=== PATIENT | male | born 1940 | race Hispanic/Latino ===

== ENCOUNTER 2017-02-19 02:04 | Emergency (ER) | payer MEDICARE ==
--- NOTE | 2017-02-19 02:45 | ED PDOC ---
Arrival/HPI - General Chief Complaint: Upper Extremity Problem/Injury Time Seen by Provider: 02/19/17 02:22 Historian: Patient - History of Present Illness Narrative History of Present Illness (Text): you were treated in the ED today for left hand pain related to stacking papers on a skid but no trauma/direct injury to the left hand. now with redness/mild swelling to the back of left-mid hand. otherwise without any nausea/vomiting/ headache/dizziness/difficulty breathing/chest pain/abdomen pain/numbness/ tingling/loss of limb function/pain with urination. 02/19/17 02:42 Time/Duration: 24 hours Symptom Onset: Sudden Symptom Course: Unchanged Activities at Onset: Light Past Medical History - Provider Review Nursing Documentation Reviewed: Yes - Travel History Have you recently traveled outside [place] w/in the past 3 mons?: No - Psychiatric Hx Substance Use: No - Surgical History Other/Comment: throat cancer 2000 Family/Social History - Physician Review Nursing Documentation Reviewed: Yes Family/Social History: No Known Family HX Smoking Status: Light Smoker < 10 Cigarettes Daily Hx Alcohol Use: No Hx Substance Use: No Allergies/Home Meds Allergies/Adverse Reactions: Allergies No Known Allergies Allergy (Verified 02/19/17 02:13) Review of Systems - Physician Review All systems were reviewed & negative as marked: Yes - Review of Systems Constitutional: Normal Eyes: Normal ENT: Normal Respiratory: Normal Cardiovascular: Normal Gastrointestinal: Normal Genitourinary Male: Normal Musculoskeletal: Joint Swelling Skin: Other (left hand redness/swelling) Neurological: Normal Endocrine: Normal Hemo/Lymphatic: Normal Psychiatric: Normal Physical Exam Vital Signs Reviewed: Yes Vital Signs Temp Pulse Resp BP Pulse Ox 02/19/17 02:05 98.0 F 77 19 121/79 100 Temperature: Afebrile Blood Pressure: Normal Pulse: Regular Respiratory Rate: Normal Appearance: Positive for: Well-Appearing, Non-Toxic, Comfortable Pain Distress: None Mental Status: Positive for: Alert and Oriented X 3 - Systems Exam Head: Present: Atraumatic, Normocephalic Pupils: Present: PERRL Extroacular Muscles: Present: EOMI Conjunctiva: Present: Normal Ears: Present: Normal Mouth: Present: Moist Mucous Membranes Pharnyx: Present: Normal Nose (External): Present: Atraumatic Nose (Internal): Present: Normal Inspection Neck: Present: Normal Range of Motion Respiratory/Chest: Present: Clear to Auscultation, Good Air Exchange Cardiovascular: Present: Regular Rate and Rhythm Abdomen: No: Tenderness, Distention, Normal Bowel Sounds, Peritoneal Signs, Rebound, Guarding, McBurney's Point Tender, Rovsing's Sign Present, Hernias, Feeding Tubes, Ostomy Tubes, Mass/Organomegaly, Scars, Other Back: Present: Normal Inspection Upper Extremity: Present: Other (left extensor mid-left hand with area of mild erythema swelling wo fluctuance/crepitus. otherwise mild discomfort over redness area wo any other bony tenderness or snuffbox tenderness. +warm/ sensation/cap refill/pink/radial pulse+.) Lower Extremity: Present: Normal Inspection Neurological: Present: GCS=15, CN II-XII Intact, Speech Normal Skin: Present: Warm, Other (see ue) Psychiatric: Present: Alert, Oriented x 3, Normal Insight, Normal Concentration Medical Decision Making ED Course and Treatment: you have a history of throat cancer and are speaking in your normal voice and were treated in the ED today for left hand pain related to stacking papers on a skid but no trauma/direct injury to the left hand. now with redness/mild swelling to the back of left-mid hand. otherwise without any nausea/vomiting/ headache/dizziness/difficulty breathing/chest pain/abdomen pain/numbness/ tingling/loss of limb function/pain with urination. You were otherwise breathing easily, smiling, good strength/sensation, walking easily, clear lungs , no abdomen tenderness, left back of hand mild-mid redness/swelling with mild discomfort over the redness area without any other bony tenderness and with positive good pulse/sensation/pink, no fever temp 98, stable heart rate 77, stable breathing rate 19, excellent oxygen level 100% room air, stable blood pressure 121/79, radiology left hand xray area of 3rd finger bony disruption thus splint placed for comfort, tylenol and keflex done in the ED with improvement, counselled to rest left upper extremity and thus discharged home left hand skin infection. 1. Recommend tylenol as directed for pain. 2. Recommend keflex as directed for infection control. 3. Recommend follow-up primary care 1-2 days to review symptoms, referral to orthopedics/hand surgery clinic. 4. If any worsening pain, fever, chills, nausea, vomiting, difficulty breathing, numbness, loss of limb function, pain with urination or any medical condition then return to the ED. 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 - Medication Orders Current Medication Orders: Acetaminophen (Tylenol 160mg/5ml Oral Soln) 650 mg PO ONCE ONE Stop: 02/19/17 03:03 Cephalexin Monohydrate (Keflex) 500 mg PO ONCE ONE PRN Reason: Protocol Stop: 02/19/17 03:05 Discontinued Medications Acetaminophen (Tylenol 325mg Tab) 975 mg PO STAT STA Stop: 02/19/17 02:42 Last Admin: 02/19/17 02:51 Dose: Cephalexin Monohydrate (Keflex) 500 mg PO STAT STA PRN Reason: Protocol Stop: 02/19/17 02:42 Last Admin: 02/19/17 02:52 Dose: Disposition/Present on Arrival - Present on Arrival Any Indicators Present on Arrival: No History of DVT/PE: No History of Uncontrolled Diabetes: No Urinary Catheter: No History of Decub. Ulcer: No History Surgical Site Infection Following: None - Disposition Have Diagnosis and Disposition been Completed?: Yes Diagnosis: Hand injury, Cellulitis of hand, left Disposition: HOME/ ROUTINE Disposition Time: 03:10 Patient Plan: Discharge Condition: IMPROVED Discharge Instructions (ExitCare): Cellulitis (ED) Additional Instructions: you have a history of throat cancer and are speaking in your normal voice and were treated in the ED today for left hand pain related to stacking papers on a skid but no trauma/direct injury to the left hand. now with redness/mild swelling to the back of left-mid hand. otherwise without any nausea/vomiting/ headache/dizziness/difficulty breathing/chest pain/abdomen pain/numbness/ tingling/loss of limb function/pain with urination. You were otherwise breathing easily, smiling, good strength/sensation, walking easily, clear lungs , no abdomen tenderness, left back of hand mild-mid redness/swelling with mild discomfort over the redness area without any other bony tenderness and with positive good pulse/sensation/pink, no fever temp 98, stable heart rate 77, stable breathing rate 19, excellent oxygen level 100% room air, stable blood pressure 121/79, radiology left hand xray area of 3rd finger bony disruption thus splint placed for comfort and be non-weight bearing till first clinic visit , tylenol and keflex done in the ED with improvement, counselled to rest left upper extremity and thus discharged home left hand skin infection. 1. Recommend tylenol as directed for pain. 2. Recommend keflex as directed for infection control. 3. Recommend follow-up primary care 1-2 days to review symptoms, get final xray report, referral to orthopedics/hand surgery clinic. 4. If any worsening pain, fever, chills, nausea, vomiting, difficulty breathing, numbness , loss of limb function, pain with urination or any medical condition then return to the ED. Prescriptions: Acetaminophen [Acetaminophen Oral Soln] 320 mg PO Q6 PRN #1 bottle PRN Reason: Pain, Mild (1-3) Cephalexin Susp [Keflex] 500 mg PO Q6 10 Days #1 bottle Forms: [employer] (Arabic), WORK NOTE
[2017-02-19] MEDS ORDERED: Acetaminophen 650mg/20.3ml solution UD PO ONE (03:02)
[2017-02-19] MEDS ORDERED: Cephalexin Susp 250 MG/5 ML PO ONE (03:04)
[2017-02-19 03:29] VITALS: BP 125/82; PULSE 82; RESP 17; TEMP 98.2; O2SAT 98
--- NOTE | 2017-02-19 09:31 | RAD ---
PROCEDURE: Left Hand Radiographs. HISTORY: 76 M with left hand pain COMPARISON: None. FINDINGS: BONES: Normal. No fracture. JOINTS: Normal. No osteoarthritic changes. SOFT TISSUES: There is a small amount of a amorphous soft tissue calcifications seen along the palmar aspect of the 3rd metacarpal head. Nonspecific. OTHER FINDINGS: None. IMPRESSION: No evidence fracture or arthritis.
== END 2017-02-19 03:29 | disposition home or self-care (01) ==
LOC: ED 02:04
DX: L03.114 Cellulitis of left upper limb (principal); S69.92XA Unspecified injury of left wrist, hand and finger(s), initial encounter; X58.XXXA Exposure to other specified factors, initial encounter; F17.210 Nicotine dependence, cigarettes, uncomplicated

== ENCOUNTER 2017-08-01 19:02 | Inpatient (IN) | payer MEDICARE, OTHER ==
[2017-08-01] MEDS ORDERED: Sodium Chloride 0.9% 1,000 ML IV SCH (19:45)
--- NOTE | 2017-08-01 19:46 | ED PDOC ---
Arrival/HPI - General Chief Complaint: ENT Problem Time Seen by Provider: 08/01/17 19:23 Historian: Patient - History of Present Illness Narrative History of Present Illness (Text): 08/01/17 19:40 77 year old male, whose PMH includes throat cancer treated in 1999, who presents to the emergency department complaining of difficulty swallowing for the past 3-4 weeks. Patient has been unable to keep anything down and has experienced weight loss, according to family. Patient notes he has not had any follow up care for a while. Patient denies fever, chills, shortness of breath, chest pain, nausea, vomiting, diarrhea. Additionally, patient complains of having intermittent abdominal discomfort. Time/Duration: < month Symptom Onset: Sudden Symptom Course: Unchanged Past Medical History - Provider Review Nursing Documentation Reviewed: Yes - Infectious Disease Hx of Infectious Diseases: None - Psychiatric Hx Substance Use: No - Surgical History Other/Comment: throat cancer 1999 - Anesthesia Hx Anesthesia: Yes Family/Social History - Physician Review Nursing Documentation Reviewed: Yes Family/Social History: Unknown Family HX Smoking Status: Light Smoker < 10 Cigarettes Daily Hx Alcohol Use: No Hx Substance Use: No Allergies/Home Meds Allergies/Adverse Reactions: Allergies No Known Allergies Allergy (Verified 02/19/17 02:13) Review of Systems - Physician Review All systems were reviewed & negative as marked: Yes - Review of Systems Constitutional: Weight Change. absent: Fevers Respiratory: absent: SOB Cardiovascular: absent: Chest Pain Gastrointestinal: Abdominal Pain, Food Intolerance. absent: Diarrhea, Nausea, Vomiting Genitourinary Male: absent: Dysuria Musculoskeletal: absent: Back Pain Physical Exam Vital Signs Reviewed: Yes Vital Signs Temp Pulse Resp BP Pulse Ox 08/02/17 00:18 63 14 111/68 100 08/01/17 19:41 97.4 F L 93 H 17 137/84 100 Temperature: Hypothermic Blood Pressure: Normal Pulse: Tachycardic Respiratory Rate: Normal Appearance: Positive for: Non-Toxic, Comfortable, Cachectic Pain Distress: None Mental Status: Positive for: Alert and Oriented X 3 - Systems Exam Head: Present: Atraumatic, Normocephalic Pupils: Present: PERRL Extroacular Muscles: Present: EOMI Conjunctiva: Present: Normal Mouth: Present: Moist Mucous Membranes, Normal Tounge Pharnyx: Present: Normal. No: ERYTHEMA, EXUDATE, TONSILS ENLARGED Neck: Present: Normal Range of Motion Respiratory/Chest: Present: Clear to Auscultation, Good Air Exchange. No: Respiratory Distress, Accessory Muscle Use, Wheezes, Rales, Rhonchi Cardiovascular: Present: Regular Rate and Rhythm, Normal S1, S2. No: Murmurs Abdomen: Present: Normal Bowel Sounds. No: Tenderness, Distention, Peritoneal Signs, Rebound, Guarding Neurological: Present: GCS=15, CN II-XII Intact, Speech Normal Skin: Present: Warm, Dry, Normal Color. No: Rashes Psychiatric: Present: Alert, Oriented x 3, Normal Insight, Normal Concentration Medical Decision Making ED Course and Treatment: 08/01/17 Impression: 77 year old male with unremarkable physical exam complaining of difficulty swallowing and intermittent abdominal discomfort. Plan: -- CT Chest -- CT abdomen -- CT neck -- EKG -- Labs -- Chest X-ray -- Sodium Chloride -- Reassess and disposition Progress Notes: 08/01/17 20:53 EKG: Ordered, reviewed, and independently interpreted the EKG. Rate : 89 BPM Rhythm : NSR Interpretation : No ST-segment elevations or depressions, no T-wave inversions, normal intervals. 08/01/17 21:21 Chest X-ray reviewed, shows no acute processes. 08/02/17 00:29 CT Neck shows: No acute vascular occlusion or dissection. Hypotrophic P1 segment of the left posterior cerebral artery P2 being well supplied by the anterior circulation. Normal variant insertion of the left vertebral artery into the PICA. Asymmetric opacification of the left mastoid air cells. Recommend clinical correlation with regards to symptoms of mastoiditis. The airway is patent. There is no significant esophageal dilation. The esophagus is essentially decompressed which, in combination with lack of oral contrast, makes it difficult to completely exclude small mucosal lesion. Followup with direct visualization/ endoscopy could be performed if clinically indicated given a history of throat cancer/dysphagia. There appears to be soft tissue edema in the upper lateral neck along the sternocleidomastoid muscles greater on the right of uncertain clinical significance. Clinical correlation recommended. No well-defined mass is identified and no walled off fluid collection. Degenerative changes in the osseous structures. Linear calcification anterior to C2-3. IMPRESSION: Asymmetric opacification of the left mastoid air cells. Recommend clinical correlation with regards to symptoms of mastoiditis. CT Chest shows: No pulmonary embolism identified please note that bolus was optimized for aortic evaluation. No aortic dissection or aneurysm. No pleural or pericardial effusions. Small consolidation is present in the apices, probable atelectasis. Recommend correlation with priors. Punctate area of nodular pleural thickening right anterior lateral lung. Scattered blebs are present. IMPRESSION: No acute findings. CT Abdomen and Pelvis shows: There is inward deformity of the anterior abdominal wall. The liver is decreased in attenuation consistent with fatty infiltration. The gallbladder, spleen, pancreas are normal. Renal cysts. Atherosclerotic calcifications in the aorta with prominent thrombus at the bifurcation. The celiac, SMA, renal arteries, LEANDRA are patent. The visualized bowel is normal.Please note the inferior aspect of the pelvis is excluded from imaging A normal appendix is identified series9, im 332 [phone] 354. The osseous structures are normal. IMPRESSION: No acute findings. 08/02/17 00:36 Case discussed with biomedical engineer conche operator, who is aware and agrees with plan. 08/02/17 00:[address] Huang, who is aware and agrees with plan. Accepts pt in to hospitalist service. Pt will go to [facility] observation for dysphasia and failure to thrive. - Lab Interpretations Lab Results: 08/01/17 20:05 08/01/17 20:05 Lab Results 08/01/17 20:05: WBC 6.3 D, RBC 5.24, Hgb 17.0, Hct 49.6, MCV 94.7, MCH 32.4, MCHC 34.3, RDW 14.4, Plt Count 202, MPV 11.6 H 08/01/17 20:05: Sodium 147, Potassium 5.3 H, Chloride 100, Carbon Dioxide 29, Anion Gap 23 H, BUN 32 H, Creatinine 1.1, Est GFR ( Amer) > 60, Est GFR ( Non-Af Amer) > 60, Random Glucose 123 H, Calcium 10.8 H, Total Bilirubin 0.5, AST 35, ALT 34, Alkaline Phosphatase 75, Total Protein 7.8, Albumin 4.6, Globulin 3.2, Albumin/Globulin Ratio 1.4 08/01/17 20:05: PT 11.1, INR 0.97, APTT 27.2 I have reviewed the lab results: Yes - RAD Interpretation Radiology Orders: 08/01/17 19:40 CHEST PORTABLE [RAD] Stat 08/01/17 19:43 NECK,CHEST,ABD.PELV W/CONTRAST [CT] Stat Surgical Technologist: ED Physician, Radiologist - EKG Interpretation Interpreted by ED Physician: Yes Type: 12 lead EKG - Medication Orders Current Medication Orders: Sodium Chloride (Sodium Chloride 0.9%) 1,000 mls @ 100 mls/hr IV .Q10H LYLY Last Admin: 08/01/17 20:18 Dose: 100 mls/hr eMAR Start Stop Document 08/01/17 20:18 RG (Rec: 08/01/17 20:18 RG [id number]) Intravenous Solution Start Date 08/01/17 Start Time 20:18 - Scribe Statement The provider has reviewed the documentation as recorded by the Mike Funez Provider Scribe Attestation: All medical record entries made by the Scribe were at my direction and personally dictated by me. I have reviewed the chart and agree that the record accurately reflects my personal performance of the history, physical exam, medical decision making, and the department course for this patient. I have also personally directed, reviewed, and agree with the discharge instructions and disposition. Disposition/Present on Arrival - Present on Arrival Any Indicators Present on Arrival: No History of DVT/PE: No History of Uncontrolled Diabetes: No Urinary Catheter: No History of Decub. Ulcer: No History Surgical Site Infection Following: None - Disposition Have Diagnosis and Disposition been Completed?: Yes Diagnosis: Dysphagia, Failure to thrive Disposition: HOSPITALIZED Disposition Time: 00:48 Condition: STABLE Forms: [employer] (Greek)
[2017-08-01 20:26] LABS: MEAN CELL VOLUME 94.7 fl (80.0-105.0); MEAN CORPUSCULAR HEMOGLOBIN 32.4 pg (25.0-35.0); MEAN CORPUSCULAR HGB CONC 34.3 g/dl (31.0-37.0); MEAN PLATELET VOLUME 11.6 fl (7.0-11.0); RBC 5.24 10^6/uL (3.5-6.1); RED CELL DISTRIBUTION WIDTH 14.4 % (11.5-14.5); WHITE BLOOD COUNT 6.3 10^3/ul (4.5-11.0)
[2017-08-01 20:36] LABS: INR 0.97 (0.93-1.08); PARTIAL THROMBOPLASTIN TIME 27.2 Seconds (25.1-36.5); PROTHROMBIN TIME 11.1 SECONDS (9.4-12.5)
[2017-08-01 20:37] LABS: ALB/GLOB RATIO 1.4 (1.1-1.8); ALBUMIN 4.6 g/dL (3.0-4.8); ALT/SGPT 34 U/L (7-56); AST/SGOT 35 U/L (17-59); BLOOD UREA NITROGEN 32 mg/dL (7-21); CALCIUM 10.8 mg/dL (8.4-10.5); GFR AFRICAN-AMERICAN > 60; GFR NON-AFRICAN AMERICAN > 60
[2017-08-01] MEDS ORDERED: Iohexol 350 MG/100 ML VIAL ONE (21:14)
--- NOTE | 2017-08-02 00:26 | CT ---
EXAM: CT Neck With Intravenous Contrast CLINICAL HISTORY: 77 years old, male; Pain; Abdominal pain; Acute; Chest pain; Type not specified; Throat pain; Additional info: Difficulty swallowing/hx. Throat cancer TECHNIQUE: Axial computed tomography images of the neck with intravenous contrast. All CT scans at this facility use one or more dose reduction techniques, viz.: automated exposure control; ma/kV adjustment per patient size (including targeted exams where dose is matched to indication; i.e. head); or iterative reconstruction technique. Coronal and sagittal reformatted images were created and reviewed. CONTRAST: 100 mL of omni 350 administered intravenously. COMPARISON: No relevant prior studies available. FINDINGS: No acute vascular occlusion or dissection. Hypotrophic P1 segment of the left posterior cerebral artery P2 being well supplied by the anterior circulation. Normal variant insertion of the left vertebral artery into the PICA. Asymmetric opacification of the left mastoid air cells. Recommend clinical correlation with regards to symptoms of mastoiditis. The airway is patent. There is no significant esophageal dilation. The esophagus is essentially decompressed which, in combination with lack of oral contrast, makes it difficult to completely exclude small mucosal lesion. Followup with direct visualization/ endoscopy could be performed if clinically indicated given a history of throat cancer/dysphagia. There appears to be soft tissue edema in the upper lateral neck along the sternocleidomastoid muscles greater on the right of uncertain clinical significance. Clinical correlation recommended. No well-defined mass is identified and no walled off fluid collection. Degenerative changes in the osseous structures. Linear calcification anterior to C2-3. IMPRESSION: Asymmetric opacification of the left mastoid air cells. Recommend clinical correlation with regards to symptoms of mastoiditis. EXAM: CT Chest With Intravenous Contrast CLINICAL HISTORY: 77 years old, male; Pain; Abdominal pain; Acute; Chest pain; Type not specified; Throat pain; Additional info: Difficulty swallowing/hx. Throat cancer TECHNIQUE: Axial computed tomography images of the chest with intravenous contrast. All CT scans at this facility use one or more dose reduction techniques, viz.: automated exposure control; ma/kV adjustment per patient size (including targeted exams where dose is matched to indication; i.e. head); or iterative reconstruction technique. Coronal and sagittal reformatted images were created and reviewed. CONTRAST: 100 mL of omni 350 administered intravenously. COMPARISON: No relevant prior studies available. FINDINGS: No pulmonary embolism identified please note that bolus was optimized for aortic evaluation. No aortic dissection or aneurysm. No pleural or pericardial effusions. Small consolidation is present in the apices, probable atelectasis. Recommend correlation with priors. Punctate area of nodular pleural thickening right anterior lateral lung. Scattered blebs are present. IMPRESSION: No acute findings. EXAM: CT Abdomen and Pelvis With Intravenous Contrast EXAM DATE/TIME: 08/01/2017 7:43 PM CLINICAL HISTORY: 77 years old, male; Pain; Abdominal pain; Acute; Chest pain; Type not specified; Throat pain; Additional info: Difficulty swallowing/hx. Throat cancer TECHNIQUE: Axial computed tomography images of the abdomen and pelvis with intravenous contrast. All CT scans at this facility use one or more dose reduction techniques, viz.: automated exposure control; ma/kV adjustment per patient size (including targeted exams where dose is matched to indication; i.e. head); or iterative reconstruction technique. Coronal and sagittal reformatted images were created and reviewed. CONTRAST: 100 mL of omni 350 administered intravenously. COMPARISON: DX - CHEST PORTABLE 2017-08-01 19:52 FINDINGS: There is inward deformity of the anterior abdominal wall. The liver is decreased in attenuation consistent with fatty infiltration. The gallbladder, spleen, pancreas are normal. Renal cysts. Atherosclerotic calcifications in the aorta with prominent thrombus at the bifurcation. The celiac, SMA, renal arteries, LEANDRA are patent. The visualized bowel is normal.Please note the inferior aspect of the pelvis is excluded from imaging. A normal appendix is identified series9, im 332 - [id number]. The osseous structures are normal. IMPRESSION: No acute findings.
--- NOTE | 2017-08-02 01:27 | CP.PCM.HP ---
<Virgilio Youngblood - Last Filed: 08/02/17 04:45> History of Present Illness - History of Present Illness History of Present Illness: PGY-1 H&P for Dr[address] Huang CC: "I can't swallow anything" This is a 77 year old male with PMHx throat cancer s/p radiation treatment in 1999 who presented to the hospital with 3 weeks of new onset dysphagia to liquids. He has baseline dysphagia to solid food. Patient states that it began 3 weeks ago when he noticed that after swallowing liquids, he would spit it back up. Per at bedside, she states that she also sees it coming out of his nose as well. Patient does not notice any exacerbating or remitting factors. Patient states that he has lost about 20 pounds within these past 3 weeks. Patient states that he was diagnosed in 1999 with an unspecified type of throat cancer. He received 5 sessions of radiation for his cancer before being sent to [facility]. While he was in [place], he had a biopsy and was later sent to [facility] where he completed his treatments. He was only able to tolerate a liquid diet after his treatments and was drinking protein supplements before this dysphagia to liquids began. Patient was offered treatment in the past for his dysphagia to solids but has refused. He is complaining of abdominal pain from hunger and nausea due to dry mouth. He denies any throat pain, chest pain, dyspnea. PMHx: throat cancer s/p radiation treatment in 1999 PSHx: throat biopsy, right eye cataract surgery Allergies: peanuts Social: Current smoker since age 11. Smokes a pack every 3 days. Denies alcohol. Former marijuana user. Lives with and son. Ambulates at baseline. Family Hx: Father with pancreatic cancer PMD: Dr. Domingo Home meds: Unspecified eye drops Present on Admission - Present on Admission Any Indicators Present on Admission: No Review of Systems - Constitutional Constitutional: absent: Chills, Fever - EENT Eyes: absent: Change in Vision Ears: Decreased Hearing Nose/Mouth/Throat: Dry Mouth. absent: Nasal Congestion - Cardiovascular Cardiovascular: absent: Chest Pain - Respiratory Respiratory: absent: Dyspnea - Gastrointestinal Gastrointestinal: Nausea (per patient, this is due to dry mouth), Other (hunger) . absent: Abdominal Pain, Constipation, Diarrhea - Genitourinary Genitourinary: absent: Dysuria - Musculoskeletal Musculoskeletal: Other (anterior thigh pain) - Integumentary Integumentary: absent: Rash - Neurological Neurological: Weakness. absent: Dizziness - Psychiatric Psychiatric: Change in Appetite (decreased) - Endocrine Endocrine: absent: Palpitations Past Patient History - Infectious Disease Hx of Infectious Diseases: None - Past Social History Smoking Status: Light Smoker < 10 Cigarettes Daily - PSYCHIATRIC Hx Substance Use: No - SURGICAL HISTORY Other/Comment: throat cancer 1999 - ANESTHESIA Hx Anesthesia: Yes Meds Allergies/Adverse Reactions: Allergies Allergy/AdvReac Type Severity Reaction Status Date / Time No Known Allergies Allergy Verified 02/19/17 02:13 Physical Exam - Constitutional Appears: No Acute Distress, Cachectic - Head Exam Head Exam: ATRAUMATIC, NORMOCEPHALIC - Eye Exam Eye Exam: EOMI Pupil Exam: Unequal (right pupil irregularly shaped) - ENT Exam ENT Exam: Mucous Membranes Moist - Neck Exam Additional comments: horizontal scar on right side of neck - Respiratory Exam Respiratory Exam: Clear to Auscultation Bilateral, NORMAL BREATHING PATTERN. absent: Rales, Rhonchi, Wheezes - Cardiovascular Exam Cardiovascular Exam: REGULAR RHYTHM, +S1, +S2 - GI/Abdominal Exam GI & Abdominal Exam: Normal Bowel Sounds, Soft. absent: Distended, Guarding, Hernia, Tenderness - Extremities Exam Extremities exam: Negative for: calf tenderness, pedal edema - Neurological Exam Neurological exam: Alert, Oriented x3 - Psychiatric Exam Psychiatric exam: Anxious - Skin Skin Exam: Dry, Warm Additional comments: Diminished skin turgor Results - Vital Signs Recent Vital Signs: Last Vital Signs Temp 97.4 F L 08/01/17 19:41 Pulse 66 08/02/17 00:57 Resp 18 08/02/17 00:57 BP 122/69 08/02/17 00:57 Pulse Ox 100 08/02/17 00:57 - Labs Result Diagrams: 08/01/17 20:05 08/01/17 20:05 Assessment & Plan - Assessment and Plan (Free Text) Assessment: This is a 77 year old male with PMHx esophageal cancer s/p radiation therapy in 1999 and baseline dysphagia to solids who presented with new onset dysphagia to liquids. Plan: 1. Dysphagia -CT scan reviewed, no obvious etiology -Swallow evaluation -GI consult -Oncology consult -ENT consult -D5 NS @100cc/hr -NPO 2. Weight loss -possibly due to underlying condition Discussed with Dr. Reina Youngblood PGY-1 <Annamaria Huang - Last Filed: 08/02/17 05:06> Results - Vital Signs Recent Vital Signs: Last Vital Signs Temp 98.0 F 08/02/17 02:41 Pulse 62 08/02/17 02:41 Resp 18 08/02/17 02:41 BP 111/68 08/02/17 02:41 Pulse Ox 98 08/02/17 01:48 - Labs Result Diagrams: 08/01/17 20:05 08/01/17 20:05 Attending/Attestation - Attestation I have personally seen and examined this patient.: Yes I have fully participated in the care of the patient.: Yes I have reviewed all pertinent clinical information: Yes Notes (Text): 08/02/17 05:05 Agree with documentation and plan
[2017-08-02] MEDS ORDERED: Dextrose 5%/0.9% NS 1,000 ML IV SCH (01:45)
[2017-08-02] MEDS: Dextrose 5%/0.45% NS 1,000 ML IV SCH ×2 (03:50→15:07)
[2017-08-02 06:33] LABS: BASO # 0.01 K/mm3 (0.0-2.0); BASO % 0.2 % (0.0-3.0); EOS # 0.1 (0.0-0.7); GRAN # 4.24 (1.4-6.5); GRAN % 69.1 % (50.0-68.0); LYMPH # 1.3 (1.2-3.4); LYMPH % 21.2 % (22.0-35.0); MEAN CELL VOLUME 93.8 fl (80.0-105.0); MEAN CORPUSCULAR HEMOGLOBIN 31.4 pg (25.0-35.0); MEAN CORPUSCULAR HGB CONC 33.4 g/dl (31.0-37.0); MEAN PLATELET VOLUME 11.2 fl (7.0-11.0); MONO # 0.5 (0.1-0.6); MONO % 8.5 % (1.0-6.0); RBC 4.37 10^6/uL (3.5-6.1); RED CELL DISTRIBUTION WIDTH 14.6 % (11.5-14.5); WHITE BLOOD COUNT 6.1 10^3/ul (4.5-11.0)
[2017-08-02 06:52] LABS: HEMOGLOBIN 13.7 g/dL (14.0-18.0)
[2017-08-02 07:37] LABS: ALB/GLOB RATIO 1.3 (1.1-1.8); ALBUMIN 3.5 g/dL (3.0-4.8); ALT/SGPT 29 U/L (7-56); AST/SGOT 33 U/L (17-59); BLOOD UREA NITROGEN 25 mg/dL (7-21); CALCIUM 9.2 mg/dL (8.4-10.5); GFR AFRICAN-AMERICAN > 60; GFR NON-AFRICAN AMERICAN > 60
[2017-08-02 07:46] LABS: FREE T4 0.89 ng/dL (0.78-2.19)
--- NOTE | 2017-08-02 09:26 | RAD ---
HISTORY: medical clearance COMPARISON: 05/19/2016 FINDINGS: LUNGS: No active pulmonary disease. PLEURA: Small left effusion CARDIOVASCULAR: Normal. OSSEOUS STRUCTURES: No significant abnormalities. VISUALIZED UPPER ABDOMEN: Normal. OTHER FINDINGS: None. IMPRESSION: No active disease.
--- NOTE | 2017-08-02 18:05 | US ---
HISTORY: Leg pain and swelling. Evaluate for DVT PHYSICIAN(S): Austyn Sage MD. TECHNIQUE: Duplex sonography and color-flow Doppler with graded compression were used to evaluate the deep venous systems of both lower extremities. FINDINGS: The visualized deep venous systems of both lower extremities are sonographically normal and compressible. Normal wave forms and augmentation are seen. There is no sonographic evidence for deep venous thrombosis in the visualized segments of both lower extremities. IMPRESSION: No sonographic evidence for deep venous thrombosis in the visualized segments of both lower extremities.
--- NOTE | 2017-08-02 20:35 | CON ---
DATE: 08/02/2017 REQUESTING PHYSICIAN: Waldemar Harley MD REASON FOR CONSULTATION: I have been asked to see this 77-year-old male diagnosed with throat cancer in 1999 who underwent radiation therapy to his throat cancer at that time and subsequently has not been able to swallow food. The patient has been taking liquids including nutritional liquid supplements for over 15 years. The patient states that over the last 3 weeks he has had difficulty swallowing liquids. The patient states that initially he is able to swallow a small amount and then regurgitates liquids thereafter. He has lost about 20 pounds in the last [address] scan of the chest, abdomen, pelvis and neck just reveal some nonspecific soft tissue swelling in the lateral neck, right greater than left along the sternocleidomastoid. He denies any rectal bleeding or melena. He denies abdominal pain. PAST MEDICAL HISTORY: As above. Again, he has a history of throat cancer, treated with radiation in 1999. PAST SURGICAL HISTORY: Notable for right cataract surgery and throat biopsy. SOCIAL HISTORY: Patient has smoked for over 60 years. He currently smokes approximately half pack a day. FAMILY HISTORY: Notable for father with pancreatic cancer. REVIEW OF SYSTEM: A 14-point review of systems is notable for dysphagia to liquids and weight loss. MEDICATIONS: At home are not known. PHYSICAL EXAMINATION: GENERAL: Thin male lying in bed, in no acute distress. VITAL SIGNS: Reveal temperature of 97.7, blood pressure 103/63, heart rate of 58. HEENT: Reveals sclerae to be white. Conjunctivae pink. NECK: Has a leathery texture to it. There is no obvious mass. The neck appears firm and rigid. CHEST: Reveal lungs to be clear. HEART: Exam reveals regular rate and rhythm. ABDOMEN: Soft, nontender. EXTREMITIES: Show no edema. LABORATORY DATA: Reveal white blood cell count of 6.1, hemoglobin 13.7, platelet count 174,000. Coags are negative. Chemistries reveal sodium 146, BUN 25, creatinine 0.8, magnesium 2.4. TSH is elevated at 6.41. IMPRESSION: This is a 77-year-old male with probable oropharyngeal dysphagia with a history of throat cancer treated with radiation therapy, one must also rule out a radiation induced esophageal stricture versus a second primary malignancy in either the throat or esophagus. RECOMMENDATIONS: 1. Agree with ENT evaluation. 2. Swallowing evaluation. 3. We will perform an upper endoscopy in the morning. Shane Escobar MD
--- NOTE | 2017-08-02 22:42 | CARD ---
APPROVED REPORT EKG Measurement Heart [id number] <Conclusion> Normal sinus rhythm Normal ECG
[2017-08-03] MEDS: Dextrose 5%/0.45% NS 1,000 ML IV SCH ×3 (00:22→20:00)
--- NOTE | 2017-08-03 05:55 | CON ---
DATE: HISTORY OF PRESENT ILLNESS: This is a 77-year-old male, Amharic-speaking, seen with family member, with a past medical history of throat cancer, treated in 1999, presents to the emergency room complaining of difficulty swallowing for the past 3 to 4 weeks with noted greater than 20-pound weight loss, unable to keep anything down, experienced weight loss according to the family. Notes he has not had any followup care. Denies any fever, chills, shortness of breath or recent infection. PAST MEDICAL HISTORY: As stated, of laryngeal cancer, details not discussed. ALLERGIES: NO KNOWN ADVERSE REACTIONS. NO KNOWN DRUG ALLERGIES. REVIEW OF SYSTEMS: All system reviewed and negative . CONSTITUTIONAL: Weight change. RESPIRATORY: No shortness of breath. CARDIOVASCULAR: No chest pain. GASTROINTESTINAL: No abdominal pain or discomfort, was nondistended. GENITOURINARY: No difficulty with urinating. PHYSICAL EXAMINATION: GENERAL: Patient was seen at this time lying in bed with family member, asleep. Patient did not want laryngoscopy at this time. VITAL SIGNS: At the time of exam noted to be 97.4, pulse of 63, respiratory rate 14, blood pressure 111/68, and pulse ox of 100%. Patient has normal blood pressure, slightly tachycardiac at times, respiratory rate was noted to be normal. NECK: Noted to be soft and nontender. IMPRESSION AND PLAN: A 77-year-old male on physical exam complaining of difficulty swallowing and intermittent abdominal discomfort with a history of feeding tube, which was removed and has had a limited diet, mostly of thickened liquids, over the last decade. CT of chest, abdomen and neck were done. Impression was questionable mastoid issues. Patient has had a significant history of hearing loss and chronic ear infections with no acute exacerbation. The abdomen was noted to be fine and no acute findings noted. There appears to be a soft tissue edema in the upper lateral neck along the sternocleidomastoid muscle, greater on the right, uncertain clinical significance; most likely secondary to previous surgical procedure. Clinical correlation recommended. No well-defined mass identified. No walled-off fluid collections. White count was 6.3 at time of exam, H and H 17 and 49. Recommendation for this individual for dysphagia. Denying any type of discomfort or odynophagia. Recommendation is a barium swallow to see if there is patency of the esophagus, and to assess the limitation of his swallowing. Also recommended that a feeding tube be placed to improve oral intake and dietary for calorie count, as this patient continues to lose weight. Discussed with family and the family agrees on possible reintroduction of the feeding tube. Milton Calix DO MYRNA
[2017-08-03 08:20] LABS: BASO # 0.01 K/mm3 (0.0-2.0); BASO % 0.2 % (0.0-3.0); EOS # 0.1 (0.0-0.7); GRAN # 4.46 (1.4-6.5); GRAN % 70.1 % (50.0-68.0); HEMOGLOBIN 12.5 g/dL (14.0-18.0); LYMPH # 1.2 (1.2-3.4); LYMPH % 18.4 % (22.0-35.0); MEAN CELL VOLUME 94.3 fl (80.0-105.0); MEAN CORPUSCULAR HEMOGLOBIN 31.3 pg (25.0-35.0); MEAN CORPUSCULAR HGB CONC 33.2 g/dl (31.0-37.0); MEAN PLATELET VOLUME 11.1 fl (7.0-11.0); MONO # 0.6 (0.1-0.6); MONO % 9.3 % (1.0-6.0); RED CELL DISTRIBUTION WIDTH 14.5 % (11.5-14.5); WHITE BLOOD COUNT 6.4 10^3/ul (4.5-11.0)
[2017-08-03 08:30] LABS: ALB/GLOB RATIO 1.2 (1.1-1.8); ALT/SGPT 28 U/L (7-56); AST/SGOT 26 U/L (17-59); BLOOD UREA NITROGEN 12 mg/dL (7-21); CALCIUM 8.9 mg/dL (8.4-10.5); GFR AFRICAN-AMERICAN > 60; GFR NON-AFRICAN AMERICAN > 60
[2017-08-03] MEDS ORDERED: Propofol 10 mg/ml Inj (20 ML) ONE (12:16)
[2017-08-03] MEDS ORDERED: Sodium Chloride 0.9% 1,000 ML IV SCH (12:45)
[2017-08-03] MEDS ORDERED: Potassium Chloride 20 mEq ER Tab PO STA (15:21)
--- NOTE | 2017-08-03 16:09 | CP.PCM.PN ---
Subjective - Date & Time of Evaluation Date of Evaluation: 08/03/17 Time of Evaluation: 16:05 - Subjective Subjective: Patient seen and examined at bedside. Per nursing no acute events occurred overnight. The patient reports difficulty swallowing and spitting up his saliva. He also reports bilateral thigh pain. He denies any chest pain, shortness of breath, fevers, chills, nausea, vomiting, abdominal pain, dizziness , or any other complaints. Objective - Vital Signs/Intake and Output Vital Signs (last 24 hours): Temp Pulse Resp BP Pulse Ox 98 F 58 L 16 124/57 L 98 08/03/17 13:17 08/03/17 13:17 08/03/17 13:17 08/03/17 13:17 08/03/17 13:17 Intake and Output: 08/03/17 08/03/17 06:59 18:59 Intake Total 0 150 Balance 0 150 - Medications Medications: Current Medications Dextrose/Sodium Chloride (Dextrose 5%/0.45% Ns 1000 Ml) 1,000 mls @ 100 mls/hr IV .Q10H [facility] Last Admin: 08/03/17 10:28 Dose: 100 mls/hr Sodium Chloride (Sodium Chloride 0.9%) 1,000 mls @ 100 mls/hr IV .Q10H [facility] Pantoprazole Sodium (Protonix Inj) 40 mg IVP DAILY LYLY Last Admin: 08/03/17 10:30 Dose: 40 mg - Labs Labs: 08/03/17 08:00 08/03/17 08:00 PT 11.1 SECONDS (9.4-12.5) 08/01/17 20:05 INR 0.97 (0.93-1.08) 08/01/17 20:05 APTT 27.2 Seconds (25.1-36.5) 08/01/17 20:05 - Head Exam Head Exam: ATRAUMATIC, NORMAL INSPECTION, NORMOCEPHALIC - Eye Exam Eye Exam: EOMI, Normal appearance, PERRL Pupil Exam: NORMAL ACCOMODATION - ENT Exam ENT Exam: Mucous Membranes Moist, Normal Oropharynx - Respiratory Exam Respiratory Exam: Clear to Ausculation Bilateral - Cardiovascular Exam Cardiovascular Exam: REGULAR RHYTHM, +S1, +S2 - GI/Abdominal Exam GI & Abdominal Exam: Soft, Normal Bowel Sounds - Extremities Exam Extremities Exam: Full ROM. absent: Joint Swelling, Pedal Edema, Tenderness - Back Exam Back Exam: NORMAL INSPECTION. absent: paraspinal tenderness - Neurological Exam Neurological Exam: Alert, Awake, CN II-XII Intact, Oriented x3 - Psychiatric Exam Psychiatric exam: Normal Affect, Normal Mood - Skin Skin Exam: Dry, Intact, Normal Color Assessment and Plan - Assessment and Plan (Free Text) Assessment: This is a 77 year old male with PMHx esophageal cancer s/p radiation therapy in 1999 and baseline dysphagia to solids who presented with new onset dysphagia to liquids. Plan: 1. Dysphagia -CT scan reviewed, no obvious etiology -Swallow evaluation failed. -GI consult. Rec's appreciated -Endoscopy showed esophageal stricture. -Oncology consult.Will f/u with rec's. -ENT consulted. Rec's appreciated. -D5 NS @100cc/hr -NPO 2. Weight loss -possibly due to underlying condition -Patient expected to have Peg tube placed tomorrow. Patient family agreeable. Will f/u results. Discussed with Dr. Zuleika Beard PGY-1
[2017-08-04 07:59] LABS: BASO # 0.01 K/mm3 (0.0-2.0); BASO % 0.2 % (0.0-3.0); EOS # 0.1 (0.0-0.7); EOS % 2.7 % (1.5-5.0); GRAN # 3.17 (1.4-6.5); GRAN % 62.2 % (50.0-68.0); HEMOGLOBIN 13.3 g/dL (14.0-18.0); LYMPH # 1.2 (1.2-3.4); LYMPH % 22.5 % (22.0-35.0); MEAN CELL VOLUME 92.6 fl (80.0-105.0); MEAN CORPUSCULAR HEMOGLOBIN 31.6 pg (25.0-35.0); MEAN CORPUSCULAR HGB CONC 34.1 g/dl (31.0-37.0); MEAN PLATELET VOLUME 11.2 fl (7.0-11.0); MONO # 0.6 (0.1-0.6); MONO % 12.4 % (1.0-6.0); RBC 4.21 10^6/uL (3.5-6.1); RED CELL DISTRIBUTION WIDTH 14.1 % (11.5-14.5); WHITE BLOOD COUNT 5.1 10^3/ul (4.5-11.0)
[2017-08-04 08:11] LABS: ALB/GLOB RATIO 1.1 (1.1-1.8); ALBUMIN 2.9 g/dL (3.0-4.8); ALT/SGPT 29 U/L (7-56); AST/SGOT 27 U/L (17-59); BLOOD UREA NITROGEN 6 mg/dL (7-21); CALCIUM 8.8 mg/dL (8.4-10.5); GFR AFRICAN-AMERICAN > 60; GFR NON-AFRICAN AMERICAN > 60
[2017-08-04 08:25] LABS: INR 1.03 (0.93-1.08); PARTIAL THROMBOPLASTIN TIME 27.4 Seconds (25.1-36.5); PROTHROMBIN TIME 11.9 SECONDS (9.4-12.5)
[2017-08-04] MEDS: Dextrose 5%/0.45% NS 1,000 ML IV SCH ×2 (10:07→19:08)
--- NOTE | 2017-08-04 15:53 | CP.PCM.PN ---
Subjective - Date & Time of Evaluation Date of Evaluation: 08/04/17 Time of Evaluation: 15:50 - Subjective Subjective: Patient seen and examined at bedside. Per nursing no acute events occurred overnight. The patient still reports spitting up his saliva due to his inability to swallow. The patient reports feeling fine. The patient denies any chest pain, shortness of breath, fevers, chills, changes in vision, dizziness, syncopal episodes, or any other complaints. Objective - Vital Signs/Intake and Output Vital Signs (last 24 hours): Temp Pulse Resp BP Pulse Ox 97.6 F 58 L 20 104/63 98 08/04/17 06:00 08/04/17 06:00 08/04/17 06:00 08/04/17 06:00 08/04/17 06:00 Intake and Output: 08/04/17 08/04/17 06:59 18:59 Intake Total 0 0 Output Total 600 Balance -600 0 - Medications Medications: Current Medications Dextrose/Sodium Chloride (Dextrose 5%/0.45% Ns 1000 Ml) 1,000 mls @ 100 mls/hr IV .Q10H [facility] Last Admin: 08/04/17 10:07 Dose: 100 mls/hr Pantoprazole Sodium (Protonix Inj) 40 mg IVP DAILY LYLY Last Admin: 08/04/17 10:07 Dose: 40 mg - Labs Labs: 08/04/17 07:50 08/04/17 07:50 PT 11.9 SECONDS (9.4-12.5) 08/04/17 08:00 INR 1.03 (0.93-1.08) 08/04/17 08:00 APTT 27.4 Seconds (25.1-36.5) 08/04/17 08:00 - Constitutional Appears: Cachectic - Head Exam Head Exam: ATRAUMATIC, NORMAL INSPECTION, NORMOCEPHALIC - Eye Exam Eye Exam: EOMI, Normal appearance, PERRL Pupil Exam: NORMAL ACCOMODATION - ENT Exam ENT Exam: Mucous Membranes Moist, Normal Oropharynx - Neck Exam Neck Exam: Normal Inspection - Respiratory Exam Respiratory Exam: Clear to Ausculation Bilateral, NORMAL BREATHING PATTERN - Cardiovascular Exam Cardiovascular Exam: REGULAR RHYTHM, +S1, +S2 - GI/Abdominal Exam GI & Abdominal Exam: Soft, Normal Bowel Sounds - Neurological Exam Neurological Exam: Alert, Awake, CN II-XII Intact, Oriented x3 - Psychiatric Exam Psychiatric exam: Normal Affect, Normal Mood - Skin Skin Exam: Dry, Intact, Normal Color Assessment and Plan - Assessment and Plan (Free Text) Assessment: This is a 77 year old male with PMHx esophageal cancer s/p radiation therapy in 1999 and baseline dysphagia to solids who presented with new onset dysphagia to liquids. Plan: 1. Dysphagia -CT scan reviewed, no obvious etiology -Swallow evaluation failed. -GI consult. Rec's appreciated -Endoscopy showed esophageal stricture. Patient expected to have PEG tube placement tomorrow morning at 8 a.m. by Interventional radiology. -Oncology consult.Will f/u with rec's. -ENT consulted. Rec's appreciated. -D5 NS @100cc/hr -NPO 2. Weight loss -possibly due to underlying condition -Patient expected to have Peg tube placed tomorrow at 8a.m. Patient family agreeable. Will f/u results. -Supplements once peg tube placed. Discussed with Dr. Pham Beard PGY-1
[2017-08-04] MEDS ORDERED: Potassium Chloride 20 mEq ER Tab PO ONE (19:32)
[2017-08-05] MEDS: Dextrose 5%/0.45% NS 1,000 ML IV SCH ×2 (02:58→10:53)
[2017-08-05] MEDS ORDERED: Midazolam 2 MG/2 ML VIAL ONE ×2 (08:46→12:39)
[2017-08-05] MEDS ORDERED: Lidocaine 1% Inj (20ml) ONE (08:46)
[2017-08-05] MEDS ORDERED: Lidocaine 2% Inj (20ml) ONE (10:10)
[2017-08-05] MEDS ORDERED: Iodixanol 320 MG/ML 200 ML BOTTLE IV ONE (10:11)
--- NOTE | 2017-08-05 14:28 | CP.PCM.PN ---
<Christ Beard - Last Filed: 08/05/17 16:21> Subjective - Date & Time of Evaluation Date of Evaluation: 08/05/17 Time of Evaluation: 14:23 - Subjective Subjective: Patient seen and examined at bedside. Per nursing no acute events occurred overnight. Patient reports feeling fine. He currently denies any chest pain, shortness of breath, nausea, vomiting, dizziness, abdominal pain, or any other complaints. Objective - Vital Signs/Intake and Output Vital Signs (last 24 hours): Temp Pulse Resp BP Pulse Ox 97.6 F 53 L 24 90/60 L 97 08/05/17 13:46 08/05/17 13:46 08/05/17 13:46 08/05/17 13:46 08/05/17 13:46 Intake and Output: 08/05/17 08/05/17 06:59 18:59 Intake Total 120 150 Output Total 700 500 Balance -580 -350 - Medications Medications: Current Medications Dextrose/Sodium Chloride (Dextrose 5%/0.45% Ns 1000 Ml) 1,000 mls @ 100 mls/hr IV .Q10H [facility] Last Admin: 08/05/17 10:53 Dose: Not Given Pantoprazole Sodium (Protonix Inj) 40 mg IVP DAILY L[facility]LY Last Admin: 08/05/17 10:55 Dose: Not Given - Labs Labs: 08/04/17 07:50 08/04/17 07:50 PT 11.9 SECONDS (9.4-12.5) 08/04/17 08:00 INR 1.03 (0.93-1.08) 08/04/17 08:00 APTT 27.4 Seconds (25.1-36.5) 08/04/17 08:00 - Constitutional Appears: Cachectic - Head Exam Head Exam: ATRAUMATIC, NORMAL INSPECTION, NORMOCEPHALIC - Eye Exam Eye Exam: EOMI, Normal appearance, PERRL Pupil Exam: NORMAL ACCOMODATION - ENT Exam ENT Exam: Mucous Membranes Moist, Normal Exam - Respiratory Exam Respiratory Exam: Clear to Ausculation Bilateral, NORMAL BREATHING PATTERN. absent: Chest Wall Tenderness, Prolonged Expiratory Phase, Respiratory Distress - Cardiovascular Exam Cardiovascular Exam: REGULAR RHYTHM, +S1, +S2 - GI/Abdominal Exam GI & Abdominal Exam: Soft, Normal Bowel Sounds. absent: Rigid, Hyperactive Bowel Sounds - Neurological Exam Neurological Exam: Alert, Awake, CN II-XII Intact - Psychiatric Exam Psychiatric exam: Normal Affect, Normal Mood - Skin Skin Exam: Dry, Intact, Normal Color Assessment and Plan - Assessment and Plan (Free Text) Assessment: This is a 77 year old male with PMHx esophageal cancer s/p radiation therapy in 1999 and baseline dysphagia to solids who presented with new onset dysphagia to liquids. Plan: 1. Dysphagia -CT scan reviewed, no obvious etiology -Swallow evaluation failed. -GI consult. Rec's appreciated -Endoscopy showed esophageal stricture.-G tube placement scheduled for Wednesday per Surgery team. -Oncology consult.Will f/u with rec's. -ENT consulted. Rec's appreciated. -D5 NS @100cc/hr -NPO 2. Weight loss -possibly due to underlying condition -G tube placement scheduled for Wednesday per Surgery team. -Supplements once peg tube placed. Discussed with Dr. Pham Beard PGY-1 <Ghassan Nath - Last Filed: 08/05/17 17:34> Objective - Vital Signs/Intake and Output Vital Signs (last 24 hours): Temp Pulse Resp BP Pulse Ox 97.6 F 53 L 24 90/60 L 97 08/05/17 13:46 08/05/17 13:46 08/05/17 13:46 08/05/17 13:46 08/05/17 13:46 Intake and Output: 08/05/17 08/05/17 06:59 18:59 Intake Total 120 150 Output Total 700 800 Balance -580 -650 - Medications Medications: Current Medications Dextrose/Sodium Chloride (Dextrose 5%/0.45% Ns 1000 Ml) 1,000 mls @ 100 mls/hr IV .Q10H [facility] Last Admin: 08/05/17 10:53 Dose: Not Given Pantoprazole Sodium (Protonix Inj) 40 mg IVP DAILY L[facility] Last Admin: 08/05/17 10:55 Dose: Not Given - Labs Labs: 08/04/17 07:50 08/04/17 07:50 PT 11.9 SECONDS (9.4-12.5) 08/04/17 08:00 INR 1.03 (0.93-1.08) 08/04/17 08:00 APTT 27.4 Seconds (25.1-36.5) 08/04/17 08:00 Attending/Attestation - Attestation I have personally seen and examined this patient.: Yes I have fully participated in the care of the patient.: Yes I have reviewed all pertinent clinical information, including history, physical exam and plan: Yes Notes (Text): Agree with above. Surgery consultation for G tube placement. Continue with iv hydration until then with D5 fluids
--- NOTE | 2017-08-05 14:30 | CT ---
PROCEDURE: Attempted CT-guided gastrostomy tube placement HISTORY: Head and neck CA. Dysphasia. Unable to place endoscopic gastrostomy tube. He may sheet. Needs feeding to PHYSICIAN(S): Austyn Sage MD. TECHNIQUE: The patient was placed supine on the CT scanner preliminary images through upper abdomen performed. Unfortunately, and NG tube could not be advanced the stomach to insufflated with air. The stomach was completely collapsed without fluid or air. A subxiphoid approach was selected the area prepped and draped usual sterile fashion. Conscious sedation monitoring were provided throughout the procedure by a nurse. Two passes were performed through the stomach. 0.035 guidewire appear to coil within the fundus of the stomach. A 7 Qatari dilator was placed and the guidewire removed. The patient was transferred to vascular for guidewire are manipulation and subsequent G-tube placement. FINDINGS: . IMPRESSION: Attempted CT-guided gastrostomy tube placement as described above.
--- NOTE | 2017-08-05 14:31 | VASCULAR ---
PROCEDURE: Attempted fluoroscopic gastrostomy tube placement. HISTORY: Head neck carcinoma. Dysphagia. Unable place endoscopic gastrostomy tube. Attempt percutaneous gastrostomy tube placement. PHYSICIAN(S): Austyn Sage MD. TECHNIQUE: FINDINGS: The patient was placed supine on the arteriogram table and the sub xiphoid dilator prepped and draped usual sterile fashion. Conscious sedation monitoring were provided throughout the procedure by a nurse.0 Contrast was injected initially through the dilator and peritoneal opacification was noted. The dilator was slowly pulled back as contrast was injected in an attempt to opacified the body/ fundus of the stomach. This was unsuccessful. The gastrostomy tube placement was terminated at this point. IMPRESSION: Unsuccessful attempt at percutaneous gastrostomy tube placement as described above.
--- NOTE | 2017-08-05 15:08 | CP.PCM.CON ---
History of Present Illness - History of Present Illness History of Present Illness: General Surgery Consult for Dr. Martinez Reason for consult: esophageal stricture and dysphagia requiring G-tube placement 77M with PMH that includes throat cancer s/p radiation treatment in 1999 who presented to the hospital with 3 weeks of new onset dysphagia to liquids. He has baseline dysphagia to solid food. He reports that he has lost about 20 pounds in past 3 weeks. Patient states that he was diagnosed in 1999 with an unspecified type of throat cancer treated with radiation at [facility]. Patient was diagnosed with esophageal stricture on EGD this admission. GI unable to do PEG tube. IR was consulted to play G-tube but was unsuccessful. General surgery was consulted to do an open G-tube. Patient requires the G-tube due to malnutrition and inability to tolerate oral intake. Patient has no other complaints at this time besides dysphagia. PMD: Dr. Domingo PMH: throat cancer s/p radiation (1999) Meds: eye drops PSH: throat biopsy, right eye cataract surgery Allergy: peanuts FH: pancreatic CA Social: Current smoker since age 11 and smokes a pack every 3 days. Denies alcohol. Former marijuana user. Lives with and son. Ambulates at baseline. Past Patient History - Infectious Disease Hx of Infectious Diseases: None - Past Social History Smoking Status: Light Smoker < 10 Cigarettes Daily - CARDIAC Hx Cardiac Disorders: No - PULMONARY Hx Respiratory Disorders: No - NEUROLOGICAL Hx Neurological Disorder: No - HEENT Hx HEENT Problems: Yes Hx Deafness: Yes - RENAL Hx Chronic Kidney Disease: No - ENDOCRINE/METABOLIC Hx Endocrine Disorders: No - HEMATOLOGICAL/ONCOLOGICAL Hx Blood Transfusions: (UNKNOWN) Hx Blood Transfusion Reaction: (UNKNOWN) - INTEGUMENTARY Hx Dermatological Problems: No - MUSCULOSKELETAL/RHEUMATOLOGICAL Hx Musculoskeletal Disorders: No Hx Falls: No - GASTROINTESTINAL Hx Gastrointestinal Disorders: Yes HX Swallowing Problems: Yes - GENITOURINARY/GYNECOLOGICAL Hx Genitourinary Disorders: No - PSYCHIATRIC Hx Substance Use: No - SURGICAL HISTORY Hx Surgeries: Yes (Cataract Right eye) - ANESTHESIA Hx Anesthesia Reactions: (UNKNOWN) Hx Malignant Hyperthermia: (UNKNOWN) Meds Allergies/Adverse Reactions: Allergies Allergy/AdvReac Type Severity Reaction Status Date / Time No Known Allergies Allergy Verified 02/19/17 02:13 - Medications Medications: Current Medications Dextrose/Sodium Chloride (Dextrose 5%/0.45% Ns 1000 Ml) 1,000 mls @ 100 mls/hr IV .Q10H [facility] Last Admin: 08/05/17 10:53 Dose: Not Given Pantoprazole Sodium (Protonix Inj) 40 mg IVP DAILY [facility] Last Admin: 08/05/17 10:55 Dose: Not Given Physical Exam - Additional Findings Additional findings: Physical Exam - Constitutional Appears: No Acute Distress, Cachectic - Head Exam Head Exam: ATRAUMATIC, NORMOCEPHALIC - Eye Exam Eye Exam: EOMI Pupil Exam: Unequal (right pupil irregularly shaped) - ENT Exam ENT Exam: Mucous Membranes Moist - Neck Exam Additional comments: horizontal scar on right side of neck - Respiratory Exam Respiratory Exam: Clear to Auscultation Bilateral, NORMAL BREATHING PATTERN. absent: Rales, Rhonchi, Wheezes - Cardiovascular Exam Cardiovascular Exam: REGULAR RHYTHM, +S1, +S2 - GI/Abdominal Exam GI & Abdominal Exam: Normal Bowel Sounds, Soft. absent: Distended, Guarding, Hernia, Tenderness dressing from IR G-tube attempt - Extremities Exam Extremities exam: Negative for: calf tenderness, pedal edema - Neurological Exam Neurological exam: Alert, Oriented x3 - Psychiatric Exam Psychiatric exam: Normal Mood, Normal affect - Skin Skin Exam: Dry, Warm Additional comments: Results - Vital Signs Recent Vital Signs: Last Vital Signs Temp 97.6 F 08/05/17 13:46 Pulse 53 L 08/05/17 13:46 Resp 24 08/05/17 13:46 BP 90/60 L 08/05/17 13:46 Pulse Ox 97 08/05/17 13:46 - Labs Result Diagrams: 08/04/17 07:50 08/04/17 07:50 Assessment & Plan - Assessment and Plan (Free Text) Assessment: 77M with H esophageal cancer s/p radiation who presents with esophageal stricture and dysphagia requiring G-tube Plan: -Plan for Open G-tube in OR either Wednesday or Wednesday -Medical optimization -Pre-operative work-up -Discussed with Dr. Juan Loredo PGY1 - Date & Time Date: 08/05/17 Time: 15:00
[2017-08-06] MEDS: Dextrose 5%/0.45% NS 1,000 ML IV SCH ×3 (06:03→18:32)
--- NOTE | 2017-08-06 08:07 | CP.PCM.PN ---
Objective - Vital Signs/Intake and Output Vital Signs (last 24 hours): Temp Pulse Resp BP Pulse Ox 97.7 F 53 L 20 96/52 L 98 08/06/17 06:00 08/06/17 06:00 08/06/17 06:00 08/06/17 06:00 08/06/17 06:00 Intake and Output: 08/06/17 08/06/17 06:59 18:59 Intake Total 0 Output Total 700 Balance -700 - Medications Medications: Current Medications Dextrose/Sodium Chloride (Dextrose 5%/0.45% Ns 1000 Ml) 1,000 mls @ 100 mls/hr IV .Q10H [facility] Last Admin: 08/06/17 06:03 Dose: 100 mls/hr Pantoprazole Sodium (Protonix Inj) 40 mg IVP DAILY [facility] Last Admin: 08/05/17 10:55 Dose: Not Given - Labs Labs: 08/04/17 07:50 08/04/17 07:50 PT 11.9 SECONDS (9.4-12.5) 08/04/17 08:00 INR 1.03 (0.93-1.08) 08/04/17 08:00 APTT 27.4 Seconds (25.1-36.5) 08/04/17 08:00
[2017-08-06 09:31] LABS: BASO # 0.01 K/mm3 (0.0-2.0); BASO % 0.2 % (0.0-3.0); EOS # 0.2 (0.0-0.7); EOS % 3.6 % (1.5-5.0); GRAN # 3.14 (1.4-6.5); GRAN % 66.9 % (50.0-68.0); HEMOGLOBIN 12.6 g/dL (14.0-18.0); LYMPH # 0.9 (1.2-3.4); LYMPH % 19.1 % (22.0-35.0); MEAN CORPUSCULAR HEMOGLOBIN 31.3 pg (25.0-35.0); MEAN CORPUSCULAR HGB CONC 34.4 g/dl (31.0-37.0); MONO # 0.5 (0.1-0.6); MONO % 10.2 % (1.0-6.0); RBC 4.02 10^6/uL (3.5-6.1); RED CELL DISTRIBUTION WIDTH 13.9 % (11.5-14.5); WHITE BLOOD COUNT 4.7 10^3/ul (4.5-11.0)
[2017-08-06 09:40] LABS: INR 1.07 (0.93-1.08); PROTHROMBIN TIME 12.3 SECONDS (9.4-12.5)
[2017-08-06 09:41] LABS: PARTIAL THROMBOPLASTIN TIME 27.9 Seconds (25.1-36.5)
[2017-08-06 09:49] LABS: ALB/GLOB RATIO 1.2 (1.1-1.8); ALBUMIN 2.9 g/dL (3.0-4.8); ALT/SGPT 31 U/L (7-56); AST/SGOT 22 U/L (17-59); BLOOD UREA NITROGEN 3 mg/dL (7-21); CALCIUM 8.8 mg/dL (8.4-10.5); GFR AFRICAN-AMERICAN > 60; GFR NON-AFRICAN AMERICAN > 60
--- NOTE | 2017-08-06 11:45 | CP.PCM.PN ---
Subjective - Date & Time of Evaluation Date of Evaluation: 08/06/17 Time of Evaluation: 11:44 - Subjective Subjective: Patient seen and examined at bedside. Per nursing no acute events occurred overnight. Patient denies any chest pain, fevers, chills, nausea, vomiting, abdominal pain, dizziness, or any other complaints. Objective - Vital Signs/Intake and Output Vital Signs (last 24 hours): Temp Pulse Resp BP Pulse Ox 97.7 F 53 L 20 96/52 L 98 08/06/17 06:00 08/06/17 06:00 08/06/17 06:00 08/06/17 06:00 08/06/17 06:00 Intake and Output: 08/06/17 08/06/17 06:59 18:59 Intake Total 0 Output Total 700 Balance -700 - Medications Medications: Current Medications Dextrose/Sodium Chloride (Dextrose 5%/0.45% Ns 1000 Ml) 1,000 mls @ 100 mls/hr IV .Q10H [facility] Last Admin: 08/06/17 10:11 Dose: 100 mls/hr Potassium Chloride (Potassium Chloride 20 Meq/100 Ml) 20 meq in 100 mls @ 50 mls/hr IVPB ONCE ONE Stop: 08/06/17 11:50 Last Admin: 08/06/17 10:11 Dose: 50 mls/hr Pantoprazole Sodium (Protonix Inj) 40 mg IVP DAILY [facility] Last Admin: 08/06/17 09:26 Dose: 40 mg - Labs Labs: 08/06/17 09:15 08/06/17 09:15 PT 12.3 SECONDS (9.4-12.5) 08/06/17 09:15 INR 1.07 (0.93-1.08) 08/06/17 09:15 APTT 27.9 Seconds (25.1-36.5) 08/06/17 09:15 - Constitutional Appears: Cachectic - Head Exam Head Exam: ATRAUMATIC, NORMAL INSPECTION, NORMOCEPHALIC - Eye Exam Eye Exam: Normal appearance, PERRL Pupil Exam: NORMAL ACCOMODATION - ENT Exam ENT Exam: Mucous Membranes Moist, Normal Oropharynx - Neck Exam Neck Exam: absent: Lymphadenopathy - Respiratory Exam Respiratory Exam: Clear to Ausculation Bilateral, NORMAL BREATHING PATTERN. absent: Prolonged Expiratory Phase, Respiratory Distress - Cardiovascular Exam Cardiovascular Exam: REGULAR RHYTHM, +S1, +S2 - GI/Abdominal Exam GI & Abdominal Exam: Soft, Normal Bowel Sounds - Extremities Exam Extremities Exam: Full ROM. absent: Pedal Edema - Back Exam Back Exam: NORMAL INSPECTION. absent: CVA tenderness (R), paraspinal tenderness - Neurological Exam Neurological Exam: Alert, Awake, CN II-XII Intact, Oriented x3 - Psychiatric Exam Psychiatric exam: Normal Affect, Normal Mood - Skin Skin Exam: Dry, Intact Assessment and Plan - Assessment and Plan (Free Text) Assessment: This is a 77 year old male with PMHx esophageal cancer s/p radiation therapy in 1999 and baseline dysphagia to solids who presented with new onset dysphagia to liquids. Plan: 1. Dysphagia -CT scan reviewed, no obvious etiology -Swallow evaluation failed. -GI consult. Rec's appreciated -Endoscopy showed esophageal stricture.-G tube placement tentatively scheduled for today per Surgery team. -Oncology consult.Will f/u with rec's. -ENT consulted. Rec's appreciated. -D5 NS @100cc/hr -NPO 2. Weight loss -possibly due to underlying condition -G tube placement scheduled for today. per Surgery team. -Supplements once G tube placed. Discussed with Dr. Zuleika Beard PGY-1
[2017-08-06] MEDS ORDERED: Sevoflurane - Inhalation Anesthetic Liq (250 ml) ONE (14:42)
[2017-08-06] MEDS ORDERED: Propofol 10 mg/ml Inj (20 ML) ONE ×2 (14:42→15:26)
[2017-08-06] MEDS ORDERED: Desflurane Inhalation Anesthetic Liq (240 ml) ONE (14:42)
[2017-08-06] MEDS ORDERED: Phenylephrine 10 mg/ml Inj ONE (14:42)
[2017-08-06] MEDS ORDERED: Succinylcholine 200 mg/10 ml Inj IV ONE ×2 (14:42)
[2017-08-06] MEDS ORDERED: Etomidate 20 mg/10ml Inj IV ONE (14:46)
[2017-08-06] MEDS: Bupivacaine 0.5% Inj(30mL) ONE ×2 (15:14→15:18)
[2017-08-06] MEDS ORDERED: Rocuronium 10 mg/ml (5 ml) ONE (15:15)
[2017-08-06] MEDS ORDERED: Esmolol 100 mg/10ml Inj IV ONE (15:34)
[2017-08-06] MEDS ORDERED: Neostigmine Methylsulfate 3mg/3ml Syringe IV ONE (15:38)
[2017-08-06] MEDS ORDERED: HYDROmorphone 0.5 mg/0.5 ml ISec IVP PRN (16:31)
[2017-08-06] MEDS ORDERED: Morphine 4 mg/ml ISec IVP PRN (16:32)
--- NOTE | 2017-08-06 16:32 | PCM.SURG1 ---
Surgeon's Initial Post Op Note - Surgeon's Notes Surgeon: Dr. Martinez Dispatcher [employer]: Dr. Henderson PGY-3, Dr. Loredo PGY-2 Type of Anesthesia: General Endo Anesthesia Administered By: Dr. Amor Pre-Operative Diagnosis: Failure to Thrive, Esophageal Stricture 2/2 radiation for CA Operative Findings: See operative report Post-Operative Diagnosis: Same Operation Performed: Gastrostomy tube placement Specimen/Specimens Removed: none Estimated Blood Loss: EBL {In ML}: 10 Blood Products Given: N/A Drains Used: No Drains Post-Op Condition: Good Date of Surgery/Procedure: 08/06/17 Time of Surgery/Procedure: 16:32
[2017-08-06] MEDS ORDERED: Oxycodone/Acetaminophen 5/325 mg Tab PO PRN (16:33)
[2017-08-06] MEDS ORDERED: HYDROmorphone 0.5 mg/0.5 ml ISec ONE ×3 (16:40→17:11)
[2017-08-06] MEDS ORDERED: HYDROmorphone 0.5 mg/0.5 ml ISec IVP ONE ×3 (16:40→17:10)
[2017-08-06] MEDS ORDERED: Lactated Ringer's 1,000 ML IV SCH (16:45)
[2017-08-07] MEDS: Dextrose 5%/0.45% NS 1,000 ML IV SCH ×3 (00:44→17:27)
--- NOTE | 2017-08-07 08:29 | CP.PCM.PN ---
Subjective - Date & Time of Evaluation Date of Evaluation: 08/07/17 Time of Evaluation: 07:20 - Subjective Subjective: General Surgery Note for Dr. Martinez Patient seen and examined at bedside. No acute event overnight. Patient complaining of abd pain at surgical site. He is s/p Open g-tube placement POD# 1. Patient voided 600 cc of urine after procedure. Patient has no other complaints. Will start flushes in G-tube today. Objective - Vital Signs/Intake and Output Vital Signs (last 24 hours): Temp Pulse Resp BP Pulse Ox 97.3 F L 73 18 127/60 94 L 08/06/17 18:00 08/06/17 18:00 08/06/17 18:00 08/06/17 18:00 08/06/17 18:00 Intake and Output: 08/07/17 08/07/17 06:59 18:59 Intake Total 0 Output Total 600 Balance -600 - Medications Medications: Current Medications Dextrose/Sodium Chloride (Dextrose 5%/0.45% Ns 1000 Ml) 1,000 mls @ 100 mls/hr IV .Q10H [facility] Last Admin: 08/07/17 06:23 Dose: Not Given Morphine Sulfate (Morphine) 4 mg IVP Q4H PRN PRN Reason: Pain, moderate (4-7) Last Admin: 08/06/17 22:44 Dose: 4 mg Ondansetron HCl (Zofran Inj) 4 mg IVP ONCE PRN PRN Reason: Nausea/Vomiting Oxycodone/Acetaminophen (Percocet 5/325 Mg Tab) 1 tab PO Q4H PRN PRN Reason: Pain, Mild (1-3) Stop: 08/09/17 16:34 Pantoprazole Sodium (Protonix Inj) 40 mg IVP DAILY [facility] Last Admin: 08/06/17 09:26 Dose: 40 mg - Labs Labs: 08/06/17 09:15 08/06/17 09:15 PT 12.3 SECONDS (9.4-12.5) 08/06/17 09:15 INR 1.07 (0.93-1.08) 08/06/17 09:15 APTT 27.9 Seconds (25.1-36.5) 08/06/17 09:15 - Additional Findings Additional findings: - Constitutional Appears: No Acute Distress, Cachectic - Head Exam Head Exam: ATRAUMATIC, NORMOCEPHALIC - Eye Exam Eye Exam: EOMI Pupil Exam: Unequal (right pupil irregularly shaped) - ENT Exam ENT Exam: Mucous Membranes Moist - Neck Exam Additional comments: horizontal scar on right side of neck - Respiratory Exam Respiratory Exam: Clear to Auscultation Bilateral, NORMAL BREATHING PATTERN. absent: Rales, Rhonchi, Wheezes - Cardiovascular Exam Cardiovascular Exam: REGULAR RHYTHM, +S1, +S2 - GI/Abdominal Exam GI & Abdominal Exam: Normal Bowel Sounds, Soft. absent: Distended, Guarding, Hernia, Tenderness midline incision with dressing - clean dry and intact G-tube sutured in place with clean base - Extremities Exam Extremities exam: Negative for: calf tenderness, pedal edema - Neurological Exam Neurological exam: Alert, Oriented x3 - Psychiatric Exam Psychiatric exam: Normal Mood, Normal affect - Skin Skin Exam: Dry, Warm Assessment and Plan - Assessment and Plan (Free Text) Assessment: 77M who presents with esophageal stricture and dysphagia, s/p Uttu gastrotomy tube placement POD#1 -Saline flushes Q6H -follow up residuals -Will start feed if tolerating flushes -Discussed with Dr. Juan Loredo PGY1
[2017-08-07 09:03] LABS: BASO # 0.01 K/mm3 (0.0-2.0); BASO % 0.1 % (0.0-3.0); EOS % 0.3 % (1.5-5.0); GRAN # 6.85 (1.4-6.5); GRAN % 86.6 % (50.0-68.0); HEMOGLOBIN 13.5 g/dL (14.0-18.0); LYMPH # 0.7 (1.2-3.4); LYMPH % 8.3 % (22.0-35.0); MEAN CELL VOLUME 90.7 fl (80.0-105.0); MEAN CORPUSCULAR HEMOGLOBIN 31.3 pg (25.0-35.0); MEAN CORPUSCULAR HGB CONC 34.5 g/dl (31.0-37.0); MEAN PLATELET VOLUME 11.5 fl (7.0-11.0); MONO # 0.4 (0.1-0.6); MONO % 4.7 % (1.0-6.0); RBC 4.31 10^6/uL (3.5-6.1); RED CELL DISTRIBUTION WIDTH 13.9 % (11.5-14.5); WHITE BLOOD COUNT 7.9 10^3/ul (4.5-11.0)
[2017-08-07 09:34] LABS: ALB/GLOB RATIO 1.1 (1.1-1.8); ALT/SGPT 31 U/L (7-56); AST/SGOT 27 U/L (17-59); BLOOD UREA NITROGEN 3 mg/dL (7-21); GFR AFRICAN-AMERICAN > 60; GFR NON-AFRICAN AMERICAN > 60
--- NOTE | 2017-08-07 13:31 | CP.PCM.PN ---
<Christ Beard - Last Filed: 08/07/17 14:58> Subjective - Date & Time of Evaluation Date of Evaluation: 08/07/17 Time of Evaluation: 13:29 - Subjective Subjective: Patient seen and examined at bedside. Per nursing no acute events occurred overnight. Patient reports some abdominal pain after starting flushing for his G tube. He also reports some emesis. He denies any chest pain, shortness of breath, fevers, chills, headaches, dizziness, changes of vision, or any other complaints. Objective - Vital Signs/Intake and Output Vital Signs (last 24 hours): Temp Pulse Resp BP Pulse Ox 99.0 F 79 20 144/78 97 08/07/17 06:00 08/07/17 06:00 08/07/17 06:00 08/07/17 06:00 08/07/17 06:00 Intake and Output: 08/07/17 08/07/17 06:59 18:59 Intake Total 0 Output Total 600 Balance -600 - Medications Medications: Current Medications Dextrose/Sodium Chloride (Dextrose 5%/0.45% Ns 1000 Ml) 1,000 mls @ 100 mls/hr IV .Q10H [facility] Last Admin: 08/07/17 06:23 Dose: Not Given Potassium Chloride (Potassium Chloride 10 Meq/100 Ml) 10 meq in 100 mls @ 50 mls/hr IVPB Q2H [facility] Stop: 08/07/17 16:44 Last Admin: 08/07/17 11:28 Dose: 50 mls/hr Morphine Sulfate (Morphine) 4 mg IVP Q4H PRN PRN Reason: Pain, moderate (4-7) Last Admin: 08/06/17 22:44 Dose: 4 mg Ondansetron HCl (Zofran Inj) 4 mg IVP ONCE PRN PRN Reason: Nausea/Vomiting Oxycodone/Acetaminophen (Percocet 5/325 Mg Tab) 1 tab PO Q4H PRN PRN Reason: Pain, Mild (1-3) Stop: 08/09/17 16:34 Pantoprazole Sodium (Protonix Inj) 40 mg IVP DAILY [facility] Last Admin: 08/07/17 09:24 Dose: 40 mg - Labs Labs: 08/07/17 08:55 08/07/17 08:55 PT 12.3 SECONDS (9.4-12.5) 08/06/17 09:15 INR 1.07 (0.93-1.08) 08/06/17 09:15 APTT 27.9 Seconds (25.1-36.5) 08/06/17 09:15 - Head Exam Head Exam: ATRAUMATIC, NORMAL INSPECTION, NORMOCEPHALIC - Eye Exam Eye Exam: EOMI, Normal appearance, PERRL Pupil Exam: NORMAL ACCOMODATION, PERRL - ENT Exam ENT Exam: Mucous Membranes Moist, Normal Oropharynx - Neck Exam Neck Exam: Normal Inspection - Respiratory Exam Respiratory Exam: Clear to Ausculation Bilateral, NORMAL BREATHING PATTERN. absent: Respiratory Distress - Cardiovascular Exam Cardiovascular Exam: REGULAR RHYTHM, +S1, +S2 - GI/Abdominal Exam GI & Abdominal Exam: Soft, Normal Bowel Sounds Additional comments: G tube in place. No discharge or erythema Abdominal dressing in place. No signs of discharge or erythema. - Extremities Exam Extremities Exam: Full ROM, Normal Inspection. absent: Joint Swelling, Pedal Edema - Back Exam Back Exam: NORMAL INSPECTION. absent: CVA tenderness (R), paraspinal tenderness - Neurological Exam Neurological Exam: Alert, Awake, CN II-XII Intact - Psychiatric Exam Psychiatric exam: Normal Affect, Normal Mood - Skin Skin Exam: Abrasion, Dry, Intact Assessment and Plan - Assessment and Plan (Free Text) Assessment: This is a 77 year old male with PMHx esophageal cancer s/p radiation therapy in 1999 and baseline dysphagia to solids who presented with new onset dysphagia to liquids.Fibrotic stricture found on endoscopy. Patient is status post G tube placement POD #1. Plan: 1. Dysphagia -CT scan reviewed, no obvious etiology -Swallow evaluation failed. -GI consult. Rec's appreciated -G tube placement by surgery POD#1. Reports nausea after flushes. Zofran. Reassess in the afternoon. Expected to start feedings today. -Oncology consult.Will f/u with rec's. -ENT consulted. Rec's appreciated. -D5 1/2NS @100cc/hr -Morphin .5mg IVP Q6 PRN for pain management. -NPO 2. Weight loss -possibly due to underlying condition -Dietitian referral for recommendations regarding feeding goals. Flushes started. 3.Nausea -Zofran 4mg Q6 PRN. Dispo: Patient more agreeable for rehab in TCU. Once G tube in use will work on transfer to rehab. Discussed with Dr. Parvez Beard PGY-1 <Louise Hannon - Last Filed: 08/07/17 21:26> Objective - Vital Signs/Intake and Output Vital Signs (last 24 hours): Temp Pulse Resp BP Pulse Ox 99.6 F 72 20 146/75 95 08/07/17 16:54 08/07/17 16:54 08/07/17 16:54 08/07/17 16:54 08/07/17 16:54 - Medications Medications: Current Medications Dextrose/Sodium Chloride (Dextrose 5%/0.45% Ns 1000 Ml) 1,000 mls @ 75 mls/hr IV .[id number] [facility] Last Admin: 08/07/17 17:27 Dose: Not Given Morphine Sulfate (Morphine) 0.5 mg IVP Q4H PRN PRN Reason: Pain, moderate (4-7) Last Admin: 08/07/17 13:49 Dose: 0.5 mg Ondansetron HCl (Zofran Inj) 4 mg IVP ONCE PRN PRN Reason: Nausea/Vomiting Oxycodone/Acetaminophen (Percocet 5/325 Mg Tab) 1 tab PO Q4H PRN PRN Reason: Pain, Mild (1-3) Stop: 08/09/17 16:34 Pantoprazole Sodium (Protonix Inj) 40 mg IVP DAILY [facility] Last Admin: 08/07/17 09:24 Dose: 40 mg - Labs Labs: 08/07/17 08:55 08/07/17 08:55 PT 12.3 SECONDS (9.4-12.5) 08/06/17 09:15 INR 1.07 (0.93-1.08) 08/06/17 09:15 APTT 27.9 Seconds (25.1-36.5) 08/06/17 09:15 Attending/Attestation - Attestation I have personally seen and examined this patient.: Yes I have fully participated in the care of the patient.: Yes I have reviewed all pertinent clinical information, including history, physical exam and plan: Yes Notes (Text): 08/07/17 21:24 Patient seen and examined at bedside.POD#1 post surgical g-tube insertion. + nausea and started on regimen of zofran and low dose morphine for pain at the insertion site. Surgery/GI follow up ongoing. Monitor labs closely and replete K + prn. No new complaint provided. Agree with the plan of care as outlined by the resident.
[2017-08-07] MEDS ORDERED: Morphine 4 mg/ml ISec IVP PRN (13:35)
[2017-08-07] MEDS: Morphine 2 mg/2 mL syringe IVP PRN (13:49)
[2017-08-08] MEDS: Morphine 2 mg/2 mL syringe IVP PRN ×4 (05:41→22:37)
[2017-08-08] MEDS: Dextrose 5%/0.45% NS 1,000 ML IV SCH (05:42)
[2017-08-08 08:40] LABS: EOS % 0.4 % (1.5-5.0); GRAN # 5.99 (1.4-6.5); GRAN % 83.1 % (50.0-68.0); HEMOGLOBIN 13.3 g/dL (14.0-18.0); LYMPH # 0.6 (1.2-3.4); LYMPH % 8.5 % (22.0-35.0); MEAN CELL VOLUME 90.5 fl (80.0-105.0); MEAN CORPUSCULAR HEMOGLOBIN 31.4 pg (25.0-35.0); MEAN CORPUSCULAR HGB CONC 34.7 g/dl (31.0-37.0); MEAN PLATELET VOLUME 11.2 fl (7.0-11.0); MONO # 0.6 (0.1-0.6); RBC 4.23 10^6/uL (3.5-6.1); RED CELL DISTRIBUTION WIDTH 14.1 % (11.5-14.5); WHITE BLOOD COUNT 7.2 10^3/ul (4.5-11.0)
[2017-08-08 08:56] LABS: ALB/GLOB RATIO 1.1 (1.1-1.8); ALBUMIN 2.9 g/dL (3.0-4.8); ALT/SGPT 23 U/L (7-56); AST/SGOT 25 U/L (17-59); BLOOD UREA NITROGEN 5 mg/dL (7-21); CALCIUM 9.1 mg/dL (8.4-10.5); GFR AFRICAN-AMERICAN > 60; GFR NON-AFRICAN AMERICAN > 60
[2017-08-08] MEDS ORDERED: Potassium Chloride 20 mEq/15 ml LIQ UD PO STA (09:57)
--- NOTE | 2017-08-08 10:17 | CP.PCM.PN ---
Subjective - Date & Time of Evaluation Date of Evaluation: 08/08/17 Time of Evaluation: 10:15 - Subjective Subjective: General Surgery Note for Dr. Bartolome Baldwin, PGY-1 Pt S & E at bedside at 0900 Pt without complaints overnight. Tube feeds started overnight. No acute events as per nursing. Objective - Vital Signs/Intake and Output Vital Signs (last 24 hours): Temp Pulse Resp BP Pulse Ox 99.0 F 85 18 117/67 95 08/08/17 06:00 08/08/17 06:00 08/08/17 06:00 08/08/17 06:00 08/08/17 06:00 Intake and Output: 08/08/17 08/08/17 06:59 18:59 Intake Total 0 Output Total 900 Balance -900 - Medications Medications: Current Medications Heparin Sodium (Porcine) (Heparin) 5,000 units SC Q12 [facility] PRN Reason: Protocol Last Admin: 08/08/17 09:31 Dose: 5,000 units Dextrose/Sodium Chloride (Dextrose 5%/0.45% Ns 1000 Ml) 1,000 mls @ 75 mls/hr IV .[id number] [facility] Last Admin: 08/08/17 05:42 Dose: 75 mls/hr Morphine Sulfate (Morphine) 0.5 mg IVP Q4H PRN PRN Reason: Pain, moderate (4-7) Last Admin: 08/08/17 05:41 Dose: 0.5 mg Ondansetron HCl (Zofran Inj) 4 mg IVP ONCE PRN PRN Reason: Nausea/Vomiting Oxycodone/Acetaminophen (Percocet 5/325 Mg Tab) 1 tab PO Q4H PRN PRN Reason: Pain, Mild (1-3) Stop: 08/09/17 16:34 Pantoprazole Sodium (Protonix Inj) 40 mg IVP DAILY [facility] Last Admin: 08/08/17 09:29 Dose: 40 mg - Labs Labs: 08/08/17 08:00 08/08/17 08:00 PT 12.3 SECONDS (9.4-12.5) 08/06/17 09:15 INR 1.07 (0.93-1.08) 08/06/17 09:15 APTT 27.9 Seconds (25.1-36.5) 08/06/17 09:15 - Constitutional Appears: Non-toxic, No Acute Distress, Cachectic - Head Exam Head Exam: ATRAUMATIC, NORMAL INSPECTION, NORMOCEPHALIC - Eye Exam Eye Exam: EOMI, Normal appearance - ENT Exam ENT Exam: Mucous Membranes Moist, Normal Exam - Neck Exam Neck Exam: Full ROM, Normal Inspection - Respiratory Exam Respiratory Exam: NORMAL BREATHING PATTERN - Cardiovascular Exam Cardiovascular Exam: REGULAR RHYTHM, +S1, +S2 - GI/Abdominal Exam GI & Abdominal Exam: Soft. absent: Distended, Firm, Guarding, Rigid Additional comments: G tube in place with tube feeds running - Extremities Exam Extremities Exam: Normal Inspection (cachexic) - Neurological Exam Neurological Exam: Alert, Awake, CN II-XII Intact, Oriented x3 - Psychiatric Exam Psychiatric exam: Normal Affect, Normal Mood - Skin Skin Exam: Dry, Intact, Normal Color, Warm Assessment and Plan - Assessment and Plan (Free Text) Assessment: 77M who presents with esophageal stricture and dysphagia, s/p Tutu gastrotomy tube placement POD#2 Plan: Tube feeds Monitor for residuals increase to goal as per dietary dietary consulted replace lytes PRN EMMANUEL attending Nicolasa, PGY-1
--- NOTE | 2017-08-08 11:45 | CP.PCM.PN ---
<Christ Beard - Last Filed: 08/08/17 15:32> Subjective - Date & Time of Evaluation Date of Evaluation: 08/08/17 Time of Evaluation: 11:42 - Subjective Subjective: Patient seen and examined at bedside. Per nursing no acute events occurred overnight. Patient now tolerating feeding tube diet without nausea or vomiting. Patient denies any chest pain, fevers, chills, vomiting, headache, syncopal episodes, changes in vision, or any other complaints. Objective - Vital Signs/Intake and Output Vital Signs (last 24 hours): Temp Pulse Resp BP Pulse Ox 99.0 F 85 18 117/67 95 08/08/17 06:00 08/08/17 06:00 08/08/17 06:00 08/08/17 06:00 08/08/17 06:00 Intake and Output: 08/08/17 08/08/17 06:59 18:59 Intake Total 0 Output Total 900 Balance -900 - Medications Medications: Current Medications Heparin Sodium (Porcine) (Heparin) 5,000 units SC Q12 [facility] PRN Reason: Protocol Last Admin: 08/08/17 09:31 Dose: 5,000 units Dextrose/Sodium Chloride (Dextrose 5%/0.45% Ns 1000 Ml) 1,000 mls @ 75 mls/hr IV .[id number] [facility] Last Admin: 08/08/17 05:42 Dose: 75 mls/hr Morphine Sulfate (Morphine) 0.5 mg IVP Q4H PRN PRN Reason: Pain, moderate (4-7) Last Admin: 08/08/17 10:57 Dose: 0.5 mg Ondansetron HCl (Zofran Inj) 4 mg IVP ONCE PRN PRN Reason: Nausea/Vomiting Oxycodone/Acetaminophen (Percocet 5/325 Mg Tab) 1 tab PO Q4H PRN PRN Reason: Pain, Mild (1-3) Stop: 08/09/17 16:34 Pantoprazole Sodium (Protonix Inj) 40 mg IVP DAILY [facility] Last Admin: 08/08/17 09:29 Dose: 40 mg - Labs Labs: 08/08/17 08:00 08/08/17 08:00 PT 12.3 SECONDS (9.4-12.5) 08/06/17 09:15 INR 1.07 (0.93-1.08) 08/06/17 09:15 APTT 27.9 Seconds (25.1-36.5) 08/06/17 09:15 - Head Exam Head Exam: ATRAUMATIC, NORMAL INSPECTION, NORMOCEPHALIC - Eye Exam Eye Exam: EOMI, Normal appearance, PERRL Pupil Exam: NORMAL ACCOMODATION - ENT Exam ENT Exam: Mucous Membranes Moist, Normal Exam - Neck Exam Neck Exam: Normal Inspection. absent: Lymphadenopathy, Thyromegaly - Respiratory Exam Respiratory Exam: Clear to Ausculation Bilateral, NORMAL BREATHING PATTERN. absent: Prolonged Expiratory Phase, Respiratory Distress - Cardiovascular Exam Cardiovascular Exam: REGULAR RHYTHM, +S1, +S2 - GI/Abdominal Exam GI & Abdominal Exam: Soft, Normal Bowel Sounds. absent: Rigid, Hyperactive Bowel Sounds Additional comments: G tube in place. No signs of erythema or discharge. - Extremities Exam Extremities Exam: absent: Joint Swelling, Pedal Edema, Tenderness - Back Exam Back Exam: NORMAL INSPECTION. 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 Patient is status post G tube placement POD #2. Plan: 1. Dysphagia -CT scan reviewed, no obvious etiology -Swallow evaluation failed. -GI consult. Rec's appreciated -G tube placement by surgery POD#2. Jevity 1.2 @ 30cc/hr started. Tolerating diet. Will increase as tolerated. -Oncology consult.Will f/u with rec's. -ENT consulted. Rec's appreciated. -D5 1/2NS @75cc/hr -Continue Morphine .5mg IVP Q6 PRN for pain management. 2. Weight loss -possibly due to underlying condition -Dietitian referral for recommendations regarding feeding goals. 3.Nausea -Zofran 4mg Q6 PRN. Dispo: Patient more agreeable for rehab in TCU. Will confirm with family and plan for discharge. Discussed with Dr. Parvez Beard PGY-1 <Louise Hannon - Last Filed: 08/08/17 21:53> Objective - Vital Signs/Intake and Output Vital Signs (last 24 hours): Temp Pulse Resp BP Pulse Ox 99.5 F 80 19 124/73 95 08/08/17 17:28 08/08/17 17:28 08/08/17 17:28 08/08/17 17:28 08/08/17 17:28 Intake and Output: 08/08/17 08/09/17 18:59 06:59 Intake Total 0 Output Total 450 Balance -450 - Medications Medications: Current Medications Heparin Sodium (Porcine) (Heparin) 5,000 units SC Q12 [facility] PRN Reason: Protocol Last Admin: 08/08/17 09:31 Dose: 5,000 units Dextrose/Sodium Chloride (Dextrose 5%/0.45% Ns 1000 Ml) 1,000 mls @ 75 mls/hr IV .[id number] [facility] Last Admin: 08/08/17 05:42 Dose: 75 mls/hr Morphine Sulfate (Morphine) 0.5 mg IVP Q4H PRN PRN Reason: Pain, moderate (4-7) Last Admin: 08/08/17 18:30 Dose: 0.5 mg Ondansetron HCl (Zofran Inj) 4 mg IVP ONCE PRN PRN Reason: Nausea/Vomiting Oxycodone/Acetaminophen (Percocet 5/325 Mg Tab) 1 tab PO Q4H PRN PRN Reason: Pain, Mild (1-3) Stop: 08/09/17 16:34 Pantoprazole Sodium (Protonix Inj) 40 mg IVP DAILY [facility] Last Admin: 08/08/17 09:29 Dose: 40 mg - Labs Labs: 08/08/17 08:00 08/08/17 08:00 PT 12.3 SECONDS (9.4-12.5) 08/06/17 09:15 INR 1.07 (0.93-1.08) 08/06/17 09:15 APTT 27.9 Seconds (25.1-36.5) 08/06/17 09:15 Attending/Attestation - Attestation I have personally seen and examined this patient.: Yes I have fully participated in the care of the patient.: Yes I have reviewed all pertinent clinical information, including history, physical exam and plan: Yes Notes (Text): 08/08/17 21:52 Patient seen and examined independently at bedside. Overnight issues reviewed. Jevity started.Nausea improved. Surgery follow up ongoing. Agree with plan as outlined by the resident but family discussion regarding post acute care disposition needs to happen considering patient keeps changing his mind.
[2017-08-08 17:28] VITALS: RESP 19
--- NOTE | 2017-08-09 08:29 | OP ---
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 OPERATION PERFORMED: Feeding gastrostomy. DESCRIPTION OF PROCEDURE: In the operating room, patient was prepped with chlorhexidine, waiting 3 minutes and was draped. The timeout was then taken. Patient was identified by name of procedure, laterality of my bianka, and the consent. After the time-out was complete, an upper midline incision was made and entering the abdomen, the only adhesion was to the stomach, being carried to the abdominal wall. This was without issue and used as the entry port for the stomach. A point of election was picked on the abdominal wall. Three lateral stitches were placed between the abdominal wall and the stomach. A purse string was placed. #24 gastrostomy tube was placed through the gastrotomy, which was the site of the previous gastrostomy. These were tightened up. The tube was tested and inflated without issue. A fourth stitch was placed medially and the midline incision was closed with #1 PDS above and below, tied in the middle. Marcaine was injected. [place]. The catheter was secured and placed. Patient was taken to the recovery room in good condition after sponge and needle count was declared correct. Darion Martinez MD
[2017-08-09 08:35] VITALS: BP 129/72; PULSE 72; TEMP 100; O2SAT 98
[2017-08-09 09:20] LABS: BASO # 0.01 K/mm3 (0.0-2.0); BASO % 0.1 % (0.0-3.0); EOS # 0.2 (0.0-0.7); EOS % 2.5 % (1.5-5.0); GRAN # 5.11 (1.4-6.5); GRAN % 75.1 % (50.0-68.0); HEMOGLOBIN 12.3 g/dL (14.0-18.0); LYMPH # 0.3 (1.2-3.4); LYMPH % 4.7 % (22.0-35.0); MEAN CELL VOLUME 91.3 fl (80.0-105.0); MEAN CORPUSCULAR HEMOGLOBIN 31.3 pg (25.0-35.0); MEAN CORPUSCULAR HGB CONC 34.3 g/dl (31.0-37.0); MEAN PLATELET VOLUME 10.4 fl (7.0-11.0); MONO # 1.2 (0.1-0.6); MONO % 17.6 % (1.0-6.0); PLATELET COUNT 181 10^3/uL (120.0-450.0); RBC 3.93 10^6/uL (3.5-6.1); RED CELL DISTRIBUTION WIDTH 14.2 % (11.5-14.5); WHITE BLOOD COUNT 6.8 10^3/ul (4.5-11.0)
[2017-08-09] MEDS: Dextrose 5%/0.45% NS 1,000 ML IV SCH (09:41)
[2017-08-09 09:59] LABS: PH,URINE 6.5 (4.7-8.0); URINE BILIRUBIN NEGATIVE (NEGATIVE); URINE BLOOD NEGATIVE (NEGATIVE); URINE GLUCOSE (UA) NEGATIVE (NEGATIVE); URINE LEUKOCYTE ESTERASE NEGATIVE Leu/uL (NEGATIVE); URINE PROTEIN NEGATIVE mg/dL (<30 mg/dL); URINE UROBILINOGEN 0.2 E.U./dL (<1 E.U./dL)
[2017-08-09 10:01] LABS: URINE APPEARANCE CLEAR (CLEAR); URINE COLOR YELLOW (YELLOW)
[2017-08-09 10:06] LABS: ALB/GLOB RATIO 1.1 (1.1-1.8); ALBUMIN 2.9 g/dL (3.0-4.8); ALT/SGPT 23 U/L (7-56); AST/SGOT 20 U/L (17-59); BLOOD UREA NITROGEN 9 mg/dL (7-21); CALCIUM 9.1 mg/dL (8.4-10.5); GFR AFRICAN-AMERICAN > 60; GFR NON-AFRICAN AMERICAN > 60
[2017-08-09 10:09] LABS: BAND 2 % (0-2); EOSINOPHIL 1 % (0.0-3.0); LYMPHOCYTE 7 % (22.0-35.0); MONOCYTE 6 % (1.0-6.0); NEUTROPHIL 84 % (50.0-70.0); PLATELET ESTIMATE NORMAL (NORMAL)
[2017-08-09] MEDS ORDERED: Potassium Phosphate 3 mmol/ml Inj IV ONE (11:56)
[2017-08-09] MEDS ORDERED: Potassium Phosphate 15 MMOLE in Sodium Chloride 0.9% 250 ML IVPB ONE (12:00)
--- NOTE | 2017-08-09 12:00 | CP.PCM.PN ---
Subjective - Date & Time of Evaluation Date of Evaluation: 08/09/17 Time of Evaluation: 07:00 - Subjective Subjective: Surgery: Dr. Martinez Pt seen and examined. No acute overnight events. States he has pain around the incision site. Tolerating tube feeds w/o any N/V. Denies fevers/chills. Objective - Vital Signs/Intake and Output Vital Signs (last 24 hours): Temp Pulse Resp BP Pulse Ox 100 F H 72 19 129/72 98 08/09/17 08:34 08/09/17 08:34 08/09/17 08:34 08/09/17 08:34 08/09/17 08:34 Intake and Output: 08/09/17 08/09/17 06:59 18:59 Intake Total 450 Output Total 200 Balance 250 - Medications Medications: Current Medications Heparin Sodium (Porcine) (Heparin) 5,000 units SC Q12 [facility] PRN Reason: Protocol Last Admin: 08/09/17 09:40 Dose: 5,000 units Dextrose/Sodium Chloride (Dextrose 5%/0.45% Ns 1000 Ml) 1,000 mls @ 75 mls/hr IV .[id number] [facility] Last Admin: 08/09/17 09:41 Dose: 75 mls/hr Potassium Chloride (Potassium Chloride 10 Meq/100 Ml) 10 meq in 100 mls @ 50 mls/hr IVPB Q2H [facility] Stop: 08/09/17 14:44 Last Admin: 08/09/17 11:24 Dose: 50 mls/hr Potassium Chloride (Potassium Chloride 10 Meq/100 Ml) 10 meq in 100 mls @ 50 mls/hr IVPB Q2H [facility] Stop: 08/09/17 14:44 Morphine Sulfate (Morphine) 0.5 mg IVP Q4H PRN PRN Reason: Pain, moderate (4-7) Last Admin: 08/08/17 22:37 Dose: 0.5 mg Ondansetron HCl (Zofran Inj) 4 mg IVP ONCE PRN PRN Reason: Nausea/Vomiting Oxycodone/Acetaminophen (Percocet 5/325 Mg Tab) 1 tab PO Q4H PRN PRN Reason: Pain, Mild (1-3) Stop: 08/09/17 16:34 Pantoprazole Sodium (Protonix Inj) 40 mg IVP DAILY [facility] Last Admin: 08/09/17 09:40 Dose: 40 mg Potassium Phosphate (Potassium Phosphate) 15 mmole IV ONCE ONE Stop: 08/09/17 11:57 - Labs Labs: 08/09/17 09:15 08/09/17 09:15 PT 12.3 SECONDS (9.4-12.5) 08/06/17 09:15 INR 1.07 (0.93-1.08) 08/06/17 09:15 APTT 27.9 Seconds (25.1-36.5) 08/06/17 09:15 - Constitutional Appears: No Acute Distress, Cachectic, Chronically Ill - Head Exam Head Exam: ATRAUMATIC, NORMOCEPHALIC - Respiratory Exam Respiratory Exam: NORMAL BREATHING PATTERN - Cardiovascular Exam Cardiovascular Exam: RRR - GI/Abdominal Exam GI & Abdominal Exam: Soft, Tenderness (around midline incision with janee, C/D /I ). absent: Distended - Neurological Exam Neurological Exam: Alert, Awake, Oriented x3 - Skin Skin Exam: Dry, Warm Assessment and Plan - Assessment and Plan (Free Text) Assessment: 77M s/p gastrostomy tube placement; POD#3 Plan: - continue to advance tube feeds to reach goal - staple removal in 1 week - no further surgical intervention at this time - d/w Dr. Juan Henderson, PGY-3
[2017-08-09] MEDS ORDERED: cefTRIAXone 1 gm 1 GM/100 ML BAG IVPB SCH (13:30)
[2017-08-09] MEDS ORDERED: Potassium Chloride 20 MEQ in Dextrose 5%/0.45% NS 1,000 ML IV SCH (14:22)
--- NOTE | 2017-08-09 14:34 | CP.PCM.DIS ---
<KishaSnohomish - Last Filed: 08/09/17 19:08> Provider - Provider Date of Admission: 08/03/17 14:55 Attending physician: Marta Serna MD Primary care physician: Ryan Domingo MD Time Spent in preparation of Discharge (in minutes): 45 Hospital Course - Lab Results Lab Results: Most Recent Lab Values WBC 6.8 10^3/ul (4.5-11.0) 08/09/17 09:15 RBC 3.93 10^6/uL (3.5-6.1) 08/09/17 09:15 Hgb 12.3 g/dL (14.0-18.0) L 08/09/17 09:15 Hct 35.9 % (42.0-52.0) L 08/09/17 09:15 MCV 91.3 fl (80.0-105.0) 08/09/17 09:15 MCH 31.3 pg (25.0-35.0) 08/09/17 09:15 MCHC 34.3 g/dl (31.0-37.0) 08/09/17 09:15 RDW 14.2 % (11.5-14.5) 08/09/17 09:15 Plt Count 181 10^3/uL (120.0-450.0) 08/09/17 09:15 MPV 10.4 fl (7.0-11.0) 08/09/17 09:15 Gran % 75.1 % (50.0-68.0) H 08/09/17 09:15 Lymph % (Auto) 4.7 % (22.0-35.0) L 08/09/17 09:15 Nuckolls % (Auto) 17.6 % (1.0-6.0) H 08/09/17 09:15 Eos % (Auto) 2.5 % (1.5-5.0) 08/09/17 09:15 Baso % (Auto) 0.1 % (0.0-3.0) 08/09/17 09:15 Gran # 5.11 (1.4-6.5) 08/09/17 09:15 Lymph # (Auto) 0.3 (1.2-3.4) L 08/09/17 09:15 Nuckolls # (Auto) 1.2 (0.1-0.6) H 08/09/17 09:15 Eos # (Auto) 0.2 (0.0-0.7) 08/09/17 09:15 Baso # (Auto) 0.01 K/mm3 (0.0-2.0) 08/09/17 09:15 Neutrophils % (Manual) 84 % (50.0-70.0) H 08/09/17 09:15 Band Neutrophils % 2 % (0-2) 08/09/17 09:15 Lymphocytes % (Manual) 7 % (22.0-35.0) L 08/09/17 09:15 Monocytes % (Manual) 6 % (1.0-6.0) 08/09/17 09:15 Eosinophils % (Manual) 1 % (0.0-3.0) 08/09/17 09:15 Platelet Evaluation Normal (NORMAL) 08/09/17 09:15 PT 12.3 SECONDS (9.4-12.5) 08/06/17 09:15 INR 1.07 (0.93-1.08) 08/06/17 09:15 APTT 27.9 Seconds (25.1-36.5) 08/06/17 09:15 Sodium 137 mmol/L (132-148) 08/09/17 09:15 Potassium 3.2 mmol/L (3.6-5.0) L 08/09/17 09:15 Chloride 100 mmol/L (98-107) 08/09/17 09:15 Carbon Dioxide 32 mmol/L (21-33) 08/09/17 09:15 Anion Gap 9 (10-20) L 08/09/17 09:15 BUN 9 mg/dL (7-21) 08/09/17 09:15 Creatinine 0.7 mg/dl (0.8-1.5) L 08/09/17 09:15 Est GFR ( Amer) > 60 08/09/17 09:15 Est GFR (Non-Af Amer) > 60 08/09/17 09:15 Random Glucose 134 mg/dL (70-110) H 08/09/17 09:15 Calcium 9.1 mg/dL (8.4-10.5) 08/09/17 09:15 Phosphorus 2.2 mg/dL (2.5-4.5) L 08/09/17 09:15 Magnesium 1.8 mg/dL (1.7-2.2) 08/09/17 09:15 Total Bilirubin 0.5 mg/dL (0.2-1.3) 08/09/17 09:15 AST 20 U/L (17-59) 08/09/17 09:15 ALT 23 U/L (7-56) 08/09/17 09:15 Alkaline Phosphatase 58 U/L (38-126) 08/09/17 09:15 Total Protein 5.5 g/dL (5.8-8.3) L 08/09/17 09:15 Albumin 2.9 g/dL (3.0-4.8) L 08/09/17 09:15 Globulin 2.6 gm/dL 08/09/17 09:15 Albumin/Globulin Ratio 1.1 (1.1-1.8) 08/09/17 09:15 Free T4 0.89 ng/dL (0.78-2.19) 08/02/17 06:30 TSH 3rd Generation 6.41 mIU/mL (0.46-4.68) H 08/02/17 06:30 Urine Color Yellow (YELLOW) 08/09/17 09:46 Urine Appearance Clear (CLEAR) 08/09/17 09:46 Urine pH 6.5 (4.7-8.0) 08/09/17 09:46 Ur Specific [place] 1.010 (1.005-1.035) 08/09/17 09:46 Urine Protein Negative mg/dL (<30 mg/dL) 08/09/17 09:46 Urine Glucose (UA) Negative mg/dL (NEGATIVE) 08/09/17 09:46 Urine Ketones Negative mg/dL (NEGATIVE) 08/09/17 09:46 Urine Blood Negative (NEGATIVE) 08/09/17 09:46 Urine Nitrate Negative (NEGATIVE) 08/09/17 09:46 Urine Bilirubin Negative (NEGATIVE) 08/09/17 09:46 Urine Urobilinogen 0.2 E.U./dL (<1 E.U./dL) 08/09/17 09:46 Ur Leukocyte Esterase Negative Lizette/uL (NEGATIVE) 08/09/17 09:46 Blood Type AB POSITIVE 08/06/17 09:15 Blood Type Confirm AB POSITIVE 08/06/17 10:00 Antibody Screen Positive 08/06/17 09:15 Antibody Identification Non Specific Antibody 08/06/17 09:15 BBK History Checked No verified bt 08/06/17 09:15 - Hospital Course Hospital Course: CC: "I can't swallow anything" This is a 77 year old male with PMHx throat cancer s/p radiation treatment in 1999 who presented to the hospital with 3 weeks of new onset dysphagia to liquids. He has baseline dysphagia to solid food. Patient states that it began 3 weeks ago when he noticed that after swallowing liquids, he would spit it back up. Per at bedside, she states that she also sees it coming out of his nose as well. Patient does not notice any exacerbating or remitting factors. Patient states that he has lost about 20 pounds within these past 3 weeks. Patient states that he was diagnosed in 1999 with an unspecified type of throat cancer. He received 5 sessions of radiation for his cancer before being sent to [facility]. While he was in [place], he had a biopsy and was later sent to [facility] where he completed his treatments. He was only able to tolerate a liquid diet after his treatments and was drinking protein supplements before this dysphagia to liquids began. Patient was offered treatment in the past for his dysphagia to solids but has refused. He is complaining of abdominal pain from hunger and nausea due to dry mouth. He denies any throat pain, chest pain, dyspnea. PMHx: throat cancer s/p radiation treatment in 1999 PSHx: throat biopsy, right eye cataract surgery Allergies: peanuts Social: Current smoker since age 11. Smokes a pack every 3 days. Denies alcohol. Former marijuana user. Lives with and son. Ambulates at baseline. Family Hx: Father with pancreatic cancer PMD: Dr. Domingo Home meds: Unspecified eye drops Hospital Course: Patient was seen by ENT and Interventional Radiology while admitted. The patient had a swallow evaluation that was negative. 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 It was planned that the patient would have a Peg tube placed by Interventional Radiology. The patient underwent the procedure however couldn't be completed by IR due to the stricture preventing it advancing. At that point Surgery was consulted for a G tube placement. Patient was seen and examined and scheduled to have a G tube placed by surgery. Patient had G tube placed and water flushes were started. The patient became nauseous afterwards and Zofran was given. At the next flush time the patient tolerated it and Jevity 1.2 at 30 cc/ hr was started. Patient tolerated the feeds without any complaints. Patient seen by Physical therapy and receommended TCU. Patient was accepted and discharged to TCU. Imagin.EKG: nsr 3.Neck, chest abdomen, pelvis ct: no acute findings. 4. Duplex lower extremity: negative Disposition: Patient discharged to TCU. Discharge Exam - Head Exam Head Exam: ATRAUMATIC, NORMOCEPHALIC - Eye Exam Eye Exam: EOMI, Normal appearance, PERRL Pupil Exam: NORMAL ACCOMODATION - ENT Exam ENT Exam: absent: Mucous Membranes Moist, Normal Oropharynx - Respiratory Exam Respiratory Exam: Clear to PA & Lateral, NORMAL BREATHING PATTERN. absent: Decreased Breath Sounds, Rales, Rhonchi - Cardiovascular Exam Cardiovascular Exam: REGULAR RHYTHM, +S1, +S2 - GI/Abdominal Exam Additional comments: g TUBE in place . no erythema or discharge present. - Neurological Exam Neurological exam: Alert, CN II-XII Intact, Normal Gait, Oriented x3 - Psychiatric Exam Psychiatric exam: Normal Affect, Normal Mood - Skin Skin Exam: Dry, Intact Discharge Plan - Follow Up Plan Condition: STABLE Disposition: TRANSF TO SNF Instructions: Hypokalemia (DC), Urinary Tract Infection, Adult (DC), Dysphagia (DC) Additional Instructions: PATIENT IS DISCHARGED TO TCU. Referrals: Ryan Domingo MD [Primary Care Provider] - <Marta Serna - Last Filed: 08/10/17 14:20> Provider - Provider Date of Admission: 08/03/17 14:55 Attending physician: Marta Serna MD Primary care physician: Ryan Domingo MD Hospital Course - Lab Results Lab Results: Micro Results 08/09/17 09:46 Urine Urine Culture - Preliminary Gram Positive Cocci Most Recent Lab Values WBC 6.8 10^3/ul (4.5-11.0) 08/09/17 09:15 RBC 3.93 10^6/uL (3.5-6.1) 08/09/17 09:15 Hgb 12.3 g/dL (14.0-18.0) L 08/09/17 09:15 Hct 35.9 % (42.0-52.0) L 08/09/17 09:15 MCV 91.3 fl (80.0-105.0) 08/09/17 09:15 MCH 31.3 pg (25.0-35.0) 08/09/17 09:15 MCHC 34.3 g/dl (31.0-37.0) 08/09/17 09:15 RDW 14.2 % (11.5-14.5) 08/09/17 09:15 Plt Count 181 10^3/uL (120.0-450.0) 08/09/17 09:15 MPV 10.4 fl (7.0-11.0) 08/09/17 09:15 Gran % 75.1 % (50.0-68.0) H 08/09/17 09:15 Lymph % (Auto) 4.7 % (22.0-35.0) L 08/09/17 09:15 Nuckolls % (Auto) 17.6 % (1.0-6.0) H 08/09/17 09:15 Eos % (Auto) 2.5 % (1.5-5.0) 08/09/17 09:15 Baso % (Auto) 0.1 % (0.0-3.0) 08/09/17 09:15 Gran # 5.11 (1.4-6.5) 08/09/17 09:15 Lymph # (Auto) 0.3 (1.2-3.4) L 08/09/17 09:15 Nuckolls # (Auto) 1.2 (0.1-0.6) H 08/09/17 09:15 Eos # (Auto) 0.2 (0.0-0.7) 08/09/17 09:15 Baso # (Auto) 0.01 K/mm3 (0.0-2.0) 08/09/17 09:15 Neutrophils % (Manual) 84 % (50.0-70.0) H 08/09/17 09:15 Band Neutrophils % 2 % (0-2) 08/09/17 09:15 Lymphocytes % (Manual) 7 % (22.0-35.0) L 08/09/17 09:15 Monocytes % (Manual) 6 % (1.0-6.0) 08/09/17 09:15 Eosinophils % (Manual) 1 % (0.0-3.0) 08/09/17 09:15 Platelet Evaluation Normal (NORMAL) 08/09/17 09:15 PT 12.3 SECONDS (9.4-12.5) 08/06/17 09:15 INR 1.07 (0.93-1.08) 08/06/17 09:15 APTT 27.9 Seconds (25.1-36.5) 08/06/17 09:15 Sodium 137 mmol/L (132-148) 08/09/17 09:15 Potassium 3.2 mmol/L (3.6-5.0) L 08/09/17 09:15 Chloride 100 mmol/L (98-107) 08/09/17 09:15 Carbon Dioxide 32 mmol/L (21-33) 08/09/17 09:15 Anion Gap 9 (10-20) L 08/09/17 09:15 BUN 9 mg/dL (7-21) 08/09/17 09:15 Creatinine 0.7 mg/dl (0.8-1.5) L 08/09/17 09:15 Est GFR ( Amer) > 60 08/09/17 09:15 Est GFR (Non-Af Amer) > 60 08/09/17 09:15 Random Glucose 134 mg/dL (70-110) H 08/09/17 09:15 Calcium 9.1 mg/dL (8.4-10.5) 08/09/17 09:15 Phosphorus 2.2 mg/dL (2.5-4.5) L 08/09/17 09:15 Magnesium 1.8 mg/dL (1.7-2.2) 08/09/17 09:15 Total Bilirubin 0.5 mg/dL (0.2-1.3) 08/09/17 09:15 AST 20 U/L (17-59) 08/09/17 09:15 ALT 23 U/L (7-56) 08/09/17 09:15 Alkaline Phosphatase 58 U/L (38-126) 08/09/17 09:15 Total Protein 5.5 g/dL (5.8-8.3) L 06/11/18 09:15 Albumin 2.9 g/dL (3.0-4.8) L 08/09/17 09:15 Globulin 2.6 gm/dL 08/09/17 09:15 Albumin/Globulin Ratio 1.1 (1.1-1.8) 08/09/17 09:15 Free T4 0.89 ng/dL (0.78-2.19) 08/02/17 06:30 TSH 3rd Generation 6.41 mIU/mL (0.46-4.68) H 08/02/17 06:30 Urine Color Yellow (YELLOW) 08/09/17 09:46 Urine Appearance Clear (CLEAR) 08/09/17 09:46 Urine pH 6.5 (4.7-8.0) 08/09/17 09:46 Ur Specific [place] 1.010 (1.005-1.035) 08/09/17 09:46 Urine Protein Negative mg/dL (<30 mg/dL) 08/09/17 09:46 Urine Glucose (UA) Negative mg/dL (NEGATIVE) 08/09/17 09:46 Urine Ketones Negative mg/dL (NEGATIVE) 08/09/17 09:46 Urine Blood Negative (NEGATIVE) 08/09/17 09:46 Urine Nitrate Negative (NEGATIVE) 08/09/17 09:46 Urine Bilirubin Negative (NEGATIVE) 08/09/17 09:46 Urine Urobilinogen 0.2 E.U./dL (<1 E.U./dL) 08/09/17 09:46 Ur Leukocyte Esterase Negative Lizette/uL (NEGATIVE) 08/09/17 09:46 Blood Type AB POSITIVE 08/06/17 09:15 Blood Type Confirm AB POSITIVE 08/06/17 10:00 Antibody Screen Positive 08/06/17 09:15 Antibody Identification Non Specific Antibody 08/06/17 09:15 BBK History Checked No verified bt 08/06/17 09:15 Attending/Attestation - Attestation I have personally seen and examined this patient.: Yes I have fully participated in the care of the patient.: Yes I have reviewed all pertinent clinical information, including history, physical exam and plan: Yes Notes (Text): 08/10/17 14:18 attending note; Patient seen and examined with resident. 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 currently not able to swallow liquids. Status post EGD. Showed esophageal stricture. Failed PEG tube placement by IR. Status post surgical PEG tube placement. pain management with morphine. Started Jevity feeding. Zofran for nausea. Transfer the patient to TCU. Continue physical therapy. Diagnosis; Dysphagia Status post gastrostomy tube placement Esophageal stricture Failure to thrive Gait instability`
== END 2017-08-09 15:21 | DRG 327 ==
LOC: ED 19:02 → ERH 08-02 00:44 → 3RNO 08-02 02:24 → OBSVTOIN 08-03 14:55
PROVIDERS: ADMIT Internal Medicine; ATTEND Internal Medicine
PROC: 0DJ08ZZ Inspection of Upper Intestinal Tract, Via Natural or Artificial Opening Endoscopic (ICD-10-PCS; 2017-08-03)
PROC: 0DH Gastrointestinal System, Insertion (ICD-10-PCS; 2017-08-05)
PROC: 0DH60UZ Insertion of Feeding Device into Stomach, Open Approach (ICD-10-PCS; principal; 2017-08-06 17:00)
DX: K22.2 Esophageal obstruction (principal); E46 Unspecified protein-calorie malnutrition; J98.11 Atelectasis; R13.12 Dysphagia, oropharyngeal phase; Z85.819 Personal history of malignant neoplasm of unspecified site of lip, oral cavity, and pharynx; Z85.21 Personal history of malignant neoplasm of larynx; Z85.01 Personal history of malignant neoplasm of esophagus; Z92.3 Personal history of irradiation; R62.7 Adult failure to thrive; F17.210 Nicotine dependence, cigarettes, uncomplicated; H91.90 Unspecified hearing loss, unspecified ear; K76.0 Fatty (change of) liver, not elsewhere classified; N28.1 Cyst of kidney, acquired; Z98.41 Cataract extraction status, right eye; Z80.0 Family history of malignant neoplasm of digestive organs

== ENCOUNTER 2017-08-09 15:21 | Inpatient (IN) | payer OTHER ==
[2017-08-09 16:09] VITALS: BMI 14.8
[2017-08-09] MEDS ORDERED: cefTRIAXone 1 gm 1 GM/100 ML BAG IVPB SCH (16:45)
[2017-08-09] MEDS: Morphine 2 mg/ml ISec IVP PRN (17:39)
[2017-08-09] MEDS: Potassium Chloride 20 MEQ in Dextrose 5%/0.45% NS 1,000 ML IV SCH (17:39)
--- NOTE | 2017-08-09 19:19 | CP.PCM.HP ---
<KishaChrist - Last Filed: 08/09/17 19:23> History of Present Illness - History of Present Illness History of Present Illness: CC: "I can't swallow anything" This is a 77 year old male with PMHx throat cancer s/p radiation treatment in 1999 who presented to the hospital with 3 weeks of new onset dysphagia to liquids. He has baseline dysphagia to solid food. Patient states that it began 3 weeks ago when he noticed that after swallowing liquids, he would spit it back up. Per at bedside, she states that she also sees it coming out of his nose as well. Patient does not notice any exacerbating or remitting factors. Patient states that he has lost about 20 pounds within these past 3 weeks. Patient states that he was diagnosed in 1999 with an unspecified type of throat cancer. He received 5 sessions of radiation for his cancer before being sent to [facility]. While he was in [place], he had a biopsy and was later sent to [facility] where he completed his treatments. He was only able to tolerate a liquid diet after his treatments and was drinking protein supplements before this dysphagia to liquids began. Patient was offered treatment in the past for his dysphagia to solids but has refused. He is complaining of abdominal pain from hunger and nausea due to dry mouth. He denies any throat pain, chest pain, dyspnea. PMHx: throat cancer s/p radiation treatment in 1999 PSHx: throat biopsy, right eye cataract surgery Allergies: peanuts Social: Current smoker since age 11. Smokes a pack every 3 days. Denies alcohol. Former marijuana user. Lives with and son. Ambulates at baseline. Family Hx: Father with pancreatic cancer PMD: Dr. Domingo Home meds: Unspecified eye drops Patient was approved for TCU and discharged there today for rehabilitation. Present on Admission - Present on Admission Any Indicators Present on Admission: No Review of Systems - Constitutional Constitutional: absent: Chills, Daytime Sleepiness, Headache, Sleep Apnea - EENT Eyes: absent: Blurred Vision, Discharge, Loss of Peripheral Vision, Sees Flashes , Loss of Vision Ears: absent: Ear Discharge, Dizziness Nose/Mouth/Throat: Dysphagia. absent: Nasal Congestion, Post Nasal Drip, Dental Pain, Mouth Lesions - Cardiovascular Cardiovascular: absent: Chest Pain, Claudication, Leg Edema, Paroxysmal Nocturnal Dyspnea, Slow Heart Rate - Respiratory Respiratory: absent: Hemoptysis, Chest Congestion, Change in Mucous Color - Gastrointestinal Gastrointestinal: absent: Belching, Early Satiety, Hematemesis, Hematochezia, Temesmus - Genitourinary Genitourinary: absent: Change in Urinary Stream, Urinary Incontinence, Voiding Freq/Small Amts, Hx /Renal Surgery - Integumentary Integumentary: absent: Bleeding Lesions, Changing Lesions, Skin Pain - Psychiatric Psychiatric: absent: Behavioral Changes, Depression, Difficulty Concentrating, Suicidal Ideation - Endocrine Endocrine: absent: Change in Libido, Fatigue, Polydipsia, Polyphagia Past Patient History - Infectious Disease Hx of Infectious Diseases: None - Past Social History Smoking Status: Light Smoker < 10 Cigarettes Daily - CARDIAC Hx Cardiac Disorders: No - PULMONARY Hx Respiratory Disorders: No - NEUROLOGICAL Hx Neurological Disorder: No - HEENT Hx HEENT Problems: Yes Hx Deafness: Yes - RENAL Hx Chronic Kidney Disease: No - ENDOCRINE/METABOLIC Hx Endocrine Disorders: No - HEMATOLOGICAL/ONCOLOGICAL Hx Blood Transfusions: (UNKNOWN) Hx Blood Transfusion Reaction: (UNKNOWN) - INTEGUMENTARY Hx Dermatological Problems: No - MUSCULOSKELETAL/RHEUMATOLOGICAL Hx Musculoskeletal Disorders: No - GASTROINTESTINAL Hx Gastrointestinal Disorders: Yes HX Swallowing Problems: Yes - GENITOURINARY/GYNECOLOGICAL Hx Genitourinary Disorders: No - PSYCHIATRIC Hx Substance Use: No - SURGICAL HISTORY Hx Surgeries: Yes (Cataract Right eye) - ANESTHESIA Hx Anesthesia Reactions: (UNKNOWN) Hx Malignant Hyperthermia: (UNKNOWN) Meds Allergies/Adverse Reactions: Allergies Allergy/AdvReac Type Severity Reaction Status Date / Time peanut AdvReac RASH Verified 08/09/17 20:23 Physical Exam - Head Exam Head Exam: ATRAUMATIC, NORMAL INSPECTION, NORMOCEPHALIC - Eye Exam Eye Exam: EOMI, Normal appearance, PERRL Pupil Exam: NORMAL ACCOMODATION, PERRL - ENT Exam ENT Exam: Mucous Membranes Moist, Normal Oropharynx - Neck Exam Neck exam: Positive for: Normal Inspection - Respiratory Exam Respiratory Exam: Clear to Auscultation Bilateral, NORMAL BREATHING PATTERN. absent: Decreased Breath Sounds, Prolonged Expiratory Phase, Rales - Cardiovascular Exam Cardiovascular Exam: REGULAR RHYTHM, RRR, +S1, +S2. absent: Rubs - GI/Abdominal Exam GI & Abdominal Exam: Normal Bowel Sounds, Soft Additional comments: G tube in place no signs of erythema or drainage. - Extremities Exam Extremities exam: Positive for: normal inspection. Negative for: full ROM, pedal edema - Neurological Exam Neurological exam: Alert, CN II-XII Intact, Oriented x3 - Psychiatric Exam Psychiatric exam: Normal Affect, Normal Mood - Skin Skin Exam: Dry, Intact Results - Vital Signs Recent Vital Signs: Last Vital Signs Temp 98.6 F 08/09/17 17:17 Pulse 72 08/09/17 17:17 Resp 18 08/09/17 17:17 BP 119/66 08/09/17 17:17 Pulse Ox 93 L 08/09/17 17:17 Assessment & Plan - Assessment and Plan (Free Text) Assessment: 1. Dysphagia -CT scan reviewed, no obvious etiology -Swallow evaluation failed. -GI consult. Rec's appreciated -G tube placement by surgery POD#3.Continue Jevity 1.2 @ 30cc/hr started. Tolerating diet. Will increase as tolerated. -Oncology consult.Will f/u with rec's. -ENT consulted. Rec's appreciated. -D5 1/2NS @75cc/hr -Continue Morphine 1mg IVP Q6 PRN for pain management. 2. Weight loss -possibly due to underlying condition -Dietitian referral for recommendations regarding feeding goals. 3. Hypokalemia -Repleted. Will repeat with serial CMP's. 4.Nausea -Zofran 4mg Q6 PRN. Dispo: Patient discharged to TCU. Will continue to follow. Discussed with Dr. Daphne Beard PGY-1 <Marta Serna - Last Filed: 08/10/17 15:22> Results - Vital Signs Recent Vital Signs: Last Vital Signs Temp 98.6 F 08/09/17 20:24 Pulse 72 08/09/17 20:24 Resp 18 08/09/17 20:24 BP 119/66 08/09/17 20:24 Pulse Ox 93 L 08/09/17 17:17 Attending/Attestation - Attestation I have personally seen and examined this patient.: Yes I have fully participated in the care of the patient.: Yes I have reviewed all pertinent clinical information: Yes Notes (Text): 08/10/17 15:20 attending note; Patient seen and examined with resident. 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 currently not able to swallow liquids. Status post EGD. Showed esophageal stricture. Status post surgical PEG tube placement. pain management with morphine. Started Jevity feeding. Zofran for nausea. nursing will educate the family about tube feeding. Continue physical therapy in TCU. upon discharge the patient will follow-up with PMD .
[2017-08-09] MEDS ORDERED: Pneumococcal 23-Valent Vaccine IM ONE (20:47)
[2017-08-10] MEDS: cefTRIAXone 1 gm 1 GM/100 ML BAG IVPB SCH (05:44)
[2017-08-10] MEDS: Potassium Chloride 20 MEQ in Dextrose 5%/0.45% NS 1,000 ML IV SCH ×3 (07:57→21:01)
[2017-08-10] MEDS: Morphine 2 mg/ml ISec IVP PRN ×2 (08:47→18:05)
--- NOTE | 2017-08-10 10:36 | CP.PCM.HP ---
<Christ Beard - Last Filed: 08/10/17 16:27> History of Present Illness - History of Present Illness History of Present Illness: CC: "I can't swallow anything" This is a 77 year old male with PMHx throat cancer s/p radiation treatment in 1999 who presented to the hospital with 3 weeks of new onset dysphagia to liquids. He has baseline dysphagia to solid food. Patient states that it began 3 weeks ago when he noticed that after swallowing liquids, he would spit it back up. Per at bedside, she states that she also sees it coming out of his nose as well. Patient does not notice any exacerbating or remitting factors. Patient states that he has lost about 20 pounds within these past 3 weeks. Patient states that he was diagnosed in 1999 with an unspecified type of throat cancer. He received 5 sessions of radiation for his cancer before being sent to [facility]. While he was in [place], he had a biopsy and was later sent to [facility] where he completed his treatments. He was only able to tolerate a liquid diet after his treatments and was drinking protein supplements before this dysphagia to liquids began. Patient was offered treatment in the past for his dysphagia to solids but has refused. He is complaining of abdominal pain from hunger and nausea due to dry mouth. He denies any throat pain, chest pain, dyspnea. PMHx: throat cancer s/p radiation treatment in 1999 PSHx: throat biopsy, right eye cataract surgery Allergies: peanuts Social: Current smoker since age 11. Smokes a pack every 3 days. Denies alcohol. Former marijuana user. Lives with and son. Ambulates at baseline. Family Hx: Father with pancreatic cancer PMD: Dr. Domingo Home meds: Unspecified eye drops Patient was approved for TCU and discharged there yesterday for rehabilitation. Present on Admission - Present on Admission Any Indicators Present on Admission: No Review of Systems - Constitutional Constitutional: absent: Chills, Daytime Sleepiness, Headache, Snoring - EENT Eyes: absent: Blurred Vision, Sees Flashes Ears: absent: Ear Discharge Nose/Mouth/Throat: absent: Nose Pain, Bleeding Gums, Dysphagia, Mouth Pain, Facial Pain - Cardiovascular Cardiovascular: absent: Chest Pain, Diaphoresis, Irregular Heart Rhythm, Leg Edema, Pedal Edema, Slow Heart Rate, Syncope - Respiratory Respiratory: absent: Cough, Dyspnea, Hemoptysis, Snoring, Change in Mucous Color - Gastrointestinal Gastrointestinal: absent: Belching, Change in Stool Character, Diarrhea, Dyspepsia, Fecal Incontinence, Melena, Nausea, Vomiting - Genitourinary Genitourinary: absent: Change in Urinary Stream, Hematuria, Nocturia - Musculoskeletal Musculoskeletal: absent: Arthralgias, Muscle Weakness, Myalgias, Stiffness, Tingling - Integumentary Integumentary: absent: Change in Pigmentation, Furuncle, Lesions, Sores, Striae , Swelling - Neurological Neurological: absent: Abnormal Hearing, Burning Sensations, Dizziness, Numbness , Restless Legs, Tremor, Vertigo - Endocrine Endocrine: absent: Polydipsia, Polyphagia, Polyuria - Hematologic/Lymphatic Hematologic: absent: Easy Bleeding, Easy Bruising Past Patient History - Infectious Disease Hx of Infectious Diseases: None - Past Social History Smoking Status: Light Smoker < 10 Cigarettes Daily - CARDIAC Hx Cardiac Disorders: No - PULMONARY Hx Respiratory Disorders: No - NEUROLOGICAL Hx Neurological Disorder: No - HEENT Hx HEENT Problems: Yes Hx Deafness: Yes - RENAL Hx Chronic Kidney Disease: No - ENDOCRINE/METABOLIC Hx Endocrine Disorders: No - HEMATOLOGICAL/ONCOLOGICAL Hx Blood Transfusions: (UNKNOWN) Hx Blood Transfusion Reaction: (UNKNOWN) - INTEGUMENTARY Hx Dermatological Problems: No - MUSCULOSKELETAL/RHEUMATOLOGICAL Hx Falls: No - GASTROINTESTINAL Hx Gastrointestinal Disorders: Yes (THROAT /NECK CA PEG ,DYSPHAGIA,ESOPHAGEAL STRICTURE) - GENITOURINARY/GYNECOLOGICAL Hx Genitourinary Disorders: No Hx Reproductive Disorders: No - PSYCHIATRIC Hx Substance Use: No - SURGICAL HISTORY Hx Surgeries: Yes (Cataract Right eye) - ANESTHESIA Hx Anesthesia Reactions: (UNKNOWN) Hx Malignant Hyperthermia: (UNKNOWN) Meds Allergies/Adverse Reactions: Allergies Allergy/AdvReac Type Severity Reaction Status Date / Time peanut AdvReac RASH Verified 08/09/17 20:23 Physical Exam - Head Exam Head Exam: ATRAUMATIC, NORMAL INSPECTION, NORMOCEPHALIC - Eye Exam Eye Exam: EOMI, Normal appearance, PERRL Pupil Exam: NORMAL ACCOMODATION - ENT Exam ENT Exam: Mucous Membranes Moist, Normal Exam, Normal Oropharynx - Neck Exam Neck exam: Positive for: Normal Inspection - Respiratory Exam Respiratory Exam: Clear to Auscultation Bilateral, NORMAL BREATHING PATTERN. absent: Wheezes, Respiratory Distress - Cardiovascular Exam Cardiovascular Exam: REGULAR RHYTHM, +S1, +S2 - GI/Abdominal Exam GI & Abdominal Exam: Normal Bowel Sounds, Soft. absent: Hypoactive Bowel Sounds , Organomegaly, Tenderness Additional comments: G tube placement. - Extremities Exam Extremities exam: Positive for: normal inspection. Negative for: full ROM, pedal edema - Back Exam Back exam: NORMAL INSPECTION. absent: CVA tenderness (R), paraspinal tenderness - Neurological Exam Neurological exam: Alert, CN II-XII Intact, Oriented x3 - Psychiatric Exam Psychiatric exam: Normal Affect, Normal Mood - Skin Skin Exam: Dry, Intact Results - Vital Signs Recent Vital Signs: Last Vital Signs Temp 98.6 F 08/09/17 20:24 Pulse 72 08/09/17 20:24 Resp 18 08/09/17 20:24 BP 119/66 08/09/17 20:24 Pulse Ox 93 L 08/09/17 17:17 Assessment & Plan - Assessment and Plan (Free Text) Assessment: This is a 77 year old male with PMHx esophageal cancer s/p radiation therapy in 1999 and baseline dysphagia to solids who presented with new onset dysphagia to liquids. 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 Patient is status post G tube placement. Plan: 1. Dysphagia -CT scan reviewed, no obvious etiology -Swallow evaluation failed. -GI consult. Rec's appreciated -G tube placement by surgery POD#3.Continue Jevity 1.2 @ 30cc/hr started. Tolerating diet. Will increase as tolerated. -Oncology consult.Will f/u with rec's. -ENT consulted. Rec's appreciated. -D5 1/2NS @75cc/hr -Continue Morphine 1mg IVP Q6 PRN for pain management. 2. Weight loss -possibly due to underlying condition -Dietitian referral for recommendations regarding feeding goals. 3. Hypokalemia -Repleted. Will repeat with serial CMP's. 4.Nausea -Zofran 4mg Q6 PRN. Dispo: Will continue to follow in TCU. Discussed with Dr. Daphne Beard PGY-1 <Marta Serna - Last Filed: 08/11/17 18:56> Results - Vital Signs Recent Vital Signs: Last Vital Signs Temp 97.7 F 08/11/17 16:00 Pulse 65 08/11/17 16:00 Resp 20 08/11/17 16:00 BP 101/59 L 08/11/17 16:00 Pulse Ox 93 L 08/11/17 16:00 Attending/Attestation - Attestation I have personally seen and examined this patient.: Yes I have fully participated in the care of the patient.: Yes I have reviewed all pertinent clinical information: Yes Notes (Text): 08/11/17 18:56 attending note; Patient seen and examined with resident in TCU. 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 Status post surgical PEG tube placement. Continue Jevity feeding. Increase dose as tolerated. pain management with morphine. nursing will educate the family about tube feeding. Continue physical therapy in TCU. upon discharge the patient will follow-up with PMD .
--- NOTE | 2017-08-10 12:02 | PN ---
DATE: 08/10/2017 SUBJECTIVE: Jonny Lopez is seen on the TCU, tolerating tube feedings at 30 an hour. The wound is fine. I am happy to increase his tube feeding. Darion Martinez MD
[2017-08-11] MEDS: Morphine 2 mg/ml ISec IVP PRN ×4 (01:48→21:23)
[2017-08-11] MEDS: cefTRIAXone 1 gm 1 GM/100 ML BAG IVPB SCH (05:18)
[2017-08-11] MEDS: Potassium Chloride 20 MEQ in Dextrose 5%/0.45% NS 1,000 ML IV SCH ×2 (10:27→23:28)
[2017-08-11] MEDS: Oxycodone/Acetaminophen 5/325 mg Tab PO PRN (10:43)
[2017-08-12] MEDS: Morphine 2 mg/ml ISec IVP PRN ×4 (01:48→21:29)
[2017-08-12] MEDS: cefTRIAXone 1 gm 1 GM/100 ML BAG IVPB SCH (05:11)
[2017-08-12 08:38] LABS: BASO # 0.01 K/mm3 (0.0-2.0); BASO % 0.2 % (0.0-3.0); EOS # 0.3 (0.0-0.7); EOS % 4.2 % (1.5-5.0); GRAN # 4.76 (1.4-6.5); HEMOGLOBIN 11.4 g/dL (14.0-18.0); LYMPH # 0.6 (1.2-3.4); LYMPH % 9.9 % (22.0-35.0); MEAN CORPUSCULAR HEMOGLOBIN 31.2 pg (25.0-35.0); MEAN CORPUSCULAR HGB CONC 34.3 g/dl (31.0-37.0); MONO # 0.5 (0.1-0.6); MONO % 8.7 % (1.0-6.0); RBC 3.65 10^6/uL (3.5-6.1); RED CELL DISTRIBUTION WIDTH 14.1 % (11.5-14.5); WHITE BLOOD COUNT 6.2 10^3/ul (4.5-11.0)
[2017-08-12 08:45] LABS: ALBUMIN 2.8 g/dL (3.0-4.8); ALT/SGPT 29 U/L (7-56); AST/SGOT 21 U/L (17-59); BLOOD UREA NITROGEN 10 mg/dL (7-21); CALCIUM 8.5 mg/dL (8.4-10.5); GFR AFRICAN-AMERICAN > 60; GFR NON-AFRICAN AMERICAN > 60
[2017-08-12] MEDS: Oxycodone/Acetaminophen 5/325 mg Tab PO PRN (11:10)
--- NOTE | 2017-08-12 12:19 | CP.PCM.PN ---
<KishaAstridn - Last Filed: 08/12/17 15:34> Subjective - Date & Time of Evaluation Date of Evaluation: 08/12/17 Time of Evaluation: 12:16 - Subjective Subjective: Patient seen and examined at bedside. Patient reports feeling constipated and the urge to urinate. He denies any chest pain, shortness of breath, dizziness, diarrhea, nausea, vomiting, lower leg swelling, or any other complaints. Objective - Vital Signs/Intake and Output Vital Signs (last 24 hours): Temp Pulse Resp BP Pulse Ox 97.6 F 72 20 121/66 96 08/12/17 10:00 08/12/17 10:00 08/12/17 10:00 08/12/17 10:00 08/12/17 10:00 Intake and Output: 08/12/17 08/12/17 06:59 18:59 Intake Total 0 Balance 0 - Medications Medications: Current Medications Docusate Sodium (Colace Liquid) 100 mg PO TID [facility] Heparin Sodium (Porcine) (Heparin) 5,000 units SC Q12 [facility] PRN Reason: Protocol Last Admin: 08/12/17 10:50 Dose: 5,000 units Ceftriaxone Sodium (Rocephin 1 Gram Ivpb) 1 gm in 100 mls @ 100 mls/hr IVPB 0600 [facility] PRN Reason: Protocol Last Admin: 08/12/17 05:11 Dose: 100 mls/hr Morphine Sulfate (Morphine) 1 mg IVP Q4H PRN PRN Reason: Pain, moderate (4-7) Last Admin: 08/12/17 05:18 Dose: 1 mg Ondansetron HCl (Zofran Inj) 4 mg IVP Q6H PRN PRN Reason: Nausea/Vomiting Pantoprazole Sodium (Protonix Inj) 40 mg IVP DAILY [facility] Last Admin: 08/12/17 10:52 Dose: 40 mg - Labs Labs: 08/12/17 08:20 08/12/17 08:20 - Head Exam Head Exam: ATRAUMATIC, NORMAL INSPECTION, NORMOCEPHALIC - Eye Exam Eye Exam: EOMI, Normal appearance, PERRL Pupil Exam: NORMAL ACCOMODATION - ENT Exam ENT Exam: Mucous Membranes Moist, Normal Oropharynx - Respiratory Exam Respiratory Exam: Clear to Ausculation Bilateral, NORMAL BREATHING PATTERN - Cardiovascular Exam Cardiovascular Exam: REGULAR RHYTHM, +S1, +S2 - GI/Abdominal Exam GI & Abdominal Exam: Soft, Normal Bowel Sounds Additional comments: Abodominal incision with stapels in place. No erythema, discharge. G tube in place no discharge or erythema. - Extremities Exam Extremities Exam: Full ROM, Normal Inspection. absent: Pedal Edema - Neurological Exam Neurological Exam: Alert, Awake, CN II-XII Intact, Oriented x3 - Psychiatric Exam Psychiatric exam: Normal Affect, Normal Mood - Skin Skin Exam: Dry, Intact Assessment and Plan - Assessment and Plan (Free Text) Assessment: This is a 77 year old male with PMHx esophageal cancer s/p radiation therapy in 1999 and baseline dysphagia to solids who presented with new onset dysphagia to liquids. 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 Patient is status post G tube placement. Plan: 1. Dysphagia -CT scan reviewed, no obvious etiology -Swallow evaluation failed. -GI consult. Rec's appreciated -G tube placement by surgery POD#3.Continue Jevity 1.2 @ 30cc/hr started. Tolerating diet. Will increase as tolerated. -Will reconsult [employer] for bolus feedings rec's. -Oncology consult.Will f/u with rec's. -ENT consulted. Rec's appreciated. -IV fluids discontinued. -Continue Morphine 1mg IVP Q6 PRN for pain management. -Patient doesn't want Percocet and pain medicine will be discontinued. 2. Weight loss -possibly due to underlying condition -Dietitian referral for recommendations regarding bolus feeding goals. 3.Nausea -Zofran 4mg Q6 PRN. 4. Constipation -Patient reports having one small bowel movement. -Colace started and Ducolax laxative given. Will monitor. 5. Urinary retention -Bladder scan showed 900 cc's of urine. -Straight cath ordered .Patient refuses treatment and will continue to try to urinate. Will monitor. Dispo: Will continue to follow in TCU. Discussed with Dr. Daphne Beard PGY-1 <Marta Serna - Last Filed: 08/12/17 16:45> Objective - Vital Signs/Intake and Output Vital Signs (last 24 hours): Temp Pulse Resp BP Pulse Ox 98.2 F 66 18 91/60 L 95 08/12/17 16:00 08/12/17 16:00 08/12/17 16:00 08/12/17 16:00 08/12/17 16:00 Intake and Output: 08/12/17 08/12/17 06:59 18:59 Intake Total 0 Balance 0 - Medications Medications: Current Medications Bisacodyl (Dulcolax) 10 mg RC ONCE ONE Stop: 08/12/17 16:44 Docusate Sodium (Colace Liquid) 100 mg PO TID [facility] Last Admin: 08/12/17 14:34 Dose: 100 mg Heparin Sodium (Porcine) (Heparin) 5,000 units SC Q12 [facility] PRN Reason: Protocol Last Admin: 08/12/17 10:50 Dose: 5,000 units Levofloxacin/Dextrose (Levaquin 750mg) 750 mg in 150 mls @ 100 mls/hr IVPB 2200 [facility] PRN Reason: Protocol Stop: 08/15/17 23:29 Morphine Sulfate (Morphine) 1 mg IVP Q4H PRN PRN Reason: Pain, moderate (4-7) Last Admin: 08/12/17 05:18 Dose: 1 mg Nicotine (Nicoderm Cq) 1 patch TD DAILY [facility] Ondansetron HCl (Zofran Inj) 4 mg IVP Q6H PRN PRN Reason: Nausea/Vomiting Pantoprazole Sodium (Protonix Inj) 40 mg IVP DAILY [facility] Last Admin: 08/12/17 10:52 Dose: 40 mg Tamsulosin HCl (Flomax) 0.4 mg PO 1830 [facility] - Labs Labs: 08/12/17 08:20 08/12/17 08:20 Attending/Attestation - Attestation I have personally seen and examined this patient.: Yes I have fully participated in the care of the patient.: Yes I have reviewed all pertinent clinical information, including history, physical exam and plan: Yes Notes (Text): 08/12/17 16:44 attending note; Patient seen and examined with resident in TCU. 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 Status post surgical PEG tube placement. Continue Jevity feeding. Increase dose as tolerated. pain management with morphine. nursing will educate the family about tube feeding. Urinary retention; straight cath as needed. Patient is able to void a little. Mostly secondary to opiate effect. Constipation; started on Colace. Suppository as needed. Active smoking; smoking cessation is strongly advised. Started on NicoDerm patch. Continue physical therapy in TCU. upon discharge the patient will follow-up with PMD .
[2017-08-12] MEDS ORDERED: levoFLOXacin 750 mg in D5W 750 MG/150 ML BAG IVPB SCH (13:00)
[2017-08-12] MEDS ORDERED: levoFLOXacin 750 mg in D5W 150 ML BAG IVPB SCH (13:00)
[2017-08-12] MEDS ORDERED: Potassium Chloride 40 mEq/30 ml LIQ UD PO ONE (13:33)
--- NOTE | 2017-08-12 17:22 | CP.PCM.PCO ---
Addendum Addendum: I reviewed assessment and met with patient and his at bedside. Patient is a 77 year old male with esophageal cancer s/p radiation therapy who was transferred to TCU after presenting with new onset dysphagia to liquids as well as recent 20 pound weight loss. Psychiatry was consulted for depression. Patient declines a psychiatric consultation. Patient indicates that his " medical team are the ones who need a psychiatric evaluation". Patient is willing to answer a few basic questions about his orientation and functioning. He is oriented to month, year, location and circumstances. He denies SI or HI. He is not hallucinating. As noted above, patient defers on any psychiatric management at this time, indicating preference to focus on his medical issues He does not present as an acute danger to herself or others. At this time psychiatry will respect patient's wishes and sign off. Patient aware that he may request our f/u at any time if he should change his mind.
[2017-08-12] MEDS: levoFLOXacin 750 mg in D5W 750 MG/150 ML BAG IVPB SCH (21:30)
[2017-08-13] MEDS: Morphine 2 mg/ml ISec IVP PRN (01:58)
--- NOTE | 2017-08-13 03:01 | CP.PCM.PN ---
Subjective - Date & Time of Evaluation Date of Evaluation: 08/13/17 Time of Evaluation: 02:56 - Subjective Subjective: Patient was seen and examined at bedside at the request of the RN for hypotension with SBP in the 60s. I received calls earlier in the night for this patient concerning urinary retention. Patient was retaining 1000 ccs of urine and straight cath and coude catheter were attempted without success. Only approximately 150 ccs of urine drained before it stopped flowing. Dr. Veronica Rincon was contacted and he asked us to have the cart ready at bedside. We then received the call that the patient was hypotensive. Upon arrival to the patient's room he had a BP of 72/44 and O2 sat was 97% on 2L nasal cannula. Patient was also complaining of some numbness in his hands. Neurological exam was done and no deficits were noted. Patient was transferred to the ED for further evaluation. Objective - Vital Signs/Intake and Output Vital Signs (last 24 hours): Temp Pulse Resp BP Pulse Ox 98.1 F 98 H 20 90/52 L 94 L 08/13/17 01:52 08/13/17 01:52 08/13/17 01:52 08/13/17 01:52 08/13/17 01:52 Intake and Output: 08/12/17 08/13/17 18:59 06:59 Output Total 300 Balance -300 - Medications Medications: Current Medications Docusate Sodium (Colace Liquid) 100 mg PO TID [facility] Last Admin: 08/12/17 17:01 Dose: 100 mg Heparin Sodium (Porcine) (Heparin) 5,000 units SC Q12 LYLY PRN Reason: Protocol Last Admin: 08/12/17 21:28 Dose: 5,000 units Levofloxacin/Dextrose (Levaquin 750mg) 750 mg in 150 mls @ 100 mls/hr IVPB 2200 LYLY PRN Reason: Protocol Stop: 08/15/17 23:29 Last Admin: 08/12/17 21:30 Dose: 100 mls/hr Morphine Sulfate (Morphine) 1 mg IVP Q4H PRN PRN Reason: Pain, moderate (4-7) Last Admin: 08/13/17 01:58 Dose: 1 mg Nicotine (Nicoderm Cq) 1 patch TD DAILY [facility] Last Admin: 08/12/17 17:01 Dose: 1 patch Ondansetron HCl (Zofran Inj) 4 mg IVP Q6H PRN PRN Reason: Nausea/Vomiting Pantoprazole Sodium (Protonix Inj) 40 mg IVP DAILY [facility] Last Admin: 08/12/17 10:52 Dose: 40 mg Tamsulosin HCl (Flomax) 0.4 mg PO 1830 [facility] Last Admin: 08/12/17 17:41 Dose: 0.4 mg - Labs Labs: 08/12/17 08:20 08/12/17 08:20 - Constitutional Appears: Non-toxic, No Acute Distress, Cachectic, Chronically Ill - Head Exam Head Exam: ATRAUMATIC, NORMAL INSPECTION, NORMOCEPHALIC - Eye Exam Eye Exam: EOMI, Normal appearance, PERRL - ENT Exam ENT Exam: Mucous Membranes Moist - Respiratory Exam Respiratory Exam: Clear to Ausculation Bilateral, NORMAL BREATHING PATTERN - Cardiovascular Exam Cardiovascular Exam: REGULAR RHYTHM, +S1, +S2 - GI/Abdominal Exam GI & Abdominal Exam: Soft. absent: Tenderness Additional comments: G tube in place - Exam Exam: Bladder Distension - Extremities Exam Extremities Exam: Normal Capillary Refill, Normal Inspection. absent: Calf Tenderness, Pedal Edema - Neurological Exam Neurological Exam: Alert, Awake, CN II-XII Intact, Oriented x3. absent: Altered Neuro motor strength exam: Left Upper Extremity: 4, Right Upper Extremity: 4, Left Lower Extremity: 4, Right Lower Extremity: 4 - Psychiatric Exam Psychiatric exam: Normal Affect, Normal Mood - Skin Skin Exam: Dry, Intact, Normal Color, Warm Assessment and Plan - Assessment and Plan (Free Text) Plan: Please see subjective
--- NOTE | 2017-08-13 13:39 | CP.PCM.PN ---
<Christ Beard - Last Filed: 08/13/17 13:47> Subjective - Date & Time of Evaluation Date of Evaluation: 08/13/17 Time of Evaluation: 13:37 - Subjective Subjective: Patient seen and examined at bedside. Per nursing, overnight the patient continued retain urine per bladder scan and was straight cath. Patient lost 200 cc and was still retaining. Patient blood pressure then dropped into 60's systolic. Patient was transferred to Emergency Department for further management. Objective - Vital Signs/Intake and Output Vital Signs (last 24 hours): Temp Pulse Resp BP Pulse Ox 98.1 F 98 H 22 70/44 L 94 L 08/13/17 02:40 08/13/17 02:40 08/13/17 02:40 08/13/17 02:45 08/13/17 02:40 Intake and Output: 08/13/17 08/13/17 06:59 18:59 Intake Total 237 Output Total 300 300 Balance -300 -63 - Medications Medications: Current Medications Docusate Sodium (Colace Liquid) 100 mg PO TID [facility] Last Admin: 08/13/17 10:25 Dose: 100 mg Heparin Sodium (Porcine) (Heparin) 5,000 units SC Q12 [facility] PRN Reason: Protocol Last Admin: 08/13/17 10:34 Dose: 5,000 units Levofloxacin/Dextrose (Levaquin 750mg) 750 mg in 150 mls @ 100 mls/hr IVPB 2200 [facility] PRN Reason: Protocol Stop: 08/15/17 23:29 Last Admin: 08/12/17 21:30 Dose: 100 mls/hr Morphine Sulfate (Morphine) 1 mg IVP Q4H PRN PRN Reason: Pain, moderate (4-7) Last Admin: 08/13/17 01:58 Dose: 1 mg Nicotine (Nicoderm Cq) 1 patch TD DAILY [facility] Last Admin: 08/13/17 10:26 Dose: Not Given Ondansetron HCl (Zofran Inj) 4 mg IVP Q6H PRN PRN Reason: Nausea/Vomiting Pantoprazole Sodium (Protonix Inj) 40 mg IVP DAILY [facility] Last Admin: 08/13/17 10:31 Dose: 40 mg Tamsulosin HCl (Flomax) 0.4 mg PO 1830 [facility] Last Admin: 08/12/17 17:41 Dose: 0.4 mg - Labs Labs: 08/12/17 08:20 08/12/17 08:20 - Head Exam Head Exam: ATRAUMATIC, NORMAL INSPECTION, NORMOCEPHALIC - Eye Exam Eye Exam: Normal appearance, PERRL Pupil Exam: NORMAL ACCOMODATION, PERRL. absent: Irregular, Unequal - ENT Exam ENT Exam: Mucous Membranes Moist, Normal Oropharynx - Respiratory Exam Respiratory Exam: Clear to Ausculation Bilateral, NORMAL BREATHING PATTERN. absent: Prolonged Expiratory Phase, Respiratory Distress - Cardiovascular Exam Cardiovascular Exam: REGULAR RHYTHM, +S1, +S2 - GI/Abdominal Exam GI & Abdominal Exam: Soft, Normal Bowel Sounds. absent: Rigid, Hyperactive Bowel Sounds - Extremities Exam Extremities Exam: Full ROM, Normal Inspection. absent: Joint Swelling, Pedal Edema - Back Exam Back Exam: NORMAL INSPECTION. absent: CVA tenderness (L), CVA tenderness (R), paraspinal tenderness - Neurological Exam Neurological Exam: Alert, Awake, CN II-XII Intact, Oriented x3 - Psychiatric Exam Psychiatric exam: Normal Affect, Normal Mood - Skin Skin Exam: Dry, Intact, Normal Color Assessment and Plan - Assessment and Plan (Free Text) Assessment: This is a 77 year old male with PMHx esophageal cancer s/p radiation therapy in 1999 and baseline dysphagia to solids who presented with new onset dysphagia to liquids. 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 Patient is status post G tube placement. Patient transferred to Emergency department for urinary retention and decrease in blood pressure. Plan: 1. Dysphagia -CT scan reviewed, no obvious etiology -Swallow evaluation failed. -GI consult. Rec's appreciated -G tube placement by surgery POD#3.Continue Jevity 1.2 @ 30cc/hr started. Tolerating diet. Will increase as tolerated. -F/u with [employer] for bolus feedings rec's. -Patient and son taught the proper treatment for G tube feedings. -Oncology consult.Will f/u with rec's. -ENT consulted. Rec's appreciated. -Continue Morphine 1mg IVP Q6 PRN for pain management. -Patient doesn't want Percocet and pain medicine will be discontinued. 2. Weight loss -possibly due to underlying condition -F/u for Dietitian referral for recommendations regarding bolus feeding goals. 3.Nausea -Zofran 4mg Q6 PRN. 4. Hypotensive episodes -Patient transferred to Emergency department for management. 5. Urinary retention -Bladder scan showed 900 cc's of urine. -Straight cath ordered .Patient refuses treatment and will continue to try to urinate. Straight cath removed 200 cc. Gonzalez placed and retention improved. -Patient denied taking Flomax at home or any other medications. 6.UTI -Urine culture showed Coagulase negative staphylococcus. -Continue Levofloxacin Dispo: Patient transferred back from E.D. to TCU for observation. Discussed with Dr. Daphne Beard PGY-1 <Marta Serna - Last Filed: 08/14/17 15:09> Objective - Vital Signs/Intake and Output Vital Signs (last 24 hours): Temp Pulse Resp BP Pulse Ox 98.2 F 91 H 20 109/62 96 08/13/17 16:00 08/13/17 16:00 08/13/17 16:00 08/13/17 16:00 08/13/17 16:00 Intake and Output: 08/14/17 08/14/17 06:59 18:59 Intake Total 0 0 Output Total 1650 900 Balance -1650 -900 - Medications Medications: Current Medications Docusate Sodium (Colace Liquid) 100 mg PO TID [facility] Last Admin: 08/14/17 13:34 Dose: 100 mg Heparin Sodium (Porcine) (Heparin) 5,000 units SC Q12 [facility] PRN Reason: Protocol Last Admin: 08/14/17 09:26 Dose: 5,000 units Levofloxacin/Dextrose (Levaquin 750mg) 750 mg in 150 mls @ 100 mls/hr IVPB 2200 [facility] PRN Reason: Protocol Stop: 08/15/17 23:29 Last Admin: 08/13/17 22:03 Dose: 100 mls/hr Morphine Sulfate (Morphine) 1 mg IVP Q4H PRN PRN Reason: Pain, moderate (4-7) Last Admin: 08/13/17 01:58 Dose: 1 mg Nicotine (Nicoderm Cq) 1 patch TD DAILY [facility] Last Admin: 08/14/17 09:27 Dose: Not Given Ondansetron HCl (Zofran Inj) 4 mg IVP Q6H PRN PRN Reason: Nausea/Vomiting Pantoprazole Sodium (Protonix Inj) 40 mg IVP DAILY [facility] Last Admin: 08/14/17 09:27 Dose: 40 mg Polyethylene Glycol (Miralax) 17 gm PO BID [facility] Last Admin: 08/14/17 09:21 Dose: Not Given Tamsulosin HCl (Flomax) 0.4 mg PO 1830 [facility] Last Admin: 08/13/17 17:34 Dose: 0.4 mg - Labs Labs: 08/12/17 08:20 08/12/17 08:20 Attending/Attestation - Attestation I have personally seen and examined this patient.: Yes I have fully participated in the care of the patient.: Yes I have reviewed all pertinent clinical information, including history, physical exam and plan: Yes Notes (Text): 08/14/17 15:04 attending note; Patient seen and examined with resident in TCU. 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 Status post surgical PEG tube placement. Continue Jevity feeding. Increase dose as tolerated. pain management with morphine. family is educated about feeding. Urinary retention; s/p gonzalez placement in ER by Dr. Rincon. Constipation; started on Colace. Active smoking; smoking cessation is strongly advised. Started on NicoDerm patch. Continue physical therapy in TCU. upon discharge the patient will follow-up with PMD . 08/14/17 15:08
--- NOTE | 2017-08-13 18:15 | PCM.URO ---
Urology Progress Note - Objective Lab Studies: Reviewed (gonzalez inserted) Lab Results Last 24 Hours: Laboratory Results - last 24 hr 08/13/17 02:43 POC Glucose (mg/dL) 102 Intake & Output: Intake & Output 08/12/17 08/13/17 08/13/17 18:59 06:59 18:59 Intake Total 237 Output Total 300 1800 Balance -300 -1563 Intake: Oral 237 Output: Urine 300 1800 Straight 200 200 Urethral (Gonzalez) 1500 Urine, Voided 100 100 Other: # Bowel Movements 1 Vital Signs: Vital Signs - 24 hr 08/13/17 08/13/17 08/13/17 00:59 01:52 02:40 Temperature 97.9 F 98.1 F 98.1 F Pulse Rate 92 H 98 H 98 H Respiratory 18 20 22 Rate Blood Pressure 99/60 L 90/52 L 61/41 L O2 Sat by Pulse 95 94 L 94 L Oximetry 08/13/17 08/13/17 02:45 16:00 Temperature 98.2 F Pulse Rate 91 H Respiratory 20 Rate Blood Pressure 70/44 L 109/62 O2 Sat by Pulse 96 Oximetry
[2017-08-13] MEDS: levoFLOXacin 750 mg in D5W 750 MG/150 ML BAG IVPB SCH (22:03)
[2017-08-14] MEDS: POLYETHYLENE GLYCOL 3350 17 GM/Dose PACKET PO SCH ×2 (09:21→17:14)
[2017-08-14] MEDS ORDERED: POLYETHYLENE GLYCOL 3350 17 GM/Dose PACKET PEG ONE (10:00)
[2017-08-14] MEDS: levoFLOXacin 750 mg in D5W 750 MG/150 ML BAG IVPB SCH (22:00)
[2017-08-15] MEDS: POLYETHYLENE GLYCOL 3350 17 GM/Dose PACKET PO SCH ×2 (10:05→17:46)
--- NOTE | 2017-08-15 13:09 | CP.PCM.PN ---
<Jayda Coffey - Last Filed: 08/15/17 13:00> Subjective - Date & Time of Evaluation Date of Evaluation: 08/15/17 Time of Evaluation: 13:00 - Subjective Subjective: Jayda Coffey, PGY1, Progress Note for Dr Serna: Patient seen and examined at bedside. No acute events overnight. States that he is feeling well. Denies fever, chills, cp, sob, abdominal pain, urinary symptoms , leg swelling. Objective - Vital Signs/Intake and Output Vital Signs (last 24 hours): Temp Pulse Resp BP Pulse Ox 98.2 F 71 18 95/58 L 95 08/14/17 16:00 08/14/17 16:00 08/14/17 16:00 08/14/17 16:00 08/14/17 16:00 Intake and Output: 08/15/17 08/15/17 06:59 18:59 Intake Total 0 Output Total 1325 Balance -1325 - Medications Medications: Current Medications Docusate Sodium (Colace Liquid) 100 mg PO TID [facility] Last Admin: 08/15/17 10:14 Dose: Not Given Heparin Sodium (Porcine) (Heparin) 5,000 units SC Q12 [facility] PRN Reason: Protocol Last Admin: 08/15/17 10:13 Dose: 5,000 units Levofloxacin/Dextrose (Levaquin 750mg) 750 mg in 150 mls @ 100 mls/hr IVPB 2200 [facility] PRN Reason: Protocol Stop: 08/15/17 23:29 Last Admin: 08/14/17 22:00 Dose: Not Given Morphine Sulfate (Morphine) 1 mg IVP Q4H PRN PRN Reason: Pain, moderate (4-7) Last Admin: 08/13/17 01:58 Dose: 1 mg Nicotine (Nicoderm Cq) 1 patch TD DAILY [facility] Last Admin: 08/15/17 10:06 Dose: Not Given Ondansetron HCl (Zofran Inj) 4 mg IVP Q6H PRN PRN Reason: Nausea/Vomiting Pantoprazole Sodium (Protonix Inj) 40 mg IVP DAILY [facility] Last Admin: 08/15/17 10:18 Dose: 40 mg Polyethylene Glycol (Miralax) 17 gm PO BID [facility] Last Admin: 08/15/17 10:05 Dose: Not Given Tamsulosin HCl (Flomax) 0.4 mg PO 1830 [facility] Last Admin: 08/14/17 17:31 Dose: 0.4 mg - Labs Labs: 08/12/17 08:20 08/12/17 08:20 - Constitutional Appears: Non-toxic, No Acute Distress, Older Than Stated Age, Cachectic, Chronically Ill - Head Exam Head Exam: ATRAUMATIC, NORMOCEPHALIC - Eye Exam Eye Exam: EOMI, PERRL. absent: Conjunctival injection, Nystagmus, Scleral icterus Pupil Exam: NORMAL ACCOMODATION, PERRL. absent: Fixed, Irregular, Miosis, Unequal - ENT Exam ENT Exam: Mucous Membranes Moist - Neck Exam Neck Exam: Full ROM - Respiratory Exam Respiratory Exam: Clear to Ausculation Bilateral, NORMAL BREATHING PATTERN. absent: Accessory Muscle Use, Chest Wall Tenderness, Decreased Breath Sounds, Rales, Wheezes, Respiratory Distress, Stridor - Cardiovascular Exam Cardiovascular Exam: RRR, +S1, +S2. absent: Murmur - GI/Abdominal Exam GI & Abdominal Exam: Soft, Normal Bowel Sounds. absent: Distended, Firm, Guarding, Rigid, Tenderness, Mass, Organomegaly, Rebound Additional comments: + cachectic - Exam Additional comments: + gonzalez in place - Extremities Exam Extremities Exam: Normal Inspection. absent: Calf Tenderness, Pedal Edema - Back Exam Back Exam: NORMAL INSPECTION - Neurological Exam Neurological Exam: Alert, Awake, Oriented x3 - Psychiatric Exam Psychiatric exam: Normal Affect, Normal Mood - Skin Skin Exam: Dry, Normal Color, Warm Assessment and Plan - Assessment and Plan (Free Text) Assessment: 77 year old male with PMH esophageal cancer s/p radiation therapy in 1999 and baseline dysphagia to solids, presents for new onset dysphagia to liquids. 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 -G tube placement by surgery. Continue Jevity 1.2 @ 30cc/hr started. Tolerating diet. Will increase as tolerated. -F/u with [employer] for bolus feedings rec's. -Patient's and son taught the proper treatment for G tube feedings. -Continue Morphine 1mg IVP Q4 PRN for pain management. -Patient doesn't want Percocet Weight loss: -possibly due to underlying condition -F/u for Dietitian referral for recommendations regarding bolus feeding goals. Nausea: -Zofran 4mg Q6 PRN. Urinary retention: -Bladder scan showed 900 cc's of urine. -Straight cath ordered .Patient refuses treatment and will continue to try to urinate. Straight cath removed 200 cc. Gonzalez placed and retention improved. -Patient denied taking Flomax at home or any other medications. -Flomax UTI: -Urine culture showed Coagulase negative staphylococcus. -Continue Levofloxacin Case seen and discussed with Dr. Serna. Jayda Coffey, PGY1 <Marta Serna - Last Filed: 08/15/17 13:14> Objective - Vital Signs/Intake and Output Vital Signs (last 24 hours): Temp Pulse Resp BP Pulse Ox 98.2 F 71 18 95/58 L 95 08/14/17 16:00 08/14/17 16:00 08/14/17 16:00 08/14/17 16:00 08/14/17 16:00 Intake and Output: 08/15/17 08/15/17 06:59 18:59 Intake Total 0 Output Total 1325 Balance -1325 - Medications Medications: Current Medications Docusate Sodium (Colace Liquid) 100 mg PO TID [facility] Last Admin: 08/15/17 10:14 Dose: Not Given Heparin Sodium (Porcine) (Heparin) 5,000 units SC Q12 [facility] PRN Reason: Protocol Last Admin: 08/15/17 10:13 Dose: 5,000 units Levofloxacin/Dextrose (Levaquin 750mg) 750 mg in 150 mls @ 100 mls/hr IVPB 2200 [facility] PRN Reason: Protocol Stop: 08/15/17 23:29 Last Admin: 08/14/17 22:00 Dose: Not Given Morphine Sulfate (Morphine) 1 mg IVP Q4H PRN PRN Reason: Pain, moderate (4-7) Last Admin: 08/13/17 01:58 Dose: 1 mg Nicotine (Nicoderm Cq) 1 patch TD DAILY [facility] Last Admin: 08/15/17 10:06 Dose: Not Given Ondansetron HCl (Zofran Inj) 4 mg IVP Q6H PRN PRN Reason: Nausea/Vomiting Pantoprazole Sodium (Protonix Inj) 40 mg IVP DAILY [facility] Last Admin: 08/15/17 10:18 Dose: 40 mg Polyethylene Glycol (Miralax) 17 gm PO BID [facility] Last Admin: 08/15/17 10:05 Dose: Not Given Tamsulosin HCl (Flomax) 0.4 mg PO 1830 [facility] Last Admin: 08/14/17 17:31 Dose: 0.4 mg - Labs Labs: 08/12/17 08:20 08/12/17 08:20 Attending/Attestation - Attestation I have personally seen and examined this patient.: Yes I have fully participated in the care of the patient.: Yes I have reviewed all pertinent clinical information, including history, physical exam and plan: Yes Notes (Text): 08/15/17 13:13 Patient seen and examined with resident in TCU. 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 Status post surgical PEG tube placement. Continue Jevity feeding. Increase dose as tolerated. pain management with morphine. family is educated about feeding. Speech and swallow evaluation appreciated. Continue nothing by mouth. Needs reevaluation after a few weeks. Urinary retention; s/p gonzalez placement in ER by Dr. Rincon.. Active smoking; smoking cessation is strongly advised. Started on NicoDerm patch. Continue physical therapy in TCU. upon discharge the patient will follow-up with PMD .
[2017-08-15] MEDS: levoFLOXacin 750 mg in D5W 750 MG/150 ML BAG IVPB SCH (21:11)
[2017-08-16] MEDS: POLYETHYLENE GLYCOL 3350 17 GM/Dose PACKET PO SCH ×2 (10:25→17:46)
--- NOTE | 2017-08-16 16:21 | PCM.URO ---
Urology Progress Note - Objective Lab Studies: Reviewed (dx; retention no changes for now) Intake & Output: Intake & Output 08/15/17 08/16/17 08/16/17 18:59 06:59 18:59 Intake Total 0 Output Total 1050 Balance -1050 Intake: Oral 0 Output: Urine 1050 Urethral (Armstrong) 1050 Other: # Bowel Movements 0
[2017-08-16 16:57] VITALS: RESP 18
[2017-08-17] MEDS: POLYETHYLENE GLYCOL 3350 17 GM/Dose PACKET PO SCH (10:13)
[2017-08-17 10:30] VITALS: BP 88/54; PULSE 75; TEMP 97.3; O2SAT 97
--- NOTE | 2017-08-17 11:20 | CP.PCM.DIS ---
<Hadley Pereyra - Last Filed: 08/17/17 12:35> Provider - Provider Date of Admission: 08/09/17 15:21 Attending physician: Chao Mayo MD Primary care physician: Ryan Domingo MD Consults: Dr. Juan Rincon Time Spent in preparation of Discharge (in minutes): 45 Hospital Course - Lab Results Lab Results: Most Recent Lab Values WBC 6.2 10^3/ul (4.5-11.0) 08/12/17 08:20 RBC 3.65 10^6/uL (3.5-6.1) 08/12/17 08:20 Hgb 11.4 g/dL (14.0-18.0) L 08/12/17 08:20 Hct 33.2 % (42.0-52.0) L 08/12/17 08:20 MCV 91.0 fl (80.0-105.0) 08/12/17 08:20 MCH 31.2 pg (25.0-35.0) 08/12/17 08:20 MCHC 34.3 g/dl (31.0-37.0) 08/12/17 08:20 RDW 14.1 % (11.5-14.5) 08/12/17 08:20 Plt Count 244 10^3/uL (120.0-450.0) 08/12/17 08:20 MPV 10.0 fl (7.0-11.0) 08/12/17 08:20 Gran % 77.0 % (50.0-68.0) H 08/12/17 08:20 Lymph % (Auto) 9.9 % (22.0-35.0) L 08/12/17 08:20 [place] % (Auto) 8.7 % (1.0-6.0) H 08/12/17 08:20 Eos % (Auto) 4.2 % (1.5-5.0) 08/12/17 08:20 Baso % (Auto) 0.2 % (0.0-3.0) 08/12/17 08:20 Gran # 4.76 (1.4-6.5) 08/12/17 08:20 Lymph # (Auto) 0.6 (1.2-3.4) L 08/12/17 08:20 [place] # (Auto) 0.5 (0.1-0.6) 08/12/17 08:20 Eos # (Auto) 0.3 (0.0-0.7) 08/12/17 08:20 Baso # (Auto) 0.01 K/mm3 (0.0-2.0) 08/12/17 08:20 Sodium 136 mmol/L (132-148) 08/12/17 08:20 Potassium 3.1 mmol/L (3.6-5.0) L 08/12/17 08:20 Chloride 95 mmol/L (98-107) L 08/12/17 08:20 Carbon Dioxide 34 mmol/L (21-33) H 08/12/17 08:20 Anion Gap 10 (10-20) 08/12/17 08:20 BUN 10 mg/dL (7-21) 08/12/17 08:20 Creatinine 0.6 mg/dl (0.8-1.5) L 08/12/17 08:20 Est GFR ( Amer) > 60 08/12/17 08:20 Est GFR (Non-Af Amer) > 60 08/12/17 08:20 POC Glucose (mg/dL) 130 mg/dL (65-110) H 08/15/17 11:44 Random Glucose 143 mg/dL (70-110) H 08/12/17 08:20 Calcium 8.5 mg/dL (8.4-10.5) 08/12/17 08:20 Total Bilirubin < 0.1 mg/dL (0.2-1.3) L 08/12/17 08:20 AST 21 U/L (17-59) 08/12/17 08:20 ALT 29 U/L (7-56) 08/12/17 08:20 Alkaline Phosphatase 59 U/L (38-126) 08/12/17 08:20 Total Protein 5.5 g/dL (5.8-8.3) L 08/12/17 08:20 Albumin 2.8 g/dL (3.0-4.8) L 08/12/17 08:20 Globulin 2.7 gm/dL 08/12/17 08:20 Albumin/Globulin Ratio 1.0 (1.1-1.8) L 08/12/17 08:20 - Hospital Course Hospital Course: 77 year old male with a past medical history of throat cancer s/p radiation treatment in 1999 who presented to the hospital with 3 weeks of new onset dysphagia to liquids. He has baseline dysphagia to solid food. Patient states that it began 3 weeks ago when he noticed that after swallowing liquids, he would spit it back up. Per at bedside, she states that she also sees it coming out of his nose as well. Patient does not notice any exacerbating or remitting factors. Patient states that he has lost about 20 pounds within these past 3 weeks. Patient states that he was diagnosed in 1999 with an unspecified type of throat cancer. He received 5 sessions of radiation for his cancer before being sent to [facility]. While he was in [place], he had a biopsy and was later sent to [facility] where he completed his treatments. He was only able to tolerate a liquid diet after his treatments and was drinking protein supplements before this dysphagia to liquids began. Patient was offered treatment in the past for his dysphagia to solids but has refused. He is complaining of abdominal pain from hunger and nausea due to dry mouth. He denies any throat pain, chest pain, dyspnea. GI was consulted, Dr. Escobar, who tried to perform an upper endoscopy but noted that the hypopharynx was fibrotic precluding advancement of both a 27 mm gastroscope and 16 mm endoscope. IR was consulted to place a G-tube, but was unsuccessful. General surgery was consulted to do an open G-tube that was successful and without any complications. The patient was monitored in the TCU with rehabilitive services. The patient's hospital course was complicated by constipation and urinary incontinence. A bladder scan showed 900 cc of urinary retention. A straight urinary catheterization was performed by urologist, Dr. John Rincon. The patient had the Gonzalez kept in place throughout his hospital stay. Also, it was noted that the patient appeared somewhat depressed and psychiatry was consulted , but the patient's refused this service. The patient was discharged with a follow up appointment with Dr. Rincon tomorrow at 10:30 and informed to schedule an appointment with Dr. Martinez's office to remove the janee for the G-tube sometime after the 08/20/17. - Date & Time of H&P Date of H&P: 08/17/17 Time of H&P: 11:26 Discharge Exam - Head Exam Head Exam: ATRAUMATIC, NORMOCEPHALIC - Eye Exam Eye Exam: EOMI, Normal appearance - ENT Exam ENT Exam: Mucous Membranes Moist - Neck Exam Neck exam: Normal Inspection - Respiratory Exam Respiratory Exam: Clear to PA & Lateral, NORMAL BREATHING PATTERN. absent: Accessory Muscle Use - Cardiovascular Exam Cardiovascular Exam: RRR, +S1, +S2 - GI/Abdominal Exam GI & Abdominal Exam: Normal Bowel Sounds Additional comments: g- tube intact and staple line clean - Exam Exam: NORMAL INSPECTION. absent: Scrotal Swelling, Bladder Distension - Neurological Exam Neurological exam: Alert, CN II-XII Intact, Oriented x3 - Psychiatric Exam Psychiatric exam: Normal Affect, Normal Mood - Skin Skin Exam: Dry, Intact, Normal Color, Warm Discharge Plan - Discharge Medications Prescriptions: Tamsulosin [Flomax] 0.4 mg PO DAILY #30 cap - Follow Up Plan Condition: GOOD Disposition: HOME/ ROUTINE Instructions: Enteral Feeding, How to Care for Your Gonzalez Catheter, Male, How to Care for Your PEG Tube , Dysphagia (DC), How to Give a Tube Feeding Additional Instructions: 1) Patient to follow up with Dr. John Raines tomorrow at 10:30 AM. 2) Patient to take any medication as directed. 3) Patient to schedule an appointment with Dr. Martinez's office sometime after for removal of janee from G-tube. 4) Patient is to abstain from smoking. 5) Patient to follow up with PMD within one week of discharge. Referrals: Ryan Domingo MD [Primary Care Provider] - <Chao Mayo - Last Filed: 08/17/17 14:36> Provider - Provider Date of Admission: 08/09/17 15:21 Attending physician: Chao Mayo MD Primary care physician: Ryan Domingo MD Hospital Course - Lab Results Lab Results: Most Recent Lab Values WBC 6.2 10^3/ul (4.5-11.0) 08/12/17 08:20 RBC 3.65 10^6/uL (3.5-6.1) 08/12/17 08:20 Hgb 11.4 g/dL (14.0-18.0) L 08/12/17 08:20 Hct 33.2 % (42.0-52.0) L 08/12/17 08:20 MCV 91.0 fl (80.0-105.0) 08/12/17 08:20 MCH 31.2 pg (25.0-35.0) 08/12/17 08:20 MCHC 34.3 g/dl (31.0-37.0) 08/12/17 08:20 RDW 14.1 % (11.5-14.5) 08/12/17 08:20 Plt Count 244 10^3/uL (120.0-450.0) 08/12/17 08:20 MPV 10.0 fl (7.0-11.0) 08/12/17 08:20 Gran % 77.0 % (50.0-68.0) H 08/12/17 08:20 Lymph % (Auto) 9.9 % (22.0-35.0) L 08/12/17 08:20 [place] % (Auto) 8.7 % (1.0-6.0) H 08/12/17 08:20 Eos % (Auto) 4.2 % (1.5-5.0) 08/12/17 08:20 Baso % (Auto) 0.2 % (0.0-3.0) 08/12/17 08:20 Gran # 4.76 (1.4-6.5) 08/12/17 08:20 Lymph # (Auto) 0.6 (1.2-3.4) L 08/12/17 08:20 [place] # (Auto) 0.5 (0.1-0.6) 08/12/17 08:20 Eos # (Auto) 0.3 (0.0-0.7) 08/12/17 08:20 Baso # (Auto) 0.01 K/mm3 (0.0-2.0) 08/12/17 08:20 Sodium 136 mmol/L (132-148) 08/12/17 08:20 Potassium 3.1 mmol/L (3.6-5.0) L 08/12/17 08:20 Chloride 95 mmol/L (98-107) L 08/12/17 08:20 Carbon Dioxide 34 mmol/L (21-33) H 08/12/17 08:20 Anion Gap 10 (10-20) 08/12/17 08:20 BUN 10 mg/dL (7-21) 08/12/17 08:20 Creatinine 0.6 mg/dl (0.8-1.5) L 08/12/17 08:20 Est GFR ( Amer) > 60 08/12/17 08:20 Est GFR (Non-Af Amer) > 60 08/12/17 08:20 POC Glucose (mg/dL) 130 mg/dL (65-110) H 08/15/17 11:44 Random Glucose 143 mg/dL (70-110) H 08/12/17 08:20 Calcium 8.5 mg/dL (8.4-10.5) 08/12/17 08:20 Total Bilirubin < 0.1 mg/dL (0.2-1.3) L 08/12/17 08:20 AST 21 U/L (17-59) 08/12/17 08:20 ALT 29 U/L (7-56) 08/12/17 08:20 Alkaline Phosphatase 59 U/L (38-126) 08/12/17 08:20 Total Protein 5.5 g/dL (5.8-8.3) L 08/12/17 08:20 Albumin 2.8 g/dL (3.0-4.8) L 08/12/17 08:20 Globulin 2.7 gm/dL 08/12/17 08:20 Albumin/Globulin Ratio 1.0 (1.1-1.8) L 08/12/17 08:20 Attending/Attestation - Attestation I have personally seen and examined this patient.: Yes I have fully participated in the care of the patient.: Yes I have reviewed all pertinent clinical information, including history, physical exam and plan: Yes Notes (Text): 08/17/17 14:34 77 year old male with past medical history of esophageal vs laryngeal cancer with history of radiation therapy who presented with dysphagia. He was seen by surgery and is s/p surgical PEG tube placement and started on Jevity feeding. He was transferred to TCU for physical therapy. He is s/p gonzalez placement for urinary retention. Patient is discharged home to follow up with his pmd. Follow up with surgery and urology. Counselled on smoking abstinence. Chao Mayo MD Hospitalist.
== END 2017-08-17 14:47 | disposition home health service (06) | DRG 392 ==
LOC: TRCU 15:21 → UNDODISIN 08-13 04:31
PROVIDERS: ADMIT Internal Medicine; ATTEND Internal Medicine
PROC: F07Z9FZ Gait Training/Functional Ambulation Treatment using Assistive, Adaptive, Supportive or Protective Equipment (ICD-10-PCS; principal; 2017-08-10)
PROC: F07M6ZZ Therapeutic Exercise Treatment of Musculoskeletal System - Whole Body (ICD-10-PCS; 2017-08-10)
PROC: F08Z0ZZ Bathing/Showering Techniques Treatment (ICD-10-PCS; 2017-08-10)
PROC: F08Z1ZZ Dressing Techniques Treatment (ICD-10-PCS; 2017-08-10)
PROC: F08Z2ZZ Grooming/Personal Hygiene Treatment (ICD-10-PCS; 2017-08-10)
DX: R13.10 Dysphagia, unspecified (principal); N39.0 Urinary tract infection, site not specified; E87.6 Hypokalemia; K59.00 Constipation, unspecified; R32 Unspecified urinary incontinence; Z85.01 Personal history of malignant neoplasm of esophagus; Z85.819 Personal history of malignant neoplasm of unspecified site of lip, oral cavity, and pharynx; Z92.3 Personal history of irradiation; Z80.0 Family history of malignant neoplasm of digestive organs; H91.90 Unspecified hearing loss, unspecified ear; F17.200 Nicotine dependence, unspecified, uncomplicated

== ENCOUNTER 2017-08-13 04:27 | Emergency (ER) | payer MEDICARE, OTHER ==
--- NOTE | 2017-08-13 04:47 | ED PDOC ---
Arrival/HPI - General Time Seen by Provider: 08/13/17 04:43 Historian: Patient - History of Present Illness Narrative History of Present Illness (Text): 08/13/17 04:47 Jonny Lopez is a 77 year old male, whose past medical history includes throat cancer s/p radiation, who presents to the Emergency department transferred from TCU for evaluation of a transient hypotension following urinary retention tonight. 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 As per the resident , case had been discussed with Dr. Rincon, urologist, who is to come to see the patient and place a suprapubic catheter as passage of urinary gonzalez catheter was unsuccessful. Patient had 1000cc or urine in the bladder initially found on US, according to clinical medical assistant. Patient denies any chest pain, abdominal pain, or any other complaints. States he feels fine . Time/Duration: Other (tonight) Symptom Onset: Gradual Symptom Course: Unchanged Activities at Onset: Light Past Medical History - Provider Review Nursing Documentation Reviewed: Yes - Infectious Disease Hx of Infectious Diseases: None - Cardiac Hx Cardiac Disorders: No - Pulmonary Hx Respiratory Disorders: No - Neurological Hx Neurological Disorder: No - HEENT Hx HEENT Disorder: Yes Hx Deafness: Yes - Renal Hx Renal Disorder: No - Endocrine/Metabolic Hx Endocrine Disorders: No - Hematological/Oncological Hx Blood Transfusions: (UNKNOWN) Hx Blood Transfusion Reaction: (UNKNOWN) - Integumentary Hx Dermatological Disorder: No - Musculoskeletal/Rheumatological Hx Falls: No - Gastrointestinal Hx Gastrointestinal Disorders: Yes - Genitourinary/Gynecological Hx Genitourinary Disorders: No - Psychiatric Hx Substance Use: No - Surgical History Other/Comment: throat cancer 2000 - Anesthesia Hx Anesthesia Reactions: (UNKNOWN) Hx Malignant Hyperthermia: (UNKNOWN) Family/Social History - Physician Review Nursing Documentation Reviewed: Yes Family/Social History: Unknown Family HX Smoking Status: Light Smoker < 10 Cigarettes Daily Hx Alcohol Use: No Hx Substance Use: No Allergies/Home Meds Allergies/Adverse Reactions: Allergies peanut Adverse Reaction (Verified 08/09/17 20:23) RASH Home Medications: Home Meds Medication Instructions Recorded Confirmed No Known Home Med 08/02/17 08/13/17 Review of Systems - Physician Review All systems were reviewed & negative as marked: Yes - Review of Systems Constitutional: Normal. absent: Fevers Eyes: Normal ENT: Normal Respiratory: Normal. absent: SOB, Cough Cardiovascular: Normal. absent: Chest Pain Gastrointestinal: Normal. absent: Abdominal Pain, Diarrhea, Nausea, Vomiting Genitourinary Male: Urinary Output Changes (+urinary retention). absent: Dysuria, Frequency, Hematuria Musculoskeletal: Normal. absent: Back Pain, Neck Pain Skin: Normal. absent: Rash Neurological: Normal. absent: Headache, Dizziness Endocrine: Normal Hemo/Lymphatic: Normal Psychiatric: Normal Physical Exam Vital Signs Reviewed: Yes Vital Signs Temp Pulse Resp BP Pulse Ox 08/13/17 08:32 99.3 F 94 H 18 121/66 100 08/13/17 08:26 99.3 F 94 H 18 121/66 100 08/13/17 07:29 99 F 84 16 105/64 96 08/13/17 04:30 98.1 F 81 18 99/57 L 100 Temperature: Afebrile Blood Pressure: Normal Pulse: Regular Respiratory Rate: Normal Appearance: Positive for: Well-Appearing, Non-Toxic, Comfortable Pain Distress: None Mental Status: Positive for: Alert and Oriented X 3 - Systems Exam Head: Present: Atraumatic, Normocephalic Pupils: Present: PERRL Extroacular Muscles: Present: EOMI Conjunctiva: Present: Normal Mouth: Present: Moist Mucous Membranes Neck: Present: Normal Range of Motion Respiratory/Chest: Present: Clear to Auscultation, Good Air Exchange. No: Respiratory Distress, Accessory Muscle Use Cardiovascular: Present: Regular Rate and Rhythm, Normal S1, S2. No: Murmurs Abdomen: No: Tenderness, Distention, Peritoneal Signs Back: Present: Normal Inspection Upper Extremity: Present: Normal Inspection. No: Cyanosis, Edema Lower Extremity: Present: Normal Inspection. No: Edema Neurological: Present: GCS=15, CN II-XII Intact, Speech Normal Skin: Present: Warm, Dry, Normal Color. No: Rashes Psychiatric: Present: Alert, Oriented x 3, Normal Insight, Normal Concentration Medical Decision Making ED Course and Treatment: 08/13/17 04:47 Impression: 77 year old male brought in for urinary retention and blisters to the inner thigh. \ Plan: -- EKG -- Chest X-ray -- Labs, cardiac enzymes -- Reassess and disposition Progress Notes: 08/13/17 05:[address] Mckenzie, urologist, who will come to evaluate pt. for suprapubic placement. 08/13/17 07:04 Case d/w hospitalist who is aware of the patient.Awaiting arrival and treatment prior to final disposition.Case endorsed to ER attending .Pt. is resting comfortably with no complaints - Lab Interpretations Lab Results: 08/13/17 05:46 08/13/17 05:46 Lab Results 08/13/17 05:46: WBC 5.4, RBC 3.29 L, Hgb 10.4 L, Hct 29.6 L, MCV 90.0, MCH 31.6 , MCHC 35.1, RDW 14.2, Plt Count 251, MPV 9.6 08/13/17 05:46: Sodium 137, Potassium 3.6, Chloride 99, Carbon Dioxide 32, Anion Gap 9 L, BUN 10, Creatinine 0.6 L, Est GFR ( Amer) > 60, Est GFR ( Non-Af Amer) > 60, Random Glucose 110, Calcium 8.8, Total Bilirubin 0.4, AST 27 , ALT 34, Alkaline Phosphatase 56, Lactate Dehydrogenase 335, Total Creatine Kinase 40, Troponin I < 0.01, Total Protein 5.4 L, Albumin 2.6 L, Globulin 2.8, Albumin/Globulin Ratio 0.9 L - Medication Orders Current Medication Orders: Discontinued Medications Ceftriaxone Sodium (Rocephin 1 Gram Ivpb) 1 gm in 100 mls @ 200 mls/hr IVPB STAT STA PRN Reason: Protocol Stop: 08/13/17 08:09 Last Admin: 08/13/17 08:10 Dose: 200 mls/hr eMAR Start Stop Document 08/13/17 08:10 SRE (Rec: 08/13/17 08:11 SRE [id number]) Intravenous Solution Start Date 08/13/17 Start Time 08:05 End Date 08/13/17 End time 09:00 Total Infusion Time 55 Morphine Sulfate (Morphine) 2 mg IVP STAT STA Stop: 08/13/17 08:11 Last Admin: 08/13/17 08:17 Dose: - Scribe Statement The provider has reviewed the documentation as recorded by the Mike Dorado Provider Scribe Attestation: All medical record entries made by the Scribe were at my direction and personally dictated by me. I have reviewed the chart and agree that the record accurately reflects my personal performance of the history, physical exam, medical decision making, and the department course for this patient. I have also personally directed, reviewed, and agree with the discharge instructions and disposition. Disposition/Present on Arrival - Present on Arrival Any Indicators Present on Arrival: No History of DVT/PE: No History of Uncontrolled Diabetes: No Urinary Catheter: No History Surgical Site Infection Following: None - Disposition Have Diagnosis and Disposition been Completed?: No Diagnosis: Urinary retention, General medical exam Disposition Time: 07:00 Condition: STABLE Discharge Instructions (ExitCare): Gonzalez Catheter, Male, Urinary Retention Print Language: IRISH Additional Instructions: Make sure to see your doctor in 1-2 days DRINK PLENTY OF FLUIDS take your medications as prescribed RETURN TO ED IF worse pain, cant breath, persistent vomiting, high fever >101- 102 for hours, altered behavior, slurr speech, facial changes, focal weakness ( arm/leg or both), unable to urinate, heavy/persistent bleeding, passing out, chest pain, or other medical emergencies Referrals: [facility] [employer] [Outside] - Follow up with primary [employer] [facility] [Outside] - Follow up with primary [facility] [Outside] - Follow up with primary PCP,NO [Non-Staff] - Follow up with primary John Rincon MD [Staff Provider] - Follow up with primary Forms: [employer] (Telugu)
[2017-08-13 04:54] VITALS: BMI 16.9
[2017-08-13 06:07] LABS: HEMOGLOBIN 10.4 g/dL (14.0-18.0); MEAN CORPUSCULAR HEMOGLOBIN 31.6 pg (25.0-35.0); MEAN CORPUSCULAR HGB CONC 35.1 g/dl (31.0-37.0); MEAN PLATELET VOLUME 9.6 fl (7.0-11.0); RBC 3.29 10^6/uL (3.5-6.1); RED CELL DISTRIBUTION WIDTH 14.2 % (11.5-14.5); WHITE BLOOD COUNT 5.4 10^3/ul (4.5-11.0)
[2017-08-13 06:28] LABS: TROPONIN I < 0.01 ng/mL
[2017-08-13 07:11] LABS: ALB/GLOB RATIO 0.9 (1.1-1.8); ALBUMIN 2.6 g/dL (3.0-4.8); ALT/SGPT 34 U/L (7-56); AST/SGOT 27 U/L (17-59); BLOOD UREA NITROGEN 10 mg/dL (7-21); CALCIUM 8.8 mg/dL (8.4-10.5); GFR AFRICAN-AMERICAN > 60; GFR NON-AFRICAN AMERICAN > 60
--- NOTE | 2017-08-13 07:28 | ED PDOC ---
Physical Exam - Physical Exam Narrative Physical Exam (Text): 08/13/17 08:08 General: alert/awake, GCS = 15, oriented x 3, resting in bed, mildly uncomfortable, cooperative, interactive; NAD Head: NC/AT; bi-temporal wasting noted EYE: PERRLA, EOMI, sclera anicteric, no nystagmus, no photophobia; visual field intact b/l Facial: WNL Oral: uvula/tongue are midline, no exudate/lesions, no drooling/stridor, no dysphonia; poor dentitions; mild dry oral mucosa NECK: intact ROM, no midline tenderness, no nuchal rigidity, no meningeal signs ; no step off Chest: CTA b/l, no w/r/r; no tachypenia, no accessory muscle use noted Cardiac: +S1, +S2, no m/r/r, no tachycardia Abdominal: +BS, soft, + suprapubic/lower abd mild distention is noted with mild tenderness noted on exam, thin patient; no masses/rebound/guarding/rigidity; no fox's sign, no mcburney's point tenderness Extremities: intact ROM, strength 5/5 grossly intact in all limbs, neurovasc intact b/l; + ambulatory; reflex +2/2; no pitting edema/swelling b/l; no Cecily' s sign b/l BACK: no step off, no midline tenderness, NO crepitus, no gross deformities noted; Intact ROM SKIN: cap refill ~ 1 sec, no ulcerations, no petechiae, no rashes; + dry NEURO: CNII-XII WNL, no facial asymmetries, no slurr speech, oriented x 3 NIH stroke scale ~ 0 Psych: normal insight, normal affect; follows command with ease Vital Signs Reviewed: Yes Vital Signs Temp Pulse Resp BP Pulse Ox 08/13/17 07:29 99 F 84 16 105/64 96 08/13/17 04:30 98.1 F 81 18 99/57 L 100 Temperature: Afebrile Blood Pressure: Hypotensive (but unchanged compare with prior) Pulse: Regular Respiratory Rate: Normal Appearance: Positive for: Well-Appearing, Non-Toxic, Uncomfortable. No: Ill- Appearing, Unkept Pain Distress: None Mental Status: Positive for: Alert and Oriented X 3 - Systems Exam Head: Present: Atraumatic, Normocephalic Medical Decision Making ED Course and Treatment: 08/13/17 07:25 Patient endorsed to me by Dr. Pierre, awaiting bedside evaluation and treatment by urologist Dr. Rincon prior to final disposition. Dr. Pierre discussed case with hospitalist Dr. Serna, who is aware of patient. 08/13/17 07:35 Hospital team at bedside. Currently awaiting Dr. John Rincon's arrival to the emergency room for likely gonzalez/suprapubic catheter placement. discussed with the patient for emergency department staff placement of smaller gonzalez catheter placement, pt REFUSED, pt states the staff up at TCU attempted on numerous occasions and failed and he would rather wait for Dr Rincon PT REFUSED emergency department placement of gonzalez catheter 08/13/17 08:10 Dr Kimberlyn Rincon is at bedside, will attempt catheter placement 08/13/17 08:25 Dr Rincon successfully placed a catheter for the patient, 14fr caude, will monitor patient as discussed, pt can be released back to TCU for further eval/ observation I spoke to hospitalists, Dr Serna, made aware, agrees with emergency department mgt/txt, will continue to monitor/observe patient, and will readmit pt back to TCU for further evaluation pt is made aware of his medical results pt is encouraged continued fluid hydration pt will follow up as directed pt will be discharged home Re-evaluation Time: 08:12 Reassessment Condition: Unchanged - Lab Interpretations Lab Results: 08/13/17 05:46 08/13/17 05:46 Lab Results 08/13/17 05:46: WBC 5.4, RBC 3.29 L, Hgb 10.4 L, Hct 29.6 L, MCV 90.0, MCH 31.6 , MCHC 35.1, RDW 14.2, Plt Count 251, MPV 9.6 08/13/17 05:46: Sodium 137, Potassium 3.6, Chloride 99, Carbon Dioxide 32, Anion Gap 9 L, BUN 10, Creatinine 0.6 L, Est GFR ( Amer) > 60, Est GFR ( Non-Af Amer) > 60, Random Glucose 110, Calcium 8.8, Total Bilirubin 0.4, AST 27 , ALT 34, Alkaline Phosphatase 56, Lactate Dehydrogenase 335, Total Creatine Kinase 40, Troponin I < 0.01, Total Protein 5.4 L, Albumin 2.6 L, Globulin 2.8, Albumin/Globulin Ratio 0.9 L I have reviewed the lab results: Yes Interpretation: All labs normal - EKG Interpretation EKG Interpretation (Text): 08/13/17 08:17 NSR at 85 bpm, normal axis, no ectopy, diffuse low voltage inf leads, no st changes, Borderline EKG; unchanged compare with old ekg 07/2017 Interpreted by ED Physician: Yes Type: 12 lead EKG Comparison: Similar to previous EKG - Medication Orders Current Medication Orders: Discontinued Medications Ceftriaxone Sodium (Rocephin 1 Gram Ivpb) 1 gm in 100 mls @ 200 mls/hr IVPB STAT STA PRN Reason: Protocol Stop: 08/13/17 08:09 Last Admin: 08/13/17 08:10 Dose: 200 mls/hr eMAR Start Stop Document 08/13/17 08:10 SRE (Rec: 08/13/17 08:11 SRE [id number]) Intravenous Solution Start Date 08/13/17 Start Time 08:05 End Date 08/13/17 End time 09:00 Total Infusion Time 55 Morphine Sulfate (Morphine) 2 mg IVP STAT STA Stop: 08/13/17 08:11 Last Admin: 08/13/17 08:17 Dose: - Scribe Statement The provider has reviewed the documentation as recorded by the Sergeiibkimberlyn Canela Provider Scribe Attestation: All medical record entries made by the Scribe were at my direction and personally dictated by me. I have reviewed the chart and agree that the record accurately reflects my personal performance of the history, physical exam, medical decision making, and the department course for this patient. I have also personally directed, reviewed, and agree with the discharge instructions and disposition. Disposition/Present on Arrival - Present on Arrival Any Indicators Present on Arrival: No History of DVT/PE: No History of Uncontrolled Diabetes: No Urinary Catheter: No History of Decub. Ulcer: No History Surgical Site Infection Following: None - Disposition Have Diagnosis and Disposition been Completed?: Yes Diagnosis: Urinary retention, General medical exam Disposition: HOME/ ROUTINE Disposition Time: 08:24 Patient Plan: Discharge (TO TCU) Patient Problems: Current Active Problems Problem Status Onset General medical exam Acute Urinary retention Acute Condition: STABLE Discharge Instructions (ExitCare): Gonzalez Catheter, Male, Urinary Retention Print Language: ARABIC Additional Instructions: Make sure to see your doctor in 1-2 days DRINK PLENTY OF FLUIDS take your medications as prescribed RETURN TO ED IF worse pain, cant breath, persistent vomiting, high fever >101- 102 for hours, altered behavior, slurr speech, facial changes, focal weakness ( arm/leg or both), unable to urinate, heavy/persistent bleeding, passing out, chest pain, or other medical emergencies Referrals: PCP,NO [Non-Staff] - Follow up with primary John Rincon MD [Staff Provider] - Follow up with primary [employer] [facility] [Outside] - Follow up with primary [facility] [Outside] - Follow up with primary [facility] [Outside] - Follow up with primary Forms: [employer] (Belgian)
[2017-08-13] MEDS ORDERED: cefTRIAXone 1 gm 1 GM/100 ML BAG IVPB STA (07:40)
[2017-08-13] MEDS ORDERED: Morphine 2 mg/ml ISec IVP STA (08:10)
[2017-08-13] MEDS ORDERED: Morphine 4 mg/ml ISec ONE (08:16)
[2017-08-13 08:30] VITALS: BP 121/66; PULSE 94; RESP 18; TEMP 99.3; O2SAT 100
--- NOTE | 2017-08-13 21:27 | CARD ---
APPROVED REPORT EKG Measurement Heart [id number] MI [id number] <Conclusion> Normal sinus rhythm Normal ECG
== END 2017-08-13 08:32 | disposition home or self-care (01) ==
LOC: ED 04:27
DX: Z04.8 Encounter for examination and observation for other specified reasons (principal); R33.9 Retention of urine, unspecified; Z85.89 Personal history of malignant neoplasm of other organs and systems
CPT/HCPCS: 80053; 82550; 83615; 84484; 85027; 93005; 96365; 99284; J0696; J2270

== ENCOUNTER 2018-06-07 13:48 | Inpatient (IN) | payer MEDICARE ==
[2018-06-07 13:53] VITALS: BMI 15.0
[2018-06-07] MEDS ORDERED: Etomidate 20 mg/10ml Inj IV ONE ×2 (14:01→16:14)
[2018-06-07] MEDS ORDERED: Succinylcholine 200 mg/10 ml Inj IV ONE ×2 (14:02→16:14)
[2018-06-07] MEDS ORDERED: Iohexol 350 MG/100 ML VIAL ONE (14:17)
[2018-06-07 14:21] LABS: BASO # 0.02 K/mm3 (0.0-2.0); BASO % 0.2 % (0.0-3.0); EOS % 0.4 % (1.5-5.0); HEMOGLOBIN 11.7 g/dL (14.0-18.0); LYMPH # 1.3 (1.2-3.4); LYMPH % 13.3 % (22.0-35.0); MEAN CELL VOLUME 96.4 fl (80.0-105.0); MEAN CORPUSCULAR HGB CONC 33.1 g/dl (31.0-37.0); MONO # 0.6 (0.1-0.6); MONO % 5.9 % (1.0-6.0); RBC 3.66 10^6/uL (3.5-6.1); RED CELL DISTRIBUTION WIDTH 14.8 % (11.5-14.5); WHITE BLOOD COUNT 9.6 10^3/uL (4.5-11.0)
--- NOTE | 2018-06-07 14:25 | ED PDOC ---
Arrival/HPI - General Time Seen by Provider: 06/07/18 13:51 Historian: Family, EMS EM Caveat: Altered Mental Status - Critical Care Critical Care Minutes: 60 minutes - History of Present Illness Narrative History of Present Illness (Text): 06/07/18 13:51 Jonny Lopez is a 78 year old male, with a past medical history of esophageal cancer, brought in by EMS for unresponsiveness. as per ems, pt was at baseline earlier today, and found by family unresponsive at 1300. EMS states pt is baseline awake alert ambulatory. EMS did not attempt intubation in field given hx of esophageal ca. upon discussion with family shortly after patient arrival, state that pt was had remote hx of esophageal ca, but in recent weeks "was having difficulty swallowing". family states they were planning trip to [facility] today, pt went to sleep at 0900, last seen normal at this time, and was found in current state at 1300 by family, at which point EMS was called. pt feeds with PEG at baseline. info obtained from family via cleaning specialist RN. family poor historians. Family requests full code. Further HPI and ROS limited by clinical condition. no fever, cough, or other complaints as per family bedside Time/Duration: Prior to Arrival Symptom Onset: Sudden Symptom Course: Unchanged Context: Home Past Medical History - Provider Review Nursing Documentation Reviewed: Yes - Infectious Disease Hx of Infectious Diseases: None - Cardiac Hx Cardiac Disorders: No - Pulmonary Hx Respiratory Disorders: No - Neurological Hx Neurological Disorder: No - HEENT Hx HEENT Disorder: Yes Hx Deafness: Yes - Renal Hx Renal Disorder: No - Endocrine/Metabolic Hx Endocrine Disorders: No - Hematological/Oncological Hx Blood Transfusions: (UNKNOWN) Hx Blood Transfusion Reaction: (UNKNOWN) - Integumentary Hx Dermatological Disorder: No - Musculoskeletal/Rheumatological Hx Falls: No - Gastrointestinal HX Swallowing Problems: Yes - Genitourinary/Gynecological Hx Genitourinary Disorders: No - Psychiatric Hx Substance Use: No - Surgical History Other/Comment: throat cancer 2000 - Anesthesia Hx Anesthesia Reactions: (UNKNOWN) Hx Malignant Hyperthermia: (UNKNOWN) Family/Social History - Physician Review Nursing Documentation Reviewed: Yes Family/Social History: Unknown Family HX Smoking Status: Light Smoker < 10 Cigarettes Daily Hx Alcohol Use: No Hx Substance Use: No Allergies/Home Meds Allergies/Adverse Reactions: Allergies aspirin Allergy (Verified 06/08/18 01:17) RASH citric acid [From [place]] Allergy (Verified 06/08/18 01:18) RASH sodium bicarbonate [From [place]] Allergy (Verified 06/08/18 01:18) RASH peanut Adverse Reaction (Verified 08/09/17 20:23) RASH Review of Systems - Review of Systems Systems not reviewed;Unavailable: Other (unresponsive) Physical Exam - Physical Exam Physical Exam Limitations: Altered Mental Status, Clinical Condition Vital Signs Reviewed: Yes Temperature: Hypothermic Blood Pressure: Hypertensive Pulse: Regular Respiratory Rate: Tachypneic Appearance: Positive for: Ill-Appearing, Other (ill appering elderly male on EMS stretcher, on NRB, unresponsive) Mental Status: Positive for: Lethargic, Comatose - Systems Exam Head: Present: Atraumatic, Normocephalic Pupils: Present: Other (right irregular pupil ) Conjunctiva: Present: Normal Respiratory/Chest: Present: Clear to Auscultation Cardiovascular: Present: Regular Rate and Rhythm Abdomen: Present: Other (peg). No: Tenderness, Distention Upper Extremity: Present: Normal Inspection Lower Extremity: Present: Normal Inspection Neurological: Present: Other (gcs 3,). No: Speech Normal, Motor Func Grossly Intact, Normal Sensory Function, Normal Cerebellar Funct Medical Decision Making ED Course and Treatment: 06/07/18 13:51 Impression: Patient is a 78 year old male brought in by EMS for unresponsiveness. upon ed arrival, pt noted to be unresponsive, GCS 3. upon ED arrival, pt oxygen saturation 99% on NRB mask. Given hx of esophageal ca and family reported hx of recent dysphagia, anticipating possible difficult airway, pt intubated only with etomidate, no paralysis. intubated with size 7.0 tube, 25cm lip line. will consider cva, seizure, metabolic, electrolyte abnormality, infectious etiology. code stroke activated. Plan: -- CTA Head / Neck Code Stroke -- CT Head W/O Contrast -- EKG -- Labs -- Chest X-Ray -- IV Fluids -- Urinalysis -- Reassess and disposition Prior Visits: Notes and results from previous visits were reviewed. During ED course, code stroke activated. pt intubated upon ED arrival. CT/CTA neg. case discussed with dr rust, at this time, not tpa candidate given last seen normal 9am, outside window. asa given. keppra given. ICU consulted and accepted to ICU by attending dr Arriaga. Accepted by hospitalist, covering PMD Dr Domingo. Shortly after ED disposition to ICU, decision made to extubate in ER by ICU attending. After patient with failed extubation attempt by ICU, decision was made to reintubate. attempt made by ICU/anesthesia to intubate unsuccessfully. as pt continued to deteriorate, became bradycardic and hypoxic. pt had brief period of PEA arrest, with ROSC s/p epi x 1 and cpr. given difficult airway, and need for emergent airway, emergent cricothryotomy performed Progress Notes: 06/07/18 14:05 Performed by the emergency provider Time: 14:00 Consent: Discussion of the risks, benefits, and alternatives to the procedure, along with informed consent was precluded by the urgency of the procedure and the patient condition. Timeout: A timeout to verify the correct patient, procedure, and site was performed. Indication: unresponsive, low gcs Pre-oxygenation: [id number] Medications: See MAR for details. ETT Size: 7 cm Confirmation: good bilateral breath sounds, positive CO2 detector color change, tube fogging, adequate chest rise, improving pulse oximetry reading, improved skin color, and absence of gastric sounds,. ETT Secured: The cuff was inflated and the tube was secured appropriately at a distance of 25cm at the lip. Post-Procedure: There were no immediate complications. CXR Confirmation: Yes 06/07/18 14:09 Code stroke called. PROCEDURE: CTA HEAD AND NECK WITH CONTRAST Dictator : Bessy Solorzano MD [employer] [place] : Report Date : 06/07/2018 15:15:37 IMPRESSION: 1. No evidence of endoluminal thrombus or occlusion. Asymmetric narrowing of the right M1 segment with attenuation of the superior division perisylvian branches which is likely chronic and related to intracranial atherosclerosis. 2. No evidence of hemodynamically significant stenosis in the internal carotid arteries. 3. Patent bilateral vertebral arteries. PROCEDURE: CT HEAD WITHOUT CONTRAST Dictator : Hernandez Ji MD Report Date : 06/07/2018 14:42:07 IMPRESSION: No acute intracranial findings. Chest X-ray Dictator : Hernandez Ji MD Report Date : 06/07/2018 15:48:32 IMPRESSION: Endotracheal tube in satisfactory position 06/07/18 16:20 Pulseless. Chest compressions started. epi administered 06/07/18 16:25 Return of spontaneous circulation achieved. Anesthesiologist attempted intubation. Inbutation was unable to be done. 06/07/18 16:29 Incision was made for Cricothyrotomy. 06/07/18 16:30 Cricothyrotomy successful. Pulse Ox 72% and rapidly travon to 96% - Critical Care Critical Care Minutes: 30 minutes - RAD Interpretation Narrative RAD Interpretations (Text): 06/07/18 14:42 CT Head w/o Contrast shows: IMPRESSION: No acute intracranial findings. Radiology Orders: 06/07/18 14:10 CTA HEAD/NECK CODE STROKE [CT] Stat HEAD W/O (CODE STROKE) [CT] Stat CHEST PORTABLE [RAD] Stat Innovation Analyst: Radiologist - EKG Interpretation EKG Interpretation (Text): 06/07/18 14:27 Reviewed EKG, shows: NSR at 76 BPM. LVH. Poor tracing secondary to artifacts. Interpreted by ED Physician: Yes Type: 12 lead EKG - Medication Orders Current Medication Orders: Sodium Chloride (Sodium Chloride 0.9%) 1,000 mls @ 100 mls/hr IV .Q10H [facility] NIHSS Scale ([place]) Time Performed: 13:50 - How Severe is the Stoke Baseline Level of Consciousness: 3=Unresponsive LOC to Questions: 2=Neither correct LOC to commands: 2=Neither correct Best Gaze: 0=Normal Visual: 0=No visual loss Facial: 0=Normal Motor Arm - Left: 4=No movement Motor Arm - Right: 4=No movement Motor Leg - Left: 4=No movement Motor Leg - Right: 4=No movement Limb Ataxia: 0=Absent Sensory: 0=Normal Best Language: 3=Mute Dysarthia: 2=Severe, near unintelligible or worse Extinction & Inattention (Neglect): 0=Normal, no object Score: 28 Risk Level: Severe Stroke Risk rTPA Inclusion/Exclusion - Refusal of Treatment Patient Refused Treatment: No - Inclusion Criteria for Altepase All of the below criteria for inclusion were reviewed: Yes Patient is 18 years or Older: Yes The Clinical Diagnosis of Ischemic Stroke That is Causing a Potentially Disabling Neurological Deficit: Yes Time of Onset is Well Established to be Less Than 270 Minute Before Treatment Would Begin: Yes Risk/Benefit Discussed With Patient/Family Member Present: Yes Procedures - Additional Procedures Additional Procedures: tracheostomy Progress: 2cm incisionmade over cricothyroid membrane. tracheostomy tube advanced into trachea. - Scribe Statement The provider has reviewed the documentation as recorded by the Scribe Mohit Latham All medical record entries made by the Scribe were at my direction and personally dictated by me. I have reviewed the chart and agree that the record accurately reflects my personal performance of the history, physical exam, medical decision making, and the department course for this patient. I have also personally directed, reviewed, and agree with the discharge instructions and disposition. Disposition/Present on Arrival - Present on Arrival Any Indicators Present on Arrival: No History of DVT/PE: No History of Uncontrolled Diabetes: No Urinary Catheter: No History Surgical Site Infection Following: None - Disposition Have Diagnosis and Disposition been Completed?: Yes Diagnosis: Unresponsive, Altered mental status Disposition: HOSPITALIZED Disposition Time: 15:30 Patient Problems: Current Active Problems Problem Status Onset Altered mental status Acute Unresponsive Acute Condition: CRITICAL Endotracheal Intubation - Endotracheal Intubation Intubated With ETT Size: 7 Blade Type Used: Curved Indication: Airway Protection Intubated: Orally Pre-Intubation Airway Assessment: Ventilated And Oxygenated, Appears To Have A difficult Airway Medications Used During Pre-Intubation: Etomidate Post-Intubation Assessment: ETT Secured AT (cm): (25), Placement Confirmed Via CXR, Color Change W/End Tidal CO2 Detector, Oxygen Saturation: (99)
--- NOTE | 2018-06-07 14:46 | CT ---
Date of service: 06/07/2018 PROCEDURE: CT HEAD WITHOUT CONTRAST. HISTORY: Code Stroke COMPARISON: None available. TECHNIQUE: Axial computed tomography images were obtained through the head/brain without intravenous contrast. Radiation dose: Total exam DLP = 851.26 mGy-cm. This CT exam was performed using one or more of the following dose reduction techniques: Automated exposure control, adjustment of the mA and/or kV according to patient size, and/or use of iterative reconstruction technique. FINDINGS: HEMORRHAGE: No intracranial hemorrhage. BRAIN: No mass effect or edema. No atrophy or chronic microvascular ischemic changes. VENTRICLES: Unremarkable. No hydrocephalus. CALVARIUM: Unremarkable. PARANASAL SINUSES: Unremarkable as visualized. No significant inflammatory changes. MASTOID AIR CELLS: Unremarkable as visualized. No inflammatory changes. OTHER FINDINGS: None. IMPRESSION: No acute intracranial findings.
[2018-06-07] MEDS ORDERED: levETIRAcetam 1,000 MG in Sodium Chloride 0.9% 100 ML IVPB ONE (14:47)
[2018-06-07] MEDS ORDERED: Propofol 10 mg/ml 1,000 MG/100 ML VIAL IV PRN (14:50)
[2018-06-07] MEDS ORDERED: levETIRAcetam 1000mg/100ml NS 100 ML IVPB ONE (15:00)
--- NOTE | 2018-06-07 15:19 | CT ---
Date of service: 06/07/2018 PROCEDURE: CTA HEAD AND NECK WITH CONTRAST HISTORY: code stroke COMPARISON: None available. TECHNIQUE: Initial noncontrast head CT was performed. Subsequently, CT angiogram of the head and neck were performed after the intravenous administration of 80 mL of Omnipaque 350. Contiguous 1.5mm thick images were obtained in the axial plane of the neck. 2-D coronal and sagittal MPR images were obtained. Imaging postprocessing was performed with 3-D images also obtained. A delayed contrast head CT was also obtained. This CT exam was performed using one or more of the following dose reduction techniques: Automated exposure control, adjustment of the mA and/or kV according to patient size, and/or use of iterative reconstruction technique. Contrast dose: 100 mL Omnipaque 350 Radiation dose: Total exam DLP = 288.43 mGy-cm. FINDINGS: HEAD: There are atherosclerotic calcifications in the cavernous carotid segments. Right: The intracranial internal carotid artery and anterior arteries are widely patent. There is asymmetric narrowing of the right M1 segment with attenuation the superior perisylvian branches. Left: The intracranial internal carotid artery, and anterior and middle cerebral arteries are widely patent. Posterior circulation: The visualized intracranial vertebral arteries, basilar artery and posterior cerebral arteries are widely patent. There is no endoluminal filling defect to suggest thrombus. There is no intracranial saccular aneurysm. NECK: There is a 3 vessel aortic arch with common origin of the innominate and left common carotid arteries, and aortic origin of the left vertebral artery between left common carotid and subclavian arteries. There is no stenosis at the origins of the great vessels at the level of the aortic arch. There are atherosclerotic calcifications present. Right Carotid: On the right, the common carotid, internal carotid and external carotid arteries are widely patent. There is no hemodynamically significant stenosis in the internal carotid artery by NASCET criteria. Left Carotid: On the left, the common carotid, internal carotid and external carotid arteries are widely patent. There is no hemodynamically significant stenosis in the internal carotid artery by NASCET criteria. The vertebral arteries are widely patent. The left vertebral artery is hypoplastic, an anatomic variant. There is extensive biapical pleuroparenchymal scarring centrilobular emphysema in the visualized lungs and bullous changes. An endotracheal tube remains in place. IMPRESSION: 1. No evidence of endoluminal thrombus or occlusion. Asymmetric narrowing of the right M1 segment with attenuation of the superior division perisylvian branches which is likely chronic and related to intracranial atherosclerosis. 2. No evidence of hemodynamically significant stenosis in the internal carotid arteries. 3. Patent bilateral vertebral arteries.
[2018-06-07 15:37] LABS: ALBUMIN 3.4 g/dL (3.0-4.8); ALT/SGPT 51 U/L (7-56); AST/SGOT 124 U/L (17-59); BLOOD UREA NITROGEN 21 mg/dL (7-21); GFR NON-AFRICAN AMERICAN > 60; HDL CHOLESTEROL 45 mg/dL (29-60)
[2018-06-07 15:48] LABS: LDL CHOLESTEROL 52 mg/dL (0-129)
[2018-06-07] MEDS ORDERED: Albuterol-Ipratrop 3 mg / 0.5 (3 ml) UD IH STA (15:49)
[2018-06-07 15:51] LABS: B-TYPE NATRIURETIC PEPTIDE 271 pg/mL (0-450); TROPONIN I 0.06 ng/mL
--- NOTE | 2018-06-07 15:52 | RAD ---
Date of service: 06/07/2018 HISTORY: Code Stroke COMPARISON: 08/01/2017 TECHNIQUE: 1 view obtained. FINDINGS: LUNGS: No active pulmonary disease. The endotracheal tube is in satisfactory position. PLEURA: No significant pleural effusion identified, no pneumothorax apparent. CARDIOVASCULAR: No aortic atherosclerotic calcification present. Normal cardiac size. No pulmonary vascular congestion. OSSEOUS STRUCTURES: No significant abnormalities. VISUALIZED UPPER ABDOMEN: Normal. OTHER FINDINGS: None. IMPRESSION: Endotracheal tube in satisfactory position
[2018-06-07] MEDS ORDERED: Albuterol-Ipratrop 3 mg / 0.5 (3 ml) UD ONE (15:56)
[2018-06-07 16:35] LABS: INR 1.14; PARTIAL THROMBOPLASTIN TIME 30.2 Seconds (26.9-38.3); PROTHROMBIN TIME 12.7 SECONDS (9.4-12.5)
[2018-06-07] MEDS ORDERED: levETIRAcetam 1000mg/100ml NS 100 ML IV ONE (16:41)
[2018-06-07] MEDS: Albuterol-Ipratrop 3 mg / 0.5 (3 ml) UD IH SCH ×2 (16:44→20:24)
[2018-06-07] MEDS: Sodium Chloride 0.9% 1,000 ML IV SCH ×2 (16:44→19:09)
[2018-06-07] MEDS ORDERED: Sodium Chloride 0.9% 1,000 ML IV STA (16:50)
[2018-06-07 16:53] LABS: ARTERIAL BLOOD GAS HCO3 26.9 mmol/L (21-28); ARTERIAL BLOOD GAS O2 SAT 89.4 % (95-98); ARTERIAL BLOOD GAS PCO2 72 mm/Hg (35-45); ARTERIAL BLOOD GAS PH 7.18 (7.35-7.45); ARTERIAL BLOOD GAS TCO2 29.1 mmol.L (22-28)
--- NOTE | 2018-06-07 17:27 | RAD ---
HISTORY: trach placement COMPARISON: Chest x-ray performed 06/07/18 at 1454 hrs. TECHNIQUE: Chest, one view. FINDINGS: Tracheostomy tube. LUNGS: Mild right middle/lower lobe hazy infiltrates. PLEURA: No significant pleural effusion identified. No definite pneumothorax . CARDIOVASCULAR: Cardiomegaly. Faint atherosclerotic calcifications present. OSSEOUS STRUCTURES: Osseous demineralization. Degenerative changes. VISUALIZED UPPER ABDOMEN: Elevation of the right hemidiaphragm. OTHER FINDINGS: None. IMPRESSION: Tracheostomy tube. Cardiomegaly. Faint atherosclerotic calcifications present. Mild right middle/lower lobe hazy infiltrates.
[2018-06-07] MEDS ORDERED: Midazolam 5 MG/ML IVP ONE (17:35)
[2018-06-07] MEDS ORDERED: NOREPINEPHRINE BIT/0.9 % NACL 4 MG/250 ML BAG IV ONE (17:39)
[2018-06-07] MEDS: NOREPINEPHRINE BIT/0.9 % NACL 4 MG/250 ML BAG IV PRN ×2 (17:40→23:15)
[2018-06-07] MEDS ORDERED: Midazolam 2 MG/2 ML VIAL IVP ONE (17:45)
--- NOTE | 2018-06-07 17:51 | CP.PCM.CON ---
History of Present Illness - History of Present Illness History of Present Illness: General surgery consult note for Dr. Lul Baldwin, PGY-2 Pt seen/examined in ED with senior resident. History as per ED, EMR and at bedside. 78M w/PMH sig for pharyngeal stricture s/p chemo-XRT and failure to thrive cons ulted for tracheostomy placement. Per at bedside, pt took a shower this afternoon prior to taking a nap and was found to be cold and unarousable during nap. Ambulance was called and pt was taken to ED. Pt was found with AMS and intubated. Pt was evaluated by ICU and at some point was extubated. Sometime after extubation pt was noted to be severely hoypoxic with AMS, ED attempted emergent re-intubation without success and a code was initiated. Anesthesia was consulted and also attempted intubation without success. Cricothyroidotomy was attempted by ED, after multiple attempts trachea was successfully intubated with tracheostomy cannula -6 Fr fenestrated. SaO2 markedly improved after cannulation of cricothyroid. Pt stabilized in ED (please see ED note for code information). Pt was placed on mechanical vent and accepted for ICU admission. 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), dysphagia, failure to thrive, PSH: Laparotomy and insertino of G tube (2017), esophageal neck mass excision (2000) All: NKDA SH: Current tobacco use - 1/3 ppd x 60 yrs, prior ETOH use (not current), denies illicit drug use FH: Non contributory PMD: Bharathi Domingo Outpatient oncology: Rayo Bland Review of Systems - Review of Systems Systems not reviewed;Unavailable: Intubated Past Patient History - Infectious Disease Hx of Infectious Diseases: None - Past Social History Smoking Status: Light Smoker < 10 Cigarettes Daily - CARDIAC Hx Cardiac Disorders: No - PULMONARY Hx Respiratory Disorders: No - NEUROLOGICAL Hx Neurological Disorder: No - HEENT Hx HEENT Problems: Yes Hx Deafness: Yes - RENAL Hx Chronic Kidney Disease: No - ENDOCRINE/METABOLIC Hx Endocrine Disorders: No - HEMATOLOGICAL/ONCOLOGICAL Hx Blood Transfusions: (UNKNOWN) Hx Blood Transfusion Reaction: (UNKNOWN) - INTEGUMENTARY Hx Dermatological Problems: No - MUSCULOSKELETAL/RHEUMATOLOGICAL Hx Falls: No - GASTROINTESTINAL Hx Gastrointestinal Disorders: Yes - GENITOURINARY/GYNECOLOGICAL Hx Genitourinary Disorders: No - PSYCHIATRIC Hx Substance Use: No - SURGICAL HISTORY Other/Comment: throat cancer 1999 - ANESTHESIA Hx Anesthesia Reactions: (UNKNOWN) Hx Malignant Hyperthermia: (UNKNOWN) Meds Allergies/Adverse Reactions: Allergies Allergy/AdvReac Type Severity Reaction Status Date / Time peanut AdvReac RASH Verified 08/09/17 20:23 - Medications Medications: Current Medications Albuterol/Ipratropium (Duoneb 3 Mg/0.5 Mg (3 Ml) Ud) 3 ml IH Q4H LYLY Stop: 06/08/18 00:01 Last Admin: 06/07/18 16:44 Dose: 3 ml Sodium Chloride (Sodium Chloride 0.9%) 1,000 mls @ 100 mls/hr IV .Q10H LYLY Last Admin: 06/07/18 16:44 Dose: 100 mls/hr Propofol (Diprivan) 1,000 mg in 100 mls @ 1.225 mls/hr IV .Q24H PRN; Protocol PRN Reason: TITRATE PER MD ORDER Sodium Chloride (Sodium Chloride 0.9%) 1,000 mls @ 999 mls/hr IV .Q1H1M STA Stop: 06/07/18 17:50 NOREPINEPHRINE BIT/0.9 % NACL (Levophed 4 Mg/ 250 Ml Ns Premixed) 4 mg in 250 mls @ 15 mls/hr IV .[id number] PRN; Protocol PRN Reason: TITRATE PER MD ORDER Physical Exam - Constitutional Appears: Cachectic (severely) - Head Exam Head Exam: ATRAUMATIC - ENT Exam ENT Exam: Mucous Membranes Moist, Normal Exam - Neck Exam Additional comments: cricothyroidectomy in place with 6-Fr fenestrated tracheostomy cannula - Respiratory Exam Respiratory Exam: NORMAL BREATHING PATTERN (on mechanical vent) - GI/Abdominal Exam GI & Abdominal Exam: Soft. absent: Distended, Firm, Guarding Additional comments: well healed midline scar G tube in place - Extremities Exam Additional comments: severely cachexic - Neurological Exam Additional comments: altered - Psychiatric Exam Additional comments: non verbal - Skin Skin Exam: Dry, Intact, Normal Color, Warm Results - Vital Signs Recent Vital Signs: Last Vital Signs Temp 98.3 F 06/07/18 17:00 Pulse 104 H 06/07/18 17:00 Resp 18 06/07/18 17:00 BP 94/63 L 06/07/18 17:00 Pulse Ox 95 06/07/18 17:00 - Labs Result Diagrams: 06/07/18 14:12 06/07/18 14:12 Labs: Laboratory Results - last 24 hr 06/07/18 06/07/18 06/07/18 14:12 14:12 14:12 WBC 9.6 RBC 3.66 Hgb 11.7 L Hct 35.3 L MCV 96.4 D MCH 32.0 MCHC 33.1 RDW 14.8 H Plt Count 518 H MPV 10.0 Neut % (Auto) 80.2 H Lymph % (Auto) 13.3 L [place] % (Auto) 5.9 Eos % (Auto) 0.4 L Baso % (Auto) 0.2 Lymph # (Auto) 1.3 [place] # (Auto) 0.6 Eos # (Auto) 0.0 Baso # (Auto) 0.02 Absolute Neuts (auto) 7.69 H PT INR APTT pCO2 pO2 HCO3 ABG pH ABG Total CO2 ABG O2 Saturation ABG Base Excess ABG Potassium Glucose Lactate Mechanical Rate FiO2 Tidal Volume PEEP Crit Value Called To Crit Value Called By Blood Gas Notified Time Sodium 133 Potassium 4.4 Chloride 92 L Carbon Dioxide 26 Anion Gap 18 BUN 21 Creatinine 0.7 L Est GFR ( Amer) > 60 Est GFR (Non-Af Amer) > 60 Random Glucose 299 H Calcium 9.0 Total Bilirubin 0.3 AST 124 H D ALT 51 Alkaline Phosphatase 111 Troponin I 0.06 D NT-Pro-B Natriuret Pep 271 Total Protein 6.9 Albumin 3.4 Globulin 3.5 Albumin/Globulin Ratio 1.0 L Triglycerides 51 Cholesterol 113 L LDL Cholesterol Direct 52 HDL Cholesterol 45 Arterial Blood Potassium Blood Type AB POSITIVE Antibody Screen Negative BBK History Checked Patient has bt 06/07/18 06/07/18 15:26 16:28 WBC RBC Hgb Hct MCV MCH MCHC RDW Plt Count MPV Neut % (Auto) Lymph % (Auto) [place] % (Auto) Eos % (Auto) Baso % (Auto) Lymph # (Auto) [place] # (Auto) Eos # (Auto) Baso # (Auto) Absolute Neuts (auto) PT 12.7 H INR 1.14 APTT 30.2 pCO2 72 H* pO2 58.0 L HCO3 26.9 ABG pH 7.18 L* ABG Total CO2 29.1 H ABG O2 Saturation 89.4 L ABG Base Excess -3.1 L ABG Potassium 3.7 Glucose 229 H Lactate 3.4 H Mechanical Rate 20 FiO2 100.0 Tidal Volume 300 PEEP 5 Crit Value Called To Dr torres Crit Value Called By Dmitry joe Blood Gas Notified Time 1652 Sodium 136.0 Potassium Chloride 102.0 Carbon Dioxide Anion Gap BUN Creatinine Est GFR ( Amer) Est GFR (Non-Af Amer) Random Glucose Calcium Total Bilirubin AST ALT Alkaline Phosphatase Troponin I NT-Pro-B Natriuret Pep Total Protein Albumin Globulin Albumin/Globulin Ratio Triglycerides Cholesterol LDL Cholesterol Direct HDL Cholesterol Arterial Blood Potassium 3.7 Blood Type Antibody Screen BBK History Checked Assessment & Plan - Assessment and Plan (Free Text) Assessment: 78M with respiratory failure requiring emergent airway s/p ED cricothyroidotomy on mechanical ventilation Plan: Admit to ICU Continue on mechanical ventilation Consent for tracheostomy in chart Further surgical planning pending attending evaluation DW Dr. Juan Baldwin, PGY-2 - Date & Time Date: 06/07/18 Time: 17:50
--- NOTE | 2018-06-07 18:05 | CP.PCM.HP ---
<BradenLibby - Last Filed: 06/08/18 20:43> History of Present Illness - History of Present Illness History of Present Illness: Libby Feliciano, PGY-1 Medicine H&P for Dr. Mayo: CC: AMS, unresponsive Pt is a 78 yo M with pmhx of BPH and esophageal cancer s/p chemo and radiation in 1999 and s/p neck mass resection in 2000 who presents to the [facility] ED via EMS for AMS and unresponsiveness. Pts family is bedside and is able to provide history as pt is currently intubated. Pts family state that they were at home and the pt came out of the shower and went to lay down. The family then noted th at shortly after this the pts breathing became labored and the pt became altered. The family also noted that the pt was cold when they touched him and decided to call EMS. In the ED pt was brought in and noted to be cyanotic and unresponsive. Pt was intubated and then had a code stroke called and went for head CT. Pt was then given a trial of pressor support which he tolerated well, was AOx3 at the time and the decision was made to extubate pt. Pt after some time became diaphoretic and the decision was made to reintubate pt. After reintubation, pt was taken to ICU. Pts history was taken from family and due to clinical status pt unable to particpate in obtaining ROS. Pmhx: Esophageal cancer s/p chemo and radiation in 1999 and s/p neck mass resection in 2000 Pshx: Resection of neck mass ', R eye cataract surgery Meds: Denies taking any All: Peanut - Rash Soc: 13ppd smoker x 60 yrs, denies recent etoh abuse or any illicit drug use Fam: Non-contributory PMD: Dr. Bharathi Domingo Oncologist: Dr. John Bland Present on Admission - Present on Admission Any Indicators Present on Admission: No Review of Systems - Review of Systems Systems not reviewed;Unavailable: Acuity of Condition, Intubated Past Patient History - Infectious Disease Hx of Infectious Diseases: None - Past Social History Smoking Status: Light Smoker < 10 Cigarettes Daily - CARDIAC Hx Cardiac Disorders: No - PULMONARY Hx Respiratory Disorders: No - NEUROLOGICAL Hx Neurological Disorder: No - HEENT Hx HEENT Problems: Yes Hx Deafness: Yes - RENAL Hx Chronic Kidney Disease: No - ENDOCRINE/METABOLIC Hx Endocrine Disorders: No - HEMATOLOGICAL/ONCOLOGICAL Hx Blood Transfusions: (UNKNOWN) Hx Blood Transfusion Reaction: (UNKNOWN) - INTEGUMENTARY Hx Dermatological Problems: No - MUSCULOSKELETAL/RHEUMATOLOGICAL Hx Falls: No - GASTROINTESTINAL Hx Gastrointestinal Disorders: Yes - GENITOURINARY/GYNECOLOGICAL Hx Genitourinary Disorders: No - PSYCHIATRIC Hx Substance Use: No - SURGICAL HISTORY Other/Comment: throat cancer 2000 - ANESTHESIA Hx Anesthesia Reactions: (UNKNOWN) Hx Malignant Hyperthermia: (UNKNOWN) Meds Allergies/Adverse Reactions: Allergies Allergy/AdvReac Type Severity Reaction Status Date / Time aspirin Allergy RASH Verified 06/08/18 01:17 citric acid Allergy RASH Verified 06/08/18 01:18 [From [facility]] sodium bicarbonate Allergy RASH Verified 06/08/18 01:18 [From [facility]] peanut AdvReac RASH Verified 08/09/17 20:23 Physical Exam - Constitutional Appears: Cachectic, Chronically Ill - Head Exam Head Exam: ATRAUMATIC, NORMAL INSPECTION, NORMOCEPHALIC - Eye Exam Eye Exam: EOMI, Normal appearance, PERRL - Respiratory Exam Respiratory Exam: Wheezes. absent: Accessory Muscle Use, Decreased Breath Sounds, Rales, Rhonchi, Respiratory Distress, Stridor - Cardiovascular Exam Cardiovascular Exam: +S1, +S2. absent: Gallop, Rubs - GI/Abdominal Exam GI & Abdominal Exam: Normal Bowel Sounds, Soft. absent: Distended, Firm - Extremities Exam Extremities exam: Negative for: pedal edema - Back Exam Back exam: NORMAL INSPECTION. absent: CVA tenderness (L), CVA tenderness (R) - Neurological Exam Neurological exam: Altered (intubated) - Psychiatric Exam Additional comments: Intubated - Skin Skin Exam: Dry, Normal Color Results - Vital Signs Recent Vital Signs: Last Vital Signs Temp 98.3 F 06/07/18 17:00 Pulse 104 H 06/07/18 17:00 Resp 18 06/07/18 17:00 BP 94/63 L 06/07/18 17:00 Pulse Ox 95 06/07/18 17:00 - Labs Result Diagrams: 06/08/18 00:38 06/07/18 18:32 Labs: Laboratory Results - last 24 hr 06/07/18 06/07/18 06/07/18 14:12 14:12 14:12 WBC 9.6 RBC 3.66 Hgb 11.7 L Hct 35.3 L MCV 96.4 D MCH 32.0 MCHC 33.1 RDW 14.8 H Plt Count 518 H MPV 10.0 Neut % (Auto) 80.2 H Lymph % (Auto) 13.3 L [place] % (Auto) 5.9 Eos % (Auto) 0.4 L Baso % (Auto) 0.2 Lymph # (Auto) 1.3 [place] # (Auto) 0.6 Eos # (Auto) 0.0 Baso # (Auto) 0.02 Absolute Neuts (auto) 7.69 H PT INR APTT pCO2 pO2 HCO3 ABG pH ABG Total CO2 ABG O2 Saturation ABG Base Excess ABG Potassium Glucose Lactate Mechanical Rate FiO2 Tidal Volume PEEP Crit Value Called To Crit Value Called By Blood Gas Notified Time Sodium 133 Potassium 4.4 Chloride 92 L Carbon Dioxide 26 Anion Gap 18 BUN 21 Creatinine 0.7 L Est GFR ( Amer) > 60 Est GFR (Non-Af Amer) > 60 Random Glucose 299 H Calcium 9.0 Total Bilirubin 0.3 AST 124 H D ALT 51 Alkaline Phosphatase 111 Troponin I 0.06 D NT-Pro-B Natriuret Pep 271 Total Protein 6.9 Albumin 3.4 Globulin 3.5 Albumin/Globulin Ratio 1.0 L Triglycerides 51 Cholesterol 113 L LDL Cholesterol Direct 52 HDL Cholesterol 45 Arterial Blood Potassium Blood Type AB POSITIVE Antibody Screen Negative BBK History Checked Patient has bt 06/07/18 06/07/18 15:26 16:28 WBC RBC Hgb Hct MCV MCH MCHC RDW Plt Count MPV Neut % (Auto) Lymph % (Auto) [place] % (Auto) Eos % (Auto) Baso % (Auto) Lymph # (Auto) [place] # (Auto) Eos # (Auto) Baso # (Auto) Absolute Neuts (auto) PT 12.7 H INR 1.14 APTT 30.2 pCO2 72 H* pO2 58.0 L HCO3 26.9 ABG pH 7.18 L* ABG Total CO2 29.1 H ABG O2 Saturation 89.4 L ABG Base Excess -3.1 L ABG Potassium 3.7 Glucose 229 H Lactate 3.4 H Mechanical Rate 20 FiO2 100.0 Tidal Volume 300 PEEP 5 Crit Value Called To Dr torres Crit Value Called By Dmitry joe Blood Gas Notified Time 1652 Sodium 136.0 Potassium Chloride 102.0 Carbon Dioxide Anion Gap BUN Creatinine Est GFR ( Amer) Est GFR (Non-Af Amer) Random Glucose Calcium Total Bilirubin AST ALT Alkaline Phosphatase Troponin I NT-Pro-B Natriuret Pep Total Protein Albumin Globulin Albumin/Globulin Ratio Triglycerides Cholesterol LDL Cholesterol Direct HDL Cholesterol Arterial Blood Potassium 3.7 Blood Type Antibody Screen BBK History Checked Assessment & Plan - Assessment and Plan (Free Text) Assessment: Pt is a 78 yo M with pmhx of BPH and esophageal cancer s/p chemo and radiation in 1999 and s/p neck mass resection in 2000 who presents to the [facility] ED via EMS for AMS and unresponsiveness. Plan: AMS 2/2 Seizure vs Stroke vs infectious etiology - CT head: No acute intracranial findings - Head/Neck CTA: No evidence of hemodynamically significant stenosis in the internal carotid arteries - CXR: New atelectasis/volume loss in RLL - Neurology consulted - Video EEG ordered - Keppra 1000mg given in ED - Solumedrol 60q6 - Vanc and cefepime given - Procal ordered Tracheostomy: - Surgical team consulted - Will follow up Hx of esophageal Ca: - Will continue to monitor at this time PPx: - Heparin sq - Protonix 40 IVP Case seen and discussed with Dr. Gael Feliciano, PGY-1 <Chao Mayo - Last Filed: 06/09/18 09:08> Results - Vital Signs Recent Vital Signs: Last Vital Signs Temp 98.8 F 06/09/18 07:00 Pulse 70 06/09/18 07:00 Resp 25 H 06/07/18 20:41 BP 132/59 L 06/09/18 07:00 Pulse Ox 100 06/09/18 07:00 - Labs Result Diagrams: 06/09/18 05:30 06/09/18 05:30 Labs: Laboratory Results - last 24 hr 06/07/18 06/08/18 06/08/18 18:32 11:09 16:09 WBC RBC Hgb Hct MCV MCH MCHC RDW Plt Count MPV Neut % (Auto) Lymph % (Auto) [place] % (Auto) Eos % (Auto) Baso % (Auto) Lymph # (Auto) [place] # (Auto) Eos # (Auto) Baso # (Auto) Absolute Neuts (auto) pCO2 pO2 HCO3 ABG pH ABG Total CO2 ABG O2 Saturation ABG O2 Content ABG Base Excess ABG Hemoglobin ABG Carboxyhemoglobin POC ABG HHb (Measured) ABG Methemoglobin ABG O2 Capacity Hgb O2 Saturation FiO2 Sodium Potassium Chloride Carbon Dioxide Anion Gap BUN Creatinine Est GFR ( Amer) Est GFR (Non-Af Amer) POC Glucose (mg/dL) 155 H 169 H Random Glucose Calcium Total Bilirubin AST ALT Alkaline Phosphatase Total Protein Albumin Globulin Albumin/Globulin Ratio Procalcitonin 1.52 H 06/08/18 06/09/18 06/09/18 22:04 00:09 05:30 WBC 14.8 H RBC 2.70 L Hgb 8.5 L Hct 26.2 L MCV 97.0 MCH 31.5 MCHC 32.4 RDW 15.0 H Plt Count 339 MPV 10.1 Neut % (Auto) 92.5 H Lymph % (Auto) 3.9 L [place] % (Auto) 3.6 Eos % (Auto) 0.0 L Baso % (Auto) 0.0 Lymph # (Auto) 0.6 L [place] # (Auto) 0.5 Eos # (Auto) 0.0 Baso # (Auto) 0.00 Absolute Neuts (auto) 13.64 H pCO2 pO2 HCO3 ABG pH ABG Total CO2 ABG O2 Saturation ABG O2 Content ABG Base Excess ABG Hemoglobin ABG Carboxyhemoglobin POC ABG HHb (Measured) ABG Methemoglobin ABG O2 Capacity Hgb O2 Saturation FiO2 Sodium Potassium Chloride Carbon Dioxide Anion Gap BUN Creatinine Est GFR ( Amer) Est GFR (Non-Af Amer) POC Glucose (mg/dL) 186 H 203 H Random Glucose Calcium Total Bilirubin AST ALT Alkaline Phosphatase Total Protein Albumin Globulin Albumin/Globulin Ratio Procalcitonin 06/09/18 06/09/18 06/09/18 05:30 06:13 07:16 WBC RBC Hgb Hct MCV MCH MCHC RDW Plt Count MPV Neut % (Auto) Lymph % (Auto) [place] % (Auto) Eos % (Auto) Baso % (Auto) Lymph # (Auto) [place] # (Auto) Eos # (Auto) Baso # (Auto) Absolute Neuts (auto) pCO2 pO2 HCO3 ABG pH ABG Total CO2 ABG O2 Saturation ABG O2 Content ABG Base Excess ABG Hemoglobin ABG Carboxyhemoglobin POC ABG HHb (Measured) ABG Methemoglobin ABG O2 Capacity Hgb O2 Saturation FiO2 Sodium 138 Potassium 4.1 Chloride 107 Carbon Dioxide 29 Anion Gap 6 L BUN 28 H Creatinine 0.5 L Est GFR ( Amer) > 60 Est GFR (Non-Af Amer) > 60 POC Glucose (mg/dL) 191 H 193 H Random Glucose 169 H Calcium 8.3 L Total Bilirubin < 0.1 L AST 46 ALT 41 Alkaline Phosphatase 78 Total Protein 5.6 L Albumin 2.6 L Globulin 3.0 Albumin/Globulin Ratio 0.9 L Procalcitonin 06/09/18 07:40 WBC RBC Hgb Hct MCV MCH MCHC RDW Plt Count MPV Neut % (Auto) Lymph % (Auto) [place] % (Auto) Eos % (Auto) Baso % (Auto) Lymph # (Auto) [place] # (Auto) Eos # (Auto) Baso # (Auto) Absolute Neuts (auto) pCO2 38 pO2 181.0 H HCO3 25.2 ABG pH 7.43 ABG Total CO2 26.4 ABG O2 Saturation 99.7 H ABG O2 Content 11.9 L ABG Base Excess 0.9 ABG Hemoglobin 8.4 L ABG Carboxyhemoglobin 1.4 POC ABG HHb (Measured) 0.3 ABG Methemoglobin 1.6 ABG O2 Capacity 11.9 L Hgb O2 Saturation 96.7 FiO2 50.0 Sodium Potassium Chloride Carbon Dioxide Anion Gap BUN Creatinine Est GFR ( Amer) Est GFR (Non-Af Amer) POC Glucose (mg/dL) Random Glucose Calcium Total Bilirubin AST ALT Alkaline Phosphatase Total Protein Albumin Globulin Albumin/Globulin Ratio Procalcitonin Attending/Attestation - Attestation I have personally seen and examined this patient.: Yes I have fully participated in the care of the patient.: Yes I have reviewed all pertinent clinical information: Yes Notes (Text): 78 year old male with past medical history of esophageal cancer s/p chemo, s/p radiation, s/p resection who presents after being found unresponsive at home by his family. He was intubated for acute respiratory distress. Initial ABG showed hypercapnic respiratory failure. He had emergent cricothyroidotomy done in ER. Surgery is consulted for possible tracheostomy placement. Will start iv steroids and antibiotics. CXR showed RLL atelectasis/infiltrate. Patient is also given keppra in ER. CT head was negative. Neurology evaluation is requested. Plan of care was discussed with at bedside. Chao Mayo MD Hospitalist.
--- NOTE | 2018-06-07 18:07 | PCM.PROC ---
<Otoniel Worthington - Last Filed: 06/07/18 18:07> Procedures Attestation:: I certify that I have explained the specified Operation(s) or Procedure(s), risks, benefits and reasonable alternatives to the Patient and/or other person responsible. The opportunity was given to ask questions and all questions answered - Central Line Placement Subclavian Aseptic technique was employed throughout the procedure: Hand Hygiene done prior to procedure, Full sterile barriers (mask, hair cover, sterile gown, sterile gloves), Full body sterile drape, Chloraprep Antiseptic: 30 second prep for IJ or SC sites CVP Time Out Performed: Yes Pt. Placed on Pulse Ox Monitor: Yes Central Line Prep: Chlorhexidine-Alcohol Combination Local Anesthesia Used: Lidocaine 1% Ultrasound Used for Placement: Yes Central Line Lumen Inserted: triple Central Line Length: 20 cm Post Procedure: Sutured in Place, Good Blood Return, All Ports Aspirated, Flushed, Capped, Sterile Dressing Applied Secured by: Securement device Post Procedure X-Ray: Yes Patient Tolerated Procedure: Well Immediate Complications: None <Julian Arriaga - Last Filed: 06/09/18 08:06> Attending/Attestation - Attestation I have personally seen and examined this patient.: Yes I have fully participated in the care of the patient.: Yes I have reviewed all pertinent clinical information, including history, physical exam and plan: Yes Notes (Text): 06/09/18 08:05 maximum barrier precautions used, TO performed, real time ultrasound guidance used, sterile seldinger technique, guidewire removed, hemostatis achieved, sterile dressings applied. cxr no ptx, good position
[2018-06-07] MEDS ORDERED: Dextrose 50% SYRINGE Inj (50 ml) IVP STA (18:10)
[2018-06-07] MEDS: Vancomycin 1gm in NS 250ml 1 GM/250 ML BAG IVPB SCH (18:15)
--- NOTE | 2018-06-07 18:31 | CARD ---
APPROVED REPORT Date of service: 06/07/2018 EKG Measurement Heart [id number] <Conclusion> Normal sinus rhythm Left ventricular hypertrophy with repolarization abnormality Abnormal ECG
[2018-06-07 18:37] LABS: VENOUS BLOOD GAS BASE EXCESS 4.9 mmol/L (0.0-2.0); VENOUS BLOOD GAS PO2 49 mm/Hg (30-55); VENOUS BLOOD PH 7.33 (7.32-7.43)
[2018-06-07 18:38] LABS: BASO # 0.01 K/mm3 (0.0-2.0); BASO % 0.1 % (0.0-3.0); HEMOGLOBIN 9.2 g/dL (14.0-18.0); LYMPH # 0.6 (1.2-3.4); LYMPH % 3.7 % (22.0-35.0); MEAN CELL VOLUME 97.3 fl (80.0-105.0); MEAN CORPUSCULAR HEMOGLOBIN 31.6 pg (25.0-35.0); MEAN CORPUSCULAR HGB CONC 32.5 g/dl (31.0-37.0); MEAN PLATELET VOLUME 9.5 fl (7.0-11.0); MONO # 0.7 (0.1-0.6); MONO % 4.6 % (1.0-6.0); PLATELET COUNT 380 10^3/uL (120.0-450.0); RBC 2.91 10^6/uL (3.5-6.1); RED CELL DISTRIBUTION WIDTH 13.8 % (11.5-14.5); WHITE BLOOD COUNT 15.6 10^3/uL (4.5-11.0)
--- NOTE | 2018-06-07 18:47 | RAD ---
Date of service: 06/07/2018 HISTORY: Follow-up. COMPARISON: Multiple serial examinations preceding the most recent study: June 07, 2018. Time of the most recent examination: 16:53. FINDINGS: LUNGS: New collapse of the right lower lobe. PLEURA: No significant pleural effusion identified, no pneumothorax apparent. CARDIOVASCULAR: No atherosclerotic calcification present Venous access catheter in satisfactory position. OSSEOUS STRUCTURES: No significant abnormalities. VISUALIZED UPPER ABDOMEN: Normal. OTHER FINDINGS: Stable, satisfactory position of tracheostomy device. IMPRESSION: New atelectasis/volume loss affecting right lower lobe. Satisfactory position of recently placed left subclavian venous access catheter.
[2018-06-07 18:48] LABS: ALB/GLOB RATIO 0.9 (1.1-1.8); ALBUMIN 2.8 g/dL (3.0-4.8); ALT/SGPT 49 U/L (7-56); AST/SGOT 102 U/L (17-59); BLOOD UREA NITROGEN 22 mg/dL (7-21); CALCIUM 8.3 mg/dL (8.4-10.5); GFR NON-AFRICAN AMERICAN > 60
[2018-06-07 18:57] LABS: ARTERIAL BLOOD GAS PCO2 45 mm/Hg (35-45); ARTERIAL BLOOD GAS PH 7.37 (7.35-7.45); ARTERIAL BLOOD GAS TCO2 27.4 mmol.L (22-28)
[2018-06-07 20:04] LABS: HYPOCHROMIA 2+; PLATELET ESTIMATE NORMAL (NORMAL)
[2018-06-07 20:05] LABS: ROULEAU 2+; TOXIC GRANULATION 2+
[2018-06-07 20:06] LABS: LYMPHOCYTE 5 % (22.0-35.0); MONOCYTE 4 % (1.0-6.0); NEUTROPHIL 91 % (50.0-70.0)
[2018-06-07 21:06] LABS: PH,URINE 5.5 (4.7-8.0); URINE BILIRUBIN NEGATIVE (NEGATIVE); URINE BLOOD SMALL (NEGATIVE); URINE GLUCOSE (UA) NEGATIVE (NEGATIVE); URINE LEUKOCYTE ESTERASE TRACE Leu/uL (NEGATIVE); URINE PROTEIN NEGATIVE mg/dL (<30 mg/dL); URINE UROBILINOGEN 0.2 E.U./dL (<1 E.U./dL)
[2018-06-07 21:08] LABS: URINE APPEARANCE CLEAR (CLEAR); URINE COLOR YELLOW (YELLOW); URINE RBC 15 - 20 /hpf (0-2)
[2018-06-07] MEDS: Cefepime 1gm in NS 100ml 1 GM/100 ML BAG IVPB SCH (22:05)
[2018-06-07 23:06] LABS: VENOUS BLOOD GAS BASE EXCESS 2.4 mmol/L (0.0-2.0); VENOUS BLOOD GAS PO2 44 mm/Hg (30-55); VENOUS BLOOD PH 7.32 (7.32-7.43)
[2018-06-08] MEDS: Albuterol-Ipratrop 3 mg / 0.5 (3 ml) UD IH SCH
[2018-06-08] MEDS ORDERED: Metoprolol 1 mg/ml Inj IVP ONE (00:34)
[2018-06-08] MEDS ORDERED: Metoprolol 1 mg/ml Inj IVP SCH ×2 (00:45→10:21)
[2018-06-08 00:56] LABS: HEMOGLOBIN 9.8 g/dL (14.0-18.0); LYMPH # 0.4 (1.2-3.4); LYMPH % 2.3 % (22.0-35.0); MEAN CELL VOLUME 96.2 fl (80.0-105.0); MEAN CORPUSCULAR HEMOGLOBIN 30.9 pg (25.0-35.0); MEAN CORPUSCULAR HGB CONC 32.1 g/dl (31.0-37.0); MEAN PLATELET VOLUME 9.4 fl (7.0-11.0); MONO # 0.3 (0.1-0.6); MONO % 2.2 % (1.0-6.0); RBC 3.17 10^6/uL (3.5-6.1); RED CELL DISTRIBUTION WIDTH 13.8 % (11.5-14.5); WHITE BLOOD COUNT 15.8 10^3/uL (4.5-11.0)
--- NOTE | 2018-06-08 03:38 | CON ---
DATE: 06/07/2018 HISTORY OF PRESENT ILLNESS: This is a 78-year-old gentleman with history of esophageal cancer, who was brought into [facility] ER by EMS for altered mental status prior to arrival. The patient was seen in his usual state of health around 9 a.m. and was found completely unresponsive around 1 p.m. by his family. Upon arrival, he was examined by ER physician who noticed that the patient was not responsive to sternal rub and painful stimuli. The patient was intubated for Penny Coma scale of 3. Consideration was given to the diagnosis of stroke; however, CAT scan of the head as well as CTA did not reveal any acute intracranial abnormalities as well as clotting in the major cerebral arteries. MRI of the brain was ordered. Neurology consult was requested. ICU consult was requested as well. Upon examination by ICU service, the patient was fully awake, alert, nonverbally communicating, following commands, has very good muscle strength in both arms, hands, and able to lift his head up for more than 10 cm off the pillow. The patient tolerated pressure support trial easily and very well with rapid shallow breathing index 30. He will be extubated and put on nasal cannula. No history of nausea, vomiting, diarrhea, constipation, fever, chills, sweats, chest pain, shortness of breath prior to episode of unresponsiveness noted. PAST MEDICAL HISTORY: As per family patient did have h/o esophageal cancer, but was cancer free for 18 years Details of the past medical history, HPI, review of systems, family history, medications, social history are not available as the patient was intubated prior to ICU admission and shortly after arrival to ER. It appears that the patient smokes less than 10 cigarettes a day, however, does not have alcohol or substance abuse. ALLERGIES: THE PATIENT HAS PEANUT ALLERGY WITH ALLERGIC REACTION RASH. HOME MEDICATIONS: Home medication list is not available. PHYSICAL EXAMINATION: VITAL SIGNS: Blood pressure 120/70, heart rate 71, respiratory rate 18, oxygen saturation 99% on 60% FiO2 while patient pressure support 5/5. HEENT AND NECK: Head and neck atraumatic. The patient is intubated, however, will be extubated shortly. LUNGS: Clear to auscultation bilaterally. HEART: Regular rate and rhythm. S1, S2 normal. ABDOMEN: Soft, nontender, nondistended. MUSCULOSKELETAL: No C/C/E. NEUROLOGIC: The patient moves all extremities spontaneously including upper and lower extremities. He is able to move his head. Examination of the cranial nerves limited due to the patient's endotracheal intubation. SKIN: Moist. PSYCHIATRIC: The patient is alert, awake, following commands. LABORATORY DATA: WBC 9.6, hemoglobin 11.7, platelet count 518, eosinophils 0.4. Head and neck CTA showed no evidence of endoluminal thrombus or occlusion, asymmetric narrowing of the right M1 segment with attenuation of superior division perisylvian branches which is likely chronic and related to intracranial atherosclerosis. No evidence of hemodynamically significant stenosis in the internal carotid arteries. Patent bilateral vertebral arteries. Chest x-ray, no active pulmonary disease (reportedly no chest x-ray available in the [facility]; however, chest x-ray was looked at by ER physician who reports no active pulmonary disease). CAT scan of the head revealed no acute intracranial findings. No specific ischemic changes, questionable LVH. ASSESSMENT AND PLAN: This is a 78-year-old gentleman who presented to [facility] with episode of unresponsiveness and was intubated for airway protection. He woke up, following commands, alert, awake, and oriented x3. Good muscle strength, +air leak. Extubated. At the present time, we will follow up the rest of his labs. At present, the patient is moving all extremities spontaneously and appears to have grossly unremarkable cranial nerve examination. I have low suspicion for stroke at the present time; however, MRI of the brain might be reasonable. The patient is hemodynamically and respiratory-venegas stable. We will monitor the patient in the ICU overnight. We will continue to target euvolemia, euglycemia, normothermia, and oxygen saturation more than 90%. We will avoid hypo or hyperglycemia. We will maintain euvolemia, euglycemia, normothermia, and oxygen saturation more than 90%. We will follow ABG with lactic acid. We will follow troponin. The patient is afebrile and does not have leukocytosis. I have low suspicion for sepsis at present time. Urinalysis, blood culture, and urine culture are pending. Chest x-ray did not show any acute pulmonary disease. Addendum: shortly after extubation, patient developed wheezing, ?stridor, heliox ordered, BiPAP applied, duoneb nebs and 60 mg of solumedrol IV given. Of note, no respiratory distress or stridor in ER prior to initial intubation reported by ER physician (was intubated for GCS 3 for airway protection) and pt had + air leak prior to extubation. Patient continue to deterioate, became diaphoretic. Touched base with anesthesiologist (Dr. Amor), he was in OR for I&D and not immediately available. As patient continue to deteriorate, decision was made to reintubate. Glidoscope was used, however unable to secure airways endotracheally, bagging continued. Dr. Amor arrived and tried to insert bougi and then intubate, however unsuccessfully. As patient became bradycardic and hypoxemic--emergent crycothyrotomy was performed by ER physician with jehovah's witness of normoxia and resolution of bradycardia. During reintubation, patient had short period of PEA/bradycardia, requiring CPR. Upon re-establishing airways and ROSC, patient was transferred to ICU. BP was stabilized with 2L NS bolus and levophed 15 mcg/hr. CVL and A-line were placed. Bedside POC echo-->no pericardial tamponade, no severe LV or RV systolic dysfunction, IVC >minimally collapsible and >2 cm. CXR--no PTX, will continue with steroids, bronchodilators, abx, low to intermediate Vt, avoid overventilation, I:E>1:2.5, ABG-resolution of hypercapnia. responding to commands. surgical eval for convertion to permanent trach is ongoing. dvt gi prophylaxis, HOB>35 and oral hygiene. started to follow commands ccm time 40 min Julian Arriaga MD MYRNA
[2018-06-08 06:29] LABS: ARTERIAL BLOOD GAS HCO3 24.3 mmol/L (21-28); ARTERIAL BLOOD GAS O2 CAPACITY 22.3 mL/dl (16-24); ARTERIAL BLOOD GAS O2 CONTENT 22.4 ML/dl (15-23); ARTERIAL BLOOD GAS O2 SAT 100.3 % (95-98); ARTERIAL BLOOD GAS PCO2 44 mm/Hg (35-45); ARTERIAL BLOOD GAS PH 7.35 (7.35-7.45); ARTERIAL BLOOD GAS TCO2 25.7 mmol.L (22-28)
[2018-06-08 06:32] LABS: HEMOGLOBIN 9.8 g/dL (14.0-18.0); LYMPH # 0.3 (1.2-3.4); LYMPH % 2.1 % (22.0-35.0); MEAN CELL VOLUME 96.4 fl (80.0-105.0); MEAN CORPUSCULAR HEMOGLOBIN 31.7 pg (25.0-35.0); MEAN CORPUSCULAR HGB CONC 32.9 g/dl (31.0-37.0); MEAN PLATELET VOLUME 9.9 fl (7.0-11.0); MONO # 0.2 (0.1-0.6); MONO % 1.2 % (1.0-6.0); RBC 3.09 10^6/uL (3.5-6.1); RED CELL DISTRIBUTION WIDTH 14.1 % (11.5-14.5); WHITE BLOOD COUNT 12.5 10^3/uL (4.5-11.0)
--- NOTE | 2018-06-08 07:07 | CP.PCM.CON ---
<RoddyHadley - Last Filed: 06/08/18 14:00> History of Present Illness - History of Present Illness History of Present Illness: Hadley Pereyra DO, PGY-2: Neurology Consult Note for Dr. Toth 78 year old male with a past medical history of esophageal cancer who was found unresponsive at home and brought into the ED. He had GCS of 3 upon arrival and was intubated for airway protection. A code stroke was called at this time and the patient underwent CT of the head and CTA of the head and neck which did not show any evidence of stroke. Furthermore, in the ED the patient was evaluated by the ICU team and became responsive and was extubated while in the ED. Sometime after being extubated the patient appeared to be altered again and was noted to be in hypoxemic respiratory failure. The patient was unable to be re-intubated via endotracheal method in the ED and an emergent airway was established via tracheostomy. Prior to the tracheostomy being placed the patient did become pulseless and one round of CPR and a dose of epinephrine was required with ROSC obtained. A central line was placed in the left subclavian and the patient was started on levophed for hypotension. Serial chest X-rays showed collapse of the right lower lobe.At the time of my examination this morning, the patient is not any sedation, follows commands, moves all extremities, and is alert. A full ROS is limited given the patient cannot verbalize secondary to his tracheostomy. Pmhx: Esophageal cancer s/p chemo and radiation in 1999 and s/p neck mass resection in 2000 Pshx: Resection of neck mass , R eye cataract surgery Meds: Denies taking any All: Peanut - Rash Soc: 13ppd smoker x 60 yrs, denies recent etoh abuse or any illicit drug use Fam: Non-contributory PMD: Dr. Bharathi Domingo Oncologist: Dr. John lBand Review of Systems - Review of Systems Systems not reviewed;Unavailable: Intubated All systems: reviewed and no additional remarkable complaints except (as per HPI) Past Patient History - Infectious Disease Hx of Infectious Diseases: None - Past Social History Smoking Status: Light Smoker < 10 Cigarettes Daily - CARDIAC Hx Cardiac Disorders: No - PULMONARY Hx Respiratory Disorders: No - NEUROLOGICAL Hx Neurological Disorder: No - HEENT Hx HEENT Problems: Yes Hx Deafness: Yes - RENAL Hx Chronic Kidney Disease: No - ENDOCRINE/METABOLIC Hx Endocrine Disorders: No - HEMATOLOGICAL/ONCOLOGICAL Hx Blood Transfusions: (UNKNOWN) Hx Blood Transfusion Reaction: (UNKNOWN) - INTEGUMENTARY Hx Dermatological Problems: No - MUSCULOSKELETAL/RHEUMATOLOGICAL Hx Falls: No - GASTROINTESTINAL Hx Gastrointestinal Disorders: Yes - GENITOURINARY/GYNECOLOGICAL Hx Genitourinary Disorders: No - PSYCHIATRIC Hx Substance Use: No - SURGICAL HISTORY Other/Comment: throat cancer 2000 - ANESTHESIA Hx Anesthesia Reactions: (UNKNOWN) Hx Malignant Hyperthermia: (UNKNOWN) Meds Allergies/Adverse Reactions: Allergies Allergy/AdvReac Type Severity Reaction Status Date / Time aspirin Allergy RASH Verified 06/08/18 01:17 citric acid Allergy RASH Verified 06/08/18 01:18 [From [facility]] sodium bicarbonate Allergy RASH Verified 06/08/18 01:18 [From [facility]] peanut AdvReac RASH Verified 08/09/17 20:23 - Medications Medications: Current Medications Heparin Sodium (Porcine) (Heparin) 5,000 units SC Q8 [facility]; Protocol Last Admin: 06/08/18 06:03 Dose: 5,000 units Sodium Chloride (Sodium Chloride 0.9%) 1,000 mls @ 100 mls/hr IV .Q10H LY[facility] Last Admin: 06/07/18 19:09 Dose: 100 mls/hr Propofol (Diprivan) 1,000 mg in 100 mls @ 1.225 mls/hr IV .Q24H PRN; Protocol PRN Reason: TITRATE PER MD ORDER NOREPINEPHRINE BIT/0.9 % NACL (Levophed 4 Mg/ 250 Ml Ns Premixed) 4 mg in 250 mls @ 15 mls/hr IV .[id number] PRN; Protocol PRN Reason: TITRATE PER MD ORDER Last Titration: 06/08/18 01:30 Dose: 2 mcg/min, 7.5 mls/hr Cefepime HCl (Maxipime 1gm) 1 gm in 100 mls @ 100 mls/hr IVPB Q12 [facility]; Protocol Last Admin: 06/07/18 22:05 Dose: 100 mls/hr Vancomycin HCl (Vancomycin 1gm) 1 gm in 250 mls @ 167 mls/hr IVPB DAILY [facility]; Protocol Last Admin: 06/07/18 18:15 Dose: 167 mls/hr Methylprednisolone (Solu-Medrol) 60 mg IVP Q6 [facility] Last Admin: 06/08/18 06:03 Dose: 60 mg Metoprolol Tartrate (Lopressor) 5 mg IVP Q12H [facility] Last Admin: 06/08/18 00:54 Dose: 5 mg Pantoprazole Sodium (Protonix Inj) 40 mg IVP DAILY [facility] Physical Exam - Constitutional Appears: Well, Non-toxic - Head Exam Head Exam: ATRAUMATIC, NORMOCEPHALIC - Eye Exam Eye Exam: EOMI - ENT Exam ENT Exam: Mucous Membranes Moist - Neck Exam Neck exam: Positive for: Normal Inspection - Respiratory Exam Respiratory Exam: NORMAL BREATHING PATTERN. absent: Accessory Muscle Use - Cardiovascular Exam Cardiovascular Exam: RRR, +S1, +S2 - GI/Abdominal Exam GI & Abdominal Exam: Normal Bowel Sounds, Soft - Extremities Exam Extremities exam: Positive for: normal inspection - Neurological Exam Neurological exam: Alert, Reflexes Normal Additional comments: MS 5/5 in upper and lower extremities, DTR 2/4 and symmetric in patellar and achilles - Psychiatric Exam Psychiatric exam: Normal Affect, Normal Mood - Skin Skin Exam: Dry, Intact, Normal Color, Warm Results - Vital Signs Recent Vital Signs: Last Vital Signs Temp 99.0 F 06/08/18 06:30 Pulse 87 06/08/18 06:30 Resp 25 H 06/07/18 20:41 BP 99/65 L 06/08/18 06:30 Pulse Ox 100 06/08/18 06:30 - Labs Result Diagrams: 06/08/18 05:30 06/08/18 05:30 Labs: Laboratory Results - last 24 hr 06/07/18 06/07/18 06/07/18 14:12 14:12 14:12 WBC 9.6 RBC 3.66 Hgb 11.7 L Hct 35.3 L MCV 96.4 D MCH 32.0 MCHC 33.1 RDW 14.8 H Plt Count 518 H MPV 10.0 Neut % (Auto) 80.2 H Lymph % (Auto) 13.3 L Grand % (Auto) 5.9 Eos % (Auto) 0.4 L Baso % (Auto) 0.2 Lymph # (Auto) 1.3 Grand # (Auto) 0.6 Eos # (Auto) 0.0 Baso # (Auto) 0.02 Absolute Neuts (auto) 7.69 H Neutrophils % (Manual) Lymphocytes % (Manual) Monocytes % (Manual) Toxic Granulation Platelet Evaluation Hypochromasia Rouleaux PT INR APTT pCO2 pO2 HCO3 ABG pH ABG Total CO2 ABG O2 Saturation ABG O2 Content ABG Base Excess ABG Hemoglobin ABG Carboxyhemoglobin POC ABG HHb (Measured) ABG Methemoglobin ABG O2 Capacity ABG Potassium VBG pH VBG pCO2 VBG HCO3 VBG Total CO2 VBG O2 Sat (Calc) VBG Base Excess VBG Potassium Hgb O2 Saturation Glucose Lactate Mechanical Rate FiO2 Tidal Volume PEEP Crit Value Called To Crit Value Called By Blood Gas Notified Time Sodium 133 Potassium 4.4 Chloride 92 L Carbon Dioxide 26 Anion Gap 18 BUN 21 Creatinine 0.7 L Est GFR ( Amer) > 60 Est GFR (Non-Af Amer) > 60 POC Glucose (mg/dL) Random Glucose 299 H Hemoglobin A1c 7.0 H Calcium 9.0 Total Bilirubin 0.3 AST 124 H D ALT 51 Alkaline Phosphatase 111 Troponin I 0.06 D NT-Pro-B Natriuret Pep 271 Total Protein 6.9 Albumin 3.4 Globulin 3.5 Albumin/Globulin Ratio 1.0 L Triglycerides 51 Cholesterol 113 L LDL Cholesterol Direct 52 HDL Cholesterol 45 Arterial Blood Potassium Venous Blood Potassium Urine Color Urine Appearance Urine pH Ur Specific [place] Urine Protein Urine Glucose (UA) Urine Ketones Urine Blood Urine Nitrate Urine Bilirubin Urine Urobilinogen Ur Leukocyte Esterase Urine RBC Urine WBC Ur Epithelial Cells Blood Type Antibody Screen BBK History Checked 06/07/18 06/07/18 06/07/18 14:12 14:19 15:26 WBC RBC Hgb Hct MCV MCH MCHC RDW Plt Count MPV Neut % (Auto) Lymph % (Auto) Grand % (Auto) Eos % (Auto) Baso % (Auto) Lymph # (Auto) Grand # (Auto) Eos # (Auto) Baso # (Auto) Absolute Neuts (auto) Neutrophils % (Manual) Lymphocytes % (Manual) Monocytes % (Manual) Toxic Granulation Platelet Evaluation Hypochromasia Rouleaux PT INR APTT pCO2 72 H* pO2 58.0 L HCO3 26.9 ABG pH 7.18 L* ABG Total CO2 29.1 H ABG O2 Saturation 89.4 L ABG O2 Content ABG Base Excess -3.1 L ABG Hemoglobin ABG Carboxyhemoglobin POC ABG HHb (Measured) ABG Methemoglobin ABG O2 Capacity ABG Potassium 3.7 VBG pH VBG pCO2 VBG HCO3 VBG Total CO2 VBG O2 Sat (Calc) VBG Base Excess VBG Potassium Hgb O2 Saturation Glucose 229 H Lactate 3.4 H Mechanical Rate 20 FiO2 100.0 Tidal Volume 300 PEEP 5 Crit Value Called To Dr torres Crit Value Called By Dmitry joe Blood Gas Notified Time 1652 Sodium 136.0 Potassium Chloride 102.0 Carbon Dioxide Anion Gap BUN Creatinine Est GFR ( Amer) Est GFR (Non-Af Amer) POC Glucose (mg/dL) 401 H* Random Glucose Hemoglobin A1c Calcium Total Bilirubin AST ALT Alkaline Phosphatase Troponin I NT-Pro-B Natriuret Pep Total Protein Albumin Globulin Albumin/Globulin Ratio Triglycerides Cholesterol LDL Cholesterol Direct HDL Cholesterol Arterial Blood Potassium 3.7 Venous Blood Potassium Urine Color Urine Appearance Urine pH Ur Specific [place] Urine Protein Urine Glucose (UA) Urine Ketones Urine Blood Urine Nitrate Urine Bilirubin Urine Urobilinogen Ur Leukocyte Esterase Urine RBC Urine WBC Ur Epithelial Cells Blood Type AB POSITIVE Antibody Screen Negative BBK History Checked Patient has bt 06/07/18 06/07/18 06/07/18 16:28 18:31 18:32 WBC 15.6 H D RBC 2.91 L Hgb 9.2 L D Hct 28.3 L MCV 97.3 MCH 31.6 MCHC 32.5 RDW 13.8 Plt Count 380 MPV 9.5 Neut % (Auto) 91.6 H Lymph % (Auto) 3.7 L Grand % (Auto) 4.6 Eos % (Auto) 0.0 L Baso % (Auto) 0.1 Lymph # (Auto) 0.6 L Grand # (Auto) 0.7 H Eos # (Auto) 0.0 Baso # (Auto) 0.01 Absolute Neuts (auto) 14.30 H Neutrophils % (Manual) 91 H Lymphocytes % (Manual) 5 L Monocytes % (Manual) 4 Toxic Granulation 2+ Platelet Evaluation Normal Hypochromasia 2+ Rouleaux 2+ PT 12.7 H INR 1.14 APTT 30.2 pCO2 pO2 49 HCO3 ABG pH ABG Total CO2 ABG O2 Saturation ABG O2 Content ABG Base Excess ABG Hemoglobin ABG Carboxyhemoglobin POC ABG HHb (Measured) ABG Methemoglobin ABG O2 Capacity ABG Potassium VBG pH 7.33 VBG pCO2 62.0 H VBG HCO3 32.7 H VBG Total CO2 34.6 H VBG O2 Sat (Calc) 86.3 H VBG Base Excess 4.9 H VBG Potassium 3.9 Hgb O2 Saturation Glucose 125 H Lactate 1.4 Mechanical Rate FiO2 21.0 Tidal Volume PEEP Crit Value Called To Crit Value Called By Blood Gas Notified Time Sodium 137.0 Potassium Chloride 103.0 Carbon Dioxide Anion Gap BUN Creatinine Est GFR ( Amer) Est GFR (Non-Af Amer) POC Glucose (mg/dL) Random Glucose Hemoglobin A1c Calcium Total Bilirubin AST ALT Alkaline Phosphatase Troponin I NT-Pro-B Natriuret Pep Total Protein Albumin Globulin Albumin/Globulin Ratio Triglycerides Cholesterol LDL Cholesterol Direct HDL Cholesterol Arterial Blood Potassium Venous Blood Potassium 3.9 Urine Color Urine Appearance Urine pH Ur Specific [place] Urine Protein Urine Glucose (UA) Urine Ketones Urine Blood Urine Nitrate Urine Bilirubin Urine Urobilinogen Ur Leukocyte Esterase Urine RBC Urine WBC Ur Epithelial Cells Blood Type Antibody Screen BBK History Checked 06/07/18 06/07/18 06/07/18 18:32 18:50 20:50 WBC RBC Hgb Hct MCV MCH MCHC RDW Plt Count MPV Neut % (Auto) Lymph % (Auto) Grand % (Auto) Eos % (Auto) Baso % (Auto) Lymph # (Auto) Grand # (Auto) Eos # (Auto) Baso # (Auto) Absolute Neuts (auto) Neutrophils % (Manual) Lymphocytes % (Manual) Monocytes % (Manual) Toxic Granulation Platelet Evaluation Hypochromasia Rouleaux PT INR APTT pCO2 45 pO2 170.0 H HCO3 26.0 ABG pH 7.37 ABG Total CO2 27.4 ABG O2 Saturation 100.0 H ABG O2 Content ABG Base Excess 0.3 ABG Hemoglobin ABG Carboxyhemoglobin POC ABG HHb (Measured) ABG Methemoglobin ABG O2 Capacity ABG Potassium 3.6 VBG pH VBG pCO2 VBG HCO3 VBG Total CO2 VBG O2 Sat (Calc) VBG Base Excess VBG Potassium Hgb O2 Saturation Glucose 112 H Lactate 1.2 Mechanical Rate 25 FiO2 100.0 Tidal Volume 300 PEEP 5 Crit Value Called To Crit Value Called By Blood Gas Notified Time Sodium 135 138.0 Potassium 3.9 Chloride 100 107.0 Carbon Dioxide 30 Anion Gap 9 L BUN 22 H Creatinine 0.6 L Est GFR ( Amer) > 60 Est GFR (Non-Af Amer) > 60 POC Glucose (mg/dL) Random Glucose 119 H Hemoglobin A1c Calcium 8.3 L Total Bilirubin 0.4 AST 102 H ALT 49 Alkaline Phosphatase 97 Troponin I NT-Pro-B Natriuret Pep Total Protein 6.0 Albumin 2.8 L Globulin 3.2 Albumin/Globulin Ratio 0.9 L Triglycerides Cholesterol LDL Cholesterol Direct HDL Cholesterol Arterial Blood Potassium 3.6 Venous Blood Potassium Urine Color Yellow Urine Appearance Clear Urine pH 5.5 Ur Specific [place] 1.010 Urine Protein Negative Urine Glucose (UA) Negative Urine Ketones Trace H Urine Blood Small H Urine Nitrate Negative Urine Bilirubin Negative Urine Urobilinogen 0.2 Ur Leukocyte Esterase Trace H Urine RBC 15 - 20 H Urine WBC 2 - 5 Ur Epithelial Cells 4 - 5 Blood Type Antibody Screen BBK History Checked 06/07/18 06/07/18 06/08/18 22:37 22:37 00:09 WBC RBC Hgb Hct MCV MCH MCHC RDW Plt Count MPV Neut % (Auto) Lymph % (Auto) Grand % (Auto) Eos % (Auto) Baso % (Auto) Lymph # (Auto) Grand # (Auto) Eos # (Auto) Baso # (Auto) Absolute Neuts (auto) Neutrophils % (Manual) Lymphocytes % (Manual) Monocytes % (Manual) Toxic Granulation Platelet Evaluation Hypochromasia Rouleaux PT INR APTT pCO2 pO2 44 HCO3 ABG pH ABG Total CO2 ABG O2 Saturation ABG O2 Content ABG Base Excess ABG Hemoglobin ABG Carboxyhemoglobin POC ABG HHb (Measured) ABG Methemoglobin ABG O2 Capacity ABG Potassium VBG pH 7.32 VBG pCO2 58.0 VBG HCO3 29.9 H VBG Total CO2 31.7 H VBG O2 Sat (Calc) 80.1 H VBG Base Excess 2.4 H VBG Potassium 4.3 Hgb O2 Saturation Glucose 154 H Lactate 1.1 Mechanical Rate FiO2 21.0 Tidal Volume PEEP Crit Value Called To Crit Value Called By Blood Gas Notified Time Sodium 136.0 Potassium Chloride 104.0 Carbon Dioxide Anion Gap BUN Creatinine Est GFR ( Amer) Est GFR (Non-Af Amer) POC Glucose (mg/dL) 182 H Random Glucose Hemoglobin A1c Calcium Total Bilirubin AST ALT Alkaline Phosphatase Troponin I 0.42 H* D NT-Pro-B Natriuret Pep Total Protein Albumin Globulin Albumin/Globulin Ratio Triglycerides Cholesterol LDL Cholesterol Direct HDL Cholesterol Arterial Blood Potassium Venous Blood Potassium 4.3 Urine Color Urine Appearance Urine pH Ur Specific [place] Urine Protein Urine Glucose (UA) Urine Ketones Urine Blood Urine Nitrate Urine Bilirubin Urine Urobilinogen Ur Leukocyte Esterase Urine RBC Urine WBC Ur Epithelial Cells Blood Type Antibody Screen BBK History Checked 06/08/18 06/08/18 06/08/18 00:38 05:30 06:00 WBC 15.8 H 12.5 H D RBC 3.17 L 3.09 L Hgb 9.8 L 9.8 L Hct 30.5 L 29.8 L MCV 96.2 96.4 MCH 30.9 31.7 MCHC 32.1 32.9 RDW 13.8 14.1 Plt Count 378 386 MPV 9.4 9.9 Neut % (Auto) 95.5 H 96.7 H Lymph % (Auto) 2.3 L 2.1 L Grand % (Auto) 2.2 1.2 Eos % (Auto) 0.0 L 0.0 L Baso % (Auto) 0.0 0.0 Lymph # (Auto) 0.4 L 0.3 L Grand # (Auto) 0.3 0.2 Eos # (Auto) 0.0 0.0 Baso # (Auto) 0.00 0.00 Absolute Neuts (auto) 15.05 H 12.12 H Neutrophils % (Manual) Lymphocytes % (Manual) Monocytes % (Manual) Toxic Granulation Platelet Evaluation Hypochromasia Rouleaux PT INR APTT pCO2 44 pO2 207.0 H HCO3 24.3 ABG pH 7.35 ABG Total CO2 25.7 ABG O2 Saturation 100.3 H ABG O2 Content 22.4 ABG Base Excess -1.6 ABG Hemoglobin 16.0 ABG Carboxyhemoglobin 1.6 H POC ABG HHb (Measured) -0.3 L ABG Methemoglobin 1.1 ABG O2 Capacity 22.3 ABG Potassium VBG pH VBG pCO2 VBG HCO3 VBG Total CO2 VBG O2 Sat (Calc) VBG Base Excess VBG Potassium Hgb O2 Saturation 97.6 Glucose Lactate Mechanical Rate FiO2 80.0 Tidal Volume PEEP Crit Value Called To Crit Value Called By Blood Gas Notified Time Sodium Potassium Chloride Carbon Dioxide Anion Gap BUN Creatinine Est GFR ( Amer) Est GFR (Non-Af Amer) POC Glucose (mg/dL) Random Glucose Hemoglobin A1c Calcium Total Bilirubin AST ALT Alkaline Phosphatase Troponin I NT-Pro-B Natriuret Pep Total Protein Albumin Globulin Albumin/Globulin Ratio Triglycerides Cholesterol LDL Cholesterol Direct HDL Cholesterol Arterial Blood Potassium Venous Blood Potassium Urine Color Urine Appearance Urine pH Ur Specific [place] Urine Protein Urine Glucose (UA) Urine Ketones Urine Blood Urine Nitrate Urine Bilirubin Urine Urobilinogen Ur Leukocyte Esterase Urine RBC Urine WBC Ur Epithelial Cells Blood Type Antibody Screen BBK History Checked Assessment & Plan - Assessment and Plan (Free Text) Assessment: 78 year old male with a past medical history of esophageal cancer who presented with altered mental status with hypercapnic/hypoxemic respiratory failure. A code stroke was called intially in the ED; however, the patient was not a candidate for tPA given the unknown onset of his symptoms. His CT of the head and CTA show no evidence of stroke. We will follow up his MRI. 1) Encephalopathy - CT head and CTA negative; video EEG negative for seizure - the patient altered mental status was likely secondary to his hypercapnic, hypoxemic respiratory failure, and not a stroke; we will follow up with his MRI Case was reviewed and discussed with attending physician, Dr. Toth <Meenu Toth - Last Filed: 06/11/18 18:49> Meds - Medications Medications: Current Medications Acetaminophen (Tylenol 325mg Tab) 650 mg PO Q6H PRN PRN Reason: Pain, moderate (4-7) Last Admin: 06/09/18 13:38 Dose: 650 mg Atorvastatin Calcium (Lipitor) 40 mg PO DIN LYLY Last Admin: 06/11/18 17:55 Dose: 40 mg Clopidogrel Bisulfate (Plavix) 75 mg PO DAILY [facility] Last Admin: 06/11/18 10:07 Dose: 75 mg Heparin Sodium (Porcine) (Heparin) 5,000 units SC Q8 [facility]; Protocol Last Admin: 06/11/18 13:03 Dose: 5,000 units Cefepime HCl (Maxipime 1gm) 1 gm in 100 mls @ 100 mls/hr IVPB Q12 [facility]; Protocol Last Admin: 06/11/18 10:02 Dose: 100 mls/hr Vancomycin HCl (Vancomycin 1gm) 1 gm in 250 mls @ 167 mls/hr IVPB DAILY [facility]; Protocol Last Admin: 06/11/18 12:21 Dose: 167 mls/hr Insulin Human Regular (Humulin R Low) 0 units SC Q6 [facility]; Protocol Last Admin: 06/11/18 17:55 Dose: 2 u Methylprednisolone (Solu-Medrol) 60 mg IVP DAILY [facility] Last Admin: 06/11/18 10:06 Dose: 60 mg Pantoprazole Sodium (Protonix Inj) 40 mg IVP DAILY [facility] Last Admin: 06/11/18 10:07 Dose: 40 mg Promethazine HCl/Codeine (Phenergan/Codeine Oral Syrup) 5 ml PEG Q4H PRN PRN Reason: Cough and congestion Last Admin: 06/09/18 21:57 Dose: 5 ml Results - Vital Signs Recent Vital Signs: Last Vital Signs Temp 98.4 F 06/11/18 17:58 Pulse 73 06/11/18 17:58 Resp 20 06/11/18 17:58 BP 139/76 06/11/18 17:58 Pulse Ox 95 06/11/18 06:00 - Labs Result Diagrams: 06/11/18 07:00 06/11/18 15:05 Labs: Laboratory Results - last 24 hr 06/10/18 06/10/18 06/11/18 18:05 21:31 05:30 WBC RBC Hgb Hct MCV MCH MCHC RDW Plt Count MPV Neut % (Auto) Lymph % (Auto) Grand % (Auto) Eos % (Auto) Baso % (Auto) Lymph # (Auto) Grand # (Auto) Eos # (Auto) Baso # (Auto) Absolute Neuts (auto) pCO2 42 pO2 74.0 L HCO3 32.0 H ABG pH 7.49 H ABG Total CO2 33.3 H ABG O2 Saturation 98.4 H ABG O2 Content 12.2 L ABG Base Excess 7.9 H ABG Hemoglobin 9.0 L ABG Carboxyhemoglobin 2.0 H POC ABG HHb (Measured) 1.6 ABG Methemoglobin 0.8 ABG O2 Capacity 12.4 L Hgb O2 Saturation 95.6 FiO2 35.0 Sodium Potassium Chloride Carbon Dioxide Anion Gap BUN Creatinine Est GFR ( Amer) Est GFR (Non-Af Amer) POC Glucose (mg/dL) 226 H 254 H Random Glucose Calcium Total Bilirubin AST ALT Alkaline Phosphatase Total Protein Albumin Globulin Albumin/Globulin Ratio 06/11/18 06/11/1819 07:00 07:00 07:29 WBC 13.7 H RBC 2.86 L Hgb 9.0 L Hct 27.5 L MCV 96.2 MCH 31.5 MCHC 32.7 RDW 14.9 H Plt Count 305 MPV 10.1 Neut % (Auto) 85.4 H Lymph % (Auto) 5.7 L Grand % (Auto) 8.8 H Eos % (Auto) 0.1 L Baso % (Auto) 0.0 Lymph # (Auto) 0.8 L Grand # (Auto) 1.2 H Eos # (Auto) 0.0 Baso # (Auto) 0.00 Absolute Neuts (auto) 11.72 H pCO2 pO2 HCO3 ABG pH ABG Total CO2 ABG O2 Saturation ABG O2 Content ABG Base Excess ABG Hemoglobin ABG Carboxyhemoglobin POC ABG HHb (Measured) ABG Methemoglobin ABG O2 Capacity Hgb O2 Saturation FiO2 Sodium 135 Potassium 3.2 L Chloride 102 Carbon Dioxide 31 Anion Gap 4 L BUN 25 H Creatinine 0.5 L Est GFR ( Amer) > 60 Est GFR (Non-Af Amer) > 60 POC Glucose (mg/dL) 204 H Random Glucose 194 H Calcium 7.9 L Total Bilirubin < 0.1 L AST 43 ALT 33 Alkaline Phosphatase 76 Total Protein 5.6 L Albumin 2.6 L Globulin 2.9 Albumin/Globulin Ratio 0.9 L 06/11/18 06/11/18 06/11/18 09:55 11:42 15:05 WBC RBC Hgb Hct MCV MCH MCHC RDW Plt Count MPV Neut % (Auto) Lymph % (Auto) Grand % (Auto) Eos % (Auto) Baso % (Auto) Lymph # (Auto) Grand # (Auto) Eos # (Auto) Baso # (Auto) Absolute Neuts (auto) pCO2 pO2 HCO3 ABG pH ABG Total CO2 ABG O2 Saturation ABG O2 Content ABG Base Excess ABG Hemoglobin ABG Carboxyhemoglobin POC ABG HHb (Measured) ABG Methemoglobin ABG O2 Capacity Hgb O2 Saturation FiO2 Sodium 135 Potassium 4.2 Chloride 102 Carbon Dioxide 30 Anion Gap 7 L BUN 28 H Creatinine 0.5 L Est GFR ( Amer) > 60 Est GFR (Non-Af Amer) > 60 POC Glucose (mg/dL) 116 H 162 H Random Glucose 258 H Calcium 7.8 L Total Bilirubin AST ALT Alkaline Phosphatase Total Protein Albumin Globulin Albumin/Globulin Ratio 06/11/18 16:59 WBC RBC Hgb Hct MCV MCH MCHC RDW Plt Count MPV Neut % (Auto) Lymph % (Auto) Grand % (Auto) Eos % (Auto) Baso % (Auto) Lymph # (Auto) Grand # (Auto) Eos # (Auto) Baso # (Auto) Absolute Neuts (auto) pCO2 pO2 HCO3 ABG pH ABG Total CO2 ABG O2 Saturation ABG O2 Content ABG Base Excess ABG Hemoglobin ABG Carboxyhemoglobin POC ABG HHb (Measured) ABG Methemoglobin ABG O2 Capacity Hgb O2 Saturation FiO2 Sodium Potassium Chloride Carbon Dioxide Anion Gap BUN Creatinine Est GFR ( Amer) Est GFR (Non-Af Amer) POC Glucose (mg/dL) 200 H Random Glucose Calcium Total Bilirubin AST ALT Alkaline Phosphatase Total Protein Albumin Globulin Albumin/Globulin Ratio Assessment & Plan - Assessment and Plan (Free Text) Assessment: All medical record entries made by the REsident were at my direction and personally dictated by me. I have reviewed the chart and agree that the record accurately reflects my personal performance of the history, physical exam, medical decision making, and the department course for this patient. I have also personally directed, reviewed, and agree with the discharge instructions and disposition. 78 yr old male who is here for evaluation of possible stroke, not TPA candidate due to unknown onset of symptoms. MRI pending. [facility]: 4 Dr. Toth
[2018-06-08 07:52] LABS: ALB/GLOB RATIO 0.9 (1.1-1.8); ALT/SGPT 49 U/L (7-56); AST/SGOT 65 U/L (17-59); BLOOD UREA NITROGEN 19 mg/dL (7-21); CALCIUM 8.5 mg/dL (8.4-10.5); GFR NON-AFRICAN AMERICAN > 60; TROPONIN I 0.31 ng/mL
--- NOTE | 2018-06-08 08:37 | CP.PCM.PN ---
<Frank Garcia - Last Filed: 06/08/18 13:01> Subjective - Date & Time of Evaluation Date of Evaluation: 06/08/18 Time of Evaluation: 08:35 - Subjective Subjective: PGY-1 Medicine progress note for Dr. Mayo Patient seen and examined at bedside. No acute events overnight as per nursing staff. Patient is responsive and in no acute distress. Patient is no longer on pressors or sedatives. ROS limited due to clinical condition. Objective - Vital Signs/Intake and Output Vital Signs (last 24 hours): Temp Pulse Resp BP Pulse Ox 99.0 F 87 25 H 104/55 L 100 06/08/18 06:30 06/08/18 06:30 06/07/18 20:41 06/08/18 07:00 06/08/18 06:30 Intake and Output: 06/08/18 06/08/18 06:59 18:59 Intake Total 315 Output Total 1000 Balance -685 - Medications Medications: Current Medications Heparin Sodium (Porcine) (Heparin) 5,000 units SC Q8 [facility]; Protocol Last Admin: 06/08/18 06:03 Dose: 5,000 units Sodium Chloride (Sodium Chloride 0.9%) 1,000 mls @ 100 mls/hr IV .Q10H [facility] Last Admin: 06/07/18 19:09 Dose: 100 mls/hr Propofol (Diprivan) 1,000 mg in 100 mls @ 1.225 mls/hr IV .Q24H PRN; Protocol PRN Reason: TITRATE PER MD ORDER NOREPINEPHRINE BIT/0.9 % NACL (Levophed 4 Mg/ 250 Ml Ns Premixed) 4 mg in 250 mls @ 15 mls/hr IV .[id number] PRN; Protocol PRN Reason: TITRATE PER MD ORDER Last Titration: 06/08/18 01:30 Dose: 2 mcg/min, 7.5 mls/hr Cefepime HCl (Maxipime 1gm) 1 gm in 100 mls @ 100 mls/hr IVPB Q12 [facility]; Protocol Last Admin: 06/07/18 22:05 Dose: 100 mls/hr Vancomycin HCl (Vancomycin 1gm) 1 gm in 250 mls @ 167 mls/hr IVPB DAILY [facility]; Pr otocol Last Admin: 06/07/18 18:15 Dose: 167 mls/hr Methylprednisolone (Solu-Medrol) 60 mg IVP Q6 [facility] Last Admin: 06/08/18 06:03 Dose: 60 mg Metoprolol Tartrate (Lopressor) 5 mg IVP Q12H [facility] Last Admin: 06/08/18 00:54 Dose: 5 mg Pantoprazole Sodium (Protonix Inj) 40 mg IVP DAILY [facility] - Labs Labs: 06/08/18 05:30 06/08/18 05:30 PT 12.7 SECONDS (9.4-12.5) H 06/07/18 16:28 INR 1.14 06/07/18 16:28 APTT 30.2 Seconds (26.9-38.3) 06/07/18 16:28 - Additional Findings Additional findings: - Constitutional Appears: Cachectic, Chronically Ill - Head Exam Head Exam: ATRAUMATIC, NORMAL INSPECTION, NORMOCEPHALIC - Eye Exam Eye Exam: Iregularly shaped pupil in right eye. EOMI, PERRL - Respiratory Exam Respiratory Exam: CTA b/l absent: Accessory Muscle Use, Decreased Breath Sounds, Rales, Rhonchi, Respiratory Distress, Stridor - Cardiovascular Exam Cardiovascular Exam: +S1, +S2. absent: Gallop, Rubs - GI/Abdominal Exam GI & Abdominal Exam: Normal Bowel Sounds, Soft. absent: Distended, Firm - Extremities Exam Extremities exam: Negative for: pedal edema - Back Exam Back exam: NORMAL INSPECTION. absent: CVA tenderness (L), CVA tenderness (R) - Neurological Exam Neurological exam: Responsive, patient on vent - Skin Skin Exam: Dry, Normal Color Assessment and Plan - Assessment and Plan (Free Text) Assessment: Patient is a 78 year old male with a past medical history of BPH and esophageal cancer s/p chemo/radiation/resection who presented to the ED for AMS, who was found unresponsive by his family. Patient is admitted to the ICU for respiratory failure and altered mental status. Plan: Altered mental status - Rule out seizure vs stroke vs infectious etiology - CT head (06/07): No acute intracranial findings - Head/Neck CTA (06/07): No evidence of hemodynamically significant stenosis in the internal carotid arteries - CXR (06/08): New atelectasis/volume loss in RLL - Neurology consulted, Dr. Toth - Normal Video EEG - Brain MRI: pending - Cefepime 1g IV Q12 (Started on 06/07) - Vancomycin 1g IV QD (Started on 06/07) - Continue NS @ 100 mls/hr - Keppra 1000mg given in ED - Solumedrol 60mg Q6 IV - Procalcitonin: pending Hypercapneic, hypoxic respiratory failure - Patient with temporary tracheostomy on vent - Currently on FiO2 0%, PEEP of 5, RR of 25, TV of 300 - Surgery consulted, Dr. Martinez - Possible permanent tracheostomy placement - Solumedrol 60mg Q6 IV Elevated troponins - Troponin: 0.06, 0.42, 0.31 - EKG: NSR @ 84 bpm, no ST changes - Echo: pending - Cardiology consulted, Dr. Velazco - Lopressor 5mg IV Q12 - Lipitor 80mg PO HS - Continue to monitor Leukocytosis - Likely 2/2 to steroids, r/o infectious eitology - Procalcitonin: pending - Cefepime 1g IV Q12 (Started on 06/07) - Vancomycin 1g IV QD (Started on 06/07) Failure to thrive - Patient has a Gastrostomy tube - Continue tube feedings, Pivot 1.5 Normocytic anemia - Likely 2/2 hemodilution - Continue to monitor Chronic dysphagia to solids and liquids - Patient has history of esophageal Cancer - Will continue to monitor at this time Prophylaxis - Heparin 5000u SC Q8 - Protonix 40mg IVP QD Patient seen and case discussed with attending, Dr. Mayo. Frank Garcia, PGY-1 <Chao Mayo - Last Filed: 06/08/18 13:38> Objective - Vital Signs/Intake and Output Vital Signs (last 24 hours): Temp Pulse Resp BP Pulse Ox 98.8 F 74 25 H 92/43 L 100 06/08/18 11:30 06/08/18 11:30 06/07/18 20:41 06/08/18 11:20 06/08/18 11:30 Intake and Output: 06/08/18 06/08/18 06:59 18:59 Intake Total 351 Output Total 1000 Balance -649 - Medications Medications: Current Medications Atorvastatin Calcium (Lipitor) 80 mg PO DIN [facility] Heparin Sodium (Porcine) (Heparin) 5,000 units SC Q8 [facility]; Protocol Last Admin: 06/08/18 13:28 Dose: 5,000 units Sodium Chloride (Sodium Chloride 0.9%) 1,000 mls @ 100 mls/hr IV .Q10H [facility] Last Admin: 06/07/18 19:09 Dose: 100 mls/hr Propofol (Diprivan) 1,000 mg in 100 mls @ 1.225 mls/hr IV .Q24H PRN; Protocol PRN Reason: TITRATE PER MD ORDER NOREPINEPHRINE BIT/0.9 % NACL (Levophed 4 Mg/ 250 Ml Ns Premixed) 4 mg in 250 mls @ 15 mls/hr IV .[id number] PRN; Protocol PRN Reason: TITRATE PER MD ORDER Last Titration: 06/08/18 06:00 Dose: 0 mcg/min, 0 mls/hr Cefepime HCl (Maxipime 1gm) 1 gm in 100 mls @ 100 mls/hr IVPB Q12 [facility]; Protocol Last Admin: 06/08/18 11:19 Dose: 100 mls/hr Vancomycin HCl (Vancomycin 1gm) 1 gm in 250 mls @ 167 mls/hr IVPB DAILY [facility]; Protocol Last Admin: 06/08/18 11:19 Dose: 167 mls/hr Methylprednisolone (Solu-Medrol) 60 mg IVP Q6 [facility] Last Admin: 06/08/18 13:28 Dose: 60 mg Metoprolol Tartrate (Lopressor) 5 mg IVP Q12H [facility] Last Admin: 06/08/18 11:20 Dose: Not Given Pantoprazole Sodium (Protonix Inj) 40 mg IVP DAILY [facility] Last Admin: 06/08/18 11:19 Dose: 40 mg - Labs Labs: 06/08/18 05:30 06/08/18 05:30 PT 12.7 SECONDS (9.4-12.5) H 06/07/18 16:28 INR 1.14 06/07/18 16:28 APTT 30.2 Seconds (26.9-38.3) 06/07/18 16:28 Attending/Attestation - Attestation I have personally seen and examined this patient.: Yes I have fully participated in the care of the patient.: Yes I have reviewed all pertinent clinical information, including history, physical exam and plan: Yes Notes (Text): 04/10/19 13:37 78 year old male with past medical history of esophageal cancer s/p chemo, s/p radiation, s/p resection who presented after being found unresponsive at home by his family. He was intubated for acute respiratory distress. Initial ABG showed hypercapnic respiratory failure. He had emergent cricothyroidotomy done in ER yesterday. Surgery is following for possible trachestomy placement. Continue with vent management as per asp net c developer. Continue with iv steroids and antibiotics. CXR showed RLL atelectasis/infiltrate. Overnight he had elevated troponin which is trending down. No ischemic changes on EKG. Cardiology evaluation was appreciated. Continue with conservative management. Echocardiogram is ordered. Neurology is following as well. EEG was done. CT head and CTA was reviewed as above. Pending MRI brain. Chao Mayo MD Hospitalist.
--- NOTE | 2018-06-08 09:10 | PCM.VEEG ---
Video EEG - Procedure Start Date: 06/07/18 Start Time: 18:58 - Interpretation Description of the study: EEG findings during wakefulness: (Figure #1) With the patient awake, alpha activity 7-8 cps predominated in the posterior regions. Alpha amplitude ranged between 30-70 mcv. Alpha was well modulated by eye opening and eye closing. A mild amount of beta activity ranging between 18-25 Hz was seen in the frontal central regions. Amplitude ranged between 10-30 mcv. There were no significant asymmetries noted during wakefulness. EEG findings during sleep: (Figure #2) With the patient asleep, Theta activity between 6-7 Hz and amplitude ranging between 30-100 mcv predominated in the background. ertex waves and sleep spindles were also noted. Slow wave sleep as well as REM sleep was also recorded. There were no significant asymmetries noted during sleep No clear cut epileptiform activity No seizures EEG Finding during wakefulness: With the patient awake, Alpha activity 7-8 cps predominated in the posterior regions. Alpha amplitude ranged between 30-70 mcv. Alpha was well modulated by eye opening and eye closing. A mild amount of beta activity ranging between 18-25 Hz was seen in the frontal central regions. Amplitude ranged between 10-30 mcv. There were no significant asymmetries noted during wakefulness. EEG Finding during sleep: With the patient asleep, Theta activity between 6-7 Hz and amplitude ranging between 30-100 mcv predominated in the background. ertex waves and sleep spindles were also noted. Slow wave sleep as well as REM sleep was also recorded. There were no significant asymmetries noted during sleep. Interictal non-epileptiform abnormalities: None Interictal epileptiform abnormalities: None Ictal epileptiform abnormalities: None Induction procedures: None - Impression Impression: Normal EEG so far
--- NOTE | 2018-06-08 09:48 | CARD ---
APPROVED REPORT Date of service: 06/08/2018 EKG Measurement Heart [id number] <Conclusion> Normal sinus rhythm with sinus arrhythmia Normal ECG
--- NOTE | 2018-06-08 09:49 | CARD ---
APPROVED REPORT Date of service: 06/08/2018 EKG Measurement Heart [id number] <Conclusion> Normal sinus rhythm Normal ECG
--- NOTE | 2018-06-08 09:57 | CP.CCUPN ---
<Otoniel Worthington - Last Filed: 06/08/18 13:03> CCU Subjective - Physician Review Events Since Last Encounter (Free Text): 06/08/18 09:54 pt is in the ICU, pt breathing via trach on vent, pt no longer on sedation or pressers Subjective (Free Text): 06/08/18 09:55 Pt seen and examined this morning in the ICU, Pt minimally responsive, NAD CCU Objective - Vital Signs / Intake & Output Vital Signs (Last 4 hours): Vital Signs Temp Pulse BP BP Pulse Ox 06/08/18 09:30 99.0 F 79 99 06/08/18 09:20 99.0 F 78 98 06/08/18 09:10 99.0 F 78 98 06/08/18 09:00 98.8 F 80 98 06/08/18 08:50 98.8 F 82 99 06/08/18 08:40 98.8 F 82 99 06/08/18 08:30 98.8 F 81 100 06/08/18 08:20 98.8 F 82 100 06/08/18 08:10 98.8 F 83 100 06/08/18 08:00 98.8 F 83 101/66 100 06/08/18 07:50 99.0 F 83 100 06/08/18 07:40 99.0 F 85 100 06/08/18 07:30 99.0 F 87 103/64 100 06/08/18 07:20 99.0 F 84 100 06/08/18 07:15 99.0 F 82 95/63 L 100 06/08/18 07:10 99.0 F 81 100 06/08/18 07:00 99.0 F 81 97/60 L 104/55 L 100 06/08/18 06:50 99.0 F 81 100 06/08/18 06:45 99.0 F 84 98/59 L 100 06/08/18 06:40 99.0 F 84 100 06/08/18 06:30 99.0 F 87 99/65 L 100 06/08/18 06:20 99.0 F 83 100 06/08/18 06:15 99.0 F 88 104/63 100 06/08/18 06:10 99.1 F 83 100 06/08/18 06:00 99.1 F 86 97/57 L 103/55 L 100 Intake and Output (Last 8hrs): Intake & Output 06/07/18 06/08/18 06/08/18 22:59 06:59 14:59 Intake Total 1348 351 Output Total 200 1000 Balance 1148 -649 Weight 90 lb 90 lb Intake: IV 1348 351 IVF 0.9 0 Left Internal Jugular 1000 antibiotics 250 levophed 63 Output: Urine 200 1000 Urethral (Armstrong) 200 1000 Other: # Bowel Movements 0 - Physical Exam Physical Exam Limitations: Positive for: Altered Mental Status Head: Positive for: Atraumatic, Normocephalic Pupils: Positive for: PERRL, Other (coloboma or right eye) Extroacular Muscles: Positive for: EOMI Mouth: Positive for: Moist Mucous Membranes Neck: Positive for: Normal Range of Motion Respiratory/Chest: Positive for: Clear to Auscultation, Good Air Exchange, Accessory Muscle Use. Negative for: Respiratory Distress Cardiovascular: Positive for: Regular Rate and Rhythm, Normal S1, S2. Negative for: Murmurs Abdomen: Positive for: Normal Bowel Sounds. Negative for: Tenderness, Distention Upper Extremity: Positive for: Normal Inspection. Negative for: Cyanosis, Edema Neurological: Positive for: CN II-XII Intact, Other (GCS 10 [id number]). Negative for: GCS=15 Skin: Positive for: Warm, Dry, Rashes Psychiatric: Negative for: Alert, Oriented x 3 - Medications Active Medications: Active Medications Generic Name Dose Route Start Last Admin Trade Name Freq PRN Reason Stop Dose Admin Heparin Sodium (Porcine) 5,000 units 06/07/18 22:00 06/08/18 06:03 Heparin SC 5,000 units Q8 LYLY Administration Protocol Sodium Chloride 1,000 mls @ 100 mls/hr 06/07/18 14:15 06/07/18 19:09 Sodium Chloride 0.9% IV 100 mls/hr .Q10H LYLY Administration Propofol 1,000 mg in 100 mls @ 1.225 mls/hr 06/07/18 14:50 Diprivan IV .Q24H PRN TITRATE PER MD ORDER Protocol 5 MCG/KG/MIN NOREPINEPHRINE BIT/0.9 % NACL 4 mg in 250 mls @ 15 mls/hr 06/07/18 17:36 06/08/18 06:00 Levophed 4 Mg/ 250 Ml Ns Premixed IV 0 mcg/min .[id number] PRN 0 mls/hr TITRATE PER MD ORDER Titration Protocol 4 MCG/MIN Cefepime HCl 1 gm in 100 mls @ 100 mls/hr 06/07/18 22:00 06/07/18 22:05 Maxipime 1gm IVPB 100 mls/hr Q12 LYLY Administration Protocol Vancomycin HCl 1 gm in 250 mls @ 167 mls/hr 06/07/18 18:00 06/07/18 18:15 Vancomycin 1gm IVPB 167 mls/hr DAILY LYLY Administration Protocol Methylprednisolone 60 mg 06/07/18 18:00 06/08/18 06:03 Solu-Medrol IVP 60 mg Q6 LYLY Administration Metoprolol Tartrate 5 mg 06/08/18 00:45 06/08/18 00:54 Lopressor IVP 5 mg Q12H LYLY Administration Pantoprazole Sodium 40 mg 06/08/18 10:00 Protonix Inj IVP DAILY LYLY - Patient Studies Lab Studies: Lab Studies 06/08/18 06/08/18 06/08/18 Range/Units 07:20 06:00 05:30 WBC 12.5 H D (4.5-11.0) 10^3/uL RBC 3.09 L (3.5-6.1) 10^6/uL Hgb 9.8 L (14.0-18.0) g/dL Hct 29.8 L (42.0-52.0) % MCV 96.4 (80.0-105.0) fl MCH 31.7 (25.0-35.0) pg MCHC 32.9 (31.0-37.0) g/dl RDW 14.1 (11.5-14.5) % Plt Count 386 (120.0-450.0) 10^3/uL MPV 9.9 (7.0-11.0) fl Neut % (Auto) 96.7 H (50.0-68.0) % Lymph % (Auto) 2.1 L (22.0-35.0) % Stanley % (Auto) 1.2 (1.0-6.0) % Eos % (Auto) 0.0 L (1.5-5.0) % Baso % (Auto) 0.0 (0.0-3.0) % Lymph # (Auto) 0.3 L (1.2-3.4) Stanley # (Auto) 0.2 (0.1-0.6) Eos # (Auto) 0.0 (0.0-0.7) Baso # (Auto) 0.00 (0.0-2.0) K/mm3 Absolute Neuts (auto) 12.12 H (1.4-6.5) Neutrophils % (Manual) (50.0-70.0) % Lymphocytes % (Manual) (22.0-35.0) % Monocytes % (Manual) (1.0-6.0) % Toxic Granulation Platelet Evaluation (NORMAL) Hypochromasia Rouleaux PT (9.4-12.5) SECONDS INR APTT (26.9-38.3) Seconds pCO2 44 (35-45) mm/Hg pO2 207.0 H (80-100) mm/Hg HCO3 24.3 (21-28) mmol/L ABG pH 7.35 (7.35-7.45) ABG Total CO2 25.7 (22-28) mmol.L ABG O2 Saturation 100.3 H (95-98) % ABG O2 Content 22.4 (15-23) ML/dl ABG Base Excess -1.6 (-2.0-3.0) mmol/L ABG Hemoglobin 16.0 (11.7-17.4) g/dL ABG Carboxyhemoglobin 1.6 H (0.5-1.5) % POC ABG HHb (Measured) -0.3 L (0-5) % ABG Methemoglobin 1.1 (0.0-3.0) % ABG O2 Capacity 22.3 (16-24) mL/dl ABG Potassium (3.6-5.2) mmol/L VBG pH (7.32-7.43) VBG pCO2 (40-60) VBG HCO3 (21-28) mmol/l VBG Total CO2 (22-28) mmol.L VBG O2 Sat (Calc) (40-65) % VBG Base Excess (0.0-2.0) mmol/L VBG Potassium (3.6-5.2) mmol/L Hgb O2 Saturation 97.6 (95.0-98.0) % Glucose (75-110) mg/dl Lactate (0.7-2.1) mmol/L Mechanical Rate FiO2 80.0 % Tidal Volume PEEP Crit Value Called To Crit Value Called By Blood Gas Notified Time Sodium (132-148) mmol/L Potassium (3.6-5.0) mmol/L Chloride (98-107) mmol/L Carbon Dioxide (21-33) mmol/L Anion Gap (10-20) BUN (7-21) mg/dL Creatinine (0.8-1.5) mg/dl Est GFR ( Amer) Est GFR (Non-Af Amer) POC Glucose (mg/dL) 155 H (65-110) mg/dL Random Glucose (70-110) mg/dL Hemoglobin A1c (4.2-6.5) % Calcium (8.4-10.5) mg/dL Phosphorus (2.5-4.5) mg/dL Magnesium (1.7-2.2) mg/dL Total Bilirubin (0.2-1.3) mg/dL AST (17-59) U/L ALT (7-56) U/L Alkaline Phosphatase (38-126) U/L Troponin I ng/mL NT-Pro-B Natriuret Pep (0-450) pg/mL Total Protein (5.8-8.3) g/dL Albumin (3.0-4.8) g/dL Globulin gm/dL Albumin/Globulin Ratio (1.1-1.8) Triglycerides (35-160) mg/dL Cholesterol (130-200) mg/dL LDL Cholesterol Direct (0-129) mg/dL HDL Cholesterol (29-60) mg/dL Arterial Blood Potassium (3.6-5.2) mmol/L Venous Blood Potassium (3.6-5.2) mmol/L Urine Color (YELLOW) Urine Appearance (CLEAR) Urine pH (4.7-8.0) Ur Specific [place] (1.005-1.035) Urine Protein (<30 mg/dL) mg/dL Urine Glucose (UA) (NEGATIVE) mg/dL Urine Ketones (NEGATIVE) mg/dL Urine Blood (NEGATIVE) Urine Nitrate (NEGATIVE) Urine Bilirubin (NEGATIVE) Urine Urobilinogen (<1 E.U./dL) E.U./dL Ur Leukocyte Esterase (NEGATIVE) Lizette/uL Urine RBC (0-2) /hpf Urine WBC (0-6) /hpf Ur Epithelial Cells (0-5) /hpf Blood Type Antibody Screen BBK History Checked 06/08/18 06/08/18 06/08/18 Range/Units 05:30 00:38 00:09 WBC 15.8 H (4.5-11.0) 10^3/uL RBC 3.17 L (3.5-6.1) 10^6/uL Hgb 9.8 L (14.0-18.0) g/dL Hct 30.5 L (42.0-52.0) % MCV 96.2 (80.0-105.0) fl MCH 30.9 (25.0-35.0) pg MCHC 32.1 (31.0-37.0) g/dl RDW 13.8 (11.5-14.5) % Plt Count 378 (120.0-450.0) 10^3/uL MPV 9.4 (7.0-11.0) fl Neut % (Auto) 95.5 H (50.0-68.0) % Lymph % (Auto) 2.3 L (22.0-35.0) % Stanley % (Auto) 2.2 (1.0-6.0) % Eos % (Auto) 0.0 L (1.5-5.0) % Baso % (Auto) 0.0 (0.0-3.0) % Lymph # (Auto) 0.4 L (1.2-3.4) Stanley # (Auto) 0.3 (0.1-0.6) Eos # (Auto) 0.0 (0.0-0.7) Baso # (Auto) 0.00 (0.0-2.0) K/mm3 Absolute Neuts (auto) 15.05 H (1.4-6.5) Neutrophils % (Manual) (50.0-70.0) % Lymphocytes % (Manual) (22.0-35.0) % Monocytes % (Manual) (1.0-6.0) % Toxic Granulation Platelet Evaluation (NORMAL) Hypochromasia Rouleaux PT (9.4-12.5) SECONDS INR APTT (26.9-38.3) Seconds pCO2 (35-45) mm/Hg pO2 (80-100) mm/Hg HCO3 (21-28) mmol/L ABG pH (7.35-7.45) ABG Total CO2 (22-28) mmol.L ABG O2 Saturation (95-98) % ABG O2 Content (15-23) ML/dl ABG Base Excess (-2.0-3.0) mmol/L ABG Hemoglobin (11.7-17.4) g/dL ABG Carboxyhemoglobin (0.5-1.5) % POC ABG HHb (Measured) (0-5) % ABG Methemoglobin (0.0-3.0) % ABG O2 Capacity (16-24) mL/dl ABG Potassium (3.6-5.2) mmol/L VBG pH (7.32-7.43) VBG pCO2 (40-60) VBG HCO3 (21-28) mmol/l VBG Total CO2 (22-28) mmol.L VBG O2 Sat (Calc) (40-65) % VBG Base Excess (0.0-2.0) mmol/L VBG Potassium (3.6-5.2) mmol/L Hgb O2 Saturation (95.0-98.0) % Glucose (75-110) mg/dl Lactate (0.7-2.1) mmol/L Mechanical Rate FiO2 % Tidal Volume PEEP Crit Value Called To Crit Value Called By Blood Gas Notified Time Sodium 137 (132-148) mmol/L Potassium 4.2 (3.6-5.0) mmol/L Chloride 106 (98-107) mmol/L Carbon Dioxide 26 (21-33) mmol/L Anion Gap 10 (10-20) BUN 19 (7-21) mg/dL Creatinine 0.6 L (0.8-1.5) mg/dl Est GFR ( Amer) > 60 Est GFR (Non-Af Amer) > 60 POC Glucose (mg/dL) 182 H (65-110) mg/dL Random Glucose 153 H (70-110) mg/dL Hemoglobin A1c (4.2-6.5) % Calcium 8.5 (8.4-10.5) mg/dL Phosphorus 3.7 (2.5-4.5) mg/dL Magnesium 2.0 (1.7-2.2) mg/dL Total Bilirubin 0.3 (0.2-1.3) mg/dL AST 65 H D (17-59) U/L ALT 49 (7-56) U/L Alkaline Phosphatase 95 (38-126) U/L Troponin I 0.31 H* D ng/mL NT-Pro-B Natriuret Pep (0-450) pg/mL Total Protein 6.3 (5.8-8.3) g/dL Albumin 3.0 (3.0-4.8) g/dL Globulin 3.3 gm/dL Albumin/Globulin Ratio 0.9 L (1.1-1.8) Triglycerides (35-160) mg/dL Cholesterol (130-200) mg/dL LDL Cholesterol Direct (0-129) mg/dL HDL Cholesterol (29-60) mg/dL Arterial Blood Potassium (3.6-5.2) mmol/L Venous Blood Potassium (3.6-5.2) mmol/L Urine Color (YELLOW) Urine Appearance (CLEAR) Urine pH (4.7-8.0) Ur Specific [place] (1.005-1.035) Urine Protein (<30 mg/dL) mg/dL Urine Glucose (UA) (NEGATIVE) mg/dL Urine Ketones (NEGATIVE) mg/dL Urine Blood (NEGATIVE) Urine Nitrate (NEGATIVE) Urine Bilirubin (NEGATIVE) Urine Urobilinogen (<1 E.U./dL) E.U./dL Ur Leukocyte Esterase (NEGATIVE) Lizette/uL Urine RBC (0-2) /hpf Urine WBC (0-6) /hpf Ur Epithelial Cells (0-5) /hpf Blood Type Antibody Screen BBK History Checked 06/07/18 06/07/18 06/07/18 Range/Units 22:37 22:37 20:50 WBC (4.5-11.0) 10^3/uL RBC (3.5-6.1) 10^6/uL Hgb (14.0-18.0) g/dL Hct (42.0-52.0) % MCV (80.0-105.0) fl MCH (25.0-35.0) pg MCHC (31.0-37.0) g/dl RDW (11.5-14.5) % Plt Count (120.0-450.0) 10^3/uL MPV (7.0-11.0) fl Neut % (Auto) (50.0-68.0) % Lymph % (Auto) (22.0-35.0) % Stanley % (Auto) (1.0-6.0) % Eos % (Auto) (1.5-5.0) % Baso % (Auto) (0.0-3.0) % Lymph # (Auto) (1.2-3.4) Stanley # (Auto) (0.1-0.6) Eos # (Auto) (0.0-0.7) Baso # (Auto) (0.0-2.0) K/mm3 Absolute Neuts (auto) (1.4-6.5) Neutrophils % (Manual) (50.0-70.0) % Lymphocytes % (Manual) (22.0-35.0) % Monocytes % (Manual) (1.0-6.0) % Toxic Granulation Platelet Evaluation (NORMAL) Hypochromasia Rouleaux PT (9.4-12.5) SECONDS INR APTT (26.9-38.3) Seconds pCO2 (35-45) mm/Hg pO2 44 (80-100) mm/Hg HCO3 (21-28) mmol/L ABG pH (7.35-7.45) ABG Total CO2 (22-28) mmol.L ABG O2 Saturation (95-98) % ABG O2 Content (15-23) ML/dl ABG Base Excess (-2.0-3.0) mmol/L ABG Hemoglobin (11.7-17.4) g/dL ABG Carboxyhemoglobin (0.5-1.5) % POC ABG HHb (Measured) (0-5) % ABG Methemoglobin (0.0-3.0) % ABG O2 Capacity (16-24) mL/dl ABG Potassium (3.6-5.2) mmol/L VBG pH 7.32 (7.32-7.43) VBG pCO2 58.0 (40-60) VBG HCO3 29.9 H (21-28) mmol/l VBG Total CO2 31.7 H (22-28) mmol.L VBG O2 Sat (Calc) 80.1 H (40-65) % VBG Base Excess 2.4 H (0.0-2.0) mmol/L VBG Potassium 4.3 (3.6-5.2) mmol/L Hgb O2 Saturation (95.0-98.0) % Glucose 154 H (75-110) mg/dl Lactate 1.1 (0.7-2.1) mmol/L Mechanical Rate FiO2 21.0 % Tidal Volume PEEP Crit Value Called To Crit Value Called By Blood Gas Notified Time Sodium 136.0 (132-148) mmol/L Potassium (3.6-5.0) mmol/L Chloride 104.0 (98-107) mmol/L Carbon Dioxide (21-33) mmol/L Anion Gap (10-20) BUN (7-21) mg/dL Creatinine (0.8-1.5) mg/dl Est GFR ( Amer) Est GFR (Non-Af Amer) POC Glucose (mg/dL) (65-110) mg/dL Random Glucose (70-110) mg/dL Hemoglobin A1c (4.2-6.5) % Calcium (8.4-10.5) mg/dL Phosphorus (2.5-4.5) mg/dL Magnesium (1.7-2.2) mg/dL Total Bilirubin (0.2-1.3) mg/dL AST (17-59) U/L ALT (7-56) U/L Alkaline Phosphatase (38-126) U/L Troponin I 0.42 H* D ng/mL NT-Pro-B Natriuret Pep (0-450) pg/mL Total Protein (5.8-8.3) g/dL Albumin (3.0-4.8) g/dL Globulin gm/dL Albumin/Globulin Ratio (1.1-1.8) Triglycerides (35-160) mg/dL Cholesterol (130-200) mg/dL LDL Cholesterol Direct (0-129) mg/dL HDL Cholesterol (29-60) mg/dL Arterial Blood Potassium (3.6-5.2) mmol/L Venous Blood Potassium 4.3 (3.6-5.2) mmol/L Urine Color Yellow (YELLOW) Urine Appearance Clear (CLEAR) Urine pH 5.5 (4.7-8.0) Ur Specific [place] 1.010 (1.005-1.035) Urine Protein Negative (<30 mg/dL) mg/dL Urine Glucose (UA) Negative (NEGATIVE) mg/dL Urine Ketones Trace H (NEGATIVE) mg/dL Urine Blood Small H (NEGATIVE) Urine Nitrate Negative (NEGATIVE) Urine Bilirubin Negative (NEGATIVE) Urine Urobilinogen 0.2 (<1 E.U./dL) E.U./dL Ur Leukocyte Esterase Trace H (NEGATIVE) Lizette/uL Urine RBC 15 - 20 H (0-2) /hpf Urine WBC 2 - 5 (0-6) /hpf Ur Epithelial Cells 4 - 5 (0-5) /hpf Blood Type Antibody Screen BBK History Checked 06/07/18 06/07/18 06/07/18 Range/Units 18:50 18:32 18:32 WBC 15.6 H D (4.5-11.0) 10^3/uL RBC 2.91 L (3.5-6.1) 10^6/uL Hgb 9.2 L D (14.0-18.0) g/dL Hct 28.3 L (42.0-52.0) % MCV 97.3 (80.0-105.0) fl MCH 31.6 (25.0-35.0) pg MCHC 32.5 (31.0-37.0) g/dl RDW 13.8 (11.5-14.5) % Plt Count 380 (120.0-450.0) 10^3/uL MPV 9.5 (7.0-11.0) fl Neut % (Auto) 91.6 H (50.0-68.0) % Lymph % (Auto) 3.7 L (22.0-35.0) % Stanley % (Auto) 4.6 (1.0-6.0) % Eos % (Auto) 0.0 L (1.5-5.0) % Baso % (Auto) 0.1 (0.0-3.0) % Lymph # (Auto) 0.6 L (1.2-3.4) Stanley # (Auto) 0.7 H (0.1-0.6) Eos # (Auto) 0.0 (0.0-0.7) Baso # (Auto) 0.01 (0.0-2.0) K/mm3 Absolute Neuts (auto) 14.30 H (1.4-6.5) Neutrophils % (Manual) 91 H (50.0-70.0) % Lymphocytes % (Manual) 5 L (22.0-35.0) % Monocytes % (Manual) 4 (1.0-6.0) % Toxic Granulation 2+ Platelet Evaluation Normal (NORMAL) Hypochromasia 2+ Rouleaux 2+ PT (9.4-12.5) SECONDS INR APTT (26.9-38.3) Seconds pCO2 45 (35-45) mm/Hg pO2 170.0 H (80-100) mm/Hg HCO3 26.0 (21-28) mmol/L ABG pH 7.37 (7.35-7.45) ABG Total CO2 27.4 (22-28) mmol.L ABG O2 Saturation 100.0 H (95-98) % ABG O2 Content (15-23) ML/dl ABG Base Excess 0.3 (-2.0-3.0) mmol/L ABG Hemoglobin (11.7-17.4) g/dL ABG Carboxyhemoglobin (0.5-1.5) % POC ABG HHb (Measured) (0-5) % ABG Methemoglobin (0.0-3.0) % ABG O2 Capacity (16-24) mL/dl ABG Potassium 3.6 (3.6-5.2) mmol/L VBG pH (7.32-7.43) VBG pCO2 (40-60) VBG HCO3 (21-28) mmol/l VBG Total CO2 (22-28) mmol.L VBG O2 Sat (Calc) (40-65) % VBG Base Excess (0.0-2.0) mmol/L VBG Potassium (3.6-5.2) mmol/L Hgb O2 Saturation (95.0-98.0) % Glucose 112 H (75-110) mg/dl Lactate 1.2 (0.7-2.1) mmol/L Mechanical Rate 25 FiO2 100.0 % Tidal Volume 300 PEEP 5 Crit Value Called To Crit Value Called By Blood Gas Notified Time Sodium 138.0 135 (132-148) mmol/L Potassium 3.9 (3.6-5.0) mmol/L Chloride 107.0 100 (98-107) mmol/L Carbon Dioxide 30 (21-33) mmol/L Anion Gap 9 L (10-20) BUN 22 H (7-21) mg/dL Creatinine 0.6 L (0.8-1.5) mg/dl Est GFR ( Amer) > 60 Est GFR (Non-Af Amer) > 60 POC Glucose (mg/dL) (65-110) mg/dL Random Glucose 119 H (70-110) mg/dL Hemoglobin A1c (4.2-6.5) % Calcium 8.3 L (8.4-10.5) mg/dL Phosphorus (2.5-4.5) mg/dL Magnesium (1.7-2.2) mg/dL Total Bilirubin 0.4 (0.2-1.3) mg/dL AST 102 H (17-59) U/L ALT 49 (7-56) U/L Alkaline Phosphatase 97 (38-126) U/L Troponin I ng/mL NT-Pro-B Natriuret Pep (0-450) pg/mL Total Protein 6.0 (5.8-8.3) g/dL Albumin 2.8 L (3.0-4.8) g/dL Globulin 3.2 gm/dL Albumin/Globulin Ratio 0.9 L (1.1-1.8) Triglycerides (35-160) mg/dL Cholesterol (130-200) mg/dL LDL Cholesterol Direct (0-129) mg/dL HDL Cholesterol (29-60) mg/dL Arterial Blood Potassium 3.6 (3.6-5.2) mmol/L Venous Blood Potassium (3.6-5.2) mmol/L Urine Color (YELLOW) Urine Appearance (CLEAR) Urine pH (4.7-8.0) Ur Specific [place] (1.005-1.035) Urine Protein (<30 mg/dL) mg/dL Urine Glucose (UA) (NEGATIVE) mg/dL Urine Ketones (NEGATIVE) mg/dL Urine Blood (NEGATIVE) Urine Nitrate (NEGATIVE) Urine Bilirubin (NEGATIVE) Urine Urobilinogen (<1 E.U./dL) E.U./dL Ur Leukocyte Esterase (NEGATIVE) Lizette/uL Urine RBC (0-2) /hpf Urine WBC (0-6) /hpf Ur Epithelial Cells (0-5) /hpf Blood Type Antibody Screen BBK History Checked 06/07/18 06/07/18 06/07/18 Range/Units 18:31 16:28 15:26 WBC (4.5-11.0) 10^3/uL RBC (3.5-6.1) 10^6/uL Hgb (14.0-18.0) g/dL Hct (42.0-52.0) % MCV (80.0-105.0) fl MCH (25.0-35.0) pg MCHC (31.0-37.0) g/dl RDW (11.5-14.5) % Plt Count (120.0-450.0) 10^3/uL MPV (7.0-11.0) fl Neut % (Auto) (50.0-68.0) % Lymph % (Auto) (22.0-35.0) % Stanley % (Auto) (1.0-6.0) % Eos % (Auto) (1.5-5.0) % Baso % (Auto) (0.0-3.0) % Lymph # (Auto) (1.2-3.4) Stanley # (Auto) (0.1-0.6) Eos # (Auto) (0.0-0.7) Baso # (Auto) (0.0-2.0) K/mm3 Absolute Neuts (auto) (1.4-6.5) Neutrophils % (Manual) (50.0-70.0) % Lymphocytes % (Manual) (22.0-35.0) % Monocytes % (Manual) (1.0-6.0) % Toxic Granulation Platelet Evaluation (NORMAL) Hypochromasia Rouleaux PT 12.7 H (9.4-12.5) SECONDS INR 1.14 APTT 30.2 (26.9-38.3) Seconds pCO2 72 H* (35-45) mm/Hg pO2 49 58.0 L (80-100) mm/Hg HCO3 26.9 (21-28) mmol/L ABG pH 7.18 L* (7.35-7.45) ABG Total CO2 29.1 H (22-28) mmol.L ABG O2 Saturation 89.4 L (95-98) % ABG O2 Content (15-23) ML/dl ABG Base Excess -3.1 L (-2.0-3.0) mmol/L ABG Hemoglobin (11.7-17.4) g/dL ABG Carboxyhemoglobin (0.5-1.5) % POC ABG HHb (Measured) (0-5) % ABG Methemoglobin (0.0-3.0) % ABG O2 Capacity (16-24) mL/dl ABG Potassium 3.7 (3.6-5.2) mmol/L VBG pH 7.33 (7.32-7.43) VBG pCO2 62.0 H (40-60) VBG HCO3 32.7 H (21-28) mmol/l VBG Total CO2 34.6 H (22-28) mmol.L VBG O2 Sat (Calc) 86.3 H (40-65) % VBG Base Excess 4.9 H (0.0-2.0) mmol/L VBG Potassium 3.9 (3.6-5.2) mmol/L Hgb O2 Saturation (95.0-98.0) % Glucose 125 H 229 H (75-110) mg/dl Lactate 1.4 3.4 H (0.7-2.1) mmol/L Mechanical Rate 20 FiO2 21.0 100.0 % Tidal Volume 300 PEEP 5 Crit Value Called To Dr torres Crit Value Called By Dmitry joe Blood Gas Notified Time 1652 Sodium 137.0 136.0 (132-148) mmol/L Potassium (3.6-5.0) mmol/L Chloride 103.0 102.0 (98-107) mmol/L Carbon Dioxide (21-33) mmol/L Anion Gap (10-20) BUN (7-21) mg/dL Creatinine (0.8-1.5) mg/dl Est GFR ( Amer) Est GFR (Non-Af Amer) POC Glucose (mg/dL) (65-110) mg/dL Random Glucose (70-110) mg/dL Hemoglobin A1c (4.2-6.5) % Calcium (8.4-10.5) mg/dL Phosphorus (2.5-4.5) mg/dL Magnesium (1.7-2.2) mg/dL Total Bilirubin (0.2-1.3) mg/dL AST (17-59) U/L ALT (7-56) U/L Alkaline Phosphatase (38-126) U/L Troponin I ng/mL NT-Pro-B Natriuret Pep (0-450) pg/mL Total Protein (5.8-8.3) g/dL Albumin (3.0-4.8) g/dL Globulin gm/dL Albumin/Globulin Ratio (1.1-1.8) Triglycerides (35-160) mg/dL Cholesterol (130-200) mg/dL LDL Cholesterol Direct (0-129) mg/dL HDL Cholesterol (29-60) mg/dL Arterial Blood Potassium 3.7 (3.6-5.2) mmol/L Venous Blood Potassium 3.9 (3.6-5.2) mmol/L Urine Color (YELLOW) Urine Appearance (CLEAR) Urine pH (4.7-8.0) Ur Specific [place] (1.005-1.035) Urine Protein (<30 mg/dL) mg/dL Urine Glucose (UA) (NEGATIVE) mg/dL Urine Ketones (NEGATIVE) mg/dL Urine Blood (NEGATIVE) Urine Nitrate (NEGATIVE) Urine Bilirubin (NEGATIVE) Urine Urobilinogen (<1 E.U./dL) E.U./dL Ur Leukocyte Esterase (NEGATIVE) Lizette/uL Urine RBC (0-2) /hpf Urine WBC (0-6) /hpf Ur Epithelial Cells (0-5) /hpf Blood Type Antibody Screen BBK History Checked 06/07/18 06/07/18 06/07/18 Range/Units 14:19 14:12 14:12 WBC (4.5-11.0) 10^3/uL RBC (3.5-6.1) 10^6/uL Hgb (14.0-18.0) g/dL Hct (42.0-52.0) % MCV (80.0-105.0) fl MCH (25.0-35.0) pg MCHC (31.0-37.0) g/dl RDW (11.5-14.5) % Plt Count (120.0-450.0) 10^3/uL MPV (7.0-11.0) fl Neut % (Auto) (50.0-68.0) % Lymph % (Auto) (22.0-35.0) % Stanley % (Auto) (1.0-6.0) % Eos % (Auto) (1.5-5.0) % Baso % (Auto) (0.0-3.0) % Lymph # (Auto) (1.2-3.4) Stanley # (Auto) (0.1-0.6) Eos # (Auto) (0.0-0.7) Baso # (Auto) (0.0-2.0) K/mm3 Absolute Neuts (auto) (1.4-6.5) Neutrophils % (Manual) (50.0-70.0) % Lymphocytes % (Manual) (22.0-35.0) % Monocytes % (Manual) (1.0-6.0) % Toxic Granulation Platelet Evaluation (NORMAL) Hypochromasia Rouleaux PT (9.4-12.5) SECONDS INR APTT (26.9-38.3) Seconds pCO2 (35-45) mm/Hg pO2 (80-100) mm/Hg HCO3 (21-28) mmol/L ABG pH (7.35-7.45) ABG Total CO2 (22-28) mmol.L ABG O2 Saturation (95-98) % ABG O2 Content (15-23) ML/dl ABG Base Excess (-2.0-3.0) mmol/L ABG Hemoglobin (11.7-17.4) g/dL ABG Carboxyhemoglobin (0.5-1.5) % POC ABG HHb (Measured) (0-5) % ABG Methemoglobin (0.0-3.0) % ABG O2 Capacity (16-24) mL/dl ABG Potassium (3.6-5.2) mmol/L VBG pH (7.32-7.43) VBG pCO2 (40-60) VBG HCO3 (21-28) mmol/l VBG Total CO2 (22-28) mmol.L VBG O2 Sat (Calc) (40-65) % VBG Base Excess (0.0-2.0) mmol/L VBG Potassium (3.6-5.2) mmol/L Hgb O2 Saturation (95.0-98.0) % Glucose (75-110) mg/dl Lactate (0.7-2.1) mmol/L Mechanical Rate FiO2 % Tidal Volume PEEP Crit Value Called To Crit Value Called By Blood Gas Notified Time Sodium (132-148) mmol/L Potassium (3.6-5.0) mmol/L Chloride (98-107) mmol/L Carbon Dioxide (21-33) mmol/L Anion Gap (10-20) BUN (7-21) mg/dL Creatinine (0.8-1.5) mg/dl Est GFR ( Amer) Est GFR (Non-Af Amer) POC Glucose (mg/dL) 401 H* (65-110) mg/dL Random Glucose (70-110) mg/dL Hemoglobin A1c 7.0 H (4.2-6.5) % Calcium (8.4-10.5) mg/dL Phosphorus (2.5-4.5) mg/dL Magnesium (1.7-2.2) mg/dL Total Bilirubin (0.2-1.3) mg/dL AST (17-59) U/L ALT (7-56) U/L Alkaline Phosphatase (38-126) U/L Troponin I ng/mL NT-Pro-B Natriuret Pep (0-450) pg/mL Total Protein (5.8-8.3) g/dL Albumin (3.0-4.8) g/dL Globulin gm/dL Albumin/Globulin Ratio (1.1-1.8) Triglycerides (35-160) mg/dL Cholesterol (130-200) mg/dL LDL Cholesterol Direct (0-129) mg/dL HDL Cholesterol (29-60) mg/dL Arterial Blood Potassium (3.6-5.2) mmol/L Venous Blood Potassium (3.6-5.2) mmol/L Urine Color (YELLOW) Urine Appearance (CLEAR) Urine pH (4.7-8.0) Ur Specific [place] (1.005-1.035) Urine Protein (<30 mg/dL) mg/dL Urine Glucose (UA) (NEGATIVE) mg/dL Urine Ketones (NEGATIVE) mg/dL Urine Blood (NEGATIVE) Urine Nitrate (NEGATIVE) Urine Bilirubin (NEGATIVE) Urine Urobilinogen (<1 E.U./dL) E.U./dL Ur Leukocyte Esterase (NEGATIVE) Lizette/uL Urine RBC (0-2) /hpf Urine WBC (0-6) /hpf Ur Epithelial Cells (0-5) /hpf Blood Type AB POSITIVE Antibody Screen Negative BBK History Checked Patient has bt 06/07/18 06/07/18 Range/Units 14:12 14:12 WBC 9.6 (4.5-11.0) 10^3/uL RBC 3.66 (3.5-6.1) 10^6/uL Hgb 11.7 L (14.0-18.0) g/dL Hct 35.3 L (42.0-52.0) % MCV 96.4 D (80.0-105.0) fl MCH 32.0 (25.0-35.0) pg MCHC 33.1 (31.0-37.0) g/dl RDW 14.8 H (11.5-14.5) % Plt Count 518 H (120.0-450.0) 10^3/uL MPV 10.0 (7.0-11.0) fl Neut % (Auto) 80.2 H (50.0-68.0) % Lymph % (Auto) 13.3 L (22.0-35.0) % Stanley % (Auto) 5.9 (1.0-6.0) % Eos % (Auto) 0.4 L (1.5-5.0) % Baso % (Auto) 0.2 (0.0-3.0) % Lymph # (Auto) 1.3 (1.2-3.4) Stanley # (Auto) 0.6 (0.1-0.6) Eos # (Auto) 0.0 (0.0-0.7) Baso # (Auto) 0.02 (0.0-2.0) K/mm3 Absolute Neuts (auto) 7.69 H (1.4-6.5) Neutrophils % (Manual) (50.0-70.0) % Lymphocytes % (Manual) (22.0-35.0) % Monocytes % (Manual) (1.0-6.0) % Toxic Granulation Platelet Evaluation (NORMAL) Hypochromasia Rouleaux PT (9.4-12.5) SECONDS INR APTT (26.9-38.3) Seconds pCO2 (35-45) mm/Hg pO2 (80-100) mm/Hg HCO3 (21-28) mmol/L ABG pH (7.35-7.45) ABG Total CO2 (22-28) mmol.L ABG O2 Saturation (95-98) % ABG O2 Content (15-23) ML/dl ABG Base Excess (-2.0-3.0) mmol/L ABG Hemoglobin (11.7-17.4) g/dL ABG Carboxyhemoglobin (0.5-1.5) % POC ABG HHb (Measured) (0-5) % ABG Methemoglobin (0.0-3.0) % ABG O2 Capacity (16-24) mL/dl ABG Potassium (3.6-5.2) mmol/L VBG pH (7.32-7.43) VBG pCO2 (40-60) VBG HCO3 (21-28) mmol/l VBG Total CO2 (22-28) mmol.L VBG O2 Sat (Calc) (40-65) % VBG Base Excess (0.0-2.0) mmol/L VBG Potassium (3.6-5.2) mmol/L Hgb O2 Saturation (95.0-98.0) % Glucose (75-110) mg/dl Lactate (0.7-2.1) mmol/L Mechanical Rate FiO2 % Tidal Volume PEEP Crit Value Called To Crit Value Called By Blood Gas Notified Time Sodium 133 (132-148) mmol/L Potassium 4.4 (3.6-5.0) mmol/L Chloride 92 L (98-107) mmol/L Carbon Dioxide 26 (21-33) mmol/L Anion Gap 18 (10-20) BUN 21 (7-21) mg/dL Creatinine 0.7 L (0.8-1.5) mg/dl Est GFR ( Amer) > 60 Est GFR (Non-Af Amer) > 60 POC Glucose (mg/dL) (65-110) mg/dL Random Glucose 299 H (70-110) mg/dL Hemoglobin A1c (4.2-6.5) % Calcium 9.0 (8.4-10.5) mg/dL Phosphorus (2.5-4.5) mg/dL Magnesium (1.7-2.2) mg/dL Total Bilirubin 0.3 (0.2-1.3) mg/dL AST 124 H D (17-59) U/L ALT 51 (7-56) U/L Alkaline Phosphatase 111 (38-126) U/L Troponin I 0.06 D ng/mL NT-Pro-B Natriuret Pep 271 (0-450) pg/mL Total Protein 6.9 (5.8-8.3) g/dL Albumin 3.4 (3.0-4.8) g/dL Globulin 3.5 gm/dL Albumin/Globulin Ratio 1.0 L (1.1-1.8) Triglycerides 51 (35-160) mg/dL Cholesterol 113 L (130-200) mg/dL LDL Cholesterol Direct 52 (0-129) mg/dL HDL Cholesterol 45 (29-60) mg/dL Arterial Blood Potassium (3.6-5.2) mmol/L Venous Blood Potassium (3.6-5.2) mmol/L Urine Color (YELLOW) Urine Appearance (CLEAR) Urine pH (4.7-8.0) Ur Specific [place] (1.005-1.035) Urine Protein (<30 mg/dL) mg/dL Urine Glucose (UA) (NEGATIVE) mg/dL Urine Ketones (NEGATIVE) mg/dL Urine Blood (NEGATIVE) Urine Nitrate (NEGATIVE) Urine Bilirubin (NEGATIVE) Urine Urobilinogen (<1 E.U./dL) E.U./dL Ur Leukocyte Esterase (NEGATIVE) Lizette/uL Urine RBC (0-2) /hpf Urine WBC (0-6) /hpf Ur Epithelial Cells (0-5) /hpf Blood Type Antibody Screen BBK History Checked Laboratory Results - last 24 hr 06/07/18 06/07/18 06/07/18 14:12 14:12 14:12 WBC 9.6 RBC 3.66 Hgb 11.7 L Hct 35.3 L MCV 96.4 D MCH 32.0 MCHC 33.1 RDW 14.8 H Plt Count 518 H MPV 10.0 Neut % (Auto) 80.2 H Lymph % (Auto) 13.3 L Stanley % (Auto) 5.9 Eos % (Auto) 0.4 L Baso % (Auto) 0.2 Lymph # (Auto) 1.3 Stanley # (Auto) 0.6 Eos # (Auto) 0.0 Baso # (Auto) 0.02 Absolute Neuts (auto) 7.69 H Neutrophils % (Manual) Lymphocytes % (Manual) Monocytes % (Manual) Toxic Granulation Platelet Evaluation Hypochromasia Rouleaux PT INR APTT pCO2 pO2 HCO3 ABG pH ABG Total CO2 ABG O2 Saturation ABG O2 Content ABG Base Excess ABG Hemoglobin ABG Carboxyhemoglobin POC ABG HHb (Measured) ABG Methemoglobin ABG O2 Capacity ABG Potassium VBG pH VBG pCO2 VBG HCO3 VBG Total CO2 VBG O2 Sat (Calc) VBG Base Excess VBG Potassium Hgb O2 Saturation Glucose Lactate Mechanical Rate FiO2 Tidal Volume PEEP Crit Value Called To Crit Value Called By Blood Gas Notified Time Sodium 133 Potassium 4.4 Chloride 92 L Carbon Dioxide 26 Anion Gap 18 BUN 21 Creatinine 0.7 L Est GFR ( Amer) > 60 Est GFR (Non-Af Amer) > 60 POC Glucose (mg/dL) Random Glucose 299 H Hemoglobin A1c 7.0 H Calcium 9.0 Phosphorus Magnesium Total Bilirubin 0.3 AST 124 H D ALT 51 Alkaline Phosphatase 111 Troponin I 0.06 D NT-Pro-B Natriuret Pep 271 Total Protein 6.9 Albumin 3.4 Globulin 3.5 Albumin/Globulin Ratio 1.0 L Triglycerides 51 Cholesterol 113 L LDL Cholesterol Direct 52 HDL Cholesterol 45 Arterial Blood Potassium Venous Blood Potassium Urine Color Urine Appearance Urine pH Ur Specific [place] Urine Protein Urine Glucose (UA) Urine Ketones Urine Blood Urine Nitrate Urine Bilirubin Urine Urobilinogen Ur Leukocyte Esterase Urine RBC Urine WBC Ur Epithelial Cells Blood Type Antibody Screen BBK History Checked 06/07/18 06/07/18 06/07/18 14:12 14:19 15:26 WBC RBC Hgb Hct MCV MCH MCHC RDW Plt Count MPV Neut % (Auto) Lymph % (Auto) Stanley % (Auto) Eos % (Auto) Baso % (Auto) Lymph # (Auto) Stanley # (Auto) Eos # (Auto) Baso # (Auto) Absolute Neuts (auto) Neutrophils % (Manual) Lymphocytes % (Manual) Monocytes % (Manual) Toxic Granulation Platelet Evaluation Hypochromasia Rouleaux PT INR APTT pCO2 72 H* pO2 58.0 L HCO3 26.9 ABG pH 7.18 L* ABG Total CO2 29.1 H ABG O2 Saturation 89.4 L ABG O2 Content ABG Base Excess -3.1 L ABG Hemoglobin ABG Carboxyhemoglobin POC ABG HHb (Measured) ABG Methemoglobin ABG O2 Capacity ABG Potassium 3.7 VBG pH VBG pCO2 VBG HCO3 VBG Total CO2 VBG O2 Sat (Calc) VBG Base Excess VBG Potassium Hgb O2 Saturation Glucose 229 H Lactate 3.4 H Mechanical Rate 20 FiO2 100.0 Tidal Volume 300 PEEP 5 Crit Value Called To Dr torres Crit Value Called By Dmitry joe Blood Gas Notified Time 1652 Sodium 136.0 Potassium Chloride 102.0 Carbon Dioxide Anion Gap BUN Creatinine Est GFR ( Amer) Est GFR (Non-Af Amer) POC Glucose (mg/dL) 401 H* Random Glucose Hemoglobin A1c Calcium Phosphorus Magnesium Total Bilirubin AST ALT Alkaline Phosphatase Troponin I NT-Pro-B Natriuret Pep Total Protein Albumin Globulin Albumin/Globulin Ratio Triglycerides Cholesterol LDL Cholesterol Direct HDL Cholesterol Arterial Blood Potassium 3.7 Venous Blood Potassium Urine Color Urine Appearance Urine pH Ur Specific [place] Urine Protein Urine Glucose (UA) Urine Ketones Urine Blood Urine Nitrate Urine Bilirubin Urine Urobilinogen Ur Leukocyte Esterase Urine RBC Urine WBC Ur Epithelial Cells Blood Type AB POSITIVE Antibody Screen Negative BBK History Checked Patient has bt 06/07/18 06/07/18 06/07/18 16:28 18:31 18:32 WBC 15.6 H D RBC 2.91 L Hgb 9.2 L D Hct 28.3 L MCV 97.3 MCH 31.6 MCHC 32.5 RDW 13.8 Plt Count 380 MPV 9.5 Neut % (Auto) 91.6 H Lymph % (Auto) 3.7 L Stanley % (Auto) 4.6 Eos % (Auto) 0.0 L Baso % (Auto) 0.1 Lymph # (Auto) 0.6 L Stanley # (Auto) 0.7 H Eos # (Auto) 0.0 Baso # (Auto) 0.01 Absolute Neuts (auto) 14.30 H Neutrophils % (Manual) 91 H Lymphocytes % (Manual) 5 L Monocytes % (Manual) 4 Toxic Granulation 2+ Platelet Evaluation Normal Hypochromasia 2+ Rouleaux 2+ PT 12.7 H INR 1.14 APTT 30.2 pCO2 pO2 49 HCO3 ABG pH ABG Total CO2 ABG O2 Saturation ABG O2 Content ABG Base Excess ABG Hemoglobin ABG Carboxyhemoglobin POC ABG HHb (Measured) ABG Methemoglobin ABG O2 Capacity ABG Potassium VBG pH 7.33 VBG pCO2 62.0 H VBG HCO3 32.7 H VBG Total CO2 34.6 H VBG O2 Sat (Calc) 86.3 H VBG Base Excess 4.9 H VBG Potassium 3.9 Hgb O2 Saturation Glucose 125 H Lactate 1.4 Mechanical Rate FiO2 21.0 Tidal Volume PEEP Crit Value Called To Crit Value Called By Blood Gas Notified Time Sodium 137.0 Potassium Chloride 103.0 Carbon Dioxide Anion Gap BUN Creatinine Est GFR ( Amer) Est GFR (Non-Af Amer) POC Glucose (mg/dL) Random Glucose Hemoglobin A1c Calcium Phosphorus Magnesium Total Bilirubin AST ALT Alkaline Phosphatase Troponin I NT-Pro-B Natriuret Pep Total Protein Albumin Globulin Albumin/Globulin Ratio Triglycerides Cholesterol LDL Cholesterol Direct HDL Cholesterol Arterial Blood Potassium Venous Blood Potassium 3.9 Urine Color Urine Appearance Urine pH Ur Specific [place] Urine Protein Urine Glucose (UA) Urine Ketones Urine Blood Urine Nitrate Urine Bilirubin Urine Urobilinogen Ur Leukocyte Esterase Urine RBC Urine WBC Ur Epithelial Cells Blood Type Antibody Screen BBK History Checked 06/07/18 06/07/18 06/07/18 18:32 18:50 20:50 WBC RBC Hgb Hct MCV MCH MCHC RDW Plt Count MPV Neut % (Auto) Lymph % (Auto) Stanley % (Auto) Eos % (Auto) Baso % (Auto) Lymph # (Auto) Stanley # (Auto) Eos # (Auto) Baso # (Auto) Absolute Neuts (auto) Neutrophils % (Manual) Lymphocytes % (Manual) Monocytes % (Manual) Toxic Granulation Platelet Evaluation Hypochromasia Rouleaux PT INR APTT pCO2 45 pO2 170.0 H HCO3 26.0 ABG pH 7.37 ABG Total CO2 27.4 ABG O2 Saturation 100.0 H ABG O2 Content ABG Base Excess 0.3 ABG Hemoglobin ABG Carboxyhemoglobin POC ABG HHb (Measured) ABG Methemoglobin ABG O2 Capacity ABG Potassium 3.6 VBG pH VBG pCO2 VBG HCO3 VBG Total CO2 VBG O2 Sat (Calc) VBG Base Excess VBG Potassium Hgb O2 Saturation Glucose 112 H Lactate 1.2 Mechanical Rate 25 FiO2 100.0 Tidal Volume 300 PEEP 5 Crit Value Called To Crit Value Called By Blood Gas Notified Time Sodium 135 138.0 Potassium 3.9 Chloride 100 107.0 Carbon Dioxide 30 Anion Gap 9 L BUN 22 H Creatinine 0.6 L Est GFR ( Amer) > 60 Est GFR (Non-Af Amer) > 60 POC Glucose (mg/dL) Random Glucose 119 H Hemoglobin A1c Calcium 8.3 L Phosphorus Magnesium Total Bilirubin 0.4 AST 102 H ALT 49 Alkaline Phosphatase 97 Troponin I NT-Pro-B Natriuret Pep Total Protein 6.0 Albumin 2.8 L Globulin 3.2 Albumin/Globulin Ratio 0.9 L Triglycerides Cholesterol LDL Cholesterol Direct HDL Cholesterol Arterial Blood Potassium 3.6 Venous Blood Potassium Urine Color Yellow Urine Appearance Clear Urine pH 5.5 Ur Specific [place] 1.010 Urine Protein Negative Urine Glucose (UA) Negative Urine Ketones Trace H Urine Blood Small H Urine Nitrate Negative Urine Bilirubin Negative Urine Urobilinogen 0.2 Ur Leukocyte Esterase Trace H Urine RBC 15 - 20 H Urine WBC 2 - 5 Ur Epithelial Cells 4 - 5 Blood Type Antibody Screen BBK History Checked 06/07/18 06/07/18 06/08/18 22:37 22:37 00:09 WBC RBC Hgb Hct MCV MCH MCHC RDW Plt Count MPV Neut % (Auto) Lymph % (Auto) Stanley % (Auto) Eos % (Auto) Baso % (Auto) Lymph # (Auto) Stanley # (Auto) Eos # (Auto) Baso # (Auto) Absolute Neuts (auto) Neutrophils % (Manual) Lymphocytes % (Manual) Monocytes % (Manual) Toxic Granulation Platelet Evaluation Hypochromasia Rouleaux PT INR APTT pCO2 pO2 44 HCO3 ABG pH ABG Total CO2 ABG O2 Saturation ABG O2 Content ABG Base Excess ABG Hemoglobin ABG Carboxyhemoglobin POC ABG HHb (Measured) ABG Methemoglobin ABG O2 Capacity ABG Potassium VBG pH 7.32 VBG pCO2 58.0 VBG HCO3 29.9 H VBG Total CO2 31.7 H VBG O2 Sat (Calc) 80.1 H VBG Base Excess 2.4 H VBG Potassium 4.3 Hgb O2 Saturation Glucose 154 H Lactate 1.1 Mechanical Rate FiO2 21.0 Tidal Volume PEEP Crit Value Called To Crit Value Called By Blood Gas Notified Time Sodium 136.0 Potassium Chloride 104.0 Carbon Dioxide Anion Gap BUN Creatinine Est GFR ( Amer) Est GFR (Non-Af Amer) POC Glucose (mg/dL) 182 H Random Glucose Hemoglobin A1c Calcium Phosphorus Magnesium Total Bilirubin AST ALT Alkaline Phosphatase Troponin I 0.42 H* D NT-Pro-B Natriuret Pep Total Protein Albumin Globulin Albumin/Globulin Ratio Triglycerides Cholesterol LDL Cholesterol Direct HDL Cholesterol Arterial Blood Potassium Venous Blood Potassium 4.3 Urine Color Urine Appearance Urine pH Ur Specific [place] Urine Protein Urine Glucose (UA) Urine Ketones Urine Blood Urine Nitrate Urine Bilirubin Urine Urobilinogen Ur Leukocyte Esterase Urine RBC Urine WBC Ur Epithelial Cells Blood Type Antibody Screen BBK History Checked 06/08/18 06/08/18 06/08/18 00:38 05:30 05:30 WBC 15.8 H 12.5 H D RBC 3.17 L 3.09 L Hgb 9.8 L 9.8 L Hct 30.5 L 29.8 L MCV 96.2 96.4 MCH 30.9 31.7 MCHC 32.1 32.9 RDW 13.8 14.1 Plt Count 378 386 MPV 9.4 9.9 Neut % (Auto) 95.5 H 96.7 H Lymph % (Auto) 2.3 L 2.1 L Stanley % (Auto) 2.2 1.2 Eos % (Auto) 0.0 L 0.0 L Baso % (Auto) 0.0 0.0 Lymph # (Auto) 0.4 L 0.3 L Stanley # (Auto) 0.3 0.2 Eos # (Auto) 0.0 0.0 Baso # (Auto) 0.00 0.00 Absolute Neuts (auto) 15.05 H 12.12 H Neutrophils % (Manual) Lymphocytes % (Manual) Monocytes % (Manual) Toxic Granulation Platelet Evaluation Hypochromasia Rouleaux PT INR APTT pCO2 pO2 HCO3 ABG pH ABG Total CO2 ABG O2 Saturation ABG O2 Content ABG Base Excess ABG Hemoglobin ABG Carboxyhemoglobin POC ABG HHb (Measured) ABG Methemoglobin ABG O2 Capacity ABG Potassium VBG pH VBG pCO2 VBG HCO3 VBG Total CO2 VBG O2 Sat (Calc) VBG Base Excess VBG Potassium Hgb O2 Saturation Glucose Lactate Mechanical Rate FiO2 Tidal Volume PEEP Crit Value Called To Crit Value Called By Blood Gas Notified Time Sodium 137 Potassium 4.2 Chloride 106 Carbon Dioxide 26 Anion Gap 10 BUN 19 Creatinine 0.6 L Est GFR ( Amer) > 60 Est GFR (Non-Af Amer) > 60 POC Glucose (mg/dL) Random Glucose 153 H Hemoglobin A1c Calcium 8.5 Phosphorus 3.7 Magnesium 2.0 Total Bilirubin 0.3 AST 65 H D ALT 49 Alkaline Phosphatase 95 Troponin I 0.31 H* D NT-Pro-B Natriuret Pep Total Protein 6.3 Albumin 3.0 Globulin 3.3 Albumin/Globulin Ratio 0.9 L Triglycerides Cholesterol LDL Cholesterol Direct HDL Cholesterol Arterial Blood Potassium Venous Blood Potassium Urine Color Urine Appearance Urine pH Ur Specific [place] Urine Protein Urine Glucose (UA) Urine Ketones Urine Blood Urine Nitrate Urine Bilirubin Urine Urobilinogen Ur Leukocyte Esterase Urine RBC Urine WBC Ur Epithelial Cells Blood Type Antibody Screen BBK History Checked 06/08/18 06/08/18 06:00 07:20 WBC RBC Hgb Hct MCV MCH MCHC RDW Plt Count MPV Neut % (Auto) Lymph % (Auto) Stanley % (Auto) Eos % (Auto) Baso % (Auto) Lymph # (Auto) Stanley # (Auto) Eos # (Auto) Baso # (Auto) Absolute Neuts (auto) Neutrophils % (Manual) Lymphocytes % (Manual) Monocytes % (Manual) Toxic Granulation Platelet Evaluation Hypochromasia Rouleaux PT INR APTT pCO2 44 pO2 207.0 H HCO3 24.3 ABG pH 7.35 ABG Total CO2 25.7 ABG O2 Saturation 100.3 H ABG O2 Content 22.4 ABG Base Excess -1.6 ABG Hemoglobin 16.0 ABG Carboxyhemoglobin 1.6 H POC ABG HHb (Measured) -0.3 L ABG Methemoglobin 1.1 ABG O2 Capacity 22.3 ABG Potassium VBG pH VBG pCO2 VBG HCO3 VBG Total CO2 VBG O2 Sat (Calc) VBG Base Excess VBG Potassium Hgb O2 Saturation 97.6 Glucose Lactate Mechanical Rate FiO2 80.0 Tidal Volume PEEP Crit Value Called To Crit Value Called By Blood Gas Notified Time Sodium Potassium Chloride Carbon Dioxide Anion Gap BUN Creatinine Est GFR ( Amer) Est GFR (Non-Af Amer) POC Glucose (mg/dL) 155 H Random Glucose Hemoglobin A1c Calcium Phosphorus Magnesium Total Bilirubin AST ALT Alkaline Phosphatase Troponin I NT-Pro-B Natriuret Pep Total Protein Albumin Globulin Albumin/Globulin Ratio Triglycerides Cholesterol LDL Cholesterol Direct HDL Cholesterol Arterial Blood Potassium Venous Blood Potassium Urine Color Urine Appearance Urine pH Ur Specific [place] Urine Protein Urine Glucose (UA) Urine Ketones Urine Blood Urine Nitrate Urine Bilirubin Urine Urobilinogen Ur Leukocyte Esterase Urine RBC Urine WBC Ur Epithelial Cells Blood Type Antibody Screen BBK History Checked Radiology Impressions: Radiology Impressions Chest X-Ray 06/07/18 14:10 IMPRESSION: Endotracheal tube in satisfactory position Head CT 06/07/18 14:10 IMPRESSION: No acute intracranial findings. Head/Neck CTA 06/07/18 14:10 IMPRESSION: 1. No evidence of endoluminal thrombus or occlusion. Asymmetric narrowing of the right M1 segment with attenuation of the superior division perisylvian branches which is likely chronic and related to intracranial atherosclerosis. 2. No evidence of hemodynamically significant stenosis in the internal carotid arteries. 3. Patent bilateral vertebral arteries. Chest X-Ray 06/07/18 16:47 IMPRESSION: Tracheostomy tube. Cardiomegaly. Faint atherosclerotic calcifications present. Mild right middle/lower lobe hazy infiltrates. Chest X-Ray 06/07/18 18:00 IMPRESSION: New atelectasis/volume loss affecting right lower lobe. Satisfactory position of recently placed left subclavian venous access catheter. EKG/Cardiology Studies: Cardiology / EKG Studies 06/07/18 14:10 ELECTROCARDIOGRAM Stat Comment: Reason For Exam: code stroke 06/08/18 00:29 ELECTROCARDIOGRAM Stat Comment: Reason For Exam: elevated troponin 06/08/18 08:00 ELECTROCARDIOGRAM Routine Comment: Reason For Exam: elevated troponin Fingerstick Blood Sugar Results: 407 Critical Care Progress Note - Nutrition Nutrition: Nutrition Category Date Time Status NPO Diet [DIET] Diets 06/08/18 Breakfast Ordered Assessment/Plan - Assessment and Plan (Free Text) Assessment: Pt is a 78yo male with a PMH of BPH and esophageal cancer s/p chemo/radiation/resection who presented to the ED for AMS, who was found unresponsive by his family. Pt was intubated and a code stroke was called, pt was later extubated. Pt could not be reintubated and had a trach placed. Pt in the ICU no longer on presser support or sedation. Plan: Neuro - AMS - GCS 10 [id number] - Keppra 1000mg given in ED - Solumedrol 60q6 - Video EEG, normal EGG so far - propofol discontinued - CT head: No acute intracranial findings - Head/Neck CTA: No evidence of hemodynamically significant stenosis in the internal carotid arteries - CXR: New atelectasis/volume loss in RLL - Follow up Brain MRI - Neurology consulted Cardio - metoprolol, ASA - no desmond given because of pt BP - discontinue levophed 4 - trop 0.06, 0.42, 0.31 cont to trend Pulm - temporary tracheostomy in place now, will try to upgrade to permanent trach - Vent settings: 50%, PEEP5, RR25, TV300 - Surgical team consulted GI - Hx of esophageal Ca - Will continue to monitor at this time Nephro/ - monitor electrolytes - monitor BUN/Cr Heme/Onc - Pt follows with Dr Bland Heme/Onc ID - cefepime - vanc Endo - maintain euglycemia Pt seen, examined, assessment and plan discussed with Dr Alex Worthington PGY1 - Date & Time Date: 06/08/18 Time: 07:00 <Alex Green - Last Filed: 06/08/18 18:04> CCU Objective - Vital Signs / Intake & Output Vital Signs (Last 4 hours): Vital Signs Temp Pulse BP Pulse Ox 06/08/18 16:40 99.1 F 83 97 06/08/18 16:30 99.1 F 82 97 06/08/18 16:20 99.0 F 83 95 06/08/18 16:10 99.1 F 82 95 06/08/18 16:00 99.0 F 85 89/53 L 95 06/08/18 15:50 99.0 F 86 94 L 06/08/18 15:40 99.0 F 87 94 L 06/08/18 15:30 99.0 F 83 94 L 06/08/18 15:20 99.0 F 83 92 L 06/08/18 15:10 99.0 F 88 93 L 06/08/18 15:00 99.0 F 85 92 L 06/08/18 14:50 99.0 F 86 92 L 06/08/18 14:40 99.0 F 92 H 92 L 06/08/18 14:30 99.0 F 90 94 L 06/08/18 14:20 99.0 F 89 95 06/08/18 14:10 98.8 F 86 98 Intake and Output (Last 8hrs): Intake & Output 06/08/18 06/08/18 06/08/18 06:59 14:59 22:59 Intake Total 351 Output Total 1000 Balance -649 Weight 40.823 kg Intake: IV 351 Output: Urine 1000 Urethral (Armstrong) 1000 - Medications Active Medications: Active Medications Generic Name Dose Route Start Last Admin Trade Name Casandra PRN Reason Stop Dose Admin Atorvastatin Calcium 80 mg 06/08/18 17:00 Lipitor PO DIN LYLY Heparin Sodium (Porcine) 5,000 units 06/07/18 22:00 06/08/18 13:28 Heparin SC 5,000 units Q8 LYLY Administration Protocol Sodium Chloride 1,000 mls @ 100 mls/hr 06/07/18 14:15 06/07/18 19:09 Sodium Chloride 0.9% IV 100 mls/hr .Q10H LYLY Administration Cefepime HCl 1 gm in 100 mls @ 100 mls/hr 06/07/18 22:00 06/08/18 11:19 Maxipime 1gm IVPB 100 mls/hr Q12 LYLY Administration Protocol Vancomycin HCl 1 gm in 250 mls @ 167 mls/hr 06/07/18 18:00 06/08/18 11:19 Vancomycin 1gm IVPB 167 mls/hr DAILY [facility] Administration Protocol Methylprednisolone 60 mg 06/07/18 18:00 06/08/18 13:28 Solu-Medrol IVP 60 mg Q6 [facility] Administration Metoprolol Tartrate 5 mg 06/08/18 10:21 06/08/18 11:20 Lopressor IVP Not Given Q12H [facility] Pantoprazole Sodium 40 mg 06/08/18 10:00 06/08/18 11:19 Protonix Inj IVP 40 mg DAILY LYLY Administration - Patient Studies Lab Studies: Microbiology Studies 06/07/18 18:24 MRSA Culture (Admit) - Final Naris MRSA NOT DETECTED Lab Studies 06/08/18 06/08/18 06/08/18 Range/Units 07:20 06:00 05:30 WBC 12.5 H D (4.5-11.0) 10^3/uL RBC 3.09 L (3.5-6.1) 10^6/uL Hgb 9.8 L (14.0-18.0) g/dL Hct 29.8 L (42.0-52.0) % MCV 96.4 (80.0-105.0) fl MCH 31.7 (25.0-35.0) pg MCHC 32.9 (31.0-37.0) g/dl RDW 14.1 (11.5-14.5) % Plt Count 386 (120.0-450.0) 10^3/uL MPV 9.9 (7.0-11.0) fl Neut % (Auto) 96.7 H (50.0-68.0) % Lymph % (Auto) 2.1 L (22.0-35.0) % Stanley % (Auto) 1.2 (1.0-6.0) % Eos % (Auto) 0.0 L (1.5-5.0) % Baso % (Auto) 0.0 (0.0-3.0) % Lymph # (Auto) 0.3 L (1.2-3.4) Stanley # (Auto) 0.2 (0.1-0.6) Eos # (Auto) 0.0 (0.0-0.7) Baso # (Auto) 0.00 (0.0-2.0) K/mm3 Absolute Neuts (auto) 12.12 H (1.4-6.5) Neutrophils % (Manual) (50.0-70.0) % Lymphocytes % (Manual) (22.0-35.0) % Monocytes % (Manual) (1.0-6.0) % Toxic Granulation Platelet Evaluation (NORMAL) Hypochromasia Rouleaux pCO2 44 (35-45) mm/Hg pO2 207.0 H (30-55) mm/Hg HCO3 24.3 (21-28) mmol/L ABG pH 7.35 (7.35-7.45) ABG Total CO2 25.7 (22-28) mmol.L ABG O2 Saturation 100.3 H (95-98) % ABG O2 Content 22.4 (15-23) ML/dl ABG Base Excess -1.6 (-2.0-3.0) mmol/L ABG Hemoglobin 16.0 (11.7-17.4) g/dL ABG Carboxyhemoglobin 1.6 H (0.5-1.5) % POC ABG HHb (Measured) -0.3 L (0-5) % ABG Methemoglobin 1.1 (0.0-3.0) % ABG O2 Capacity 22.3 (16-24) mL/dl ABG Potassium (3.6-5.2) mmol/L VBG pH (7.32-7.43) VBG pCO2 (40-60) VBG HCO3 (21-28) mmol/l VBG Total CO2 (22-28) mmol.L VBG O2 Sat (Calc) (40-65) % VBG Base Excess (0.0-2.0) mmol/L VBG Potassium (3.6-5.2) mmol/L Hgb O2 Saturation 97.6 (95.0-98.0) % Sodium (132-148) mmol/L Chloride (98-107) mmol/L Glucose (75-110) mg/dl Lactate (0.7-2.1) mmol/L Mechanical Rate FiO2 80.0 % Tidal Volume PEEP Potassium (3.6-5.0) mmol/L Carbon Dioxide (21-33) mmol/L Anion Gap (10-20) BUN (7-21) mg/dL Creatinine (0.8-1.5) mg/dl Est GFR ( Amer) Est GFR (Non-Af Amer) POC Glucose (mg/dL) 155 H (65-110) mg/dL Random Glucose (70-110) mg/dL Hemoglobin A1c (4.2-6.5) % Calcium (8.4-10.5) mg/dL Phosphorus (2.5-4.5) mg/dL Magnesium (1.7-2.2) mg/dL Total Bilirubin (0.2-1.3) mg/dL AST (17-59) U/L ALT (7-56) U/L Alkaline Phosphatase (38-126) U/L Troponin I ng/mL Total Protein (5.8-8.3) g/dL Albumin (3.0-4.8) g/dL Globulin gm/dL Albumin/Globulin Ratio (1.1-1.8) Procalcitonin (0.19-0.49) NG/ML Arterial Blood Potassium (3.6-5.2) mmol/L Venous Blood Potassium (3.6-5.2) mmol/L Urine Color (YELLOW) Urine Appearance (CLEAR) Urine pH (4.7-8.0) Ur Specific [place] (1.005-1.035) Urine Protein (<30 mg/dL) mg/dL Urine Glucose (UA) (NEGATIVE) mg/dL Urine Ketones (NEGATIVE) mg/dL Urine Blood (NEGATIVE) Urine Nitrate (NEGATIVE) Urine Bilirubin (NEGATIVE) Urine Urobilinogen (<1 E.U./dL) E.U./dL Ur Leukocyte Esterase (NEGATIVE) Lizette/uL Urine RBC (0-2) /hpf Urine WBC (0-6) /hpf Ur Epithelial Cells (0-5) /hpf 06/08/18 06/08/18 06/08/18 Range/Units 05:30 00:38 00:09 WBC 15.8 H (4.5-11.0) 10^3/uL RBC 3.17 L (3.5-6.1) 10^6/uL Hgb 9.8 L (14.0-18.0) g/dL Hct 30.5 L (42.0-52.0) % MCV 96.2 (80.0-105.0) fl MCH 30.9 (25.0-35.0) pg MCHC 32.1 (31.0-37.0) g/dl RDW 13.8 (11.5-14.5) % Plt Count 378 (120.0-450.0) 10^3/uL MPV 9.4 (7.0-11.0) fl Neut % (Auto) 95.5 H (50.0-68.0) % Lymph % (Auto) 2.3 L (22.0-35.0) % Stanley % (Auto) 2.2 (1.0-6.0) % Eos % (Auto) 0.0 L (1.5-5.0) % Baso % (Auto) 0.0 (0.0-3.0) % Lymph # (Auto) 0.4 L (1.2-3.4) Stanley # (Auto) 0.3 (0.1-0.6) Eos # (Auto) 0.0 (0.0-0.7) Baso # (Auto) 0.00 (0.0-2.0) K/mm3 Absolute Neuts (auto) 15.05 H (1.4-6.5) Neutrophils % (Manual) (50.0-70.0) % Lymphocytes % (Manual) (22.0-35.0) % Monocytes % (Manual) (1.0-6.0) % Toxic Granulation Platelet Evaluation (NORMAL) Hypochromasia Rouleaux pCO2 (35-45) mm/Hg pO2 (30-55) mm/Hg HCO3 (21-28) mmol/L ABG pH (7.35-7.45) ABG Total CO2 (22-28) mmol.L ABG O2 Saturation (95-98) % ABG O2 Content (15-23) ML/dl ABG Base Excess (-2.0-3.0) mmol/L ABG Hemoglobin (11.7-17.4) g/dL ABG Carboxyhemoglobin (0.5-1.5) % POC ABG HHb (Measured) (0-5) % ABG Methemoglobin (0.0-3.0) % ABG O2 Capacity (16-24) mL/dl ABG Potassium (3.6-5.2) mmol/L VBG pH (7.32-7.43) VBG pCO2 (40-60) VBG HCO3 (21-28) mmol/l VBG Total CO2 (22-28) mmol.L VBG O2 Sat (Calc) (40-65) % VBG Base Excess (0.0-2.0) mmol/L VBG Potassium (3.6-5.2) mmol/L Hgb O2 Saturation (95.0-98.0) % Sodium 137 (132-148) mmol/L Chloride 106 (98-107) mmol/L Glucose (75-110) mg/dl Lactate (0.7-2.1) mmol/L Mechanical Rate FiO2 % Tidal Volume PEEP Potassium 4.2 (3.6-5.0) mmol/L Carbon Dioxide 26 (21-33) mmol/L Anion Gap 10 (10-20) BUN 19 (7-21) mg/dL Creatinine 0.6 L (0.8-1.5) mg/dl Est GFR ( Amer) > 60 Est GFR (Non-Af Amer) > 60 POC Glucose (mg/dL) 182 H (65-110) mg/dL Random Glucose 153 H (70-110) mg/dL Hemoglobin A1c (4.2-6.5) % Calcium 8.5 (8.4-10.5) mg/dL Phosphorus 3.7 (2.5-4.5) mg/dL Magnesium 2.0 (1.7-2.2) mg/dL Total Bilirubin 0.3 (0.2-1.3) mg/dL AST 65 H D (17-59) U/L ALT 49 (7-56) U/L Alkaline Phosphatase 95 (38-126) U/L Troponin I 0.31 H* D ng/mL Total Protein 6.3 (5.8-8.3) g/dL Albumin 3.0 (3.0-4.8) g/dL Globulin 3.3 gm/dL Albumin/Globulin Ratio 0.9 L (1.1-1.8) Procalcitonin (0.19-0.49) NG/ML Arterial Blood Potassium (3.6-5.2) mmol/L Venous Blood Potassium (3.6-5.2) mmol/L Urine Color (YELLOW) Urine Appearance (CLEAR) Urine pH (4.7-8.0) Ur Specific [place] (1.005-1.035) Urine Protein (<30 mg/dL) mg/dL Urine Glucose (UA) (NEGATIVE) mg/dL Urine Ketones (NEGATIVE) mg/dL Urine Blood (NEGATIVE) Urine Nitrate (NEGATIVE) Urine Bilirubin (NEGATIVE) Urine Urobilinogen (<1 E.U./dL) E.U./dL Ur Leukocyte Esterase (NEGATIVE) Lizette/uL Urine RBC (0-2) /hpf Urine WBC (0-6) /hpf Ur Epithelial Cells (0-5) /hpf 06/07/18 06/07/18 06/07/18 Range/Units 22:37 22:37 20:50 WBC (4.5-11.0) 10^3/uL RBC (3.5-6.1) 10^6/uL Hgb (14.0-18.0) g/dL Hct (42.0-52.0) % MCV (80.0-105.0) fl MCH (25.0-35.0) pg MCHC (31.0-37.0) g/dl RDW (11.5-14.5) % Plt Count (120.0-450.0) 10^3/uL MPV (7.0-11.0) fl Neut % (Auto) (50.0-68.0) % Lymph % (Auto) (22.0-35.0) % Stanley % (Auto) (1.0-6.0) % Eos % (Auto) (1.5-5.0) % Baso % (Auto) (0.0-3.0) % Lymph # (Auto) (1.2-3.4) Stanley # (Auto) (0.1-0.6) Eos # (Auto) (0.0-0.7) Baso # (Auto) (0.0-2.0) K/mm3 Absolute Neuts (auto) (1.4-6.5) Neutrophils % (Manual) (50.0-70.0) % Lymphocytes % (Manual) (22.0-35.0) % Monocytes % (Manual) (1.0-6.0) % Toxic Granulation Platelet Evaluation (NORMAL) Hypochromasia Rouleaux pCO2 (35-45) mm/Hg pO2 44 (30-55) mm/Hg HCO3 (21-28) mmol/L ABG pH (7.35-7.45) ABG Total CO2 (22-28) mmol.L ABG O2 Saturation (95-98) % ABG O2 Content (15-23) ML/dl ABG Base Excess (-2.0-3.0) mmol/L ABG Hemoglobin (11.7-17.4) g/dL ABG Carboxyhemoglobin (0.5-1.5) % POC ABG HHb (Measured) (0-5) % ABG Methemoglobin (0.0-3.0) % ABG O2 Capacity (16-24) mL/dl ABG Potassium (3.6-5.2) mmol/L VBG pH 7.32 (7.32-7.43) VBG pCO2 58.0 (40-60) VBG HCO3 29.9 H (21-28) mmol/l VBG Total CO2 31.7 H (22-28) mmol.L VBG O2 Sat (Calc) 80.1 H (40-65) % VBG Base Excess 2.4 H (0.0-2.0) mmol/L VBG Potassium 4.3 (3.6-5.2) mmol/L Hgb O2 Saturation (95.0-98.0) % Sodium 136.0 (132-148) mmol/L Chloride 104.0 (98-107) mmol/L Glucose 154 H (75-110) mg/dl Lactate 1.1 (0.7-2.1) mmol/L Mechanical Rate FiO2 21.0 % Tidal Volume PEEP Potassium (3.6-5.0) mmol/L Carbon Dioxide (21-33) mmol/L Anion Gap (10-20) BUN (7-21) mg/dL Creatinine (0.8-1.5) mg/dl Est GFR ( Amer) Est GFR (Non-Af Amer) POC Glucose (mg/dL) (65-110) mg/dL Random Glucose (70-110) mg/dL Hemoglobin A1c (4.2-6.5) % Calcium (8.4-10.5) mg/dL Phosphorus (2.5-4.5) mg/dL Magnesium (1.7-2.2) mg/dL Total Bilirubin (0.2-1.3) mg/dL AST (17-59) U/L ALT (7-56) U/L Alkaline Phosphatase (38-126) U/L Troponin I 0.42 H* D ng/mL Total Protein (5.8-8.3) g/dL Albumin (3.0-4.8) g/dL Globulin gm/dL Albumin/Globulin Ratio (1.1-1.8) Procalcitonin (0.19-0.49) NG/ML Arterial Blood Potassium (3.6-5.2) mmol/L Venous Blood Potassium 4.3 (3.6-5.2) mmol/L Urine Color Yellow (YELLOW) Urine Appearance Clear (CLEAR) Urine pH 5.5 (4.7-8.0) Ur Specific [place] 1.010 (1.005-1.035) Urine Protein Negative (<30 mg/dL) mg/dL Urine Glucose (UA) Negative (NEGATIVE) mg/dL Urine Ketones Trace H (NEGATIVE) mg/dL Urine Blood Small H (NEGATIVE) Urine Nitrate Negative (NEGATIVE) Urine Bilirubin Negative (NEGATIVE) Urine Urobilinogen 0.2 (<1 E.U./dL) E.U./dL Ur Leukocyte Esterase Trace H (NEGATIVE) Lizette/uL Urine RBC 15 - 20 H (0-2) /hpf Urine WBC 2 - 5 (0-6) /hpf Ur Epithelial Cells 4 - 5 (0-5) /hpf 06/07/18 06/07/18 06/07/18 Range/Units 18:50 18:32 18:32 WBC 15.6 H D (4.5-11.0) 10^3/uL RBC 2.91 L (3.5-6.1) 10^6/uL Hgb 9.2 L D (14.0-18.0) g/dL Hct 28.3 L (42.0-52.0) % MCV 97.3 (80.0-105.0) fl MCH 31.6 (25.0-35.0) pg MCHC 32.5 (31.0-37.0) g/dl RDW 13.8 (11.5-14.5) % Plt Count 380 (120.0-450.0) 10^3/uL MPV 9.5 (7.0-11.0) fl Neut % (Auto) 91.6 H (50.0-68.0) % Lymph % (Auto) 3.7 L (22.0-35.0) % Stanley % (Auto) 4.6 (1.0-6.0) % Eos % (Auto) 0.0 L (1.5-5.0) % Baso % (Auto) 0.1 (0.0-3.0) % Lymph # (Auto) 0.6 L (1.2-3.4) Stanley # (Auto) 0.7 H (0.1-0.6) Eos # (Auto) 0.0 (0.0-0.7) Baso # (Auto) 0.01 (0.0-2.0) K/mm3 Absolute Neuts (auto) 14.30 H (1.4-6.5) Neutrophils % (Manual) 91 H (50.0-70.0) % Lymphocytes % (Manual) 5 L (22.0-35.0) % Monocytes % (Manual) 4 (1.0-6.0) % Toxic Granulation 2+ Platelet Evaluation Normal (NORMAL) Hypochromasia 2+ Rouleaux 2+ pCO2 45 (35-45) mm/Hg pO2 170.0 H (30-55) mm/Hg HCO3 26.0 (21-28) mmol/L ABG pH 7.37 (7.35-7.45) ABG Total CO2 27.4 (22-28) mmol.L ABG O2 Saturation 100.0 H (95-98) % ABG O2 Content (15-23) ML/dl ABG Base Excess 0.3 (-2.0-3.0) mmol/L ABG Hemoglobin (11.7-17.4) g/dL ABG Carboxyhemoglobin (0.5-1.5) % POC ABG HHb (Measured) (0-5) % ABG Methemoglobin (0.0-3.0) % ABG O2 Capacity (16-24) mL/dl ABG Potassium 3.6 (3.6-5.2) mmol/L VBG pH (7.32-7.43) VBG pCO2 (40-60) VBG HCO3 (21-28) mmol/l VBG Total CO2 (22-28) mmol.L VBG O2 Sat (Calc) (40-65) % VBG Base Excess (0.0-2.0) mmol/L VBG Potassium (3.6-5.2) mmol/L Hgb O2 Saturation (95.0-98.0) % Sodium 138.0 135 (132-148) mmol/L Chloride 107.0 100 (98-107) mmol/L Glucose 112 H (75-110) mg/dl Lactate 1.2 (0.7-2.1) mmol/L Mechanical Rate 25 FiO2 100.0 % Tidal Volume 300 PEEP 5 Potassium 3.9 (3.6-5.0) mmol/L Carbon Dioxide 30 (21-33) mmol/L Anion Gap 9 L (10-20) BUN 22 H (7-21) mg/dL Creatinine 0.6 L (0.8-1.5) mg/dl Est GFR ( Amer) > 60 Est GFR (Non-Af Amer) > 60 POC Glucose (mg/dL) (65-110) mg/dL Random Glucose 119 H (70-110) mg/dL Hemoglobin A1c (4.2-6.5) % Calcium 8.3 L (8.4-10.5) mg/dL Phosphorus (2.5-4.5) mg/dL Magnesium (1.7-2.2) mg/dL Total Bilirubin 0.4 (0.2-1.3) mg/dL AST 102 H (17-59) U/L ALT 49 (7-56) U/L Alkaline Phosphatase 97 (38-126) U/L Troponin I ng/mL Total Protein 6.0 (5.8-8.3) g/dL Albumin 2.8 L (3.0-4.8) g/dL Globulin 3.2 gm/dL Albumin/Globulin Ratio 0.9 L (1.1-1.8) Procalcitonin (0.19-0.49) NG/ML Arterial Blood Potassium 3.6 (3.6-5.2) mmol/L Venous Blood Potassium (3.6-5.2) mmol/L Urine Color (YELLOW) Urine Appearance (CLEAR) Urine pH (4.7-8.0) Ur Specific [place] (1.005-1.035) Urine Protein (<30 mg/dL) mg/dL Urine Glucose (UA) (NEGATIVE) mg/dL Urine Ketones (NEGATIVE) mg/dL Urine Blood (NEGATIVE) Urine Nitrate (NEGATIVE) Urine Bilirubin (NEGATIVE) Urine Urobilinogen (<1 E.U./dL) E.U./dL Ur Leukocyte Esterase (NEGATIVE) Lizette/uL Urine RBC (0-2) /hpf Urine WBC (0-6) /hpf Ur Epithelial Cells (0-5) /hpf 06/07/18 06/07/18 06/07/18 Range/Units 18:32 18:31 14:19 WBC (4.5-11.0) 10^3/uL RBC (3.5-6.1) 10^6/uL Hgb (14.0-18.0) g/dL Hct (42.0-52.0) % MCV (80.0-105.0) fl MCH (25.0-35.0) pg MCHC (31.0-37.0) g/dl RDW (11.5-14.5) % Plt Count (120.0-450.0) 10^3/uL MPV (7.0-11.0) fl Neut % (Auto) (50.0-68.0) % Lymph % (Auto) (22.0-35.0) % Stanley % (Auto) (1.0-6.0) % Eos % (Auto) (1.5-5.0) % Baso % (Auto) (0.0-3.0) % Lymph # (Auto) (1.2-3.4) [place] # (Auto) (0.1-0.6) Eos # (Auto) (0.0-0.7) Baso # (Auto) (0.0-2.0) K/mm3 Absolute Neuts (auto) (1.4-6.5) Neutrophils % (Manual) (50.0-70.0) % Lymphocytes % (Manual) (22.0-35.0) % Monocytes % (Manual) (1.0-6.0) % Toxic Granulation Platelet Evaluation (NORMAL) Hypochromasia Rouleaux pCO2 (35-45) mm/Hg pO2 49 (30-55) mm/Hg HCO3 (21-28) mmol/L ABG pH (7.35-7.45) ABG Total CO2 (22-28) mmol.L ABG O2 Saturation (95-98) % ABG O2 Content (15-23) ML/dl ABG Base Excess (-2.0-3.0) mmol/L ABG Hemoglobin (11.7-17.4) g/dL ABG Carboxyhemoglobin (0.5-1.5) % POC ABG HHb (Measured) (0-5) % ABG Methemoglobin (0.0-3.0) % ABG O2 Capacity (16-24) mL/dl ABG Potassium (3.6-5.2) mmol/L VBG pH 7.33 (7.32-7.43) VBG pCO2 62.0 H (40-60) VBG HCO3 32.7 H (21-28) mmol/l VBG Total CO2 34.6 H (22-28) mmol.L VBG O2 Sat (Calc) 86.3 H (40-65) % VBG Base Excess 4.9 H (0.0-2.0) mmol/L VBG Potassium 3.9 (3.6-5.2) mmol/L Hgb O2 Saturation (95.0-98.0) % Sodium 137.0 (132-148) mmol/L Chloride 103.0 (98-107) mmol/L Glucose 125 H (75-110) mg/dl Lactate 1.4 (0.7-2.1) mmol/L Mechanical Rate FiO2 21.0 % Tidal Volume PEEP Potassium (3.6-5.0) mmol/L Carbon Dioxide (21-33) mmol/L Anion Gap (10-20) BUN (7-21) mg/dL Creatinine (0.8-1.5) mg/dl Est GFR ( Amer) Est GFR (Non-Af Amer) POC Glucose (mg/dL) 401 H* (65-110) mg/dL Random Glucose (70-110) mg/dL Hemoglobin A1c (4.2-6.5) % Calcium (8.4-10.5) mg/dL Phosphorus (2.5-4.5) mg/dL Magnesium (1.7-2.2) mg/dL Total Bilirubin (0.2-1.3) mg/dL AST (17-59) U/L ALT (7-56) U/L Alkaline Phosphatase (38-126) U/L Troponin I ng/mL Total Protein (5.8-8.3) g/dL Albumin (3.0-4.8) g/dL Globulin gm/dL Albumin/Globulin Ratio (1.1-1.8) Procalcitonin 1.52 H (0.19-0.49) NG/ML Arterial Blood Potassium (3.6-5.2) mmol/L Venous Blood Potassium 3.9 (3.6-5.2) mmol/L Urine Color (YELLOW) Urine Appearance (CLEAR) Urine pH (4.7-8.0) Ur Specific [place] (1.005-1.035) Urine Protein (<30 mg/dL) mg/dL Urine Glucose (UA) (NEGATIVE) mg/dL Urine Ketones (NEGATIVE) mg/dL Urine Blood (NEGATIVE) Urine Nitrate (NEGATIVE) Urine Bilirubin (NEGATIVE) Urine Urobilinogen (<1 E.U./dL) E.U./dL Ur Leukocyte Esterase (NEGATIVE) Lizette/uL Urine RBC (0-2) /hpf Urine WBC (0-6) /hpf Ur Epithelial Cells (0-5) /hpf 06/07/18 Range/Units 14:12 WBC (4.5-11.0) 10^3/uL RBC (3.5-6.1) 10^6/uL Hgb (14.0-18.0) g/dL Hct (42.0-52.0) % MCV (80.0-105.0) fl MCH (25.0-35.0) pg MCHC (31.0-37.0) g/dl RDW (11.5-14.5) % Plt Count (120.0-450.0) 10^3/uL MPV (7.0-11.0) fl Neut % (Auto) (50.0-68.0) % Lymph % (Auto) (22.0-35.0) % [place] % (Auto) (1.0-6.0) % Eos % (Auto) (1.5-5.0) % Baso % (Auto) (0.0-3.0) % Lymph # (Auto) (1.2-3.4) [place] # (Auto) (0.1-0.6) Eos # (Auto) (0.0-0.7) Baso # (Auto) (0.0-2.0) K/mm3 Absolute Neuts (auto) (1.4-6.5) Neutrophils % (Manual) (50.0-70.0) % Lymphocytes % (Manual) (22.0-35.0) % Monocytes % (Manual) (1.0-6.0) % Toxic Granulation Platelet Evaluation (NORMAL) Hypochromasia Rouleaux pCO2 (35-45) mm/Hg pO2 (30-55) mm/Hg HCO3 (21-28) mmol/L ABG pH (7.35-7.45) ABG Total CO2 (22-28) mmol.L ABG O2 Saturation (95-98) % ABG O2 Content (15-23) ML/dl ABG Base Excess (-2.0-3.0) mmol/L ABG Hemoglobin (11.7-17.4) g/dL ABG Carboxyhemoglobin (0.5-1.5) % POC ABG HHb (Measured) (0-5) % ABG Methemoglobin (0.0-3.0) % ABG O2 Capacity (16-24) mL/dl ABG Potassium (3.6-5.2) mmol/L VBG pH (7.32-7.43) VBG pCO2 (40-60) VBG HCO3 (21-28) mmol/l VBG Total CO2 (22-28) mmol.L VBG O2 Sat (Calc) (40-65) % VBG Base Excess (0.0-2.0) mmol/L VBG Potassium (3.6-5.2) mmol/L Hgb O2 Saturation (95.0-98.0) % Sodium (132-148) mmol/L Chloride (98-107) mmol/L Glucose (75-110) mg/dl Lactate (0.7-2.1) mmol/L Mechanical Rate FiO2 % Tidal Volume PEEP Potassium (3.6-5.0) mmol/L Carbon Dioxide (21-33) mmol/L Anion Gap (10-20) BUN (7-21) mg/dL Creatinine (0.8-1.5) mg/dl Est GFR ( Amer) Est GFR (Non-Af Amer) POC Glucose (mg/dL) (65-110) mg/dL Random Glucose (70-110) mg/dL Hemoglobin A1c 7.0 H (4.2-6.5) % Calcium (8.4-10.5) mg/dL Phosphorus (2.5-4.5) mg/dL Magnesium (1.7-2.2) mg/dL Total Bilirubin (0.2-1.3) mg/dL AST (17-59) U/L ALT (7-56) U/L Alkaline Phosphatase (38-126) U/L Troponin I ng/mL Total Protein (5.8-8.3) g/dL Albumin (3.0-4.8) g/dL Globulin gm/dL Albumin/Globulin Ratio (1.1-1.8) Procalcitonin (0.19-0.49) NG/ML Arterial Blood Potassium (3.6-5.2) mmol/L Venous Blood Potassium (3.6-5.2) mmol/L Urine Color (YELLOW) Urine Appearance (CLEAR) Urine pH (4.7-8.0) Ur Specific [place] (1.005-1.035) Urine Protein (<30 mg/dL) mg/dL Urine Glucose (UA) (NEGATIVE) mg/dL Urine Ketones (NEGATIVE) mg/dL Urine Blood (NEGATIVE) Urine Nitrate (NEGATIVE) Urine Bilirubin (NEGATIVE) Urine Urobilinogen (<1 E.U./dL) E.U./dL Ur Leukocyte Esterase (NEGATIVE) Lizette/uL Urine RBC (0-2) /hpf Urine WBC (0-6) /hpf Ur Epithelial Cells (0-5) /hpf Laboratory Results - last 24 hr 06/07/18 06/07/18 06/07/18 14:12 14:19 18:31 WBC RBC Hgb Hct MCV MCH MCHC RDW Plt Count MPV Neut % (Auto) Lymph % (Auto) [place] % (Auto) Eos % (Auto) Baso % (Auto) Lymph # (Auto) [place] # (Auto) Eos # (Auto) Baso # (Auto) Absolute Neuts (auto) Neutrophils % (Manual) Lymphocytes % (Manual) Monocytes % (Manual) Toxic Granulation Platelet Evaluation Hypochromasia Rouleaux pCO2 pO2 49 HCO3 ABG pH ABG Total CO2 ABG O2 Saturation ABG O2 Content ABG Base Excess ABG Hemoglobin ABG Carboxyhemoglobin POC ABG HHb (Measured) ABG Methemoglobin ABG O2 Capacity ABG Potassium VBG pH 7.33 VBG pCO2 62.0 H VBG HCO3 32.7 H VBG Total CO2 34.6 H VBG O2 Sat (Calc) 86.3 H VBG Base Excess 4.9 H VBG Potassium 3.9 Hgb O2 Saturation Sodium 137.0 Chloride 103.0 Glucose 125 H Lactate 1.4 Mechanical Rate FiO2 21.0 Tidal Volume PEEP Potassium Carbon Dioxide Anion Gap BUN Creatinine Est GFR ( Amer) Est GFR (Non-Af Amer) POC Glucose (mg/dL) 401 H* Random Glucose Hemoglobin A1c 7.0 H Calcium Phosphorus Magnesium Total Bilirubin AST ALT Alkaline Phosphatase Troponin I Total Protein Albumin Globulin Albumin/Globulin Ratio Procalcitonin Arterial Blood Potassium Venous Blood Potassium 3.9 Urine Color Urine Appearance Urine pH Ur Specific [place] Urine Protein Urine Glucose (UA) Urine Ketones Urine Blood Urine Nitrate Urine Bilirubin Urine Urobilinogen Ur Leukocyte Esterase Urine RBC Urine WBC Ur Epithelial Cells 06/07/18 06/07/18 06/07/18 18:32 18:32 18:32 WBC 15.6 H D RBC 2.91 L Hgb 9.2 L D Hct 28.3 L MCV 97.3 MCH 31.6 MCHC 32.5 RDW 13.8 Plt Count 380 MPV 9.5 Neut % (Auto) 91.6 H Lymph % (Auto) 3.7 L Stanley % (Auto) 4.6 Eos % (Auto) 0.0 L Baso % (Auto) 0.1 Lymph # (Auto) 0.6 L [place] # (Auto) 0.7 H Eos # (Auto) 0.0 Baso # (Auto) 0.01 Absolute Neuts (auto) 14.30 H Neutrophils % (Manual) 91 H Lymphocytes % (Manual) 5 L Monocytes % (Manual) 4 Toxic Granulation 2+ Platelet Evaluation Normal Hypochromasia 2+ Rouleaux 2+ pCO2 pO2 HCO3 ABG pH ABG Total CO2 ABG O2 Saturation ABG O2 Content ABG Base Excess ABG Hemoglobin ABG Carboxyhemoglobin POC ABG HHb (Measured) ABG Methemoglobin ABG O2 Capacity ABG Potassium VBG pH VBG pCO2 VBG HCO3 VBG Total CO2 VBG O2 Sat (Calc) VBG Base Excess VBG Potassium Hgb O2 Saturation Sodium 135 Chloride 100 Glucose Lactate Mechanical Rate FiO2 Tidal Volume PEEP Potassium 3.9 Carbon Dioxide 30 Anion Gap 9 L BUN 22 H Creatinine 0.6 L Est GFR ( Amer) > 60 Est GFR (Non-Af Amer) > 60 POC Glucose (mg/dL) Random Glucose 119 H Hemoglobin A1c Calcium 8.3 L Phosphorus Magnesium Total Bilirubin 0.4 AST 102 H ALT 49 Alkaline Phosphatase 97 Troponin I Total Protein 6.0 Albumin 2.8 L Globulin 3.2 Albumin/Globulin Ratio 0.9 L Procalcitonin 1.52 H Arterial Blood Potassium Venous Blood Potassium Urine Color Urine Appearance Urine pH Ur Specific [place] Urine Protein Urine Glucose (UA) Urine Ketones Urine Blood Urine Nitrate Urine Bilirubin Urine Urobilinogen Ur Leukocyte Esterase Urine RBC Urine WBC Ur Epithelial Cells 06/07/18 06/07/18 06/07/18 18:50 20:50 22:37 WBC RBC Hgb Hct MCV MCH MCHC RDW Plt Count MPV Neut % (Auto) Lymph % (Auto) [place] % (Auto) Eos % (Auto) Baso % (Auto) Lymph # (Auto) [place] # (Auto) Eos # (Auto) Baso # (Auto) Absolute Neuts (auto) Neutrophils % (Manual) Lymphocytes % (Manual) Monocytes % (Manual) Toxic Granulation Platelet Evaluation Hypochromasia Rouleaux pCO2 45 pO2 170.0 H HCO3 26.0 ABG pH 7.37 ABG Total CO2 27.4 ABG O2 Saturation 100.0 H ABG O2 Content ABG Base Excess 0.3 ABG Hemoglobin ABG Carboxyhemoglobin POC ABG HHb (Measured) ABG Methemoglobin ABG O2 Capacity ABG Potassium 3.6 VBG pH VBG pCO2 VBG HCO3 VBG Total CO2 VBG O2 Sat (Calc) VBG Base Excess VBG Potassium Hgb O2 Saturation Sodium 138.0 Chloride 107.0 Glucose 112 H Lactate 1.2 Mechanical Rate 25 FiO2 100.0 Tidal Volume 300 PEEP 5 Potassium Carbon Dioxide Anion Gap BUN Creatinine Est GFR ( Amer) Est GFR (Non-Af Amer) POC Glucose (mg/dL) Random Glucose Hemoglobin A1c Calcium Phosphorus Magnesium Total Bilirubin AST ALT Alkaline Phosphatase Troponin I 0.42 H* D Total Protein Albumin Globulin Albumin/Globulin Ratio Procalcitonin Arterial Blood Potassium 3.6 Venous Blood Potassium Urine Color Yellow Urine Appearance Clear Urine pH 5.5 Ur Specific [place] 1.010 Urine Protein Negative Urine Glucose (UA) Negative Urine Ketones Trace H Urine Blood Small H Urine Nitrate Negative Urine Bilirubin Negative Urine Urobilinogen 0.2 Ur Leukocyte Esterase Trace H Urine RBC 15 - 20 H Urine WBC 2 - 5 Ur Epithelial Cells 4 - 5 06/07/18 06/08/18 06/08/18 22:37 00:09 00:38 WBC 15.8 H RBC 3.17 L Hgb 9.8 L Hct 30.5 L MCV 96.2 MCH 30.9 MCHC 32.1 RDW 13.8 Plt Count 378 MPV 9.4 Neut % (Auto) 95.5 H Lymph % (Auto) 2.3 L [place] % (Auto) 2.2 Eos % (Auto) 0.0 L Baso % (Auto) 0.0 Lymph # (Auto) 0.4 L [place] # (Auto) 0.3 Eos # (Auto) 0.0 Baso # (Auto) 0.00 Absolute Neuts (auto) 15.05 H Neutrophils % (Manual) Lymphocytes % (Manual) Monocytes % (Manual) Toxic Granulation Platelet Evaluation Hypochromasia Rouleaux pCO2 pO2 44 HCO3 ABG pH ABG Total CO2 ABG O2 Saturation ABG O2 Content ABG Base Excess ABG Hemoglobin ABG Carboxyhemoglobin POC ABG HHb (Measured) ABG Methemoglobin ABG O2 Capacity ABG Potassium VBG pH 7.32 VBG pCO2 58.0 VBG HCO3 29.9 H VBG Total CO2 31.7 H VBG O2 Sat (Calc) 80.1 H VBG Base Excess 2.4 H VBG Potassium 4.3 Hgb O2 Saturation Sodium 136.0 Chloride 104.0 Glucose 154 H Lactate 1.1 Mechanical Rate FiO2 21.0 Tidal Volume PEEP Potassium Carbon Dioxide Anion Gap BUN Creatinine Est GFR ( Amer) Est GFR (Non-Af Amer) POC Glucose (mg/dL) 182 H Random Glucose Hemoglobin A1c Calcium Phosphorus Magnesium Total Bilirubin AST ALT Alkaline Phosphatase Troponin I Total Protein Albumin Globulin Albumin/Globulin Ratio Procalcitonin Arterial Blood Potassium Venous Blood Potassium 4.3 Urine Color Urine Appearance Urine pH Ur Specific [place] Urine Protein Urine Glucose (UA) Urine Ketones Urine Blood Urine Nitrate Urine Bilirubin Urine Urobilinogen Ur Leukocyte Esterase Urine RBC Urine WBC Ur Epithelial Cells 06/08/18 06/08/18 06/08/18 05:30 05:30 06:00 WBC 12.5 H D RBC 3.09 L Hgb 9.8 L Hct 29.8 L MCV 96.4 MCH 31.7 MCHC 32.9 RDW 14.1 Plt Count 386 MPV 9.9 Neut % (Auto) 96.7 H Lymph % (Auto) 2.1 L [place] % (Auto) 1.2 Eos % (Auto) 0.0 L Baso % (Auto) 0.0 Lymph # (Auto) 0.3 L [place] # (Auto) 0.2 Eos # (Auto) 0.0 Baso # (Auto) 0.00 Absolute Neuts (auto) 12.12 H Neutrophils % (Manual) Lymphocytes % (Manual) Monocytes % (Manual) Toxic Granulation Platelet Evaluation Hypochromasia Rouleaux pCO2 44 pO2 207.0 H HCO3 24.3 ABG pH 7.35 ABG Total CO2 25.7 ABG O2 Saturation 100.3 H ABG O2 Content 22.4 ABG Base Excess -1.6 ABG Hemoglobin 16.0 ABG Carboxyhemoglobin 1.6 H POC ABG HHb (Measured) -0.3 L ABG Methemoglobin 1.1 ABG O2 Capacity 22.3 ABG Potassium VBG pH VBG pCO2 VBG HCO3 VBG Total CO2 VBG O2 Sat (Calc) VBG Base Excess VBG Potassium Hgb O2 Saturation 97.6 Sodium 137 Chloride 106 Glucose Lactate Mechanical Rate FiO2 80.0 Tidal Volume PEEP Potassium 4.2 Carbon Dioxide 26 Anion Gap 10 BUN 19 Creatinine 0.6 L Est GFR ( Amer) > 60 Est GFR (Non-Af Amer) > 60 POC Glucose (mg/dL) Random Glucose 153 H Hemoglobin A1c Calcium 8.5 Phosphorus 3.7 Magnesium 2.0 Total Bilirubin 0.3 AST 65 H D ALT 49 Alkaline Phosphatase 95 Troponin I 0.31 H* D Total Protein 6.3 Albumin 3.0 Globulin 3.3 Albumin/Globulin Ratio 0.9 L Procalcitonin Arterial Blood Potassium Venous Blood Potassium Urine Color Urine Appearance Urine pH Ur Specific [place] Urine Protein Urine Glucose (UA) Urine Ketones Urine Blood Urine Nitrate Urine Bilirubin Urine Urobilinogen Ur Leukocyte Esterase Urine RBC Urine WBC Ur Epithelial Cells 06/08/18 07:20 WBC RBC Hgb Hct MCV MCH MCHC RDW Plt Count MPV Neut % (Auto) Lymph % (Auto) [place] % (Auto) Eos % (Auto) Baso % (Auto) Lymph # (Auto) [place] # (Auto) Eos # (Auto) Baso # (Auto) Absolute Neuts (auto) Neutrophils % (Manual) Lymphocytes % (Manual) Monocytes % (Manual) Toxic Granulation Platelet Evaluation Hypochromasia Rouleaux pCO2 pO2 HCO3 ABG pH ABG Total CO2 ABG O2 Saturation ABG O2 Content ABG Base Excess ABG Hemoglobin ABG Carboxyhemoglobin POC ABG HHb (Measured) ABG Methemoglobin ABG O2 Capacity ABG Potassium VBG pH VBG pCO2 VBG HCO3 VBG Total CO2 VBG O2 Sat (Calc) VBG Base Excess VBG Potassium Hgb O2 Saturation Sodium Chloride Glucose Lactate Mechanical Rate FiO2 Tidal Volume PEEP Potassium Carbon Dioxide Anion Gap BUN Creatinine Est GFR ( Amer) Est GFR (Non-Af Amer) POC Glucose (mg/dL) 155 H Random Glucose Hemoglobin A1c Calcium Phosphorus Magnesium Total Bilirubin AST ALT Alkaline Phosphatase Troponin I Total Protein Albumin Globulin Albumin/Globulin Ratio Procalcitonin Arterial Blood Potassium Venous Blood Potassium Urine Color Urine Appearance Urine pH Ur Specific [place] Urine Protein Urine Glucose (UA) Urine Ketones Urine Blood Urine Nitrate Urine Bilirubin Urine Urobilinogen Ur Leukocyte Esterase Urine RBC Urine WBC Ur Epithelial Cells Radiology Impressions: Radiology Impressions Chest X-Ray 06/07/18 16:47 IMPRESSION: Tracheostomy tube. Cardiomegaly. Faint atherosclerotic calcifications present. Mild right middle/lower lobe hazy infiltrates. Chest X-Ray 06/07/18 18:00 IMPRESSION: New atelectasis/volume loss affecting right lower lobe. Satisfactory position of recently placed left subclavian venous access catheter. Chest X-Ray 06/08/18 06:00 IMPRESSION: There is persistent atelectasis in the right lower lobe unchanged EKG/Cardiology Studies: Cardiology / EKG Studies 06/08/18 00:29 ELECTROCARDIOGRAM Stat Comment: Reason For Exam: elevated troponin 06/08/18 08:00 ELECTROCARDIOGRAM Routine Comment: Reason For Exam: elevated troponin Critical Care Progress Note - Nutrition Nutrition: Nutrition Category Date Time Status NPO Diet [DIET] Diets 06/08/18 Breakfast Ordered Addendum Addendum: 06/08/18 18:03 ICU Attending Addendum Patient seen and examined. Case reviewed on round with housestaff. Agree with resident note above with the following additions/exceptions 78M PMH esophageal cancer s/p chemo/radiation/resection admitted after being found unresponsive, difficult intubation now s/p emergent trach Patient is awake and alert he is following commands EEG thus far normal CT head neg f/u brain as MRI as per [place] CXR and ABG WNL this unlikely has any pulm pathology however given tortous airway patient will need to be converted to surgical trach. Currently has fenestrated 6 [place] trach TNI elevated, likely type 2, antiplat. as per cardio who is consulted on bb as well abx as per ID Overall after trach, will have to address goals of care and possible LTACH Rest of care as above in housestaff note Alex Green MD Pulmonary Critical Care Attending
--- NOTE | 2018-06-08 10:46 | RAD ---
Date of service: 06/08/2018 HISTORY: S/P trach, on vent. COMPARISON: No prior. TECHNIQUE: 1 view obtained. FINDINGS: LUNGS: There is persistent atelectasis in the right lower lobe unchanged PLEURA: Small pleural effusions CARDIOVASCULAR: No aortic atherosclerotic calcification present. Normal cardiac size. No pulmonary vascular congestion. OSSEOUS STRUCTURES: No significant abnormalities. VISUALIZED UPPER ABDOMEN: Normal. OTHER FINDINGS: None. IMPRESSION: There is persistent atelectasis in the right lower lobe unchanged
--- NOTE | 2018-06-08 11:08 | CP.PCM.PN ---
<Ez Hyatt - Last Filed: 06/08/18 11:03> Subjective - Date & Time of Evaluation Date of Evaluation: 06/08/18 Time of Evaluation: 09:00 - Subjective Subjective: General Surgery Progress Note for Dr. Juan Hyatt, PGY1 Patient seen and examined at bedside this morning. No acute events reported overnight. Patient is alert and following commands. GCS score of 11. Currently off of pressors. PRVC with FiO2 of 50%, PEEP of 5, RR of 25 and TV of 300. 12 point ROS limited due to clinical status. Objective - Vital Signs/Intake and Output Vital Signs (last 24 hours): Temp Pulse Resp BP Pulse Ox 99.0 F 76 25 H 93/49 L 99 06/08/18 10:00 06/08/18 10:00 06/07/18 20:41 06/08/18 10:00 06/08/18 10:00 Intake and Output: 06/08/18 06/08/18 06:59 18:59 Intake Total 351 Output Total 1000 Balance -649 - Medications Medications: Current Medications Heparin Sodium (Porcine) (Heparin) 5,000 units SC Q8 [facility]; Protocol Last Admin: 06/08/18 06:03 Dose: 5,000 units Sodium Chloride (Sodium Chloride 0.9%) 1,000 mls @ 100 mls/hr IV .Q10H [facility] Last Admin: 06/07/18 19:09 Dose: 100 mls/hr Propofol (Diprivan) 1,000 mg in 100 mls @ 1.225 mls/hr IV .Q24H PRN; Protocol PRN Reason: TITRATE PER MD ORDER NOREPINEPHRINE BIT/0.9 % NACL (Levophed 4 Mg/ 250 Ml Ns Premixed) 4 mg in 250 mls @ 15 mls/hr IV .[id number] PRN; Protocol PRN Reason: TITRATE PER MD ORDER Last Titration: 06/08/18 06:00 Dose: 0 mcg/min, 0 mls/hr Cefepime HCl (Maxipime 1gm) 1 gm in 100 mls @ 100 mls/hr IVPB Q12 [facility]; Protocol Last Admin: 06/07/18 22:05 Dose: 100 mls/hr Vancomycin HCl (Vancomycin 1gm) 1 gm in 250 mls @ 167 mls/hr IVPB DAILY [facility]; Protocol Last Admin: 06/07/18 18:15 Dose: 167 mls/hr Methylprednisolone (Solu-Medrol) 60 mg IVP Q6 [facility] Last Admin: 06/08/18 06:03 Dose: 60 mg Metoprolol Tartrate (Lopressor) 5 mg IVP Q12H [facility] Pantoprazole Sodium (Protonix Inj) 40 mg IVP DAILY [facility] - Labs Labs: 06/08/18 05:30 06/08/18 05:30 PT 12.7 SECONDS (9.4-12.5) H 06/07/18 16:28 INR 1.14 06/07/18 16:28 APTT 30.2 Seconds (26.9-38.3) 06/07/18 16:28 Physical Exam - Constitutional Appears: Cachectic - Head Exam Head Exam: ATRAUMATIC - ENT Exam ENT Exam: Mucous Membranes Moist, Normal Exam - Neck Exam Additional comments: 6-Fr fenestrated tracheostomy cannula s/pcricothyroidectomy, site is clean and non bleeding/draining - Respiratory Exam Respiratory Exam: Currently on PRVC, no accessorily muscle use or respiratory distress noted - GI/Abdominal Exam GI & Abdominal Exam: Soft. Bowel sounds in all 4 quadrants appreciated. 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 Martinez <Chao Mayo - Last Filed: 06/09/18 09:09> Objective - Vital Signs/Intake and Output Vital Signs (last 24 hours): Temp Pulse Resp BP Pulse Ox 98.8 F 74 25 H 92/43 L 100 06/08/18 11:30 06/08/18 11:30 06/07/18 20:41 06/08/18 11:20 06/08/18 11:30 Intake and Output: 06/08/18 06/08/18 06:59 18:59 Intake Total 351 Output Total 1000 Balance -649 - Medications Medications: Current Medications Atorvastatin Calcium (Lipitor) 80 mg PO DIN [facility] Heparin Sodium (Porcine) (Heparin) 5,000 units SC Q8 [facility]; Protocol Last Admin: 06/08/18 06:03 Dose: 5,000 units Sodium Chloride (Sodium Chloride 0.9%) 1,000 mls @ 100 mls/hr IV .Q10H [facility] Last Admin: 06/07/18 19:09 Dose: 100 mls/hr Propofol (Diprivan) 1,000 mg in 100 mls @ 1.225 mls/hr IV .Q24H PRN; Protocol PRN Reason: TITRATE PER MD ORDER NOREPINEPHRINE BIT/0.9 % NACL (Levophed 4 Mg/ 250 Ml Ns Premixed) 4 mg in 250 mls @ 15 mls/hr IV .[id number] PRN; Protocol PRN Reason: TITRATE PER MD ORDER Last Titration: 06/08/18 06:00 Dose: 0 mcg/min, 0 mls/hr Cefepime HCl (Maxipime 1gm) 1 gm in 100 mls @ 100 mls/hr IVPB Q12 [facility]; Protocol Last Admin: 06/08/18 11:19 Dose: 100 mls/hr Vancomycin HCl (Vancomycin 1gm) 1 gm in 250 mls @ 167 mls/hr IVPB DAILY [facility]; Protocol Last Admin: 06/08/18 11:19 Dose: 167 mls/hr Methylprednisolone (Solu-Medrol) 60 mg IVP Q6 [facility] Last Admin: 06/08/18 06:03 Dose: 60 mg Metoprolol Tartrate (Lopressor) 5 mg IVP Q12H [facility] Last Admin: 06/08/18 11:20 Dose: Not Given Pantoprazole Sodium (Protonix Inj) 40 mg IVP DAILY [facility] Last Admin: 06/08/18 11:19 Dose: 40 mg - Labs Labs: 06/08/18 05:30 06/08/18 05:30 PT 12.7 SECONDS (9.4-12.5) H 06/07/18 16:28 INR 1.14 06/07/18 16:28 APTT 30.2 Seconds (26.9-38.3) 06/07/18 16:28 Assessment and Plan - Assessment and Plan (Free Text) Assessment: Above plan to be discussed with surgical attending Dr. Martinez. For medicine progress note please refer to medical note with Dr. Jose Rafael Mayo.
[2018-06-08] MEDS: Vancomycin 1gm in NS 250ml 1 GM/250 ML BAG IVPB SCH (11:19)
[2018-06-08] MEDS: Cefepime 1gm in NS 100ml 1 GM/100 ML BAG IVPB SCH ×2 (11:19→21:30)
--- NOTE | 2018-06-08 11:27 | CP.PCM.PCO ---
Physician Communication Note - Physician Communication Note Physician Communication Note: patient seen and examined and chart reviewed
--- NOTE | 2018-06-08 12:45 | CP.PCM.APN ---
Subjective - Date & Time of Evaluation Date of Evaluation: 06/08/18 Time of Evaluation: 11:55 - Subjective Subjective: pt seenand examined at bedsdie, pt trached but awake on vent Review of Systems - Review of Systems All systems: reviewed and no additional remarkable complaints except - Constitutional Constitutional: As Per HPI Objective - Vital Signs/Intake and Output Vital Signs (last 24 hours): Temp Pulse Resp BP Pulse Ox 98.8 F 74 25 H 92/43 L 100 06/08/18 11:30 06/08/18 11:30 06/07/18 20:41 06/08/18 11:20 06/08/18 11:30 Intake and Output: 06/08/18 06/08/18 06:59 18:59 Intake Total 351 Output Total 1000 Balance -649 - Medications Medications: Current Medications Atorvastatin Calcium (Lipitor) 80 mg PO DIN [facility] Heparin Sodium (Porcine) (Heparin) 5,000 units SC Q8 [facility]; Protocol Last Admin: 06/08/18 06:03 Dose: 5,000 units Sodium Chloride (Sodium Chloride 0.9%) 1,000 mls @ 100 mls/hr IV .Q10H [facility] Last Admin: 06/07/18 19:09 Dose: 100 mls/hr Propofol (Diprivan) 1,000 mg in 100 mls @ 1.225 mls/hr IV .Q24H PRN; Protocol PRN Reason: TITRATE PER MD ORDER NOREPINEPHRINE BIT/0.9 % NACL (Levophed 4 Mg/ 250 Ml Ns Premixed) 4 mg in 250 mls @ 15 mls/hr IV .[id number] PRN; Protocol PRN Reason: TITRATE PER MD ORDER Last Titration: 06/08/18 06:00 Dose: 0 mcg/min, 0 mls/hr Cefepime HCl (Maxipime 1gm) 1 gm in 100 mls @ 100 mls/hr IVPB Q12 [facility]; Protocol Last Admin: 06/08/18 11:19 Dose: 100 mls/hr Vancomycin HCl (Vancomycin 1gm) 1 gm in 250 mls @ 167 mls/hr IVPB DAILY [facility]; Protocol Last Admin: 06/08/18 11:19 Dose: 167 mls/hr Methylprednisolone (Solu-Medrol) 60 mg IVP Q6 [facility] Last Admin: 06/08/18 06:03 Dose: 60 mg Metoprolol Tartrate (Lopressor) 5 mg IVP Q12H [facility] Last Admin: 06/08/18 11:20 Dose: Not Given Pantoprazole Sodium (Protonix Inj) 40 mg IVP DAILY [facility] Last Admin: 06/08/18 11:19 Dose: 40 mg - Labs Labs: 06/08/18 05:30 06/08/18 05:30 PT 12.7 SECONDS (9.4-12.5) H 06/07/18 16:28 INR 1.14 06/07/18 16:28 APTT 30.2 Seconds (26.9-38.3) 06/07/18 16:28 - Constitutional Appears: Non-toxic, No Acute Distress - Head Exam Head Exam: NORMOCEPHALIC - Eye Exam Eye Exam: Normal appearance - ENT Exam Additional comments: 6F trach in place - intact - Cardiovascular Exam Cardiovascular Exam: +S1, +S2 - GI/Abdominal Exam GI & Abdominal Exam: Soft, Normal Bowel Sounds Assessment and Plan - Assessment and Plan (Free Text) Plan: ITS Impressions Chest X-Ray 06/07/18 14:10 IMPRESSION: Endotracheal tube in satisfactory position Head CT 06/07/18 14:10 IMPRESSION: No acute intracranial findings. Head/Neck CTA 06/07/18 14:10 IMPRESSION: 1. No evidence of endoluminal thrombus or occlusion. Asymmetric narrowing of the right M1 segment with attenuation of the superior division perisylvian branches which is likely chronic and related to intracranial atherosclerosis. 2. No evidence of hemodynamically significant stenosis in the internal carotid arteries. 3. Patent bilateral vertebral arteries. Chest X-Ray 06/07/18 16:47 IMPRESSION: Tracheostomy tube. Cardiomegaly. Faint atherosclerotic calcifications present. Mild right middle/lower lobe hazy infiltrates. Chest X-Ray 06/07/18 18:00 IMPRESSION: New atelectasis/volume loss affecting right lower lobe. Satisfactory position of recently placed left subclavian venous access catheter. Chest X-Ray 06/08/18 06:00 IMPRESSION: There is persistent atelectasis in the right lower lobe unchanged 78 yr old male with pmh sig for pharyngeal stricture secondary to throat ca s/p chemo and radiation, neck mass resection in 2000 who presented to Ed with AMS and unresponsiveness. pt was noted to be cyanotic, hypoxic and was intubated and code stroke was called in ED. pt was subsequently extubated but became diaphoretic and attempts were made to do emergent re-intubation. pt subsequently ended up with trach/ vented and is now being evaluated by cardiology and neurology as well as surgical team follow s/p cricroidectomy. cxr reveals Mild right middle/lower lobe hazy infiltrates. pt is on IV antibiotics. pt also with levophed/pressor support for hypotension. pt has video eeg ordered, brain MRI and ECHO. will continue to follow clinical course. BPCI/TIC - BPCIA/TIC Educated pt/family on BPCIA/CIR/Med to Bed Programs: N/A Flyers given, including [facility] Beneficiary letter: N/A Pt/family verbalized understanding & agreed to program: N/A
--- NOTE | 2018-06-08 13:20 | CON ---
DATE OF CONSULTATION: 06/08/2018 REQUESTING PHYSICIAN: Dr. Martinez. REASON FOR CONSULTATION: Altered mental status and elevated cardiac enzymes. HISTORY: This is a 78-year-old man with a history of laryngeal cancer, status post tracheostomy. He was brought to the emergency room after being found unresponsive at home. According to his , who was at the bedside, he was getting ready to travel to [place] for a doctor's appointment. He was found unresponsive. Clementineabdias casimiro was called. He was brought to the emergency room after brief episode of a CPR. He was placed on a ventilator and remains so. He was initially responsive, but is now arousable and follows commands. He was taken off ventilator yesterday. However, he had desaturations. He has been placed back on a ventilator. Cricothyrotomy had been performed in the emergency room. He is seen at resting in bed in the CCU. He remains sedated. According to the , he underwent surgery for laryngeal cancer in 1999. He continues to smoke. She states he has no prior cardiac history. Rest of the history is obtained from the chart. He has undergone prior chemotherapy and radiation therapy. He has also had cataract surgery. MEDICATIONS: His current medications include Diprivan, subcutaneous heparin, Maxipime, Protonix, Solu-Medrol, vancomycin. ALLERGIES: HE HAS REPORTEDLY HAD A REACTION TO ASPIRIN AND SODIUM BICARBONATE IN THE PAST. SOCIAL HISTORY: He is an active smoker. FAMILY HISTORY: His cannot recall the cause of his parents . REVIEW OF SYSTEMS: A 10-point review of systems was reportedly otherwise unremarkable. PHYSICAL EXAMINATION: GENERAL: He is a thin, chronically ill-appearing elderly man. VITAL SIGNS: His blood pressure is 104/56 with a pulse of 76 and sinus, respirations of 14. He is afebrile. HEENT: Temporal wasting is noted. NECK: He is intubated via his tracheotomy. CHEST: Few scattered rhonchi heard. HEART: PMI in normal position. Soft systolic murmur is noted in the left sternal border. ABDOMEN: Soft with a gastrostomy tube in place. EXTREMITIES: No edema. SKIN: Warm and dry. PSYCHIATRIC: Unable to assess. NEUROLOGIC: Moves all four extremities on command. DIAGNOSTIC DATA: White count 12.5, hemoglobin and hematocrit are 9.8 and 29.8 with a platelet count of 286,000. PT/PTT are 12.7 and 30.2. Arterial blood gas showed a pH of 7.35, pCO2 of 44, pO2 of 207. Potassium 4.2, BUN and creatinine are 19 and 0.6. Troponin 0.06, repeat 0.42, and followup is 0.31. Chest x-ray reveals normal cardiac silhouette with right lower lobe atelectasis. Electrocardiogram reveals sinus rhythm with LVH with repolarization abnormalities, anterolateral ischemia cannot be excluded. IMPRESSION: 1. Altered mental status, possible respiratory arrest. 2. Elevated troponins, likely secondary to cardiopulmonary resuscitation and events of yesterday, doubt acute cardiac injury. 3. History of laryngeal carcinoma. 4. Rest of problems as noted. RECOMMENDATIONS: Repeat electrocardiogram and troponin will be ordered for the morning. An echocardiogram will be obtained as well. Supportive care as advised. I will continue to follow along and make further recommendations as appropriate. Dieter eVlazco MD
[2018-06-08] MEDS: Sodium Chloride 0.9% 1,000 ML IV SCH (18:30)
--- NOTE | 2018-06-08 19:16 | CARD ---
APPROVED REPORT Date of service: 06/08/2018 EXAM: Two-dimensional and M-mode echocardiogram with Doppler and color Doppler. INDICATION Dyspnea ELEVATED TROPONIN 2D DIMENSIONS Left Atrium (2D)3.0 (1.6-4.0cm)IVSd1.0 (0.7-1.1cm) LVDd3.5 (3.9-5.9cm)PWd1.0 (0.7-1.1cm) LVDs2.5 (2.5-4.0cm)FS (%) 27.2 % LVEF (%)54.2 (>50%) M-Mode DIMENSIONS Aortic Root1.60 (2.2-3.7cm)Aortic Cusp Exc.0.60 (1.5-2.0cm) Aortic Valve AoV Peak Dldhthvx866.0cm/Za Peak GR.13mmHg Mitral Valve MV E Hniqkdka95.5cm/sMV A Jjbqgkiq54.3cm/sE/A ratio0.9 TDI E/Lateral E'0.0E/Medial E'0.0 Tricuspid Valve TR Peak [id number]/sRAP [id number] Peak Gr.26mmHg [id number] LEFT VENTRICLE The left ventricle is normal size. There is normal left ventricular wall thickness. The left ventricular function is normal. The left ventricular ejection fraction is within the normal range. There is normal LV segmental wall motion. RIGHT VENTRICLE The right ventricle is normal size. The right ventricular systolic function is normal. ATRIA The left atrium size is normal. The right atrium is mildly dilated. The interatrial septum is intact with no evidence for an atrial septal defect. AORTIC VALVE The aortic valve is normal in structure. No aortic regurgitation is present. There is no aortic valvular stenosis. MITRAL VALVE The mitral valve is normal in structure. There is no mitral valve regurgitation noted. TRICUSPID VALVE The tricuspid valve is normal in structure. There is mild tricuspid regurgitation. PULMONIC VALVE The pulmonary valve is normal in structure. GREAT VESSELS The aortic root is normal in size. The IVC is normal in size and collapses >50% with inspiration. PERICARDIAL EFFUSION There is no pleural effusion. There is no pericardial effusion. <Conclusion> Dilated RA. Normal LV size and systolic function. No wall motion abnormalities noted. Mild TR.
[2018-06-08] MEDS ORDERED: Morphine 2 mg/ml ISec IVP STA (22:21)
--- NOTE | 2018-06-09 04:38 | CP.PCM.PN ---
Subjective - Date & Time of Evaluation Date of Evaluation: 06/09/18 Time of Evaluation: 04:37 - Subjective Subjective: Co-signed Morphine 1 mg IV x 1. It was ordered for chest pain. Patient is asymptomatic now. Objective - Vital Signs/Intake and Output Vital Signs (last 24 hours): Temp Pulse Resp BP Pulse Ox 99.5 F 81 25 H 92/46 L 100 06/09/18 00:40 06/09/18 00:40 06/07/18 20:41 06/09/18 01:00 06/09/18 00:40 Intake and Output: 06/08/18 06/09/18 18:59 06:59 Intake Total 1630 Output Total 550 Balance 1080 - Medications Medications: Current Medications Atorvastatin Calcium (Lipitor) 80 mg PO DIN [facility] Last Admin: 06/08/18 18:29 Dose: 80 mg Heparin Sodium (Porcine) (Heparin) 5,000 units SC Q8 [facility]; Protocol Last Admin: 06/08/18 21:29 Dose: 5,000 units Sodium Chloride (Sodium Chloride 0.9%) 1,000 mls @ 100 mls/hr IV .Q10H [facility] Last Admin: 06/08/18 18:30 Dose: 100 mls/hr Cefepime HCl (Maxipime 1gm) 1 gm in 100 mls @ 100 mls/hr IVPB Q12 [facility]; Protocol Last Admin: 06/08/18 21:30 Dose: 100 mls/hr Vancomycin HCl (Vancomycin 1gm) 1 gm in 250 mls @ 167 mls/hr IVPB DAILY [facility]; Protocol Last Admin: 06/08/18 11:19 Dose: 167 mls/hr Methylprednisolone (Solu-Medrol) 60 mg IVP Q6 [facility] Last Admin: 06/09/18 01:00 Dose: 60 mg Metoprolol Tartrate (Lopressor) 5 mg IVP Q12H [facility] Last Admin: 06/08/18 11:20 Dose: Not Given Pantoprazole Sodium (Protonix Inj) 40 mg IVP DAILY [facility] Last Admin: 06/08/18 11:19 Dose: 40 mg - Labs Labs: 06/08/18 05:30 06/08/18 05:30 PT 12.7 SECONDS (9.4-12.5) H 06/07/18 16:28 INR 1.14 06/07/18 16:28 APTT 30.2 Seconds (26.9-38.3) 06/07/18 16:28
[2018-06-09 06:49] LABS: HEMOGLOBIN 8.5 g/dL (14.0-18.0); LYMPH # 0.6 (1.2-3.4); LYMPH % 3.9 % (22.0-35.0); MEAN CORPUSCULAR HEMOGLOBIN 31.5 pg (25.0-35.0); MEAN CORPUSCULAR HGB CONC 32.4 g/dl (31.0-37.0); MEAN PLATELET VOLUME 10.1 fl (7.0-11.0); MONO # 0.5 (0.1-0.6); MONO % 3.6 % (1.0-6.0); RBC 2.7 10^6/uL (3.5-6.1); WHITE BLOOD COUNT 14.8 10^3/uL (4.5-11.0)
--- NOTE | 2018-06-09 07:05 | CP.CCUPN ---
<Otoniel Worthington - Last Filed: 06/09/18 11:29> CCU Subjective - Physician Review Events Since Last Encounter (Free Text): 06/09/18 07:02 pt experienced chest pain and was given morphine last night, pt has been complaining to nursing about trouble hearing/ pain in the ear 06/09/18 07:08 Subjective (Free Text): 06/08/18 09:55 Pt seen and examined this morning in the ICU, Pt minimally responsive, NAD 06/09/18 07:09 pt seen and examined this morning at bedside, pt has TV speaker next to his ear to hear CCU Objective - Vital Signs / Intake & Output Intake and Output (Last 8hrs): Intake & Output 06/08/18 06/09/18 06/09/18 22:59 06:59 14:59 Intake Total 1630 Output Total 550 Balance 1080 Intake: IV 1150 Left Subclavian 1150 Tube Feeding 240 Other 240 Output: Urine 550 Urethral (Armstrong) 550 - Physical Exam Head: Positive for: Atraumatic, Normocephalic Pupils: Positive for: PERRL, Other (coloboma or right eye) Extroacular Muscles: Positive for: EOMI Ears: Positive for: Other (cerumen impaction BL). Negative for: TM Perf Mouth: Positive for: Moist Mucous Membranes Neck: Positive for: Normal Range of Motion Respiratory/Chest: Positive for: Clear to Auscultation, Good Air Exchange, Accessory Muscle Use. Negative for: Respiratory Distress Cardiovascular: Positive for: Regular Rate and Rhythm, Normal S1, S2. Negative for: Murmurs Abdomen: Positive for: Normal Bowel Sounds. Negative for: Tenderness, Distention Upper Extremity: Positive for: Normal Inspection. Negative for: Cyanosis, Edema Neurological: Positive for: CN II-XII Intact, Other (GCS 10 E3V1M6). Negative for: GCS=15 Skin: Positive for: Warm, Dry, Rashes Psychiatric: Negative for: Alert, Oriented x 3 - Medications Active Medications: Active Medications Generic Name Dose Route Start Last Admin Trade Name Freq PRN Reason Stop Dose Admin Atorvastatin Calcium 80 mg 06/08/18 17:00 06/08/18 18:29 Lipitor PO 80 mg DIN LYLY Administration Heparin Sodium (Porcine) 5,000 units 06/07/18 22:00 06/09/18 05:02 Heparin SC 5,000 units Q8 LYLY Administration Protocol Sodium Chloride 1,000 mls @ 100 mls/hr 06/07/18 14:15 06/08/18 18:30 Sodium Chloride 0.9% IV 100 mls/hr .Q10H LYLY Administration Cefepime HCl 1 gm in 100 mls @ 100 mls/hr 06/07/18 22:00 06/08/18 21:30 Maxipime 1gm IVPB 100 mls/hr Q12 LYLY Administration Protocol Vancomycin HCl 1 gm in 250 mls @ 167 mls/hr 06/07/18 18:00 06/08/18 11:19 Vancomycin 1gm IVPB 167 mls/hr DAILY LYLY Administration Protocol Methylprednisolone 60 mg 06/07/18 18:00 06/09/18 05:02 Solu-Medrol IVP 60 mg Q6 LYLY Administration Metoprolol Tartrate 5 mg 06/08/18 10:21 06/08/18 11:20 Lopressor IVP Not Given Q12H LYLY Pantoprazole Sodium 40 mg 06/08/18 10:00 06/08/18 11:19 Protonix Inj IVP 40 mg DAILY LYLY Administration - Patient Studies Lab Studies: Microbiology Studies 06/07/18 18:30 Blood Culture - Preliminary Blood NO GROWTH AFTER 24 HOURS 06/07/18 17:15 Blood Culture - Preliminary Blood NO GROWTH AFTER 24 HOURS 06/07/18 18:24 MRSA Culture (Admit) - Final Naris MRSA NOT DETECTED Lab Studies 06/09/18 06/09/18 06/08/18 Range/Units 06:13 00:09 22:04 Sodium (132-148) mmol/L Potassium (3.6-5.0) mmol/L Chloride (98-107) mmol/L Carbon Dioxide (21-33) mmol/L Anion Gap (10-20) BUN (7-21) mg/dL Creatinine (0.8-1.5) mg/dl Est GFR ( Amer) Est GFR (Non-Af Amer) POC Glucose (mg/dL) 191 H 203 H 186 H (65-110) mg/dL Random Glucose (70-110) mg/dL Calcium (8.4-10.5) mg/dL Phosphorus (2.5-4.5) mg/dL Magnesium (1.7-2.2) mg/dL Total Bilirubin (0.2-1.3) mg/dL AST (17-59) U/L ALT (7-56) U/L Alkaline Phosphatase (38-126) U/L Troponin I ng/mL Total Protein (5.8-8.3) g/dL Albumin (3.0-4.8) g/dL Globulin gm/dL Albumin/Globulin Ratio (1.1-1.8) Procalcitonin (0.19-0.49) NG/ML 06/08/18 06/08/18 06/08/18 Range/Units 16:09 11:09 07:20 Sodium (132-148) mmol/L Potassium (3.6-5.0) mmol/L Chloride (98-107) mmol/L Carbon Dioxide (21-33) mmol/L Anion Gap (10-20) BUN (7-21) mg/dL Creatinine (0.8-1.5) mg/dl Est GFR ( Amer) Est GFR (Non-Af Amer) POC Glucose (mg/dL) 169 H 155 H 155 H (65-110) mg/dL Random Glucose (70-110) mg/dL Calcium (8.4-10.5) mg/dL Phosphorus (2.5-4.5) mg/dL Magnesium (1.7-2.2) mg/dL Total Bilirubin (0.2-1.3) mg/dL AST (17-59) U/L ALT (7-56) U/L Alkaline Phosphatase (38-126) U/L Troponin I ng/mL Total Protein (5.8-8.3) g/dL Albumin (3.0-4.8) g/dL Globulin gm/dL Albumin/Globulin Ratio (1.1-1.8) Procalcitonin (0.19-0.49) NG/ML 06/08/18 06/07/18 06/07/18 Range/Units 05:30 18:32 14:19 Sodium 137 (132-148) mmol/L Potassium 4.2 (3.6-5.0) mmol/L Chloride 106 (98-107) mmol/L Carbon Dioxide 26 (21-33) mmol/L Anion Gap 10 (10-20) BUN 19 (7-21) mg/dL Creatinine 0.6 L (0.8-1.5) mg/dl Est GFR ( Amer) > 60 Est GFR (Non-Af Amer) > 60 POC Glucose (mg/dL) 401 H* (65-110) mg/dL Random Glucose 153 H (70-110) mg/dL Calcium 8.5 (8.4-10.5) mg/dL Phosphorus 3.7 (2.5-4.5) mg/dL Magnesium 2.0 (1.7-2.2) mg/dL Total Bilirubin 0.3 (0.2-1.3) mg/dL AST 65 H D (17-59) U/L ALT 49 (7-56) U/L Alkaline Phosphatase 95 (38-126) U/L Troponin I 0.31 H* D ng/mL Total Protein 6.3 (5.8-8.3) g/dL Albumin 3.0 (3.0-4.8) g/dL Globulin 3.3 gm/dL Albumin/Globulin Ratio 0.9 L (1.1-1.8) Procalcitonin 1.52 H (0.19-0.49) NG/ML Laboratory Results - last 24 hr 06/07/18 06/07/18 06/08/18 14:19 18:32 05:30 Sodium 137 Potassium 4.2 Chloride 106 Carbon Dioxide 26 Anion Gap 10 BUN 19 Creatinine 0.6 L Est GFR ( Amer) > 60 Est GFR (Non-Af Amer) > 60 POC Glucose (mg/dL) 401 H* Random Glucose 153 H Calcium 8.5 Phosphorus 3.7 Magnesium 2.0 Total Bilirubin 0.3 AST 65 H D ALT 49 Alkaline Phosphatase 95 Troponin I 0.31 H* D Total Protein 6.3 Albumin 3.0 Globulin 3.3 Albumin/Globulin Ratio 0.9 L Procalcitonin 1.52 H 06/08/18 06/08/18 06/08/18 07:20 11:09 16:09 Sodium Potassium Chloride Carbon Dioxide Anion Gap BUN Creatinine Est GFR ( Amer) Est GFR (Non-Af Amer) POC Glucose (mg/dL) 155 H 155 H 169 H Random Glucose Calcium Phosphorus Magnesium Total Bilirubin AST ALT Alkaline Phosphatase Troponin I Total Protein Albumin Globulin Albumin/Globulin Ratio Procalcitonin 06/08/18 06/09/18 06/09/18 22:04 00:09 06:13 Sodium Potassium Chloride Carbon Dioxide Anion Gap BUN Creatinine Est GFR ( Amer) Est GFR (Non-Af Amer) POC Glucose (mg/dL) 186 H 203 H 191 H Random Glucose Calcium Phosphorus Magnesium Total Bilirubin AST ALT Alkaline Phosphatase Troponin I Total Protein Albumin Globulin Albumin/Globulin Ratio Procalcitonin Radiology Impressions: Radiology Impressions Chest X-Ray 06/08/18 06:00 IMPRESSION: There is persistent atelectasis in the right lower lobe unchanged EKG/Cardiology Studies: Cardiology / EKG Studies 06/08/18 08:00 ELECTROCARDIOGRAM Routine Comment: Reason For Exam: elevated troponin Fingerstick Blood Sugar Results: 407 Critical Care Progress Note - Nutrition Nutrition: Nutrition Category Date Time Status NPO Diet [DIET] Diets 06/08/18 Breakfast Ordered Assessment/Plan - Assessment and Plan (Free Text) Assessment: Pt is a 78yo male with a PMH of BPH and esophageal cancer s/p chemo/radiation/resection who presented to the ED for AMS, who was found unresponsive by his family. Pt was intubated and a code stroke was called, pt was later extubated. Pt could not be reintubated and had a trach placed. Plan: Neuro - AMS - GCS 10 E3V1M6 - Keppra 1000mg given in ED - Solumedrol 60q6 - pt complaining of trouble hearing/ pain in ear - Video EEG, normal EGG so far - CT head: No acute intracranial findings - Head/Neck CTA: No evidence of hemodynamically significant stenosis in the inte rnal carotid arteries - Neurology consulted Cardio - ASA, lipitor - no GRISELDA given because of pt BP - trop 0.06, 0.42, 0.31 Pulm - temporary tracheostomy in place now, will try to upgrade to permanent trach if needed - Surgical team consulted for permanent trach GI - Hx of esophageal Ca - Will continue to monitor at this time Nephro/ - monitor electrolytes - monitor BUN/Cr Heme/Onc - Pt follows with Dr Bland Heme/Onc ID - cefepime - vanc Endo - maintain euglycemia Pt seen, examined, assessment and plan discussed with Dr Corina Worthington PGY1 - Date & Time Date: 06/09/18 Time: 07:15 <Julian Arriaga - Last Filed: 06/09/18 16:00> CCU Objective - Vital Signs / Intake & Output Vital Signs (Last 4 hours): Vital Signs Temp Pulse Resp BP Pulse Ox 06/09/18 15:45 98.2 F 77 35 H 125/67 92 L 06/09/18 15:40 98.2 F 73 27 H 100 06/09/18 15:36 98.2 F 78 99 06/09/18 15:30 98.2 F 75 19 124/88 100 06/09/18 15:20 98.2 F 71 52 H 100 06/09/18 15:18 98.2 F 69 95 06/09/18 15:15 98.2 F 82 29 H 131/82 85 L 06/09/18 15:12 98.2 F 77 100 06/09/18 15:10 98.2 F 80 93 H 86 L 06/09/18 15:00 98.2 F 71 36 H 123/52 L 99 06/09/18 14:58 98.2 F 77 100 06/09/18 14:50 98.4 F 72 25 H 100 06/09/18 14:45 98.4 F 78 37 H 133/74 100 06/09/18 14:40 98.4 F 83 41 H 100 06/09/18 14:30 98.6 F 76 23 136/71 100 06/09/18 14:29 98.6 F 89 99 06/09/18 14:20 98.6 F 89 31 H 96 06/09/18 14:17 98.6 F 81 100 06/09/18 14:15 98.6 F 83 129/71 99 06/09/18 14:10 98.6 F 83 100 06/09/18 14:00 128/69 06/09/18 13:59 98.6 F 75 100 06/09/18 13:50 98.6 F 83 74 L 06/09/18 13:45 98.6 F 79 126/89 97 06/09/18 13:40 98.6 F 88 100 06/09/18 13:30 98.6 F 80 140/72 80 L 06/09/18 13:20 98.6 F 75 97 06/09/18 13:15 98.6 F 87 137/81 98 06/09/18 13:12 98.6 F 82 21 100 06/09/18 13:10 98.6 F 79 90 L 06/09/18 13:00 98.6 F 77 130/67 97 04/11/19 12:50 98.6 F 87 100 06/09/18 12:45 98.6 F 84 136/61 96 06/09/18 12:40 98.6 F 82 93 L 06/09/18 12:30 98.6 F 84 130/74 98 06/09/18 12:20 98.8 F 85 98 06/09/18 12:15 98.8 F 91 H 94 L Intake and Output (Last 8hrs): Intake & Output 06/09/18 06/09/18 06/09/18 06:59 14:59 22:59 Intake Total 1900 Output Total 600 Balance 1300 Weight 106 lb Intake: IV 1300 IVF 0.9 1200 antibiotics 100 Tube Feeding 600 Output: Urine 600 Urethral (Armstrong) 600 - Medications Active Medications: Active Medications Generic Name Dose Route Start Last Admin Trade Name Freq PRN Reason Stop Dose Admin Acetaminophen 650 mg 06/09/18 10:52 06/09/18 13:38 Tylenol 325mg Tab PO 650 mg Q6H PRN Administration Pain, moderate (4-7) Atorvastatin Calcium 80 mg 06/08/18 17:00 06/08/18 18:29 Lipitor PO 80 mg DIN LYLY Administration Clopidogrel Bisulfate 75 mg 06/09/18 13:15 06/09/18 13:38 Plavix PO 75 mg DAILY LYLY Administration Heparin Sodium (Porcine) 5,000 units 06/07/18 22:00 06/09/18 13:38 Heparin SC 5,000 units Q8 LYLY Administration Protocol Sodium Chloride 1,000 mls @ 100 mls/hr 06/07/18 14:15 06/08/18 18:30 Sodium Chloride 0.9% IV 100 mls/hr .Q10H LYLY Administration Cefepime HCl 1 gm in 100 mls @ 100 mls/hr 06/07/18 22:00 06/09/18 10:28 Maxipime 1gm IVPB 100 mls/hr Q12 LYLY Administration Protocol Vancomycin HCl 1 gm in 250 mls @ 167 mls/hr 06/07/18 18:00 06/09/18 10:28 Vancomycin 1gm IVPB 167 mls/hr DAILY LYLY Administration Protocol Insulin Human Regular 0 units 06/09/18 12:00 06/09/18 13:10 Humulin R Low SC 2 u Q6 LYLY Administration Protocol Methylprednisolone 60 mg 06/09/18 14:00 06/09/18 13:37 Solu-Medrol IVP 60 mg Q8 LYLY Administration Metoprolol Tartrate 5 mg 06/08/18 10:21 06/08/18 11:20 Lopressor IVP Not Given Q12H [facility] Pantoprazole Sodium 40 mg 06/08/18 10:00 06/09/18 10:28 Protonix Inj IVP 40 mg DAILY LYLY Administration - Patient Studies Lab Studies: Microbiology Studies 06/07/18 18:30 Blood Culture - Preliminary Blood NO GROWTH AFTER 24 HOURS 06/07/18 17:15 Blood Culture - Preliminary Blood NO GROWTH AFTER 24 HOURS 06/07/18 18:24 MRSA Culture (Admit) - Final Naris MRSA NOT DETECTED Lab Studies 06/09/18 06/09/18 06/09/18 Range/Units 07:40 07:16 06:13 WBC (4.5-11.0) 10^3/uL RBC (3.5-6.1) 10^6/uL Hgb (14.0-18.0) g/dL Hct (42.0-52.0) % MCV (80.0-105.0) fl MCH (25.0-35.0) pg MCHC (31.0-37.0) g/dl RDW (11.5-14.5) % Plt Count (120.0-450.0) 10^3/uL MPV (7.0-11.0) fl Neut % (Auto) (50.0-68.0) % Lymph % (Auto) (22.0-35.0) % [place] % (Auto) (1.0-6.0) % Eos % (Auto) (1.5-5.0) % Baso % (Auto) (0.0-3.0) % Lymph # (Auto) (1.2-3.4) [place] # (Auto) (0.1-0.6) Eos # (Auto) (0.0-0.7) Baso # (Auto) (0.0-2.0) K/mm3 Absolute Neuts (auto) (1.4-6.5) pCO2 38 (35-45) mm/Hg pO2 181.0 H (80-100) mm/Hg HCO3 25.2 (21-28) mmol/L ABG pH 7.43 (7.35-7.45) ABG Total CO2 26.4 (22-28) mmol.L ABG O2 Saturation 99.7 H (95-98) % ABG O2 Content 11.9 L (15-23) ML/dl ABG Base Excess 0.9 (-2.0-3.0) mmol/L ABG Hemoglobin 8.4 L (11.7-17.4) g/dL ABG Carboxyhemoglobin 1.4 (0.5-1.5) % POC ABG HHb (Measured) 0.3 (0-5) % ABG Methemoglobin 1.6 (0.0-3.0) % ABG O2 Capacity 11.9 L (16-24) mL/dl Hgb O2 Saturation 96.7 (95.0-98.0) % FiO2 50.0 % Sodium (132-148) mmol/L Potassium (3.6-5.0) mmol/L Chloride (98-107) mmol/L Carbon Dioxide (21-33) mmol/L Anion Gap (10-20) BUN (7-21) mg/dL Creatinine (0.8-1.5) mg/dl Est GFR ( Amer) Est GFR (Non-Af Amer) POC Glucose (mg/dL) 193 H 191 H (65-110) mg/dL Random Glucose (70-110) mg/dL Calcium (8.4-10.5) mg/dL Total Bilirubin (0.2-1.3) mg/dL AST (17-59) U/L ALT (7-56) U/L Alkaline Phosphatase (38-126) U/L Lactate Dehydrogenase (333-699) U/L Total Creatine Kinase (35-230) U/L Troponin I ng/mL Total Protein (5.8-8.3) g/dL Albumin (3.0-4.8) g/dL Globulin gm/dL Albumin/Globulin Ratio (1.1-1.8) 06/09/18 06/09/18 06/09/18 Range/Units 05:30 05:30 05:30 WBC 14.8 H (4.5-11.0) 10^3/uL RBC 2.70 L (3.5-6.1) 10^6/uL Hgb 8.5 L (14.0-18.0) g/dL Hct 26.2 L (42.0-52.0) % MCV 97.0 (80.0-105.0) fl MCH 31.5 (25.0-35.0) pg MCHC 32.4 (31.0-37.0) g/dl RDW 15.0 H (11.5-14.5) % Plt Count 339 (120.0-450.0) 10^3/uL MPV 10.1 (7.0-11.0) fl Neut % (Auto) 92.5 H (50.0-68.0) % Lymph % (Auto) 3.9 L (22.0-35.0) % [place] % (Auto) 3.6 (1.0-6.0) % Eos % (Auto) 0.0 L (1.5-5.0) % Baso % (Auto) 0.0 (0.0-3.0) % Lymph # (Auto) 0.6 L (1.2-3.4) [place] # (Auto) 0.5 (0.1-0.6) Eos # (Auto) 0.0 (0.0-0.7) Baso # (Auto) 0.00 (0.0-2.0) K/mm3 Absolute Neuts (auto) 13.64 H (1.4-6.5) pCO2 (35-45) mm/Hg pO2 (80-100) mm/Hg HCO3 (21-28) mmol/L ABG pH (7.35-7.45) ABG Total CO2 (22-28) mmol.L ABG O2 Saturation (95-98) % ABG O2 Content (15-23) ML/dl ABG Base Excess (-2.0-3.0) mmol/L ABG Hemoglobin (11.7-17.4) g/dL ABG Carboxyhemoglobin (0.5-1.5) % POC ABG HHb (Measured) (0-5) % ABG Methemoglobin (0.0-3.0) % ABG O2 Capacity (16-24) mL/dl Hgb O2 Saturation (95.0-98.0) % FiO2 % Sodium 138 (132-148) mmol/L Potassium 4.1 (3.6-5.0) mmol/L Chloride 107 (98-107) mmol/L Carbon Dioxide 29 (21-33) mmol/L Anion Gap 6 L (10-20) BUN 28 H (7-21) mg/dL Creatinine 0.5 L (0.8-1.5) mg/dl Est GFR ( Amer) > 60 Est GFR (Non-Af Amer) > 60 POC Glucose (mg/dL) (65-110) mg/dL Random Glucose 169 H (70-110) mg/dL Calcium 8.3 L (8.4-10.5) mg/dL Total Bilirubin < 0.1 L (0.2-1.3) mg/dL AST 46 (17-59) U/L ALT 41 (7-56) U/L Alkaline Phosphatase 78 (38-126) U/L Lactate Dehydrogenase 508 (333-699) U/L Total Creatine Kinase 102 (35-230) U/L Troponin I 0.07 D ng/mL Total Protein 5.6 L (5.8-8.3) g/dL Albumin 2.6 L (3.0-4.8) g/dL Globulin 3.0 gm/dL Albumin/Globulin Ratio 0.9 L (1.1-1.8) 06/09/18 06/08/18 06/08/18 Range/Units 00:09 22:04 16:09 WBC (4.5-11.0) 10^3/uL RBC (3.5-6.1) 10^6/uL Hgb (14.0-18.0) g/dL Hct (42.0-52.0) % MCV (80.0-105.0) fl MCH (25.0-35.0) pg MCHC (31.0-37.0) g/dl RDW (11.5-14.5) % Plt Count (120.0-450.0) 10^3/uL MPV (7.0-11.0) fl Neut % (Auto) (50.0-68.0) % Lymph % (Auto) (22.0-35.0) % [place] % (Auto) (1.0-6.0) % Eos % (Auto) (1.5-5.0) % Baso % (Auto) (0.0-3.0) % Lymph # (Auto) (1.2-3.4) [place] # (Auto) (0.1-0.6) Eos # (Auto) (0.0-0.7) Baso # (Auto) (0.0-2.0) K/mm3 Absolute Neuts (auto) (1.4-6.5) pCO2 (35-45) mm/Hg pO2 (80-100) mm/Hg HCO3 (21-28) mmol/L ABG pH (7.35-7.45) ABG Total CO2 (22-28) mmol.L ABG O2 Saturation (95-98) % ABG O2 Content (15-23) ML/dl ABG Base Excess (-2.0-3.0) mmol/L ABG Hemoglobin (11.7-17.4) g/dL ABG Carboxyhemoglobin (0.5-1.5) % POC ABG HHb (Measured) (0-5) % ABG Methemoglobin (0.0-3.0) % ABG O2 Capacity (16-24) mL/dl Hgb O2 Saturation (95.0-98.0) % FiO2 % Sodium (132-148) mmol/L Potassium (3.6-5.0) mmol/L Chloride (98-107) mmol/L Carbon Dioxide (21-33) mmol/L Anion Gap (10-20) BUN (7-21) mg/dL Creatinine (0.8-1.5) mg/dl Est GFR ( Amer) Est GFR (Non-Af Amer) POC Glucose (mg/dL) 203 H 186 H 169 H (65-110) mg/dL Random Glucose (70-110) mg/dL Calcium (8.4-10.5) mg/dL Total Bilirubin (0.2-1.3) mg/dL AST (17-59) U/L ALT (7-56) U/L Alkaline Phosphatase (38-126) U/L Lactate Dehydrogenase (333-699) U/L Total Creatine Kinase (35-230) U/L Troponin I ng/mL Total Protein (5.8-8.3) g/dL Albumin (3.0-4.8) g/dL Globulin gm/dL Albumin/Globulin Ratio (1.1-1.8) 06/08/18 Range/Units 11:09 WBC (4.5-11.0) 10^3/uL RBC (3.5-6.1) 10^6/uL Hgb (14.0-18.0) g/dL Hct (42.0-52.0) % MCV (80.0-105.0) fl MCH (25.0-35.0) pg MCHC (31.0-37.0) g/dl RDW (11.5-14.5) % Plt Count (120.0-450.0) 10^3/uL MPV (7.0-11.0) fl Neut % (Auto) (50.0-68.0) % Lymph % (Auto) (22.0-35.0) % [place] % (Auto) (1.0-6.0) % Eos % (Auto) (1.5-5.0) % Baso % (Auto) (0.0-3.0) % Lymph # (Auto) (1.2-3.4) [place] # (Auto) (0.1-0.6) Eos # (Auto) (0.0-0.7) Baso # (Auto) (0.0-2.0) K/mm3 Absolute Neuts (auto) (1.4-6.5) pCO2 (35-45) mm/Hg pO2 (80-100) mm/Hg HCO3 (21-28) mmol/L ABG pH (7.35-7.45) ABG Total CO2 (22-28) mmol.L ABG O2 Saturation (95-98) % ABG O2 Content (15-23) ML/dl ABG Base Excess (-2.0-3.0) mmol/L ABG Hemoglobin (11.7-17.4) g/dL ABG Carboxyhemoglobin (0.5-1.5) % POC ABG HHb (Measured) (0-5) % ABG Methemoglobin (0.0-3.0) % ABG O2 Capacity (16-24) mL/dl Hgb O2 Saturation (95.0-98.0) % FiO2 % Sodium (132-148) mmol/L Potassium (3.6-5.0) mmol/L Chloride (98-107) mmol/L Carbon Dioxide (21-33) mmol/L Anion Gap (10-20) BUN (7-21) mg/dL Creatinine (0.8-1.5) mg/dl Est GFR ( Amer) Est GFR (Non-Af Amer) POC Glucose (mg/dL) 155 H (65-110) mg/dL Random Glucose (70-110) mg/dL Calcium (8.4-10.5) mg/dL Total Bilirubin (0.2-1.3) mg/dL AST (17-59) U/L ALT (7-56) U/L Alkaline Phosphatase (38-126) U/L Lactate Dehydrogenase (333-699) U/L Total Creatine Kinase (35-230) U/L Troponin I ng/mL Total Protein (5.8-8.3) g/dL Albumin (3.0-4.8) g/dL Globulin gm/dL Albumin/Globulin Ratio (1.1-1.8) Laboratory Results - last 24 hr 06/08/18 06/08/18 06/08/18 11:09 16:09 22:04 WBC RBC Hgb Hct MCV MCH MCHC RDW Plt Count MPV Neut % (Auto) Lymph % (Auto) [place] % (Auto) Eos % (Auto) Baso % (Auto) Lymph # (Auto) [place] # (Auto) Eos # (Auto) Baso # (Auto) Absolute Neuts (auto) pCO2 pO2 HCO3 ABG pH ABG Total CO2 ABG O2 Saturation ABG O2 Content ABG Base Excess ABG Hemoglobin ABG Carboxyhemoglobin POC ABG HHb (Measured) ABG Methemoglobin ABG O2 Capacity Hgb O2 Saturation FiO2 Sodium Potassium Chloride Carbon Dioxide Anion Gap BUN Creatinine Est GFR ( Amer) Est GFR (Non-Af Amer) POC Glucose (mg/dL) 155 H 169 H 186 H Random Glucose Calcium Total Bilirubin AST ALT Alkaline Phosphatase Lactate Dehydrogenase Total Creatine Kinase Troponin I Total Protein Albumin Globulin Albumin/Globulin Ratio 06/09/18 06/09/18 06/09/18 00:09 05:30 05:30 WBC 14.8 H RBC 2.70 L Hgb 8.5 L Hct 26.2 L MCV 97.0 MCH 31.5 MCHC 32.4 RDW 15.0 H Plt Count 339 MPV 10.1 Neut % (Auto) 92.5 H Lymph % (Auto) 3.9 L [place] % (Auto) 3.6 Eos % (Auto) 0.0 L Baso % (Auto) 0.0 Lymph # (Auto) 0.6 L [place] # (Auto) 0.5 Eos # (Auto) 0.0 Baso # (Auto) 0.00 Absolute Neuts (auto) 13.64 H pCO2 pO2 HCO3 ABG pH ABG Total CO2 ABG O2 Saturation ABG O2 Content ABG Base Excess ABG Hemoglobin ABG Carboxyhemoglobin POC ABG HHb (Measured) ABG Methemoglobin ABG O2 Capacity Hgb O2 Saturation FiO2 Sodium 138 Potassium 4.1 Chloride 107 Carbon Dioxide 29 Anion Gap 6 L BUN 28 H Creatinine 0.5 L Est GFR ( Amer) > 60 Est GFR (Non-Af Amer) > 60 POC Glucose (mg/dL) 203 H Random Glucose 169 H Calcium 8.3 L Total Bilirubin < 0.1 L AST 46 ALT 41 Alkaline Phosphatase 78 Lactate Dehydrogenase Total Creatine Kinase Troponin I Total Protein 5.6 L Albumin 2.6 L Globulin 3.0 Albumin/Globulin Ratio 0.9 L 06/09/18 06/09/18 06/09/18 05:30 06:13 07:16 WBC RBC Hgb Hct MCV MCH MCHC RDW Plt Count MPV Neut % (Auto) Lymph % (Auto) [place] % (Auto) Eos % (Auto) Baso % (Auto) Lymph # (Auto) [place] # (Auto) Eos # (Auto) Baso # (Auto) Absolute Neuts (auto) pCO2 pO2 HCO3 ABG pH ABG Total CO2 ABG O2 Saturation ABG O2 Content ABG Base Excess ABG Hemoglobin ABG Carboxyhemoglobin POC ABG HHb (Measured) ABG Methemoglobin ABG O2 Capacity Hgb O2 Saturation FiO2 Sodium Potassium Chloride Carbon Dioxide Anion Gap BUN Creatinine Est GFR ( Amer) Est GFR (Non-Af Amer) POC Glucose (mg/dL) 191 H 193 H Random Glucose Calcium Total Bilirubin AST ALT Alkaline Phosphatase Lactate Dehydrogenase 508 Total Creatine Kinase 102 Troponin I 0.07 D Total Protein Albumin Globulin Albumin/Globulin Ratio 06/09/18 07:40 WBC RBC Hgb Hct MCV MCH MCHC RDW Plt Count MPV Neut % (Auto) Lymph % (Auto) [place] % (Auto) Eos % (Auto) Baso % (Auto) Lymph # (Auto) [place] # (Auto) Eos # (Auto) Baso # (Auto) Absolute Neuts (auto) pCO2 38 pO2 181.0 H HCO3 25.2 ABG pH 7.43 ABG Total CO2 26.4 ABG O2 Saturation 99.7 H ABG O2 Content 11.9 L ABG Base Excess 0.9 ABG Hemoglobin 8.4 L ABG Carboxyhemoglobin 1.4 POC ABG HHb (Measured) 0.3 ABG Methemoglobin 1.6 ABG O2 Capacity 11.9 L Hgb O2 Saturation 96.7 FiO2 50.0 Sodium Potassium Chloride Carbon Dioxide Anion Gap BUN Creatinine Est GFR ( Amer) Est GFR (Non-Af Amer) POC Glucose (mg/dL) Random Glucose Calcium Total Bilirubin AST ALT Alkaline Phosphatase Lactate Dehydrogenase Total Creatine Kinase Troponin I Total Protein Albumin Globulin Albumin/Globulin Ratio Radiology Impressions: Radiology Impressions Brain MRI 06/09/18 11:42 IMPRESSION: There is a single small area of restricted diffusion in the left parietal lobe cortex measuring 3 mm in diameter. This is consistent with an acute infarct. This is probably too small to be related to the patient's symptoms. Critical Care Progress Note - Nutrition Nutrition: Nutrition Category Date Time Status NPO Diet [DIET] Diets 06/08/18 Breakfast Ordered Attending/Attestation - Attestation I have personally seen and examined this patient.: Yes I have fully participated in the care of the patient.: Yes I have reviewed all pertinent clinical information: Yes Notes (Text): 06/09/18 16:[address] Arriaga note
[2018-06-09 07:34] LABS: ALB/GLOB RATIO 0.9 (1.1-1.8); ALBUMIN 2.6 g/dL (3.0-4.8); ALT/SGPT 41 U/L (7-56); AST/SGOT 46 U/L (17-59); BLOOD UREA NITROGEN 28 mg/dL (7-21); CALCIUM 8.3 mg/dL (8.4-10.5); GFR NON-AFRICAN AMERICAN > 60
[2018-06-09 07:51] LABS: ARTERIAL BLOOD GAS HCO3 25.2 mmol/L (21-28); ARTERIAL BLOOD GAS HEMOGLOBIN 8.4 g/dL (11.7-17.4); ARTERIAL BLOOD GAS O2 CAPACITY 11.9 mL/dl (16-24); ARTERIAL BLOOD GAS O2 CONTENT 11.9 ML/dl (15-23); ARTERIAL BLOOD GAS O2 SAT 99.7 % (95-98); ARTERIAL BLOOD GAS PCO2 38 mm/Hg (35-45); ARTERIAL BLOOD GAS PH 7.43 (7.35-7.45); ARTERIAL BLOOD GAS TCO2 26.4 mmol.L (22-28)
--- NOTE | 2018-06-09 09:45 | CP.PCM.PN ---
<Elvira Hawley - Last Filed: 06/09/18 14:21> Subjective - Date & Time of Evaluation Date of Evaluation: 06/09/18 Time of Evaluation: 07:00 - Subjective Subjective: Medicine progress note for hospitalist Patient seen and examined at bedside in the ICU. Patient is responsive and in no acute distress. Overnight patient complained of chest pain. Patient is no longer on pressors or sedatives. Patient report chest pain but denies pain any other location. ROS limited due to clinical condition. Objective - Vital Signs/Intake and Output Vital Signs (last 24 hours): Temp Pulse Resp BP Pulse Ox 98.8 F 70 25 H 132/59 L 100 06/09/18 07:00 06/09/18 07:00 06/07/18 20:41 06/09/18 07:00 06/09/18 07:00 Intake and Output: 06/09/18 06/09/18 06:59 18:59 Intake Total 1900 Output Total 600 Balance 1300 - Medications Medications: Current Medications Atorvastatin Calcium (Lipitor) 80 mg PO DIN [facility] Last Admin: 06/08/18 18:29 Dose: 80 mg Heparin Sodium (Porcine) (Heparin) 5,000 units SC Q8 [facility]; Protocol Last Admin: 06/09/18 05:02 Dose: 5,000 units Sodium Chloride (Sodium Chloride 0.9%) 1,000 mls @ 100 mls/hr IV .Q10H [facility] Last Admin: 06/08/18 18:30 Dose: 100 mls/hr Cefepime HCl (Maxipime 1gm) 1 gm in 100 mls @ 100 mls/hr IVPB Q12 [facility]; Protocol Last Admin: 06/08/18 21:30 Dose: 100 mls/hr Vancomycin HCl (Vancomycin 1gm) 1 gm in 250 mls @ 167 mls/hr IVPB DAILY [facility]; Protocol Last Admin: 06/08/18 11:19 Dose: 167 mls/hr Insulin Human Regular (Humulin R Low) 0 units SC Q6 [facility]; Protocol Methylprednisolone (Solu-Medrol) 60 mg IVP Q8 [facility] Metoprolol Tartrate (Lopressor) 5 mg IVP Q12H [facility] Last Admin: 06/08/18 11:20 Dose: Not Given Pantoprazole Sodium (Protonix Inj) 40 mg IVP DAILY [facility] Last Admin: 06/08/18 11:19 Dose: 40 mg - Labs Labs: 06/09/18 05:30 06/09/18 05:30 PT 12.7 SECONDS (9.4-12.5) H 06/07/18 16:28 INR 1.14 06/07/18 16:28 APTT 30.2 Seconds (26.9-38.3) 06/07/18 16:28 - Additional Findings Additional findings: - Constitutional Appears: no acute distress, Chronically Ill - Head Exam Head Exam: ATRAUMATIC, NORMAL INSPECTION, NORMOCEPHALIC - Eye Exam Eye Exam: Irregularly shaped pupil in right eye. EOMI, PERRL - Neck Exam Neck Exam: 6-Fr fenestrated tracheostomy cannula s/pcricothyroidectomy, site is clean and non bleeding - Respiratory Exam Respiratory Exam: on vent, Clear to auscultation bilaterally absent: Accessory Muscle Use, Decreased Breath Sounds, Rales, Rhonchi, Respiratory Distress, Stridor - Cardiovascular Exam Cardiovascular Exam: +S1, +S2. absent: Gallop, Rubs - GI/Abdominal Exam GI & Abdominal Exam: Normal Bowel Sounds, Soft. absent: Distended, Firm G tube in place, no draining/bleeding noted around tube - Extremities Exam Extremities exam: Negative for: pedal edema - Neurological Exam Neurological exam: Responsive to questions, following commends - Skin Skin Exam: Dry, Normal Color Assessment and Plan - Assessment and Plan (Free Text) Assessment: 78 year old male with a past medical history of BPH and esophageal cancer s/p chemo/radiation/resection who presented to the ED for AMS and unresponsive by his family. Patient is admitted to the ICU for acute respiratory failure. Plan: Altered mental status - Rule out seizure vs stroke vs infectious etiology - CT head (06/07): No acute intracranial findings - Head/Neck CTA (06/07): No evidence of hemodynamically significant stenosis in the internal carotid arteries - CXR (06/08): New atelectasis/volume loss in RLL - Normal Video EEG - Brain MRI: showed a single small areas of restricted diffusion in left parietal lobe cortex consistent with acute infarct bit probably not related to patient's symptoms. - Procalcitonin: 1.52 - patient is on cefepome and Vancomycin (Started on 06/07) - NS @ 100 mls/hr - Solumedrol was decreased to 60mg Q8 - Neurology consulted, Dr. Toth Hypercapneic, hypoxic respiratory failure - Patient with temporary tracheostomy on vent - ICU team is weaning patient off vent - tapering steroids - continue broncodilators - Surgery consulted, Dr. Martinez - consider possible permanent tracheostomy placement Elevated troponins and chest pain - most likely secondary to CPR - initial Troponin: 0.06, 0.42, 0.31 - repat this morning was 0.07 - EKG: NSR @ 84 bpm, no ST changes - Echo: pending - Cardiology consulted, Dr. Velazco does not recommend any further cardiac work up - Continue to monitor Leukocytosis - Likely 2/2 to steroids, r/o infection - CXR showed RLL atelectasis/infiltrate possibel aspiration - Procalcitonin elevated 1.52 - blood cultures negative after 24 hours - Cefepime 1g IV Q12 (Started on 06/07) - Vancomycin 1g IV QD (Started on 06/07) Failure to thrive- chronic - Patient has a Gastrostomy tube - Continue tube feedings, Pivot 1.5 - continue to monitor Normocytic anemia - Likely 2/2 hemodilution - Continue to monitor Prophylaxis - Heparin 5000u SC Q8 - Protonix 40mg IVP QD Patient seen and case discussed with attending, Dr. Mayo. <Chao Mayo - Last Filed: 06/09/18 14:30> Objective - Vital Signs/Intake and Output Vital Signs (last 24 hours): Temp Pulse Resp BP Pulse Ox 98.8 F 70 25 H 132/59 L 100 06/09/18 07:00 06/09/18 07:00 06/07/18 20:41 06/09/18 07:00 06/09/18 07:00 Intake and Output: 06/09/18 06/09/18 06:59 18:59 Intake Total 1900 Output Total 600 Balance 1300 - Medications Medications: Current Medications Acetaminophen (Tylenol 325mg Tab) 650 mg PO Q6H PRN PRN Reason: Pain, moderate (4-7) Last Admin: 06/09/18 13:38 Dose: 650 mg Atorvastatin Calcium (Lipitor) 80 mg PO DIN [facility] Last Admin: 06/08/18 18:29 Dose: 80 mg Clopidogrel Bisulfate (Plavix) 75 mg PO DAILY [facility] Last Admin: 06/09/18 13:38 Dose: 75 mg Heparin Sodium (Porcine) (Heparin) 5,000 units SC Q8 [facility]; Protocol Last Admin: 06/09/18 13:38 Dose: 5,000 units Sodium Chloride (Sodium Chloride 0.9%) 1,000 mls @ 100 mls/hr IV .Q10H [facility] Last Admin: 06/08/18 18:30 Dose: 100 mls/hr Cefepime HCl (Maxipime 1gm) 1 gm in 100 mls @ 100 mls/hr IVPB Q12 [facility]; Protocol Last Admin: 06/09/18 10:28 Dose: 100 mls/hr Vancomycin HCl (Vancomycin 1gm) 1 gm in 250 mls @ 167 mls/hr IVPB DAILY [facility]; Protocol Last Admin: 06/09/18 10:28 Dose: 167 mls/hr Insulin Human Regular (Humulin R Low) 0 units SC Q6 [facility]; Protocol Last Admin: 06/09/18 13:10 Dose: 2 u Methylprednisolone (Solu-Medrol) 60 mg IVP Q8 [facility] Last Admin: 06/09/18 13:37 Dose: 60 mg Metoprolol Tartrate (Lopressor) 5 mg IVP Q12H [facility] Last Admin: 06/08/18 11:20 Dose: Not Given Pantoprazole Sodium (Protonix Inj) 40 mg IVP DAILY [facility] Last Admin: 06/09/18 10:28 Dose: 40 mg - Labs Labs: 06/09/18 05:30 06/09/18 05:30 PT 12.7 SECONDS (9.4-12.5) H 06/07/18 16:28 INR 1.14 06/07/18 16:28 APTT 30.2 Seconds (26.9-38.3) 06/07/18 16:28 Attending/Attestation - Attestation I have personally seen and examined this patient.: Yes I have fully participated in the care of the patient.: Yes I have reviewed all pertinent clinical information, including history, physical exam and plan: Yes Notes (Text): 06/09/18 14:24 78 year old male with past medical history of esophageal cancer s/p chemo, s/p radiation, s/p resection who presented after being found unresponsive at home by his family. He was intubated for acute respiratory distress. Initial ABG showed hypercapnic respiratory failure. He had emergent cricothyroidotomy done in ER. Surgery is following for possible trachestomy placement. Continue with vent management as per graphics manager. Continue with tapering iv steroids and antibiotics. CXR showed RLL atelectasis/infiltrate. CT head was negative for acute findings. CTA head/neck reviewed as above. MRI brain today showed single small areas of restrictive diffusion in the left parietal lobe cortex consistent with acute infarct. Patient is on plavix and statin (not as aspirin secondary to allergy). EEG was negative. Neurology is following. Cardiology is following for elevated troponins which is trending down. Echocardiogram was reviewed. Cardiology recommended medical management. Patient is currenly on plavix and statin as above as well as metoprolol. Chao Mayo MD Hospitalist.
--- NOTE | 2018-06-09 10:13 | CP.PCM.PN ---
<Hadley Pereyra - Last Filed: 06/09/18 15:32> Subjective - Date & Time of Evaluation Date of Evaluation: 06/09/18 Time of Evaluation: 07:30 - Subjective Subjective: Hadley Pereyra DO, PGY-2: Neurology Progress Note for Dr. Rust Patient was seen and examined at bedside. Patient is resting comfortably, watching TV, and offers no complaints. Case was discussed with ICU team. No adverse events noted overnight. Objective - Vital Signs/Intake and Output Vital Signs (last 24 hours): Temp Pulse Resp BP Pulse Ox 98.8 F 70 25 H 132/59 L 100 06/09/18 07:00 06/09/18 07:00 06/07/18 20:41 06/09/18 07:00 06/09/18 07:00 Intake and Output: 06/09/18 06/09/18 06:59 18:59 Intake Total 1900 Output Total 600 Balance 1300 - Medications Medications: Current Medications Atorvastatin Calcium (Lipitor) 80 mg PO DIN [facility] Last Admin: 06/08/18 18:29 Dose: 80 mg Heparin Sodium (Porcine) (Heparin) 5,000 units SC Q8 [facility]; Protocol Last Admin: 06/09/18 05:02 Dose: 5,000 units Sodium Chloride (Sodium Chloride 0.9%) 1,000 mls @ 100 mls/hr IV .Q10H [facility] Last Admin: 06/08/18 18:30 Dose: 100 mls/hr Cefepime HCl (Maxipime 1gm) 1 gm in 100 mls @ 100 mls/hr IVPB Q12 [facility]; Protocol Last Admin: 06/08/18 21:30 Dose: 100 mls/hr Vancomycin HCl (Vancomycin 1gm) 1 gm in 250 mls @ 167 mls/hr IVPB DAILY [facility]; Protocol Last Admin: 06/08/18 11:19 Dose: 167 mls/hr Insulin Human Regular (Humulin R Low) 0 units SC Q6 [facility]; Protocol Methylprednisolone (Solu-Medrol) 60 mg IVP Q8 [facility] Metoprolol Tartrate (Lopressor) 5 mg IVP Q12H [facility] Last Admin: 06/08/18 11:20 Dose: Not Given Pantoprazole Sodium (Protonix Inj) 40 mg IVP DAILY [facility] Last Admin: 06/08/18 11:19 Dose: 40 mg - Labs Labs: 06/09/18 05:30 06/09/18 05:30 PT 12.7 SECONDS (9.4-12.5) H 06/07/18 16:28 INR 1.14 06/07/18 16:28 APTT 30.2 Seconds (26.9-38.3) 06/07/18 16:28 - Constitutional Appears: Well, Non-toxic - Head Exam Head Exam: ATRAUMATIC, NORMOCEPHALIC - Eye Exam Eye Exam: EOMI, Normal appearance Pupil Exam: NORMAL ACCOMODATION - ENT Exam ENT Exam: Mucous Membranes Moist, Normal Oropharynx - Neck Exam Neck Exam: Normal Inspection - Respiratory Exam Respiratory Exam: NORMAL BREATHING PATTERN. absent: Accessory Muscle Use - Cardiovascular Exam Cardiovascular Exam: RRR, +S1, +S2 - GI/Abdominal Exam GI & Abdominal Exam: Soft, Normal Bowel Sounds - Extremities Exam Extremities Exam: Normal Inspection. absent: Calf Tenderness - Neurological Exam Neurological Exam: Alert, Awake, CN II-XII Intact, Oriented x3 Neuro motor strength exam: Left Upper Extremity: 5, Right Upper Extremity: 5, Left Lower Extremity: 5, Right Lower Extremity: 5 - Psychiatric Exam Psychiatric exam: Normal Affect, Normal Mood - Skin Skin Exam: Dry, Intact, Normal Color, Warm Assessment and Plan - Assessment and Plan (Free Text) Assessment: 78 year old male with a past medical history of esophageal cancer who presented with altered mental status with hypercapnic/hypoxemic respiratory failure. A code stroke was called intially in the ED; however, the patient was not a candidate for tPA given the unknown onset of his symptoms. His CT of the head and CTA show no evidence of stroke. We will follow up his MRI. 1) Encephalopathy with small infarct - CT head and CTA negative; video EEG negative for seizure - the patient altered mental status was likely secondary to his hypercapnic, hypoxemic respiratory failure, and not a stroke; we will follow up with his MRI - MRI of the brain shows there is a single small area of restricted diffusion in the left parietal lobe cortex measuring 3 mm in diameter. This is consistent with an acute infarct. (This is probably too small to be related to the patient's symptoms) - Plavix 75 mg daily given the patient is allergic to aspirin Case was reviewed and discussed with attending physician, Dr. Rust <Meenu Rust - Last Filed: 06/11/18 18:41> Subjective - Subjective Subjective: All medical record entries made by the Resident were at my direction and personally dictated by me. I have reviewed the chart and agree that the record accurately reflects my personal performance of the history, physical exam, medical decision making, and the department course for this patient. I have also personally directed, reviewed, and agree with the discharge instructions and disposition. MR Lopez is now having no new neurological symptoms and is undergoing stroke workup. DR. rust Neurology Objective - Vital Signs/Intake and Output Vital Signs (last 24 hours): Temp Pulse Resp BP Pulse Ox 98.4 F 73 20 139/76 95 06/11/18 17:58 06/11/18 17:58 06/11/18 17:58 06/11/18 17:58 06/11/18 06:00 Intake and Output: 06/11/18 06/11/18 06:59 18:59 Intake Total 500 Output Total 900 Balance -900 500 - Medications Medications: Current Medications Acetaminophen (Tylenol 325mg Tab) 650 mg PO Q6H PRN PRN Reason: Pain, moderate (4-7) Last Admin: 06/09/18 13:38 Dose: 650 mg Atorvastatin Calcium (Lipitor) 40 mg PO DIN [facility] Last Admin: 06/11/18 17:55 Dose: 40 mg Clopidogrel Bisulfate (Plavix) 75 mg PO DAILY [facility] Last Admin: 06/11/18 10:07 Dose: 75 mg Heparin Sodium (Porcine) (Heparin) 5,000 units SC Q8 [facility]; Protocol Last Admin: 06/11/18 13:03 Dose: 5,000 units Cefepime HCl (Maxipime 1gm) 1 gm in 100 mls @ 100 mls/hr IVPB Q12 [facility]; Protocol Last Admin: 06/11/18 10:02 Dose: 100 mls/hr Vancomycin HCl (Vancomycin 1gm) 1 gm in 250 mls @ 167 mls/hr IVPB DAILY [facility]; Protocol Last Admin: 06/11/18 12:21 Dose: 167 mls/hr Insulin Human Regular (Humulin R Low) 0 units SC Q6 [facility]; Protocol Last Admin: 06/11/18 17:55 Dose: 2 u Methylprednisolone (Solu-Medrol) 60 mg IVP DAILY [facility] Last Admin: 06/11/18 10:06 Dose: 60 mg Pantoprazole Sodium (Protonix Inj) 40 mg IVP DAILY [facility] Last Admin: 06/11/18 10:07 Dose: 40 mg Promethazine HCl/Codeine (Phenergan/Codeine Oral Syrup) 5 ml PEG Q4H PRN PRN Reason: Cough and congestion Last Admin: 06/09/18 21:57 Dose: 5 ml - Labs Labs: 06/11/18 07:00 06/11/18 15:05 PT 12.7 SECONDS (9.4-12.5) H 06/07/18 16:28 INR 1.14 06/07/18 16:28 APTT 30.2 Seconds (26.9-38.3) 06/07/18 16:28
[2018-06-09] MEDS: Vancomycin 1gm in NS 250ml 1 GM/250 ML BAG IVPB SCH (10:28)
[2018-06-09] MEDS: Cefepime 1gm in NS 100ml 1 GM/100 ML BAG IVPB SCH ×2 (10:28→21:57)
--- NOTE | 2018-06-09 10:34 | PN ---
DATE: 06/09/2018 SUBJECTIVE: The patient is seen lying in bed in the CCU. He is more awake and appropriate. He remains on the ventilator. He had some chest pain overnight which he states was precipitated by coughing. He is off pressors at this time. CURRENT MEDICATIONS: Include subcutaneous heparin, insulin coverage, Lipitor, cefepime, Protonix, Solu-Medrol, and vancomycin. OBJECTIVE: GENERAL: He is a chronically ill-appearing elderly man. VITAL SIGNS: His blood pressure is 122/60 with pulse of 70 and sinus, respirations are 14. He is afebrile. HEENT: He remains on a ventilator through his cricothyrotomy. CHEST: Few scattered rhonchi heard. HEART: No pathological murmurs or gallops noted. ABDOMEN: Soft, nontender with normoactive bowel sounds. EXTREMITIES: No edema. DIAGNOSTIC DATA: Potassium 4.1, BUN and creatinine 28 and 0.5. White count 14.8, hemoglobin and hematocrit 8.5 and 26.2 with a platelet count 339,000. Recent blood gas showed pH 7.43, pCO2 of 30, pO2 118. Echocardiogram was reviewed. This revealed a dilated right atrial and normal left ventricular size and function. No significant wall motion abnormalities are noted. Mild tricuspid regurgitation was present. IMPRESSION: 1. Recent elevated troponin, likely secondary to CPR and his acute decompensation. 2. History of laryngeal carcinoma. 3. Respiratory distress status post cricothyrotomy remains on ventilatory support. 4. Altered mental status resolved. RECOMMENDATIONS: Ventilatory weaning should proceed. No further cardiac workup appears necessary at the present time. He is currently hemodynamic stable. I will be happy to see in the future as needed. Dieter Velazco MD
[2018-06-09 11:02] LABS: TROPONIN I 0.07 ng/mL
--- NOTE | 2018-06-09 11:42 | PN ---
DATE: 06/09/2018 SUBJECTIVE: The patient is seen and examined at bedside. He is on trach collar. He is doing very well. Not only he is following commands, but he is comfortably watching TV and trying non-verbally communicate by writing on the clipboard. The patient is off of any pressors. Tolerates enteral nutrition via PEG tube well. PHYSICAL EXAMINATION: VITAL SIGNS: Blood pressure 126/78, heart rate 84, oxygen saturation 100%. End-tidal CO2 on the monitor 37. Temperature 98.6. HEENT: ENT: Head and neck atraumatic. Trach is present and appears to be okay. LUNGS: Clear to auscultation bilaterally. CVL in the subclavian position on the anterior chest wall. Appears to be well, not erythematous and without any discharge. HEART: Regular rate and rhythm, S1 and S2 normal. ABDOMEN: Soft, nontender, nondistended. Midline, there is well-healed scar. There is a PEG tube present which also appears to be okay. MUSCULOSKELETAL: Some muscle wasting. No C/C/E. NEUROLOGIC The patient moves all extremities spontaneously. SKIN: Moist. PSYCHIATRY: The patient very comfortable, fully awake and alert. LABORATORY DATA: WBC 14.8, hemoglobin 8.5, platelet count 339. Sodium 138, potassium 4.1, chloride 107, carbon dioxide 29, BUN 28, creatinine 0.5, glucose 193, AST 46, ALT 41, troponin 0.31, down from 0.42, total bilirubin less than 0.1. INR 1.14. ABG today prior to trach collar placement 7.43/38/181 on 50% FIO2. MEDICATIONS: Lipitor 80 mg, heparin subcu for DVT prophylaxis, regular insulin sliding scale low protocol, cefepime, Solu-Medrol 60 mg IV every 6 hours, metoprolol 5 mg IV every 12 hours (now on hold), normal saline at 100 mL/hour, vancomycin. ASSESSMENT AND PLAN: This is a 78-year-old gentleman who presented with hypercapnic respiratory failure due to upper airway compromise requiring emergent cricothyrotomy. Surgical evaluation as to whether convert to permanent tracheostomy is ongoing. Meanwhile, the patient is hemodynamically stable. His artificial airways work well. He is alert, awake and oriented. He is tolerating trach collar well. We will continue with head of bed elevated >35 degrees, oral hygiene. We will start tapering down steroids and continue with bronchodilators. We will continue with antibiotics for now. Blood culture from 2 days ago negative. Echocardiogram did not reveal any significant left or right ventricular abnormalities. Cardiology Service is following the patient as well. We will continue with deep vein thrombosis and gastrointestinal prophylaxis. Renal function stable. No episodes of hypoglycemia. The patient tolerates enteral nutrition well. Discussed with general surgery service--no need to convert to trach. will get ENT consult. tolerates trach collar for 8 hrs well. ccm time 40 min Julian Arriaga MD MTDIban
--- NOTE | 2018-06-09 12:24 | CP.PCM.PN ---
Subjective - Date & Time of Evaluation Date of Evaluation: 06/09/18 Time of Evaluation: 07:15 - Subjective Subjective: General surgery progress note for Dr. Lul Baldwin, PGY-2 Pt seen/examined at bedside with surgical team Pt GCS 11T with tracheostomy device in place in cricothyroidotomy. No current complaints. Able to write out sentences. Tolerating tube feeds Objective - Vital Signs/Intake and Output Vital Signs (last 24 hours): Temp Pulse Resp BP Pulse Ox 98.8 F 70 25 H 132/59 L 100 06/09/18 07:00 06/09/18 07:00 06/07/18 20:41 06/09/18 07:00 06/09/18 07:00 Intake and Output: 06/09/18 06/09/18 06:59 18:59 Intake Total 1900 Output Total 600 Balance 1300 - Medications Medications: Current Medications Acetaminophen (Tylenol 325mg Tab) 650 mg PO Q6H PRN PRN Reason: Pain, moderate (4-7) Atorvastatin Calcium (Lipitor) 80 mg PO DIN [facility] Last Admin: 06/08/18 18:29 Dose: 80 mg Heparin Sodium (Porcine) (Heparin) 5,000 units SC Q8 [facility]; Protocol Last Admin: 06/09/18 05:02 Dose: 5,000 units Sodium Chloride (Sodium Chloride 0.9%) 1,000 mls @ 100 mls/hr IV .Q10H [facility] Last Admin: 06/08/18 18:30 Dose: 100 mls/hr Cefepime HCl (Maxipime 1gm) 1 gm in 100 mls @ 100 mls/hr IVPB Q12 [facility]; Protocol Last Admin: 06/09/18 10:28 Dose: 100 mls/hr Vancomycin HCl (Vancomycin 1gm) 1 gm in 250 mls @ 167 mls/hr IVPB DAILY [facility]; Protocol Last Admin: 06/09/18 10:28 Dose: 167 mls/hr Insulin Human Regular (Humulin R Low) 0 units SC Q6 [facility]; Protocol Methylprednisolone (Solu-Medrol) 60 mg IVP Q8 [facility] Metoprolol Tartrate (Lopressor) 5 mg IVP Q12H [facility] Last Admin: 06/08/18 11:20 Dose: Not Given Pantoprazole Sodium (Protonix Inj) 40 mg IVP DAILY [facility] Last Admin: 06/09/18 10:28 Dose: 40 mg - Labs Labs: 06/09/18 05:30 06/09/18 05:30 PT 12.7 SECONDS (9.4-12.5) H 06/07/18 16:28 INR 1.14 06/07/18 16:28 APTT 30.2 Seconds (26.9-38.3) 06/07/18 16:28 - Constitutional Appears: Non-toxic, No Acute Distress, Cachectic - Head Exam Head Exam: ATRAUMATIC, NORMAL INSPECTION, NORMOCEPHALIC - Eye Exam Eye Exam: EOMI, Normal appearance - ENT Exam ENT Exam: Mucous Membranes Moist - Neck Exam Additional comments: tracheostomy device in place in cricothyroidotomy incision - Respiratory Exam Respiratory Exam: NORMAL BREATHING PATTERN Additional comments: On mechanical ventilation - Cardiovascular Exam Cardiovascular Exam: REGULAR RHYTHM, +S1, +S2 - GI/Abdominal Exam GI & Abdominal Exam: Soft. absent: Firm, Guarding, Rigid, Tenderness Additional comments: G tube in place - Extremities Exam Extremities Exam: Normal Inspection (cachexic) - Neurological Exam Neurological Exam: Awake, CN II-XII Intact - Psychiatric Exam Additional comments: Non verbal - Skin Skin Exam: Dry, Intact, Normal Color, Warm Assessment and Plan - Assessment and Plan (Free Text) Assessment: 78M w/acute respiratory failure and resulting emergent cricothyroidotomy and placement of tracheostomy cannula Plan: Now recommending ENT consult Dr Juan BENITEZ oncologist regarding prognosis Further recs as per attending EMMANUEL Baldwin, PGY-2
--- NOTE | 2018-06-09 13:02 | MRI ---
Date of service: 06/09/2018 PROCEDURE: MRI BRAIN WITHOUT CONTRAST HISTORY: ams unreponsive ro cva COMPARISON: None available. TECHNIQUE: Multiplanar, multisequence MR images of the brain were obtained without intravenous contrast enhancement. FINDINGS: HEMORRHAGE: None DWI: There is a single small area of restricted diffusion in the left parietal lobe cortex measuring 3 mm in diameter. This is consistent with an acute infarct. This is probably too small to be related to the patient's symptoms. Image 18 series 3 BRAIN PARENCHYMA: No mass effect or edema. No atrophy or chronic microvascular ischemic changes. VENTRICLES: Unremarkable. No hydrocephalus. CRANIUM: Unremarkable. ORBITS: Grossly unremarkable. PARANASAL SINUSES/MASTOIDS: Clear VASCULAR SYSTEM: Skull base flow voids intact. OTHER FINDINGS: None. IMPRESSION: There is a single small area of restricted diffusion in the left parietal lobe cortex measuring 3 mm in diameter. This is consistent with an acute infarct. This is probably too small to be related to the patient's symptoms.
[2018-06-09] MEDS: Insulin Reg-LOW-Coverage SC SCH ×2 (13:10→17:23)
--- NOTE | 2018-06-09 15:18 | CP.PCM.CON ---
History of Present Illness - History of Present Illness History of Present Illness: Palliative consult requested by Dr Jose Rafael Mayo Reason: Goals of care This is a 78 year old male with history for pharyngeal cancer wtih stricture who presented to ED after being found cold and unresponsive at home. EMS called, patient was intubated in the field. Upon arrival ED, he was responsive,stabilized and extubated. He subsequently became severely hypoxic> re-intubation tried/ unsuccessful> code was initiated. Cricothyroidotomy performed, he was successfully intubated with tracheostomy cannula. He was placed on mechanical vent support and transferred to MICU. Labs 06/07:Troponins 0.06, 0.42, 0.31, glucose 401, lactate 3.4, Procalcitonin: 1.52. Head CT: No acute finding MRA: No evidence of thrombus, no evidence of significant stenosis in the int ernal carotid arteries. Patent bilateral vertebral arteries. MRI of brain: There is a single area of restricted diffusion in left parietal lobe cortex m 3mm diameter. This is consistent with an acute infarct EEG: Normal ECHO: EF 54%,Dilated RA, Normal LV, mild TR Chest x ray: RLL atelectasis/infiltrate possible aspiration PMHx: throat cancer, pharyngeal stricture, s/p chemo-XRT (2004), [facility] [place],dysphagia, failure to thrive. PSHx: Laparotomy, G tube (2017), esophageal neck mass excision (2000) Social History: Current tobacco use(1/3 ppd x 60 yrs) prior alcohol use, denies illicit drug use. Lives with spouse. Family History: Non contributory Advance Care Planing: The patient does not have an Advance Directive Review of Systems: The patient complains of mild sub sternal chest discomfort, 1 2 point ROS otherwise negative Past Patient History - Infectious Disease Hx of Infectious Diseases: None - Past Social History Smoking Status: Light Smoker < 10 Cigarettes Daily - CARDIAC Hx Cardiac Disorders: No - PULMONARY Hx Respiratory Disorders: No - NEUROLOGICAL Hx Neurological Disorder: No - HEENT Hx HEENT Problems: Yes Hx Deafness: Yes - RENAL Hx Chronic Kidney Disease: No - ENDOCRINE/METABOLIC Hx Endocrine Disorders: No - HEMATOLOGICAL/ONCOLOGICAL Hx Blood Transfusions: (UNKNOWN) Hx Blood Transfusion Reaction: (UNKNOWN) - INTEGUMENTARY Hx Dermatological Problems: No - MUSCULOSKELETAL/RHEUMATOLOGICAL Hx Falls: No - GASTROINTESTINAL Hx Gastrointestinal Disorders: Yes - GENITOURINARY/GYNECOLOGICAL Hx Genitourinary Disorders: No - PSYCHIATRIC Hx Substance Use: No - SURGICAL HISTORY Other/Comment: throat cancer 2000 - ANESTHESIA Hx Anesthesia Reactions: (UNKNOWN) Hx Malignant Hyperthermia: (UNKNOWN) Meds Allergies/Adverse Reactions: Allergies Allergy/AdvReac Type Severity Reaction Status Date / Time aspirin Allergy RASH Verified 06/08/18 01:17 citric acid Allergy RASH Verified 06/08/18 01:18 [From [facility]] sodium bicarbonate Allergy RASH Verified 06/08/18 01:18 [From [facility]] peanut AdvReac RASH Verified 08/09/17 20:23 - Medications Medications: Current Medications Acetaminophen (Tylenol 325mg Tab) 650 mg PO Q6H PRN PRN Reason: Pain, moderate (4-7) Last Admin: 06/09/18 13:38 Dose: 650 mg Atorvastatin Calcium (Lipitor) 80 mg PO DIN LYLY Last Admin: 06/08/18 18:29 Dose: 80 mg Clopidogrel Bisulfate (Plavix) 75 mg PO DAILY LYLY Last Admin: 06/09/18 13:38 Dose: 75 mg Heparin Sodium (Porcine) (Heparin) 5,000 units SC Q8 LYLY; Protocol Last Admin: 06/09/18 13:38 Dose: 5,000 units Sodium Chloride (Sodium Chloride 0.9%) 1,000 mls @ 100 mls/hr IV .Q10H LYLY Last Admin: 06/08/18 18:30 Dose: 100 mls/hr Cefepime HCl (Maxipime 1gm) 1 gm in 100 mls @ 100 mls/hr IVPB Q12 LYLY; Protocol Last Admin: 06/09/18 10:28 Dose: 100 mls/hr Vancomycin HCl (Vancomycin 1gm) 1 gm in 250 mls @ 167 mls/hr IVPB DAILY LYLY; Pr otocol Last Admin: 06/09/18 10:28 Dose: 167 mls/hr Insulin Human Regular (Humulin R Low) 0 units SC Q6 LYLY; Protocol Last Admin: 06/09/18 13:10 Dose: 2 u Methylprednisolone (Solu-Medrol) 60 mg IVP Q8 LLYY Last Admin: 06/09/18 13:37 Dose: 60 mg Metoprolol Tartrate (Lopressor) 5 mg IVP Q12H LYLY Last Admin: 06/08/18 11:20 Dose: Not Given Pantoprazole Sodium (Protonix Inj) 40 mg IVP DAILY LYLY Last Admin: 06/09/18 10:28 Dose: 40 mg Physical Exam - Constitutional Appears: No Acute Distress, Cachectic, Chronically Ill - Eye Exam Eye Exam: Normal appearance, PERRL - ENT Exam ENT Exam: Mucous Membranes Moist - Respiratory Exam Respiratory Exam: Decreased Breath Sounds, Rhonchi, NORMAL BREATHING PATTERN - Cardiovascular Exam Cardiovascular Exam: REGULAR RHYTHM, +S1, +S2 - GI/Abdominal Exam GI & Abdominal Exam: Normal Bowel Sounds, Soft Additional comments: no tenderness - Extremities Exam Extremities exam: Positive for: full ROM, pedal pulses present - Neurological Exam Neurological exam: Alert, Oriented x3 - Skin Skin Exam: Dry, Pallor - Additional Findings Additional findings: Palliative performance scale rating 50% Results - Vital Signs Recent Vital Signs: Last Vital Signs Temp 98.8 F 06/09/18 07:00 Pulse 70 06/09/18 07:00 Resp 25 H 06/07/18 20:41 BP 132/59 L 06/09/18 07:00 Pulse Ox 100 06/09/18 07:00 - Labs Result Diagrams: 06/09/18 05:30 06/09/18 05:30 Labs: Laboratory Results - last 24 hr 06/08/18 06/08/18 06/08/18 11:09 16:09 22:04 WBC RBC Hgb Hct MCV MCH MCHC RDW Plt Count MPV Neut % (Auto) Lymph % (Auto) Johnston % (Auto) Eos % (Auto) Baso % (Auto) Lymph # (Auto) Johnston # (Auto) Eos # (Auto) Baso # (Auto) Absolute Neuts (auto) pCO2 pO2 HCO3 ABG pH ABG Total CO2 ABG O2 Saturation ABG O2 Content ABG Base Excess ABG Hemoglobin ABG Carboxyhemoglobin POC ABG HHb (Measured) ABG Methemoglobin ABG O2 Capacity Hgb O2 Saturation FiO2 Sodium Potassium Chloride Carbon Dioxide Anion Gap BUN Creatinine Est GFR ( Amer) Est GFR (Non-Af Amer) POC Glucose (mg/dL) 155 H 169 H 186 H Random Glucose Calcium Total Bilirubin AST ALT Alkaline Phosphatase Lactate Dehydrogenase Total Creatine Kinase Troponin I Total Protein Albumin Globulin Albumin/Globulin Ratio 06/09/18 06/09/18 06/09/18 00:09 05:30 05:30 WBC 14.8 H RBC 2.70 L Hgb 8.5 L Hct 26.2 L MCV 97.0 MCH 31.5 MCHC 32.4 RDW 15.0 H Plt Count 339 MPV 10.1 Neut % (Auto) 92.5 H Lymph % (Auto) 3.9 L Johnston % (Auto) 3.6 Eos % (Auto) 0.0 L Baso % (Auto) 0.0 Lymph # (Auto) 0.6 L Johnston # (Auto) 0.5 Eos # (Auto) 0.0 Baso # (Auto) 0.00 Absolute Neuts (auto) 13.64 H pCO2 pO2 HCO3 ABG pH ABG Total CO2 ABG O2 Saturation ABG O2 Content ABG Base Excess ABG Hemoglobin ABG Carboxyhemoglobin POC ABG HHb (Measured) ABG Methemoglobin ABG O2 Capacity Hgb O2 Saturation FiO2 Sodium 138 Potassium 4.1 Chloride 107 Carbon Dioxide 29 Anion Gap 6 L BUN 28 H Creatinine 0.5 L Est GFR ( Amer) > 60 Est GFR (Non-Af Amer) > 60 POC Glucose (mg/dL) 203 H Random Glucose 169 H Calcium 8.3 L Total Bilirubin < 0.1 L AST 46 ALT 41 Alkaline Phosphatase 78 Lactate Dehydrogenase Total Creatine Kinase Troponin I Total Protein 5.6 L Albumin 2.6 L Globulin 3.0 Albumin/Globulin Ratio 0.9 L 06/09/18 06/09/18 06/09/18 05:30 06:13 07:16 WBC RBC Hgb Hct MCV MCH MCHC RDW Plt Count MPV Neut % (Auto) Lymph % (Auto) Johnston % (Auto) Eos % (Auto) Baso % (Auto) Lymph # (Auto) Johnston # (Auto) Eos # (Auto) Baso # (Auto) Absolute Neuts (auto) pCO2 pO2 HCO3 ABG pH ABG Total CO2 ABG O2 Saturation ABG O2 Content ABG Base Excess ABG Hemoglobin ABG Carboxyhemoglobin POC ABG HHb (Measured) ABG Methemoglobin ABG O2 Capacity Hgb O2 Saturation FiO2 Sodium Potassium Chloride Carbon Dioxide Anion Gap BUN Creatinine Est GFR ( Amer) Est GFR (Non-Af Amer) POC Glucose (mg/dL) 191 H 193 H Random Glucose Calcium Total Bilirubin AST ALT Alkaline Phosphatase Lactate Dehydrogenase 508 Total Creatine Kinase 102 Troponin I 0.07 D Total Protein Albumin Globulin Albumin/Globulin Ratio 06/09/18 07:40 WBC RBC Hgb Hct MCV MCH MCHC RDW Plt Count MPV Neut % (Auto) Lymph % (Auto) Johnston % (Auto) Eos % (Auto) Baso % (Auto) Lymph # (Auto) Johnston # (Auto) Eos # (Auto) Baso # (Auto) Absolute Neuts (auto) pCO2 38 pO2 181.0 H HCO3 25.2 ABG pH 7.43 ABG Total CO2 26.4 ABG O2 Saturation 99.7 H ABG O2 Content 11.9 L ABG Base Excess 0.9 ABG Hemoglobin 8.4 L ABG Carboxyhemoglobin 1.4 POC ABG HHb (Measured) 0.3 ABG Methemoglobin 1.6 ABG O2 Capacity 11.9 L Hgb O2 Saturation 96.7 FiO2 50.0 Sodium Potassium Chloride Carbon Dioxide Anion Gap BUN Creatinine Est GFR ( Amer) Est GFR (Non-Af Amer) POC Glucose (mg/dL) Random Glucose Calcium Total Bilirubin AST ALT Alkaline Phosphatase Lactate Dehydrogenase Total Creatine Kinase Troponin I Total Protein Albumin Globulin Albumin/Globulin Ratio Assessment & Plan - Assessment and Plan (Free Text) Assessment: 78 year old male with a past history of esophageal cancer, s/p chemo/radiation/resection who presented to the ED with AMS, respiratory failure s/p cricothyroidotomy, RLL infiltrate,chest pain. The patient is alert and oriented. He is bilingual [place]/ [place], prefers to communicate in [place]. He is using a writing board to make his wishes known. He complains of sub sternal chest pain. He asked if his condition was stabilized. He indicated that if it were not, he wants to be transferred to [facility] where they are familiar with him. He does not have an Advanced Directive. He expressed that in the event suffers cardiac arrest, he wants to be fully resuscitated. He named his son, Austin is his health care decision maker. He offered no other complaints Psychosocial support provided Tie spent in goals of care and advance care planning with patient, 20 minutes Plan: Goals of care and advance care planning Altered mental status: resolved Sepsis/ RLL infiltrate: Continue Cefepime and Vancomycin. Respiratory failure; s/p cricothyroidotomy: tapering vent, tapering steroids,continue broncodilators Elevated troponins/ chest pain: Cardiology following, ECHO WNL Continue tube feedings, Pivot 1.5. Dietary counseling DVT Prophylaxis
[2018-06-09] MEDS: Promethazine/Cod 6.25mg-10mg/5ml Syr UD PEG PRN (21:57)
[2018-06-09] MEDS: Sodium Chloride 0.9% 1,000 ML IV SCH (23:30)
[2018-06-10] MEDS: Insulin Reg-LOW-Coverage SC SCH ×4 (01:22→18:09)
[2018-06-10 06:09] LABS: ARTERIAL BLOOD GAS HCO3 28.5 mmol/L (21-28); ARTERIAL BLOOD GAS HEMOGLOBIN 8.6 g/dL (11.7-17.4); ARTERIAL BLOOD GAS O2 CAPACITY 11.8 mL/dl (16-24); ARTERIAL BLOOD GAS O2 CONTENT 11.4 ML/dl (15-23); ARTERIAL BLOOD GAS O2 SAT 96.7 % (95-98); ARTERIAL BLOOD GAS PCO2 42 mm/Hg (35-45); ARTERIAL BLOOD GAS PH 7.44 (7.35-7.45); ARTERIAL BLOOD GAS TCO2 29.8 mmol.L (22-28)
[2018-06-10 06:56] LABS: HEMOGLOBIN 8.4 g/dL (14.0-18.0); LYMPH # 0.5 (1.2-3.4); LYMPH % 3.4 % (22.0-35.0); MEAN CELL VOLUME 97.8 fl (80.0-105.0); MEAN CORPUSCULAR HEMOGLOBIN 31.2 pg (25.0-35.0); MEAN CORPUSCULAR HGB CONC 31.9 g/dl (31.0-37.0); MEAN PLATELET VOLUME 10.5 fl (7.0-11.0); MONO # 0.6 (0.1-0.6); MONO % 4.2 % (1.0-6.0); RBC 2.69 10^6/uL (3.5-6.1); RED CELL DISTRIBUTION WIDTH 15.3 % (11.5-14.5); WHITE BLOOD COUNT 14.7 10^3/uL (4.5-11.0)
[2018-06-10 07:16] LABS: ALB/GLOB RATIO 0.9 (1.1-1.8); ALBUMIN 2.6 g/dL (3.0-4.8); ALT/SGPT 24 U/L (7-56); AST/SGOT 32 U/L (17-59); BLOOD UREA NITROGEN 26 mg/dL (7-21); GFR NON-AFRICAN AMERICAN > 60
--- NOTE | 2018-06-10 07:16 | CP.CCUPN ---
CCU Subjective - Physician Review Events Since Last Encounter (Free Text): 06/10/18 07:13 no acute events overnight, pt has trach collar Subjective (Free Text): 06/08/18 09:55 Pt seen and examined this morning in the ICU, Pt minimally responsive, NAD 06/09/18 07:09 pt seen and examined this morning at bedside, pt has TV speaker next to his ear to hear 06/10/18 07:15 seen and examined, pt reports pain with coughing CCU Objective - Vital Signs / Intake & Output Vital Signs (Last 4 hours): Vital Signs Temp Pulse Resp BP Pulse Ox 06/10/18 07:04 98.2 F 79 92 L 06/10/18 07:00 98.2 F 75 30 H 130/60 90 L 06/10/18 06:50 98.2 F 69 16 94 L 06/10/18 06:40 98.2 F 65 17 94 L 06/10/18 06:30 98.2 F 67 19 93 L 06/10/18 06:23 98.2 F 79 93 L 06/10/18 06:20 98.2 F 70 94 L 06/10/18 06:13 98.2 F 65 95 06/10/18 06:10 98.1 F 67 14 94 L 06/10/18 06:01 98.1 F 66 15 118/65 94 L 06/10/18 06:00 98.1 F 69 23 92 L 06/10/18 05:50 98.2 F 80 14 95 06/10/18 05:40 98.2 F 76 24 97 06/10/18 05:39 98.2 F 82 96 06/10/18 05:30 98.2 F 73 33 H 98 06/10/18 05:27 98.2 F 77 96 06/10/18 05:25 98.2 F 79 98 06/10/18 05:24 98.2 F 06/10/18 05:23 98.2 F 06/10/18 05:22 98.2 F 99 06/10/18 05:20 98.2 F 75 98 06/10/18 05:17 98.2 F 75 97 06/10/18 05:10 98.2 F 73 14 97 06/10/18 05:03 98.2 F 61 97 06/10/18 05:00 98.2 F 59 L 20 111/59 L 97 06/10/18 04:50 98.4 F 65 20 98 06/10/18 04:46 98.4 F 59 L 97 06/10/18 04:40 98.4 F 63 16 97 06/10/18 04:30 98.4 F 62 21 97 06/10/18 04:20 98.6 F 62 21 96 06/10/18 04:14 98.6 F 67 97 06/10/18 04:10 98.6 F 63 97 06/10/18 04:00 98.6 F 65 18 120/65 97 06/10/18 03:50 98.6 F 64 20 96 06/10/18 03:40 98.6 F 68 16 96 06/10/18 03:30 98.6 F 76 15 97 06/10/18 03:20 98.6 F 68 37 H 96 06/10/18 03:16 98.6 F 66 95 Intake and Output (Last 8hrs): Intake & Output 06/09/18 06/10/18 06/10/18 22:59 06:59 14:59 Intake Total 2200 2589 Output Total 900 760 Balance 1300 1829 Weight 110 lb Intake: IV 1200 1300 IVF 0.9 1200 Left Subclavian 1200 antibiotics 100 Tube Feeding 500 809 Other 500 480 Output: Urine 900 760 Urethral (Armstrong) 900 760 Other: # Bowel Movements 0 0 - Physical Exam Head: Positive for: Atraumatic, Normocephalic Pupils: Positive for: PERRL, Other (coloboma or right eye) Extroacular Muscles: Positive for: EOMI Ears: Positive for: Other (cerumen impaction BL). Negative for: TM Perf Mouth: Positive for: Moist Mucous Membranes Neck: Positive for: Normal Range of Motion Respiratory/Chest: Positive for: Clear to Auscultation, Good Air Exchange, Accessory Muscle Use. Negative for: Respiratory Distress Cardiovascular: Positive for: Regular Rate and Rhythm, Normal S1, S2. Negative for: Murmurs Abdomen: Positive for: Normal Bowel Sounds. Negative for: Tenderness, Distention Upper Extremity: Positive for: Normal Inspection. Negative for: Cyanosis, Edema Neurological: Positive for: CN II-XII Intact, Other (GCS 10 [id number]). Negative for: GCS=15 Skin: Positive for: Warm, Dry, Rashes Psychiatric: Negative for: Alert, Oriented x 3 - Medications Active Medications: Active Medications Generic Name Dose Route Start Last Admin Trade Name Freq PRN Reason Stop Dose Admin Acetaminophen 650 mg 06/09/18 10:52 06/09/18 13:38 Tylenol 325mg Tab PO 650 mg Q6H PRN Administration Pain, moderate (4-7) Atorvastatin Calcium 80 mg 06/08/18 17:00 06/09/18 17:23 Lipitor PO 80 mg DIN LYLY Administration Clopidogrel Bisulfate 75 mg 06/09/18 13:15 06/09/18 13:38 Plavix PO 75 mg DAILY LYLY Administration Heparin Sodium (Porcine) 5,000 units 06/07/18 22:00 06/10/18 05:12 Heparin SC 5,000 units Q8 LYLY Administration Protocol Sodium Chloride 1,000 mls @ 100 mls/hr 06/07/18 14:15 06/09/18 23:30 Sodium Chloride 0.9% IV 100 mls/hr .Q10H LYLY Administration Cefepime HCl 1 gm in 100 mls @ 100 mls/hr 06/07/18 22:00 06/09/18 21:57 Maxipime 1gm IVPB 100 mls/hr Q12 LYLY Administration Protocol Vancomycin HCl 1 gm in 250 mls @ 167 mls/hr 06/07/18 18:00 06/09/18 10:28 Vancomycin 1gm IVPB 167 mls/hr DAILY LYLY Administration Protocol Insulin Human Regular 0 units 06/09/18 12:00 06/10/18 01:22 Humulin R Low SC Not Given Q6 [facility] Protocol Methylprednisolone 60 mg 06/09/18 14:00 06/10/18 05:12 Solu-Medrol IVP 60 mg Q8 LLYY Administration Metoprolol Tartrate 5 mg 06/08/18 10:21 06/08/18 11:20 Lopressor IVP Not Given Q12H LYLY Pantoprazole Sodium 40 mg 06/08/18 10:00 06/09/18 10:28 Protonix Inj IVP 40 mg DAILY LYLY Administration Promethazine HCl/Codeine 5 ml 06/09/18 20:55 06/09/18 21:57 Phenergan/Codeine Oral Syrup PEG 5 ml Q4H PRN Administration Cough and congestion - Patient Studies Lab Studies: Microbiology Studies 06/07/18 18:30 Blood Culture - Preliminary Blood NO GROWTH AFTER 48 HOURS 06/07/18 17:15 Blood Culture - Preliminary Blood NO GROWTH AFTER 48 HOURS 06/07/18 17:45 Urine Culture - Final Urine,Armstrong Gram Negative Eugene Lab Studies 06/10/18 06/09/18 06/09/18 Range/Units 06:00 22:30 16:10 WBC (4.5-11.0) 10^3/uL RBC (3.5-6.1) 10^6/uL Hgb (14.0-18.0) g/dL Hct (42.0-52.0) % MCV (80.0-105.0) fl MCH (25.0-35.0) pg MCHC (31.0-37.0) g/dl RDW (11.5-14.5) % Plt Count (120.0-450.0) 10^3/uL MPV (7.0-11.0) fl Neut % (Auto) (50.0-68.0) % Lymph % (Auto) (22.0-35.0) % [place] % (Auto) (1.0-6.0) % Eos % (Auto) (1.5-5.0) % Baso % (Auto) (0.0-3.0) % Lymph # (Auto) (1.2-3.4) [place] # (Auto) (0.1-0.6) Eos # (Auto) (0.0-0.7) Baso # (Auto) (0.0-2.0) K/mm3 Absolute Neuts (auto) (1.4-6.5) pCO2 42 (35-45) mm/Hg pO2 64.0 L (80-100) mm/Hg HCO3 28.5 H (21-28) mmol/L ABG pH 7.44 (7.35-7.45) ABG Total CO2 29.8 H (22-28) mmol.L ABG O2 Saturation 96.7 (95-98) % ABG O2 Content 11.4 L (15-23) ML/dl ABG Base Excess 4.0 H (-2.0-3.0) mmol/L ABG Hemoglobin 8.6 L (11.7-17.4) g/dL ABG Carboxyhemoglobin 1.9 H (0.5-1.5) % POC ABG HHb (Measured) 3.2 (0-5) % ABG Methemoglobin 1.1 (0.0-3.0) % ABG O2 Capacity 11.8 L (16-24) mL/dl Hgb O2 Saturation 93.8 L (95.0-98.0) % FiO2 28.0 % Sodium (132-148) mmol/L Potassium (3.6-5.0) mmol/L Chloride (98-107) mmol/L Carbon Dioxide (21-33) mmol/L Anion Gap (10-20) BUN (7-21) mg/dL Creatinine (0.8-1.5) mg/dl Est GFR ( Amer) Est GFR (Non-Af Amer) POC Glucose (mg/dL) 212 H 118 H (65-110) mg/dL Random Glucose (70-110) mg/dL Calcium (8.4-10.5) mg/dL Total Bilirubin (0.2-1.3) mg/dL AST (17-59) U/L ALT (7-56) U/L Alkaline Phosphatase (38-126) U/L Lactate Dehydrogenase (333-699) U/L Total Creatine Kinase (35-230) U/L Troponin I ng/mL Total Protein (5.8-8.3) g/dL Albumin (3.0-4.8) g/dL Globulin gm/dL Albumin/Globulin Ratio (1.1-1.8) 06/09/18 06/09/18 06/09/18 Range/Units 11:07 07:40 07:16 WBC (4.5-11.0) 10^3/uL RBC (3.5-6.1) 10^6/uL Hgb (14.0-18.0) g/dL Hct (42.0-52.0) % MCV (80.0-105.0) fl MCH (25.0-35.0) pg MCHC (31.0-37.0) g/dl RDW (11.5-14.5) % Plt Count (120.0-450.0) 10^3/uL MPV (7.0-11.0) fl Neut % (Auto) (50.0-68.0) % Lymph % (Auto) (22.0-35.0) % [place] % (Auto) (1.0-6.0) % Eos % (Auto) (1.5-5.0) % Baso % (Auto) (0.0-3.0) % Lymph # (Auto) (1.2-3.4) [place] # (Auto) (0.1-0.6) Eos # (Auto) (0.0-0.7) Baso # (Auto) (0.0-2.0) K/mm3 Absolute Neuts (auto) (1.4-6.5) pCO2 38 (35-45) mm/Hg pO2 181.0 H (80-100) mm/Hg HCO3 25.2 (21-28) mmol/L ABG pH 7.43 (7.35-7.45) ABG Total CO2 26.4 (22-28) mmol.L ABG O2 Saturation 99.7 H (95-98) % ABG O2 Content 11.9 L (15-23) ML/dl ABG Base Excess 0.9 (-2.0-3.0) mmol/L ABG Hemoglobin 8.4 L (11.7-17.4) g/dL ABG Carboxyhemoglobin 1.4 (0.5-1.5) % POC ABG HHb (Measured) 0.3 (0-5) % ABG Methemoglobin 1.6 (0.0-3.0) % ABG O2 Capacity 11.9 L (16-24) mL/dl Hgb O2 Saturation 96.7 (95.0-98.0) % FiO2 50.0 % Sodium (132-148) mmol/L Potassium (3.6-5.0) mmol/L Chloride (98-107) mmol/L Carbon Dioxide (21-33) mmol/L Anion Gap (10-20) BUN (7-21) mg/dL Creatinine (0.8-1.5) mg/dl Est GFR ( Amer) Est GFR (Non-Af Amer) POC Glucose (mg/dL) 246 H 193 H (65-110) mg/dL Random Glucose (70-110) mg/dL Calcium (8.4-10.5) mg/dL Total Bilirubin (0.2-1.3) mg/dL AST (17-59) U/L ALT (7-56) U/L Alkaline Phosphatase (38-126) U/L Lactate Dehydrogenase (333-699) U/L Total Creatine Kinase (35-230) U/L Troponin I ng/mL Total Protein (5.8-8.3) g/dL Albumin (3.0-4.8) g/dL Globulin gm/dL Albumin/Globulin Ratio (1.1-1.8) 06/09/18 06/09/18 06/09/18 Range/Units 05:30 05:30 05:30 WBC 14.8 H (4.5-11.0) 10^3/uL RBC 2.70 L (3.5-6.1) 10^6/uL Hgb 8.5 L (14.0-18.0) g/dL Hct 26.2 L (42.0-52.0) % MCV 97.0 (80.0-105.0) fl MCH 31.5 (25.0-35.0) pg MCHC 32.4 (31.0-37.0) g/dl RDW 15.0 H (11.5-14.5) % Plt Count 339 (120.0-450.0) 10^3/uL MPV 10.1 (7.0-11.0) fl Neut % (Auto) 92.5 H (50.0-68.0) % Lymph % (Auto) 3.9 L (22.0-35.0) % [place] % (Auto) 3.6 (1.0-6.0) % Eos % (Auto) 0.0 L (1.5-5.0) % Baso % (Auto) 0.0 (0.0-3.0) % Lymph # (Auto) 0.6 L (1.2-3.4) [place] # (Auto) 0.5 (0.1-0.6) Eos # (Auto) 0.0 (0.0-0.7) Baso # (Auto) 0.00 (0.0-2.0) K/mm3 Absolute Neuts (auto) 13.64 H (1.4-6.5) pCO2 (35-45) mm/Hg pO2 (80-100) mm/Hg HCO3 (21-28) mmol/L ABG pH (7.35-7.45) ABG Total CO2 (22-28) mmol.L ABG O2 Saturation (95-98) % ABG O2 Content (15-23) ML/dl ABG Base Excess (-2.0-3.0) mmol/L ABG Hemoglobin (11.7-17.4) g/dL ABG Carboxyhemoglobin (0.5-1.5) % POC ABG HHb (Measured) (0-5) % ABG Methemoglobin (0.0-3.0) % ABG O2 Capacity (16-24) mL/dl Hgb O2 Saturation (95.0-98.0) % FiO2 % Sodium 138 (132-148) mmol/L Potassium 4.1 (3.6-5.0) mmol/L Chloride 107 (98-107) mmol/L Carbon Dioxide 29 (21-33) mmol/L Anion Gap 6 L (10-20) BUN 28 H (7-21) mg/dL Creatinine 0.5 L (0.8-1.5) mg/dl Est GFR ( Amer) > 60 Est GFR (Non-Af Amer) > 60 POC Glucose (mg/dL) (65-110) mg/dL Random Glucose 169 H (70-110) mg/dL Calcium 8.3 L (8.4-10.5) mg/dL Total Bilirubin < 0.1 L (0.2-1.3) mg/dL AST 46 (17-59) U/L ALT 41 (7-56) U/L Alkaline Phosphatase 78 (38-126) U/L Lactate Dehydrogenase 508 (333-699) U/L Total Creatine Kinase 102 (35-230) U/L Troponin I 0.07 D ng/mL Total Protein 5.6 L (5.8-8.3) g/dL Albumin 2.6 L (3.0-4.8) g/dL Globulin 3.0 gm/dL Albumin/Globulin Ratio 0.9 L (1.1-1.8) Laboratory Results - last 24 hr 06/09/18 06/09/18 06/09/18 05:30 05:30 05:30 WBC 14.8 H RBC 2.70 L Hgb 8.5 L Hct 26.2 L MCV 97.0 MCH 31.5 MCHC 32.4 RDW 15.0 H Plt Count 339 MPV 10.1 Neut % (Auto) 92.5 H Lymph % (Auto) 3.9 L [place] % (Auto) 3.6 Eos % (Auto) 0.0 L Baso % (Auto) 0.0 Lymph # (Auto) 0.6 L [place] # (Auto) 0.5 Eos # (Auto) 0.0 Baso # (Auto) 0.00 Absolute Neuts (auto) 13.64 H pCO2 pO2 HCO3 ABG pH ABG Total CO2 ABG O2 Saturation ABG O2 Content ABG Base Excess ABG Hemoglobin ABG Carboxyhemoglobin POC ABG HHb (Measured) ABG Methemoglobin ABG O2 Capacity Hgb O2 Saturation FiO2 Sodium 138 Potassium 4.1 Chloride 107 Carbon Dioxide 29 Anion Gap 6 L BUN 28 H Creatinine 0.5 L Est GFR ( Amer) > 60 Est GFR (Non-Af Amer) > 60 POC Glucose (mg/dL) Random Glucose 169 H Calcium 8.3 L Total Bilirubin < 0.1 L AST 46 ALT 41 Alkaline Phosphatase 78 Lactate Dehydrogenase 508 Total Creatine Kinase 102 Troponin I 0.07 D Total Protein 5.6 L Albumin 2.6 L Globulin 3.0 Albumin/Globulin Ratio 0.9 L 06/09/18 06/09/18 06/09/18 07:16 07:40 11:07 WBC RBC Hgb Hct MCV MCH MCHC RDW Plt Count MPV Neut % (Auto) Lymph % (Auto) [place] % (Auto) Eos % (Auto) Baso % (Auto) Lymph # (Auto) [place] # (Auto) Eos # (Auto) Baso # (Auto) Absolute Neuts (auto) pCO2 38 pO2 181.0 H HCO3 25.2 ABG pH 7.43 ABG Total CO2 26.4 ABG O2 Saturation 99.7 H ABG O2 Content 11.9 L ABG Base Excess 0.9 ABG Hemoglobin 8.4 L ABG Carboxyhemoglobin 1.4 POC ABG HHb (Measured) 0.3 ABG Methemoglobin 1.6 ABG O2 Capacity 11.9 L Hgb O2 Saturation 96.7 FiO2 50.0 Sodium Potassium Chloride Carbon Dioxide Anion Gap BUN Creatinine Est GFR ( Amer) Est GFR (Non-Af Amer) POC Glucose (mg/dL) 193 H 246 H Random Glucose Calcium Total Bilirubin AST ALT Alkaline Phosphatase Lactate Dehydrogenase Total Creatine Kinase Troponin I Total Protein Albumin Globulin Albumin/Globulin Ratio 06/09/18 06/09/18 06/10/18 16:10 22:30 06:00 WBC RBC Hgb Hct MCV MCH MCHC RDW Plt Count MPV Neut % (Auto) Lymph % (Auto) [place] % (Auto) Eos % (Auto) Baso % (Auto) Lymph # (Auto) [place] # (Auto) Eos # (Auto) Baso # (Auto) Absolute Neuts (auto) pCO2 42 pO2 64.0 L HCO3 28.5 H ABG pH 7.44 ABG Total CO2 29.8 H ABG O2 Saturation 96.7 ABG O2 Content 11.4 L ABG Base Excess 4.0 H ABG Hemoglobin 8.6 L ABG Carboxyhemoglobin 1.9 H POC ABG HHb (Measured) 3.2 ABG Methemoglobin 1.1 ABG O2 Capacity 11.8 L Hgb O2 Saturation 93.8 L FiO2 28.0 Sodium Potassium Chloride Carbon Dioxide Anion Gap BUN Creatinine Est GFR ( Amer) Est GFR (Non-Af Amer) POC Glucose (mg/dL) 118 H 212 H Random Glucose Calcium Total Bilirubin AST ALT Alkaline Phosphatase Lactate Dehydrogenase Total Creatine Kinase Troponin I Total Protein Albumin Globulin Albumin/Globulin Ratio Radiology Impressions: Radiology Impressions Brain MRI 06/09/18 11:42 IMPRESSION: There is a single small area of restricted diffusion in the left parietal lobe cortex measuring 3 mm in diameter. This is consistent with an acute infarct. This is probably too small to be related to the patient's symptoms. Fingerstick Blood Sugar Results: 212 Critical Care Progress Note - Nutrition Nutrition: Nutrition Category Date Time Status NPO Diet [DIET] Diets 06/08/18 Breakfast Ordered Assessment/Plan - Assessment and Plan (Free Text) Assessment: Pt is a 78yo male with a PMH of BPH and esophageal cancer s/p chemo/radiation/resection who presented to the ED for AMS, who was found unresponsive by his family. Pt was intubated and a code stroke was called, pt was later extubated. Pt could not be reintubated and had a trach placed. Plan: Neuro - AMS - GCS 11T - Keppra 1000mg given in ED - Solumedrol 60q6 - Video EEG, normal EGG - CT head: No acute intracranial findings - Head/Neck CTA: No evidence of hemodynamically significant stenosis in the internal carotid arteries - MRI brain shows 3mm acute infarct in left parietal lobe. It is unlikely that this is causing the pt current presentation and symptoms - Neurology consulted, Dr Toth rec starting pt on plavix, pt is allergic to ASA Cardio - ASA, lipitor - no GRISELDA given because of pt BP - trop 0.06, 0.42, 0.31 Pulm - hypercapnic, hypoxic respiratory failure 2/2 airway obstruction - temporary tracheostomy in place now, will try to upgrade to permanent trach if needed - ENT consulted, Dr Lao - Surgical team consulted for permanent trach GI - Hx of esophageal Ca - pantoprazole - Will continue to monitor at this time Nephro/ - urine culture GNR - monitor electrolytes - monitor BUN/Cr Heme/Onc - Hgb 8.4 - Pt follows with Dr Bland Heme/Onc ID - afebrile - cefepime - vanc Endo - maintain euglycemia - ISS Dispo: transfer to tele Pt seen, examined, assessment and plan discussed with Dr Corina Worthington PGY1 - Date & Time Date: 06/10/18 Time: 07:18
--- NOTE | 2018-06-10 09:00 | CP.PCM.PN ---
<Frank Garcia - Last Filed: 06/10/18 13:51> Subjective - Date & Time of Evaluation Date of Evaluation: 06/10/18 Time of Evaluation: 08:59 - Subjective Subjective: PGY-1 Medicine progress note for Dr. Mayo Patient seen and examined at bedside. No acute events overnight. Patient is complaining of chest pain only when he is coughing. Patient is unable to talk due to tracheostomy but able to communicate by writing on paper. Patient downgraded to telemetry. He denies fevers, chills, shortness of breath, abdominal pain, nausea, vomiting, diarrhea, or urinary symptoms. Objective - Vital Signs/Intake and Output Vital Signs (last 24 hours): Temp Pulse Resp BP Pulse Ox 98.2 F 79 30 H 130/60 92 L 06/10/18 07:04 06/10/18 07:04 06/10/18 07:00 06/10/18 07:00 06/10/18 07:04 Intake and Output: 06/10/18 06/10/18 06:59 18:59 Intake Total 2589 Output Total 760 Balance 1829 - Medications Medications: Current Medications Acetaminophen (Tylenol 325mg Tab) 650 mg PO Q6H PRN PRN Reason: Pain, moderate (4-7) Last Admin: 06/09/18 13:38 Dose: 650 mg Atorvastatin Calcium (Lipitor) 80 mg PO DIN [facility] Last Admin: 06/09/18 17:23 Dose: 80 mg Clopidogrel Bisulfate (Plavix) 75 mg PO DAILY [facility] Last Admin: 06/09/18 13:38 Dose: 75 mg Heparin Sodium (Porcine) (Heparin) 5,000 units SC Q8 [facility]; Protocol Last Admin: 06/10/18 05:12 Dose: 5,000 units Sodium Chloride (Sodium Chloride 0.9%) 1,000 mls @ 100 mls/hr IV .Q10H [facility] Last Admin: 06/09/18 23:30 Dose: 100 mls/hr Cefepime HCl (Maxipime 1gm) 1 gm in 100 mls @ 100 mls/hr IVPB Q12 [facility]; Protocol Last Admin: 06/09/18 21:57 Dose: 100 mls/hr Vancomycin HCl (Vancomycin 1gm) 1 gm in 250 mls @ 167 mls/hr IVPB DAILY [facility]; Protocol Last Admin: 06/09/18 10:28 Dose: 167 mls/hr Insulin Human Regular (Humulin R Low) 0 units SC Q6 L[facility]; Protocol Last Admin: 06/10/18 07:26 Dose: 2 u Methylprednisolone (Solu-Medrol) 60 mg IVP Q8 [facility] Last Admin: 06/10/18 05:12 Dose: 60 mg Metoprolol Tartrate (Lopressor) 5 mg IVP Q12H [facility] Last Admin: 06/08/18 11:20 Dose: Not Given Pantoprazole Sodium (Protonix Inj) 40 mg IVP DAILY [facility] Last Admin: 06/09/18 10:28 Dose: 40 mg Promethazine HCl/Codeine (Phenergan/Codeine Oral Syrup) 5 ml PEG Q4H PRN PRN Reason: Cough and congestion Last Admin: 06/09/18 21:57 Dose: 5 ml - Labs Labs: 06/10/18 06:00 06/10/18 06:00 PT 12.7 SECONDS (9.4-12.5) H 06/07/18 16:28 INR 1.14 06/07/18 16:28 APTT 30.2 Seconds (26.9-38.3) 06/07/18 16:28 - Additional Findings Additional findings: - Constitutional Appears: no acute distress, Chronically Ill - Head Exam Head Exam: ATRAUMATIC, NORMAL INSPECTION, NORMOCEPHALIC - Eye Exam Eye Exam: Irregularly shaped pupil in right eye. EOMI, PERRL - Neck Exam Neck Exam: 6-Fr fenestrated tracheostomy cannula s/pcricothyroidectomy, site is clean and non bleeding - Respiratory Exam Respiratory Exam: on vent, Clear to auscultation bilaterally absent: Accessory Muscle Use, Decreased Breath Sounds, Rales, Rhonchi, Respiratory Distress, Stridor - Cardiovascular Exam Cardiovascular Exam: +S1, +S2. absent: Gallop, Rubs - GI/Abdominal Exam GI & Abdominal Exam: Normal Bowel Sounds, Soft. absent: Distended, Firm G tube in place, no draining/bleeding noted around tube - Extremities Exam Extremities exam: Negative for: pedal edema - Neurological Exam Neurological exam: Responsive to questions, following commends - Skin Skin Exam: Dry, Normal Color Assessment and Plan - Assessment and Plan (Free Text) Assessment: Patient is a 78 year old male with a past medical history of BPH and esophageal cancer s/p chemo/radiation/resection who presented to the ED for AMS, who was found unresponsive by his family. Patient is admitted to the ICU for respiratory failure and altered mental status. Plan: Acute ischemic parietal lobe infarct - Brain MRI: There is a single small area of restricted diffusion in the left parietal lobe cortex measuring 3 mm in diameter. This is consistent with an acute infarct. Probably too small to be related to patient's symptoms. - CT head (06/07): No acute intracranial findings - Head/Neck CTA (06/07): No evidence of hemodynamically significant stenosis in the internal carotid arteries - Neurology consulted, Dr. Toth - Continue Plavix and Lipitor - Patient allergic to ASA - PT/OT evaluation Hypercapneic, hypoxic respiratory failure - Patient with temporary tracheostomy, patient is off mechanical ventilation - Plan for permanent tracheostomy placement on 06/13 - Awaiting recommendations from ENT - Surgery consulted, Dr. Martinez - ENT consulted, Dr. Lao - Solumedrol 60mg Q12 IV- tapering down - Phenergen/Codeine PRN for cough Leukocytosis - Likely 2/2 to steroids, r/o infectious etiology - CXR (06/10): No change in R lower lobe consolidation. New consolidation in left upper lobe. - Procalcitonin: 1.52 - Cefepime 1g IV Q12 (Started on 06/07) - Vancomycin 1g IV QD (Started on 06/07) Altered mental status, resolved - Rule out seizure vs stroke vs infectious etiology - CT head (06/07): No acute intracranial findings - Head/Neck CTA (06/07): No evidence of hemodynamically significant stenosis in the internal carotid arteries - CXR (06/10): No change in R lower lobe consolidation. New consolidation in left upper lobe. - Neurology consulted, Dr. Toth - Normal Video EEG - Cefepime 1g IV Q12 (Started on 06/07) - Vancomycin 1g IV QD (Started on 06/07) - Continue NS @ 100 mls/hr - Procalcitonin: 1.52 Elevated troponins, resolved - Likely secondary to cardiopulmonary resuscitation - EKG: NSR @ 84 bpm, no ST changes - Echo: LVEF 54% - Cardiology consulted, Dr. Velazco - Lopressor 5mg IV Q12 - Lipitor 80mg PO HS - Continue to monitor Failure to thrive - Patient has a Gastrostomy tube - Continue tube feedings, Pivot 1.5 Normocytic anemia - Likely 2/2 hemodilution - Continue to monitor Chronic dysphagia to solids and liquids - Patient has history of esophageal Cancer - Will continue to monitor at this time Prophylaxis - Heparin 5000u SC Q8 - Protonix 40mg IVP QD Patient seen and case discussed with attending, Dr. Mayo. Frank Garcia, PGY-1 <Chao Mayo - Last Filed: 06/10/18 14:53> Objective - Vital Signs/Intake and Output Vital Signs (last 24 hours): Temp Pulse Resp BP Pulse Ox 98.2 F 77 17 126/56 L 93 L 06/10/18 13:20 06/10/18 13:20 06/10/18 13:20 06/10/18 13:00 06/10/18 13:20 Intake and Output: 06/10/18 06/10/18 06:59 18:59 Intake Total 2589 Output Total 760 Balance 1829 - Medications Medications: Current Medications Acetaminophen (Tylenol 325mg Tab) 650 mg PO Q6H PRN PRN Reason: Pain, moderate (4-7) Last Admin: 06/09/18 13:38 Dose: 650 mg Atorvastatin Calcium (Lipitor) 80 mg PO DIN [facility] Last Admin: 06/09/18 17:23 Dose: 80 mg Clopidogrel Bisulfate (Plavix) 75 mg PO DAILY [facility] Last Admin: 06/10/18 10:13 Dose: 75 mg Heparin Sodium (Porcine) (Heparin) 5,000 units SC Q8 [facility]; Protocol Last Admin: 06/10/18 05:12 Dose: 5,000 units Cefepime HCl (Maxipime 1gm) 1 gm in 100 mls @ 100 mls/hr IVPB Q12 [facility]; Protocol Last Admin: 06/10/18 10:04 Dose: 100 mls/hr Vancomycin HCl (Vancomycin 1gm) 1 gm in 250 mls @ 167 mls/hr IVPB DAILY [facility]; Protocol Last Admin: 06/10/18 10:05 Dose: 167 mls/hr Insulin Human Regular (Humulin R Low) 0 units SC Q6 [facility]; Protocol Last Admin: 06/10/18 13:49 Dose: Not Given Methylprednisolone (Solu-Medrol) 60 mg IVP Q12 [facility] Last Admin: 06/10/18 10:15 Dose: 60 mg Metoprolol Tartrate (Lopressor) 5 mg IVP Q12H [facility] Last Admin: 06/08/18 11:20 Dose: Not Given Pantoprazole Sodium (Protonix Inj) 40 mg IVP DAILY [facility] Last Admin: 06/10/18 10:14 Dose: 40 mg Promethazine HCl/Codeine (Phenergan/Codeine Oral Syrup) 5 ml PEG Q4H PRN PRN Reason: Cough and congestion Last Admin: 06/09/18 21:57 Dose: 5 ml - Labs Labs: 06/10/18 06:00 06/10/18 06:00 PT 12.7 SECONDS (9.4-12.5) H 06/07/18 16:28 INR 1.14 06/07/18 16:28 APTT 30.2 Seconds (26.9-38.3) 06/07/18 16:28 Attending/Attestation - Attestation I have personally seen and examined this patient.: Yes I have fully participated in the care of the patient.: Yes I have reviewed all pertinent clinical information, including history, physical exam and plan: Yes Notes (Text): 06/10/18 14:51 78 year old male with past medical history of esophageal cancer s/p chemo, s/p radiation, s/p resection who presented after being found unresponsive at home by his family. He was intubated for acute respiratory distress. Initial ABG show ed hypercapnic respiratory failure. He had emergent cricothyroidotomy done in ER. Surgery is following and plan is for permanent trachestomy placement on 06/13/18. ENT evaluation is requested. Patient is now off mechanical ventilation. Continue with tapering iv steroids. CXR showed RLL atelecta sis/infiltrate for which patient is on iv antibiotics. CT head was negative for acute findings. CTA head/neck reviewed as above. MRI brain today showed single small areas of restrictive diffusion in the left parietal lobe cortex consistent with acute infarct. Patient is on plavix and statin (not as aspirin secondary to allergy). EEG was negative. Neurology is following. PT evaluation is requested. Cardiology is following for elevated troponins which is trending down. Echocardiogram was reviewed. Cardiology recommended medical management. Patient is currently on plavix, metoprolol and statin. Chao Mayo MD Hospitalist.
[2018-06-10] MEDS: Cefepime 1gm in NS 100ml 1 GM/100 ML BAG IVPB SCH ×2 (10:04→23:15)
[2018-06-10] MEDS: Vancomycin 1gm in NS 250ml 1 GM/250 ML BAG IVPB SCH (10:05)
--- NOTE | 2018-06-10 10:32 | CP.PCM.PN ---
Subjective - Date & Time of Evaluation Date of Evaluation: 06/10/18 Time of Evaluation: 08:00 - Subjective Subjective: General surgery progress note for Dr. Lul Baldwin, PGY-2 Pt seen/examined at bedside with surgical team Pt continues to be GCS 11T with tracheostomy device in place in cricothyroidotomy with dark red mucus secretions. No current complaints. Able to write out sentences. Concerned with if he is being charged for this hospital v isit. Tolerating tube feeds at 150cc/hr. Objective - Vital Signs/Intake and Output Vital Signs (last 24 hours): Temp Pulse Resp BP Pulse Ox 98.2 F 79 30 H 130/60 92 L 06/10/18 07:04 06/10/18 07:04 06/10/18 07:00 06/10/18 07:00 06/10/18 07:04 Intake and Output: 06/10/18 06/10/18 06:59 18:59 Intake Total 2589 Output Total 760 Balance 1829 - Medications Medications: Current Medications Acetaminophen (Tylenol 325mg Tab) 650 mg PO Q6H PRN PRN Reason: Pain, moderate (4-7) Last Admin: 06/09/18 13:38 Dose: 650 mg Atorvastatin Calcium (Lipitor) 80 mg PO DIN [facility] Last Admin: 06/09/18 17:23 Dose: 80 mg Clopidogrel Bisulfate (Plavix) 75 mg PO DAILY [facility] Last Admin: 06/10/18 10:13 Dose: 75 mg Heparin Sodium (Porcine) (Heparin) 5,000 units SC Q8 [facility]; Protocol Last Admin: 06/10/18 05:12 Dose: 5,000 units Cefepime HCl (Maxipime 1gm) 1 gm in 100 mls @ 100 mls/hr IVPB Q12 [facility]; Protocol Last Admin: 06/10/18 10:04 Dose: 100 mls/hr Vancomycin HCl (Vancomycin 1gm) 1 gm in 250 mls @ 167 mls/hr IVPB DAILY [facility]; P rotocol Last Admin: 06/10/18 10:05 Dose: 167 mls/hr Insulin Human Regular (Humulin R Low) 0 units SC Q6 [facility]; Protocol Last Admin: 06/10/18 07:26 Dose: 2 u Methylprednisolone (Solu-Medrol) 60 mg IVP Q12 [facility] Last Admin: 06/10/18 10:15 Dose: 60 mg Metoprolol Tartrate (Lopressor) 5 mg IVP Q12H [facility] Last Admin: 06/08/18 11:20 Dose: Not Given Pantoprazole Sodium (Protonix Inj) 40 mg IVP DAILY [facility] Last Admin: 06/10/18 10:14 Dose: 40 mg Promethazine HCl/Codeine (Phenergan/Codeine Oral Syrup) 5 ml PEG Q4H PRN PRN Reason: Cough and congestion Last Admin: 06/09/18 21:57 Dose: 5 ml - Labs Labs: 06/10/18 06:00 06/10/18 06:00 PT 12.7 SECONDS (9.4-12.5) H 06/07/18 16:28 INR 1.14 06/07/18 16:28 APTT 30.2 Seconds (26.9-38.3) 06/07/18 16:28 - Constitutional Appears: Non-toxic, No Acute Distress, Cachectic - Head Exam Head Exam: ATRAUMATIC, NORMAL INSPECTION, NORMOCEPHALIC - Eye Exam Eye Exam: EOMI, Normal appearance - ENT Exam ENT Exam: Mucous Membranes Moist - Neck Exam Additional comments: tracheostomy device in place in cricothyroid membrane with thick secretions - Respiratory Exam Respiratory Exam: NORMAL BREATHING PATTERN (on trach collar) - Cardiovascular Exam Cardiovascular Exam: REGULAR RHYTHM, +S1, +S2 - GI/Abdominal Exam GI & Abdominal Exam: Soft. absent: Distended, Firm, Guarding, Tenderness Additional comments: G tube in place with TF running Well healed midline incision - Extremities Exam Extremities Exam: Normal Inspection - Neurological Exam Neurological Exam: Alert, Awake - Psychiatric Exam Additional comments: Non verbal - Skin Skin Exam: Dry, Intact, Normal Color, Warm Assessment and Plan - Assessment and Plan (Free Text) Assessment: 78M w/acute respiratory failure and resulting emergent cricothyroidotomy and placement of tracheostomy cannula now on trach collar Plan: FU ENT consult recs Dr Juan BENITEZ oncologist regarding prognosis Plan for tracheostomy 06/13 EMMANUEL Baldwin, PGY-2
--- NOTE | 2018-06-10 11:35 | RAD ---
Date of service: 06/10/2018 HISTORY: s/p cpr COMPARISON: 06/08/2018 TECHNIQUE: 1 view obtained. FINDINGS: LUNGS: No change in right lower lobe consolidation. New area of consolidation in the left upper lobe PLEURA: Small pleural effusions CARDIOVASCULAR: No aortic atherosclerotic calcification present. Normal cardiac size. No pulmonary vascular congestion. OSSEOUS STRUCTURES: No significant abnormalities. VISUALIZED UPPER ABDOMEN: Normal. OTHER FINDINGS: None. IMPRESSION: No change in right lower lobe consolidation. New area of consolidation in the left upper lobe
--- NOTE | 2018-06-10 12:43 | CP.PCM.PN ---
<Hadley Pereyra - Last Filed: 06/10/18 12:44> Subjective - Date & Time of Evaluation Date of Evaluation: 06/10/18 Time of Evaluation: 12:41 - Subjective Subjective: Hadley Pereyra DO, PGY-2: Neurology Progress Note for Dr. Rust Patient was seen and examined at bedside. Patient reports having no weakness. He is doing well. No adverse events noted. Objective - Vital Signs/Intake and Output Vital Signs (last 24 hours): Temp Pulse Resp BP Pulse Ox 98.2 F 67 19 133/70 93 L 06/10/18 11:40 06/10/18 11:40 06/10/18 11:40 06/10/18 11:00 06/10/18 11:40 Intake and Output: 06/10/18 06/10/18 06:59 18:59 Intake Total 2589 Output Total 760 Balance 1829 - Medications Medications: Current Medications Acetaminophen (Tylenol 325mg Tab) 650 mg PO Q6H PRN PRN Reason: Pain, moderate (4-7) Last Admin: 06/09/18 13:38 Dose: 650 mg Atorvastatin Calcium (Lipitor) 80 mg PO DIN [facility]LY Last Admin: 06/09/18 17:23 Dose: 80 mg Clopidogrel Bisulfate (Plavix) 75 mg PO DAILY [facility] Last Admin: 06/10/18 10:13 Dose: 75 mg Heparin Sodium (Porcine) (Heparin) 5,000 units SC Q8 [facility]; Protocol Last Admin: 06/10/18 05:12 Dose: 5,000 units Cefepime HCl (Maxipime 1gm) 1 gm in 100 mls @ 100 mls/hr IVPB Q12 [facility]; Protocol Last Admin: 06/10/18 10:04 Dose: 100 mls/hr Vancomycin HCl (Vancomycin 1gm) 1 gm in 250 mls @ 167 mls/hr IVPB DAILY [facility]; Protocol Last Admin: 06/10/18 10:05 Dose: 167 mls/hr Insulin Human Regular (Humulin R Low) 0 units SC Q6 L[facility]; Protocol Last Admin: 06/10/18 07:26 Dose: 2 u Methylprednisolone (Solu-Medrol) 60 mg IVP Q12 [facility] Last Admin: 06/10/18 10:15 Dose: 60 mg Metoprolol Tartrate (Lopressor) 5 mg IVP Q12H [facility] Last Admin: 06/08/18 11:20 Dose: Not Given Pantoprazole Sodium (Protonix Inj) 40 mg IVP DAILY [facility] Last Admin: 06/10/18 10:14 Dose: 40 mg Promethazine HCl/Codeine (Phenergan/Codeine Oral Syrup) 5 ml PEG Q4H PRN PRN Reason: Cough and congestion Last Admin: 06/09/18 21:57 Dose: 5 ml - Labs Labs: 06/10/18 06:00 06/10/18 06:00 PT 12.7 SECONDS (9.4-12.5) H 06/07/18 16:28 INR 1.14 06/07/18 16:28 APTT 30.2 Seconds (26.9-38.3) 06/07/18 16:28 - Constitutional Appears: Well, Non-toxic - Head Exam Head Exam: ATRAUMATIC, NORMOCEPHALIC - Eye Exam Eye Exam: EOMI, Normal appearance - ENT Exam ENT Exam: Mucous Membranes Moist - Neck Exam Neck Exam: Normal Inspection - Respiratory Exam Respiratory Exam: NORMAL BREATHING PATTERN. absent: Accessory Muscle Use - Cardiovascular Exam Cardiovascular Exam: RRR, +S1, +S2 - GI/Abdominal Exam GI & Abdominal Exam: Soft, Normal Bowel Sounds - Extremities Exam Extremities Exam: Normal Inspection. absent: Calf Tenderness - Neurological Exam Neurological Exam: Alert, Awake, CN II-XII Intact, Oriented x3 Neuro motor strength exam: Left Upper Extremity: 5, Right Upper Extremity: 5, Left Lower Extremity: 5, Right Lower Extremity: 5 Additional comments: sensation intact, able to differentiate between sharp and soft touch, patellar DTR 2/4 and symmetric, finger to nose performed without dysmetria - Psychiatric Exam Psychiatric exam: Normal Affect, Normal Mood - Skin Skin Exam: Dry, Intact, Normal Color, Warm Assessment and Plan - Assessment and Plan (Free Text) Assessment: 78 year old male with a past medical history of esophageal cancer who presented with altered mental status with hypercapnic/hypoxemic respiratory failure. A code stroke was called intially in the ED; however, the patient was not a candidate for tPA given the unknown onset of his symptoms. His CT of the head and CTA show no evidence of stroke. MRI showed 3 mm acute infarct in left parietal lobe. 1) Encephalopathy with small infarct - CT head and CTA negative; video EEG negative for seizure - the patient altered mental status was likely secondary to his hypercapnic, hypoxemic respiratory failure, and not a stroke; we will follow up with his MRI - MRI of the brain shows there is a single small area of restricted diffusion in the left parietal lobe cortex measuring 3 mm in diameter. This is consistent with an acute infarct. (This is probably too small to be related to the patient's symptoms) - Plavix 75 mg daily (given the patient is allergic to aspirin) Case was reviewed and discussed with attending physician, Dr. Rust <Meenu Rust - Last Filed: 06/11/18 18:26> Objective - Vital Signs/Intake and Output Vital Signs (last 24 hours): Temp Pulse Resp BP Pulse Ox 98.4 F 73 20 139/76 95 06/11/18 17:58 06/11/18 17:58 06/11/18 17:58 06/11/18 17:58 06/11/18 06:00 Intake and Output: 06/11/18 06/11/18 06:59 18:59 Intake Total 500 Output Total 900 Balance -900 500 - Medications Medications: Current Medications Acetaminophen (Tylenol 325mg Tab) 650 mg PO Q6H PRN PRN Reason: Pain, moderate (4-7) Last Admin: 06/09/18 13:38 Dose: 650 mg Atorvastatin Calcium (Lipitor) 40 mg PO DIN [facility]YLY Last Admin: 06/11/18 17:55 Dose: 40 mg Clopidogrel Bisulfate (Plavix) 75 mg PO DAILY [facility] Last Admin: 06/11/18 10:07 Dose: 75 mg Heparin Sodium (Porcine) (Heparin) 5,000 units SC Q8 [facility]; Protocol Last Admin: 06/11/18 13:03 Dose: 5,000 units Cefepime HCl (Maxipime 1gm) 1 gm in 100 mls @ 100 mls/hr IVPB Q12 [facility]; Protocol Last Admin: 06/11/18 10:02 Dose: 100 mls/hr Vancomycin HCl (Vancomycin 1gm) 1 gm in 250 mls @ 167 mls/hr IVPB DAILY [facility]; Protocol Last Admin: 06/11/18 12:21 Dose: 167 mls/hr Insulin Human Regular (Humulin R Low) 0 units SC Q6 [facility]; Protocol Last Admin: 06/11/18 17:55 Dose: 2 u Methylprednisolone (Solu-Medrol) 60 mg IVP DAILY [facility] Last Admin: 06/11/18 10:06 Dose: 60 mg Pantoprazole Sodium (Protonix Inj) 40 mg IVP DAILY [facility] Last Admin: 06/11/18 10:07 Dose: 40 mg Promethazine HCl/Codeine (Phenergan/Codeine Oral Syrup) 5 ml PEG Q4H PRN PRN Reason: Cough and congestion Last Admin: 06/09/18 21:57 Dose: 5 ml - Labs Labs: 06/11/18 07:00 06/11/18 15:05 PT 12.7 SECONDS (9.4-12.5) H 06/07/18 16:28 INR 1.14 06/07/18 16:28 APTT 30.2 Seconds (26.9-38.3) 06/07/18 16:28 Assessment and Plan - Assessment and Plan (Free Text) Assessment: All medical record entries made by the Resident were at my direction and personally dictated by me. I have reviewed the chart and agree that the record accurately reflects my personal performance of the history, physical exam, medical decision making, and the department course for this patient. I have also personally directed, reviewed, and agree with the discharge instructions and disposition. Mr. Lopez is a 78 yr old male who has an acute embolic stroke, that is ischemic in nature. We will pursue stroke workup. ECHO, PTST OT. Dr. rust Neurology
--- NOTE | 2018-06-10 22:26 | PN ---
DATE: 06/10/2018 SUBJECTIVE: The patient is seen and examined at bedside. He is comfortable. He is wearing glasses, working TV, nonverbally communicating by writing on a clipboard. Not in respiratory or otherwise distress. PHYSICAL EXAMINATION: VITAL SIGNS: Blood pressure 151/71, oxygen saturation 97% on 35% FiO2, heart rate 82, respiratory rate 20, temperature 98.6. HEENT: Head and neck atraumatic. LUNGS: Clear to auscultation bilaterally. HEART: Regular rate and rhythm. S1 and S2 normal. ABDOMEN: Soft, nontender, nondistended. MUSCULOSKELETAL: No C/C/E. NEUROLOGIC: The patient moves all extremities spontaneously. SKIN: Moist. PSYCHIATRIC: The patient is alert, awake and following commands. LABORATORY DATA: WBC 14.7, hemoglobin 8.4, platelet count 298. Sodium 139, potassium 3.6, chloride 106, carbon dioxide 30, BUN 26, creatinine 0.5, glucose 164. AST 32, ALT 24, total bilirubin less than 0.1. MEDICATIONS: Tylenol p.r.n., Lipitor 40 mg p.o. daily, Plavix, heparin subcu, regular insulin sliding scale low protocol, cefepime, Solu-Medrol 60 mg IV every 12 hours (will be tapered down to daily), Protonix, vancomycin. ASSESSMENT AND PLAN: This is a 78-year-old gentleman who presented with upper airway obstruction, requiring emergent cricothyrotomy. The patient is currently stable with artificial airways in place. Ears, Nose and Throat consult appreciated. At the present time, the patient has almost complete obstruction of the upper airways and thus conversion cricothyrotomy to tracheostomy would be too risky as per Ears, Nose and Throat recommendations. At the present time, we will continue with steroid taper, antibiotics, gastrointestinal and deep venous thrombosis prophylaxis, oral hygiene. At present time, the patient is hemodynamically and respiratory [place] stable. Okay to downgrade telemetry. Julian Arriaga MD
--- NOTE | 2018-06-11 01:42 | CON ---
DATE OF CONSULTATION: 06/10/2018 HISTORY OF PRESENT ILLNESS: This is a 78-year-old white male, who is evaluated on 06/10/2018 with a history of coming into [place] [facility] in acute respiratory distress and unresponsiveness. In the emergency room, the patient was temporarily intubated and then subsequently extubated, followed by an emergency cricothyrotomy, which was performed. The patient had a history previously of progressive dysphagia and copious secretions leading to progressive respiratory distress according to family members. The patient has been experiencing progressive dysphagia for several years and has currently had minimal intake through the oral route. The patient with a previous history of esophageal CA 18 years ago and underwent subsequent chemo and radiation treatment somewhere at outside in [facility]. PAST MEDICAL HISTORY: Outside of the esophageal CA was unremarkable. SOCIAL HISTORY: Previous smoker, less than 10 cigarettes a day. Denied any alcohol abuse. ALLERGIES: HE HAD A HISTORY OF PEANUT ALLERGIES. PHYSICAL EXAMINATION: GENERAL: The patient is currently alert and oriented and in no acute distress HEENT: The patient was normocephalic. External auditory canals and tympanic membranes were unremarkable. Oropharyngeal Exam: Copious accretions. Cricothyrotomy tube was currently in place with an adequate airway present. We performed a direct fiberoptic laryngoscopy at bedside, where upon examination, there was evidence of diffuse supraglottitis, edema, erythema, and some granulation tissue with copious secretions noted. The cords were poorly visualized. IMPRESSION: The impression that this patient has supraglottitis. Etiology could be possible radiation versus infectious versus neoplastic etiologies. PLAN: Our plan is to maintain the cricothyrotomy tube with reevaluation in 48-72 hours, termination of resolution of his supraglottitis. We would continue with IV antibiotics and steroids and await blood cultures as well. Also recommend a CT scan of the neck to determine if there are any obstructive lesions present. If you have any further questions, feel free to contact my office. Marck Fierro DO
[2018-06-11] MEDS: Insulin Reg-LOW-Coverage SC SCH ×4 (05:28→17:55)
[2018-06-11 05:44] LABS: ARTERIAL BLOOD GAS O2 CAPACITY 12.4 mL/dl (16-24); ARTERIAL BLOOD GAS O2 CONTENT 12.2 ML/dl (15-23); ARTERIAL BLOOD GAS O2 SAT 98.4 % (95-98); ARTERIAL BLOOD GAS PCO2 42 mm/Hg (35-45); ARTERIAL BLOOD GAS PH 7.49 (7.35-7.45); ARTERIAL BLOOD GAS TCO2 33.3 mmol.L (22-28)
[2018-06-11 07:32] LABS: EOS % 0.1 % (1.5-5.0); LYMPH # 0.8 (1.2-3.4); LYMPH % 5.7 % (22.0-35.0); MEAN CELL VOLUME 96.2 fl (80.0-105.0); MEAN CORPUSCULAR HEMOGLOBIN 31.5 pg (25.0-35.0); MEAN CORPUSCULAR HGB CONC 32.7 g/dl (31.0-37.0); MEAN PLATELET VOLUME 10.1 fl (7.0-11.0); MONO # 1.2 (0.1-0.6); MONO % 8.8 % (1.0-6.0); RBC 2.86 10^6/uL (3.5-6.1); RED CELL DISTRIBUTION WIDTH 14.9 % (11.5-14.5); WHITE BLOOD COUNT 13.7 10^3/uL (4.5-11.0)
--- NOTE | 2018-06-11 08:41 | CP.PCM.PN ---
Subjective - Date & Time of Evaluation Date of Evaluation: 06/11/18 Time of Evaluation: 08:00 - Subjective Subjective: General surgery progress note for Dr. Lul Baldwin, PGY-2 Pt seen/examined at bedside with surgical team Pt resting comfortably in bed, currently on trach collar. Pt GCS 11T, able to follow commands and gesture with hands. No complaints of pain at this time. Patient was instructed on how to suction mouth/tracheostomy. Objective - Vital Signs/Intake and Output Vital Signs (last 24 hours): Temp Pulse Resp BP Pulse Ox 98.4 F 70 18 152/76 H 95 06/11/18 06:00 06/11/18 06:00 06/11/18 06:00 06/11/18 06:00 06/11/18 06:00 Intake and Output: 06/11/18 06/11/18 06:59 18:59 Intake Total 500 Output Total 900 Balance -900 500 - Medications Medications: Current Medications Acetaminophen (Tylenol 325mg Tab) 650 mg PO Q6H PRN PRN Reason: Pain, moderate (4-7) Last Admin: 06/09/18 13:38 Dose: 650 mg Atorvastatin Calcium (Lipitor) 40 mg PO DIN [facility] Clopidogrel Bisulfate (Plavix) 75 mg PO DAILY [facility] Last Admin: 06/10/18 10:13 Dose: 75 mg Heparin Sodium (Porcine) (Heparin) 5,000 units SC Q8 [facility]; Protocol Last Admin: 06/11/18 05:31 Dose: 5,000 units Cefepime HCl (Maxipime 1gm) 1 gm in 100 mls @ 100 mls/hr IVPB Q12 [facility]; Protocol Last Admin: 06/10/18 23:15 Dose: 100 mls/hr Vancomycin HCl (Vancomycin 1gm) 1 gm in 250 mls @ 167 mls/hr IVPB DAILY [facility]; Protocol Last Admin: 06/10/18 10:05 Dose: 167 mls/hr Insulin Human Regular (Humulin R Low) 0 units SC Q6 [facility]; Protocol Last Admin: 06/11/18 05:28 Dose: Not Given Methylprednisolone (Solu-Medrol) 60 mg IVP DAILY [facility] Metoprolol Tartrate (Lopressor) 5 mg IVP Q12H [facility] Last Admin: 06/08/18 11:20 Dose: Not Given Pantoprazole Sodium (Protonix Inj) 40 mg IVP DAILY [facility] Last Admin: 06/10/18 10:14 Dose: 40 mg Promethazine HCl/Codeine (Phenergan/Codeine Oral Syrup) 5 ml PEG Q4H PRN PRN Reason: Cough and congestion Last Admin: 06/09/18 21:57 Dose: 5 ml - Labs Labs: 06/11/18 07:00 06/10/18 06:00 PT 12.7 SECONDS (9.4-12.5) H 06/07/18 16:28 INR 1.14 06/07/18 16:28 APTT 30.2 Seconds (26.9-38.3) 06/07/18 16:28 - Constitutional Appears: Non-toxic, No Acute Distress, Cachectic - Head Exam Head Exam: ATRAUMATIC, NORMAL INSPECTION, NORMOCEPHALIC - Eye Exam Eye Exam: EOMI, Normal appearance - ENT Exam ENT Exam: Mucous Membranes Moist, Normal Exam - Neck Exam Additional comments: Cricothyroidotomy with tracheostomy device in place, thick yellow secretions tinged with dried blood noted - Respiratory Exam Respiratory Exam: NORMAL BREATHING PATTERN - Cardiovascular Exam Cardiovascular Exam: REGULAR RHYTHM - GI/Abdominal Exam GI & Abdominal Exam: Soft. absent: Tenderness Additional comments: G tube in place with TF running - Extremities Exam Extremities Exam: Normal Inspection - Neurological Exam Neurological Exam: Alert, Awake - Psychiatric Exam Additional comments: Non verbal - Skin Skin Exam: Dry, Intact, Normal Color, Warm Assessment and Plan - Assessment and Plan (Free Text) Assessment: 78M w/acute respiratory failure and resulting emergent cricothyroidotomy and placement of tracheostomy cannula on trach collar Plan: ENT with findings of supraglottitis on laryngoscopy, recs for continued ABx & steroids and re-evaluation in 2-3 days Continue supportive care as per primary team Frequent suctioning of trach for thick secretions Plan for tracheostomy 06/[address] Juan Baldwin, PGY-2
[2018-06-11 08:53] LABS: ALB/GLOB RATIO 0.9 (1.1-1.8); ALBUMIN 2.6 g/dL (3.0-4.8); ALT/SGPT 33 U/L (7-56); AST/SGOT 43 U/L (17-59); BLOOD UREA NITROGEN 25 mg/dL (7-21); CALCIUM 7.9 mg/dL (8.4-10.5); GFR NON-AFRICAN AMERICAN > 60
[2018-06-11] MEDS: Cefepime 1gm in NS 100ml 1 GM/100 ML BAG IVPB SCH ×2 (10:02→22:27)
[2018-06-11] MEDS ORDERED: Iohexol 350 MG/100 ML VIAL ONE (10:42)
--- NOTE | 2018-06-11 10:54 | CP.PCM.PN ---
<Jerome Sal - Last Filed: 06/11/18 10:50> Subjective - Date & Time of Evaluation Date of Evaluation: 06/11/18 Time of Evaluation: 08:00 - Subjective Subjective: Jerome Sal PGY-1 Progress Note for Hospitalist Service Patient seen and evaluated at bedside. No acute events reported overnight. Patient denies current chest pain. Patient has tracheostomy tube in place with aerosilization. He denies fevers, chills, shortness of breath, abdominal pain, nausea, vomiting, diarrhea, or urinary symptoms by nodding but is presently unable to phonate. Objective - Vital Signs/Intake and Output Vital Signs (last 24 hours): Temp Pulse Resp BP Pulse Ox 98.4 F 70 18 152/76 H 95 06/11/18 06:00 06/11/18 06:00 06/11/18 06:00 06/11/18 06:00 06/11/18 06:00 Intake and Output: 06/11/18 06/11/18 06:59 18:59 Intake Total 500 Output Total 900 Balance -900 500 - Medications Medications: Current Medications Acetaminophen (Tylenol 325mg Tab) 650 mg PO Q6H PRN PRN Reason: Pain, moderate (4-7) Last Admin: 06/09/18 13:38 Dose: 650 mg Atorvastatin Calcium (Lipitor) 40 mg PO DIN [facility] Clopidogrel Bisulfate (Plavix) 75 mg PO DAILY [facility] Last Admin: 06/11/18 10:07 Dose: 75 mg Heparin Sodium (Porcine) (Heparin) 5,000 units SC Q8 LYLY; Protocol Last Admin: 06/11/18 05:31 Dose: 5,000 units Cefepime HCl (Maxipime 1gm) 1 gm in 100 mls @ 100 mls/hr IVPB Q12 [facility]; Protocol Last Admin: 06/11/18 10:02 Dose: 100 mls/hr Vancomycin HCl (Vancomycin 1gm) 1 gm in 250 mls @ 167 mls/hr IVPB DAILY [facility]; Protocol Last Admin: 06/10/18 10:05 Dose: 167 mls/hr Insulin Human Regular (Humulin R Low) 0 units SC Q6 LYLY; Protocol Last Admin: 06/11/18 10:07 Dose: Not Given Methylprednisolone (Solu-Medrol) 60 mg IVP DAILY [facility] Last Admin: 06/11/18 10:06 Dose: 60 mg Metoprolol Tartrate (Lopressor) 5 mg IVP Q12H [facility]YLY Last Admin: 06/08/18 11:20 Dose: Not Given Pantoprazole Sodium (Protonix Inj) 40 mg IVP DAILY [facility] Last Admin: 06/11/18 10:07 Dose: 40 mg Promethazine HCl/Codeine (Phenergan/Codeine Oral Syrup) 5 ml PEG Q4H PRN PRN Reason: Cough and congestion Last Admin: 06/09/18 21:57 Dose: 5 ml - Labs Labs: 06/11/18 07:00 06/11/18 07:00 PT 12.7 SECONDS (9.4-12.5) H 06/07/18 16:28 INR 1.14 06/07/18 16:28 APTT 30.2 Seconds (26.9-38.3) 06/07/18 16:28 - Additional Findings Additional findings: - Constitutional Appears: no acute distress, Chronically Ill - Head Exam Head Exam: ATRAUMATIC, NORMAL INSPECTION, NORMOCEPHALIC - Eye Exam Eye Exam: Irregularly shaped pupil in right eye. EOMI, PERRL - Neck Exam Neck Exam: Tracheostomy collar s/p cricothyroidotomy, site has evidence of dried blood, attached to aerosilization - Respiratory Exam Respiratory Exam: on vent, Clear to auscultation bilaterally absent: Accessory Muscle Use, Decreased Breath Sounds, Rales, Rhonchi, Respiratory Distress, Stridor - Cardiovascular Exam Cardiovascular Exam: +S1, +S2. absent: Gallop, Rubs - GI/Abdominal Exam GI & Abdominal Exam: Normal Bowel Sounds, Soft. absent: Distended, Firm G tube in place, no draining/bleeding noted around tube - Extremities Exam Extremities exam: Negative for: pedal edema - Neurological Exam Neurological exam: AAOx3, Responsive to questions, following commands - Skin Skin Exam: Dry, Normal Color Assessment and Plan - Assessment and Plan (Free Text) Assessment: Patient is a 78 year old male with a past medical history of BPH and esophageal cancer s/p chemo/radiation/resection who presented to the ED for AMS, who was found unresponsive by his family. Patient was admitted to the ICU for respiratory failure and altered mental status, subsequently downgraded for further management. Patient's family contacted today and hospital course was discussed at length with spouse and son. Plan: Acute ischemic parietal lobe infarct - Brain MRI: There is a single small area of restricted diffusion in the left parietal lobe cortex measuring 3 mm in diameter. This is consistent with an acute infarct. Probably too small to be related to patient's symptoms. - CT head (06/07): No acute intracranial findings - Head/Neck CTA (06/07): No evidence of hemodynamically significant stenosis in the internal carotid arteries - Neurology consulted, Dr. Toth - Continue Plavix and Lipitor, Patient allergic to ASA - PT/OT evaluation Hypercapneic, hypoxic respiratory failure - Patient with temporary tracheostomy, patient is off mechanical ventilation - Plan for permanent tracheostomy placement on 06/13 - ENT recs: consider supraglottitis, re-evaluate cricothyrotomy in 48 hours and continue antibiotics and steroids - F/U CT scan neck - Surgery consulted, Dr. Martinez - ENT consulted, Dr. Lao - C/w Solumedrol 60mg IVP daily - Phenergen/Codeine PRN for cough Leukocytosis - Likely 2/2 to steroids, r/o infectious etiology - CXR (06/10): No change in R lower lobe consolidation. New consolidation in left upper lobe. - Procalcitonin: 1.52 - Cefepime 1g IV Q12 (Started on 06/07) - Vancomycin 1g IV QD (Started on 06/07) Altered mental status, resolved - Rule out seizure vs stroke vs infectious etiology - CT head (06/07): No acute intracranial findings - Head/Neck CTA (06/07): No evidence of hemodynamically significant stenosis in the internal carotid arteries - CXR (06/10): No change in R lower lobe consolidation. New consolidation in left upper lobe. - Neurology consulted, Dr. Toth - Normal Video EEG - Cefepime 1g IV Q12 (Started on 06/07) - Vancomycin 1g IV QD (Started on 06/07) - Continue NS @ 100 mls/hr - Procalcitonin: 1.52 Elevated troponins, resolved - Likely secondary to cardiopulmonary resuscitation - EKG: NSR @ 84 bpm, no ST changes - Echo: LVEF 54% - Cardiology consulted, Dr. Velazco - Lipitor 80mg PO HS - Continue to monitor Failure to thrive - Patient has a Gastrostomy tube - Continue tube feedings, Pivot 1.5 Normocytic anemia- stable - Likely 2/2 hemodilution - Continue to monitor Chronic dysphagia to solids and liquids - Patient has history of esophageal Cancer - Will continue to monitor at this time Prophylaxis - Heparin 5000u SC Q8 - Protonix 40mg IVP QD Patient seen, case reviewed and plan approved by Dr. Mayo. Jerome Sal, PGY-1 <Chao Mayo - Last Filed: 06/11/18 11:48> Objective - Vital Signs/Intake and Output Vital Signs (last 24 hours): Temp Pulse Resp BP Pulse Ox 98.4 F 70 18 152/76 H 95 06/11/18 06:00 06/11/18 06:00 06/11/18 06:00 06/11/18 06:00 06/11/18 06:00 Intake and Output: 06/11/18 06/11/18 06:59 18:59 Intake Total 500 Output Total 900 Balance -900 500 - Medications Medications: Current Medications Acetaminophen (Tylenol 325mg Tab) 650 mg PO Q6H PRN PRN Reason: Pain, moderate (4-7) Last Admin: 06/09/18 13:38 Dose: 650 mg Atorvastatin Calcium (Lipitor) 40 mg PO DIN LYLY Clopidogrel Bisulfate (Plavix) 75 mg PO DAILY [facility] Last Admin: 06/11/18 10:07 Dose: 75 mg Heparin Sodium (Porcine) (Heparin) 5,000 units SC Q8 LYLY; Protocol Last Admin: 06/11/18 05:31 Dose: 5,000 units Cefepime HCl (Maxipime 1gm) 1 gm in 100 mls @ 100 mls/hr IVPB Q12 LYLY; Protocol Last Admin: 06/11/18 10:02 Dose: 100 mls/hr Vancomycin HCl (Vancomycin 1gm) 1 gm in 250 mls @ 167 mls/hr IVPB DAILY [facility]; Protocol Last Admin: 06/10/18 10:05 Dose: 167 mls/hr Insulin Human Regular (Humulin R Low) 0 units SC Q6 LYLY; Protocol Last Admin: 06/11/18 10:07 Dose: Not Given Methylprednisolone (Solu-Medrol) 60 mg IVP DAILY [facility] Last Admin: 06/11/18 10:06 Dose: 60 mg Pantoprazole Sodium (Protonix Inj) 40 mg IVP DAILY [facility] Last Admin: 04/13/19 10:07 Dose: 40 mg Promethazine HCl/Codeine (Phenergan/Codeine Oral Syrup) 5 ml PEG Q4H PRN PRN Reason: Cough and congestion Last Admin: 06/09/18 21:57 Dose: 5 ml - Labs Labs: 06/11/18 07:00 06/11/18 07:00 PT 12.7 SECONDS (9.4-12.5) H 06/07/18 16:28 INR 1.14 06/07/18 16:28 APTT 30.2 Seconds (26.9-38.3) 06/07/18 16:28 Attending/Attestation - Attestation I have personally seen and examined this patient.: Yes I have fully participated in the care of the patient.: Yes I have reviewed all pertinent clinical information, including history, physical exam and plan: Yes Notes (Text): 06/11/18 11:45 78 year old male with past medical history of esophageal cancer s/p chemo, s/p radiation, s/p resection who presented after being found unresponsive at home by his family. He was intubated for acute respiratory distress. Initial ABG showed hypercapnic respiratory failure. He had emergent cricothyroidotomy done in ER. Surgery is following and plan is for permanent trachestomy placement on 06/13/18. ENT evaluation was appreciated who recommended CT neck study which is pending. Patient is now off mechanical ventilation. Continue with iv steroids. CXR showed RLL atelectasis/infiltrate for which patient is on iv antibiotics. CT head was negative for acute findings. CTA head/neck reviewed as above. MRI brain today showed single small areas of restrictive diffusion in the left parietal lobe cortex consistent with acute infarct. Patient is on plavix and statin (not as aspirin secondary to allergy). EEG was negative. Neurology is following. PT evaluation was requested. Cardiology is following for elevated troponins which is trending down. Echocardiogram was reviewed. Cardiology recommended medical management. Patient is currently on plavix and statin. Will replete and repeat lytes (potassium). Chao Mayo MD Hospitalist.
[2018-06-11] MEDS ORDERED: Potassium Chloride 20 mEq ER Tab PO STA (11:48)
[2018-06-11] MEDS ORDERED: Potassium Chloride 40 mEq/30 ml LIQ UD PO ONE (11:54)
[2018-06-11] MEDS: Vancomycin 1gm in NS 250ml 1 GM/250 ML BAG IVPB SCH (12:21)
--- NOTE | 2018-06-11 13:28 | CT ---
Date of service: 06/11/2018 PROCEDURE: CT NECK WITH CONTRAST HISTORY: Evaluation of soft tissues of neck, cric COMPARISON: Comparison made with CTA neck and brain 06/07/[address] scan of the neck dated 08/01/2017.. TECHNIQUE: Approximately contiguous helical/transaxial sections of the neck performed before and following intravenous injection. Additional 2D sagittal and coronal. Coronal and sagittal reformats generated. Radiation dose: Total exam DLP = 810.76 mGy-cm. This CT exam was performed using one or more of the following dose reduction techniques: Automated exposure control, adjustment of the mA and/or kV according to patient size, and/or use of iterative reconstruction technique. FINDINGS: The current study reveals interval tracheostomy with in situ tracheostomy tube in good position.. There is apposition of the true vocal cords of with occlusion of the airway at this level.. These findings could possibly be related to mild edema secondary to irritation from since removed endotracheal tube and possibly secondary to recent tracheostomy. There is also a paucity of subcutaneous fat which also contributes to the loss of some of the blurring of the fascial planes.. Questionable mild diffuse subcutaneous edema -anasarca not excluded. Secretions are felt to be present within the posterior dependent portion of the avelino- pharynx and upper airway as well. Changes of bilateral cataract surgery again noted. MASS: None. GLANDS: Parotid and submandibular glands unremarkable. Normal size thyroid gland, without nodule. LYMPH NODES: Normal. No lymphadenopathy. CERVICAL SPINE: There are cystic- erosive changes involving the right and mid C5-C6 endplates which were visible although appear to have developed since prior CT scan of the neck 08/01/2017. Findings may represent chronic discitis/osteomyelitis therefore follow-up MRI of the cervical spine recommended. VASCULAR STRUCTURES: Minor calcified plaque changes seen along the left distal common carotid artery carotid bifurcation and internal carotid artery without occlusion or significant stenosis. OTHER FINDINGS: Moderate-sized right-sided effusion apparent. There is a elliptical shaped fluid seen in the superior margin of the left major fissure with smaller free-flowing of effusion as well. IMPRESSION: There are cystic- erosive changes involving the right and mid C5-C6 endplates which were visible although appear to have developed since prior CT scan of the neck 08/01/2017. Findings may represent chronic discitis/osteomyelitis therefore follow-up MRI of the cervical spine recommended. Interval tracheostomy with in situ tracheostomy tube in good position.. There is apposition of the true vocal cords of with occlusion of the airway at this level.. These findings could possibly be related to mild edema secondary to irritation from since removed endotracheal tube and possibly secondary to recent tracheostomy. There is also a paucity of subcutaneous fat which also contributes to the loss of some of the blurring of the fascial planes.. Questionable mild diffuse subcutaneous edema -anasarca not excluded. Secretions are felt to be present within the posterior dependent portion of the avelino- pharynx and upper airway as well. Bilateral effusions right greater than left with fluid seen in the superior aspect of the left major fissure
[2018-06-11 15:36] LABS: BLOOD UREA NITROGEN 28 mg/dL (7-21); CALCIUM 7.8 mg/dL (8.4-10.5); GFR NON-AFRICAN AMERICAN > 60
[2018-06-12] MEDS: Insulin Reg-LOW-Coverage SC SCH ×4 (00:06→18:12)
[2018-06-12] MEDS ORDERED: Levalbuterol 1.25 MG/3 ML Inhal Soln UD IH STA (01:01)
[2018-06-12] MEDS ORDERED: MethylPREDNISolone 40 mg Vial IVP STA (01:06)
--- NOTE | 2018-06-12 01:22 | CP.PCM.PCO ---
Addendum Addendum: 06/12/18 01:19 House Doctor: Received page regarding patient complaining of shortness of breath. Patient seen and evaluated with attending Dr. Angelo. O2 sat was read as 82% at time of complaint. X-ray ordered, ABG ordered, patient administered xopenex and lasix stat, and patient placed on O2. Will follow-up on labs/imaging. Continue to monitor. Markos Lazaro PGY1
[2018-06-12 01:33] LABS: ARTERIAL BLOOD GAS HCO3 28.5 mmol/L (21-28); ARTERIAL BLOOD GAS HEMOGLOBIN 11.6 g/dL (11.7-17.4); ARTERIAL BLOOD GAS O2 CAPACITY 15.9 mL/dl (16-24); ARTERIAL BLOOD GAS O2 CONTENT 15.6 ML/dl (15-23); ARTERIAL BLOOD GAS O2 SAT 97.9 % (95-98); ARTERIAL BLOOD GAS PCO2 46 mm/Hg (35-45); ARTERIAL BLOOD GAS TCO2 29.9 mmol.L (22-28)
[2018-06-12] MEDS: Promethazine/Cod 6.25mg-10mg/5ml Syr UD PEG PRN ×2 (02:24→21:47)
[2018-06-12 07:54] LABS: ALBUMIN 3.1 g/dL (3.0-4.8); ALT/SGPT 38 U/L (7-56); AST/SGOT 38 U/L (17-59); BLOOD UREA NITROGEN 31 mg/dL (7-21); CALCIUM 8.2 mg/dL (8.4-10.5); GFR NON-AFRICAN AMERICAN > 60
[2018-06-12] MEDS ORDERED: Potassium Chloride 20 mEq/15 ml LIQ UD PO ONE (07:58)
[2018-06-12 08:08] LABS: HEMOGLOBIN 10.4 g/dL (14.0-18.0); LYMPH # 0.5 (1.2-3.4); LYMPH % 3.3 % (22.0-35.0); MEAN CELL VOLUME 96.1 fl (80.0-105.0); MEAN CORPUSCULAR HEMOGLOBIN 31.5 pg (25.0-35.0); MEAN CORPUSCULAR HGB CONC 32.8 g/dl (31.0-37.0); MEAN PLATELET VOLUME 10.5 fl (7.0-11.0); MONO # 0.7 (0.1-0.6); MONO % 4.1 % (1.0-6.0); PLATELET COUNT 346 10^3/uL (120.0-450.0); RED CELL DISTRIBUTION WIDTH 14.8 % (11.5-14.5); WHITE BLOOD COUNT 16.4 10^3/uL (4.5-11.0)
--- NOTE | 2018-06-12 08:56 | CP.PCM.PN ---
Subjective - Date & Time of Evaluation Date of Evaluation: 06/12/18 Time of Evaluation: 08:00 - Subjective Subjective: General surgery progress note for Dr. Lul Baldwin, PGY-2 Pt seen/examined at bedside with surgical team Pt with SOB and desaturation into low 80's overnight due to secretions, given breathing treatment and steroid with good result. Currently resting comfortably in bed. Denies any pain. GCS 11T. Objective - Vital Signs/Intake and Output Vital Signs (last 24 hours): Temp Pulse Resp BP Pulse Ox 98.7 F 79 20 119/74 96 06/12/18 05:55 06/12/18 05:55 06/12/18 05:55 06/12/18 05:55 06/12/18 05:55 Intake and Output: 06/12/18 06/12/18 06:59 18:59 Intake Total 1100 Output Total 2220 Balance -1120 - Medications Medications: Current Medications Acetaminophen (Tylenol 325mg Tab) 650 mg PO Q6H PRN PRN Reason: Pain, moderate (4-7) Last Admin: 06/09/18 13:38 Dose: 650 mg Atorvastatin Calcium (Lipitor) 40 mg PO DIN [facility]YLY Last Admin: 06/11/18 17:55 Dose: 40 mg Clopidogrel Bisulfate (Plavix) 75 mg PO DAILY [facility] Last Admin: 06/11/18 10:07 Dose: 75 mg Heparin Sodium (Porcine) (Heparin) 5,000 units SC Q8 LYLY; Protocol Last Admin: 06/12/18 05:38 Dose: 5,000 units Cefepime HCl (Maxipime 1gm) 1 gm in 100 mls @ 100 mls/hr IVPB Q12 [facility]; Protocol Last Admin: 06/11/18 22:27 Dose: 100 mls/hr Vancomycin HCl (Vancomycin 1gm) 1 gm in 250 mls @ 167 mls/hr IVPB DAILY [facility]; Protocol Last Admin: 06/11/18 12:21 Dose: 167 mls/hr Insulin Human Regular (Humulin R Low) 0 units SC Q6 LYLY; Protocol Last Admin: 06/12/18 07:10 Dose: 3 u Methylprednisolone (Solu-Medrol) 60 mg IVP DAILY [facility] Last Admin: 06/11/18 10:06 Dose: 60 mg Pantoprazole Sodium (Protonix Inj) 40 mg IVP DAILY [facility] Last Admin: 06/11/18 10:07 Dose: 40 mg Promethazine HCl/Codeine (Phenergan/Codeine Oral Syrup) 5 ml PEG Q4H PRN PRN Reason: Cough and congestion Last Admin: 06/12/18 02:24 Dose: 5 ml - Labs Labs: 06/12/18 07:00 06/12/18 07:00 PT 12.7 SECONDS (9.4-12.5) H 06/07/18 16:28 INR 1.14 06/07/18 16:28 APTT 30.2 Seconds (26.9-38.3) 06/07/18 16:28 - Constitutional Appears: Non-toxic, No Acute Distress, Cachectic - Head Exam Head Exam: ATRAUMATIC, NORMAL INSPECTION, NORMOCEPHALIC - Eye Exam Eye Exam: EOMI, Normal appearance - Neck Exam Additional comments: Tracheostomy device in place in cricothyroidotomy incision - no secretions noted, currently getting breathing treatment, on trach collar - Respiratory Exam Respiratory Exam: NORMAL BREATHING PATTERN. absent: Accessory Muscle Use - Cardiovascular Exam Cardiovascular Exam: REGULAR RHYTHM - GI/Abdominal Exam GI & Abdominal Exam: Soft. absent: Tenderness Additional comments: G tube in place - Extremities Exam Extremities Exam: Normal Inspection (cachetic) - Neurological Exam Neurological Exam: Alert - Psychiatric Exam Additional comments: Non verbal, trach in place in cricothyroidotomy - Skin Skin Exam: Dry, Intact, Normal Color, Warm Assessment and Plan - Assessment and Plan (Free Text) Assessment: 78M w/acute respiratory failure and resulting emergent cricothyroidotomy and placement of tracheostomy cannula on trach collar with respiratory distress and desaturation overnight requiring breathing treatment and steroid Plan: ENT with findings of supraglottitis on laryngoscopy, recs for continued ABx & steroids and re-evaluation in 2-3 days Continue supportive care and breathing treatments as per primary team Frequent suctioning of trach for thick secretions recommend mucolytic Plan for tracheostomy 06/13 FU pre op labs in AM DW Dr. Juan Baldwin, PGY-2
[2018-06-12 09:45] LABS: LYMPHOCYTE 2 % (22.0-35.0); MONOCYTE 4 % (1.0-6.0); NEUTROPHIL 86 % (50.0-70.0)
[2018-06-12 09:46] LABS: BAND 8 % (0-2)
[2018-06-12 09:47] LABS: PLATELET ESTIMATE NORMAL (NORMAL)
[2018-06-12] MEDS: Cefepime 1gm in NS 100ml 1 GM/100 ML BAG IVPB SCH (10:10)
[2018-06-12] MEDS: Vancomycin 1gm in NS 250ml 1 GM/250 ML BAG IVPB SCH (10:11)
--- NOTE | 2018-06-12 11:50 | CP.PCM.PN ---
<Jerome Sal - Last Filed: 06/12/18 12:14> Subjective - Date & Time of Evaluation Date of Evaluation: 06/12/18 Time of Evaluation: 08:15 - Subjective Subjective: Jerome Sal PGY-1 Progress Note for Hospitalist Service Patient seen and evaluated at bedside. Episode of hypoxia overnight. Lasix, Solu-medrol and Xopenex were given and CXR performed. Patient denies current chest pain and is resting in bed comfortably. Patient requests another pillow and has tracheostomy tube in place. He denies fevers, chills, shortness of br eath, abdominal pain, nausea, vomiting, diarrhea, or urinary symptoms by nodding and is presently unable to phonate. Objective - Vital Signs/Intake and Output Vital Signs (last 24 hours): Temp Pulse Resp BP Pulse Ox 98.7 F 79 20 119/74 96 06/12/18 05:55 06/12/18 05:55 06/12/18 05:55 06/12/18 05:55 06/12/18 05:55 Intake and Output: 06/12/18 06/12/18 06:59 18:59 Intake Total 1100 Output Total 2220 Balance -1120 - Medications Medications: Current Medications Acetaminophen (Tylenol 325mg Tab) 650 mg PO Q6H PRN PRN Reason: Pain, moderate (4-7) Last Admin: 06/09/18 13:38 Dose: 650 mg Atorvastatin Calcium (Lipitor) 40 mg PO DIN [facility] Last Admin: 06/11/18 17:55 Dose: 40 mg Clopidogrel Bisulfate (Plavix) 75 mg PO DAILY [facility] Last Admin: 06/11/18 10:07 Dose: 75 mg Heparin Sodium (Porcine) (Heparin) 5,000 units SC Q8 [facility]; Protocol Last Admin: 06/12/18 05:38 Dose: 5,000 units Cefepime HCl (Maxipime 1gm) 1 gm in 100 mls @ 100 mls/hr IVPB Q12 [facility]; Protocol Last Admin: 06/12/18 10:10 Dose: 100 mls/hr Vancomycin HCl (Vancomycin 1gm) 1 gm in 250 mls @ 167 mls/hr IVPB DAILY [facility]; Protocol Last Admin: 06/12/18 10:11 Dose: 167 mls/hr Insulin Human Regular (Humulin R Low) 0 units SC Q6 [facility]; Protocol Last Admin: 06/12/18 07:10 Dose: 3 u Methylprednisolone (Solu-Medrol) 60 mg IVP DAILY [facility] Last Admin: 06/12/18 10:09 Dose: 60 mg Pantoprazole Sodium (Protonix Inj) 40 mg IVP DAILY [facility] Last Admin: 06/12/18 10:10 Dose: 40 mg Promethazine HCl/Codeine (Phenergan/Codeine Oral Syrup) 5 ml PEG Q4H PRN PRN Reason: Cough and congestion Last Admin: 06/12/18 02:24 Dose: 5 ml - Labs Labs: 06/12/18 07:00 06/12/18 07:00 PT 12.7 SECONDS (9.4-12.5) H 06/07/18 16:28 INR 1.14 06/07/18 16:28 APTT 30.2 Seconds (26.9-38.3) 06/07/18 16:28 - Additional Findings Additional findings: - Constitutional Appears: no acute distress, Chronically Ill - Head Exam Head Exam: ATRAUMATIC, NORMAL INSPECTION, NORMOCEPHALIC - Eye Exam Eye Exam: Irregularly shaped pupil in right eye. EOMI, PERRL - Neck Exam Neck Exam: Tracheostomy collar s/p cricothyroidotomy, site has evidence of dried blood - Respiratory Exam Respiratory Exam: on vent, Clear to auscultation bilaterally absent: Accessory Muscle Use, Decreased Breath Sounds, Rales, Rhonchi, Respiratory Distress, Stridor - Cardiovascular Exam Cardiovascular Exam: +S1, +S2. absent: Gallop, Rubs - GI/Abdominal Exam GI & Abdominal Exam: Normal Bowel Sounds, Soft. absent: Distended, Firm G tube in place, no draining/bleeding noted around tube - Extremities Exam Extremities exam: Negative for: pedal edema - Neurological Exam Neurological exam: AAOx3, Responsive to questions, following commands - Skin Skin Exam: Dry, Pallor Assessment and Plan - Assessment and Plan (Free Text) Assessment: 78 year old male with a past medical history of BPH and esophageal cancer s/p c hemo/radiation/resection who presented to the ED for AMS, who was found unresponsive by his family. Patient was admitted to the ICU for respiratory failure and altered mental status, subsequently downgraded for further management. Patient had hypoxic episode overnight. Plan: Acute ischemic parietal lobe infarct - Brain MRI: There is a single small area of restricted diffusion in the left parietal lobe cortex measuring 3 mm in diameter. This is consistent with an acute infarct. Probably too small to be related to patient's symptoms. - CT head (06/07): No acute intracranial findings - Head/Neck CTA (06/07): No evidence of hemodynamically significant stenosis in the internal carotid arteries - Neurology consulted, Dr. Toth - Continue Lipitor. Patient allergic to ASA. Plavix held per surgery. - PT/OT evaluation Hypercapneic, hypoxic respiratory failure - Patient with temporary tracheostomy, patient is off mechanical ventilation - Plan for permanent tracheostomy placement later part of week of 06/13 2/2 CXR findings. Plavix held per surgery - 06/10 ENT recs: consider supraglottitis, re-evaluate cricothyrotomy in 48 hours and continue antibiotics and steroids - 06/12 CT scan neck showed possible discitis vs osteo, f/u MRI cervical spine and ID recs - Surgery consulted, Dr. Martinez - ENT consulted, Dr. Lao - C/w Solumedrol 60mg IVP daily - Phenergen/Codeine PRN for cough Leukocytosis - Likely 2/2 to steroids, r/o infectious etiology - CXR (06/10): No change in R lower lobe consolidation. New consolidation in left upper lobe. - Procalcitonin: 1.52 - Cefepime 1g IV Q12 (Started on 06/07) - Vancomycin 1g IV QD (Started on 06/07) - Further ID recs appreciated in light of new CXR 06/12 Altered mental status, resolved - Rule out seizure vs stroke vs infectious etiology - CT head (06/07): No acute intracranial findings - Head/Neck CTA (06/07): No evidence of hemodynamically significant stenosis in the internal carotid arteries - CXR (06/10): No change in R lower lobe consolidation. New consolidation in left upper lobe. - Neurology consulted, Dr. Toth - Normal Video EEG - Cefepime 1g IV Q12 (Started on 06/07) - Vancomycin 1g IV QD (Started on 06/07) - Continue NS @ 100 mls/hr - Procalcitonin: 1.52 Elevated troponins, resolved - Likely secondary to cardiopulmonary resuscitation - EKG: NSR @ 84 bpm, no ST changes - Echo: LVEF 54% - Cardiology consulted, Dr. Velazco - Lipitor 80mg PO HS - Continue to monitor Hypokalemia - repleted yesterday - continue to monitor Failure to thrive - Patient has a Gastrostomy tube - Continue tube feedings, Pivot 1.5 Normocytic anemia- improved - Likely 2/2 hemodilution - Continue to monitor Chronic dysphagia to solids and liquids - Patient has history of esophageal Cancer - Will continue to monitor at this time Prophylaxis - Heparin 5000u SC Q8 - Protonix 40mg IVP QD Patient seen, case reviewed and plan approved by Dr. Mayo. Jerome Sal, PGY-1 <Chao Mayo - Last Filed: 06/12/18 13:15> Objective - Vital Signs/Intake and Output Vital Signs (last 24 hours): Temp Pulse Resp BP Pulse Ox 97.9 F 85 18 93/59 L 96 06/12/18 12:00 06/12/18 12:00 06/12/18 12:00 06/12/18 12:00 06/12/18 05:55 Intake and Output: 06/12/18 06/12/18 06:59 18:59 Intake Total 1100 Output Total 2220 Balance -1120 - Medications Medications: Current Medications Acetaminophen (Tylenol 325mg Tab) 650 mg PO Q6H PRN PRN Reason: Pain, moderate (4-7) Last Admin: 06/09/18 13:38 Dose: 650 mg Atorvastatin Calcium (Lipitor) 40 mg PO DIN [facility] Last Admin: 06/11/18 17:55 Dose: 40 mg Clopidogrel Bisulfate (Plavix) 75 mg PO DAILY [facility] Last Admin: 06/11/18 10:07 Dose: 75 mg Heparin Sodium (Porcine) (Heparin) 5,000 units SC Q8 [facility]; Protocol Last Admin: 06/12/18 05:38 Dose: 5,000 units Cefepime HCl (Maxipime 1gm) 1 gm in 100 mls @ 100 mls/hr IVPB Q12 [facility]; Protocol Last Admin: 06/12/18 10:10 Dose: 100 mls/hr Vancomycin HCl (Vancomycin 1gm) 1 gm in 250 mls @ 167 mls/hr IVPB DAILY [facility]; Protocol Last Admin: 06/12/18 10:11 Dose: 167 mls/hr Insulin Human Regular (Humulin R Low) 0 units SC Q6 [facility]; Protocol Last Admin: 06/12/18 07:10 Dose: 3 u Methylprednisolone (Solu-Medrol) 60 mg IVP DAILY [facility] Last Admin: 06/12/18 10:09 Dose: 60 mg Pantoprazole Sodium (Protonix Inj) 40 mg IVP DAILY [facility] Last Admin: 06/12/18 10:10 Dose: 40 mg Promethazine HCl/Codeine (Phenergan/Codeine Oral Syrup) 5 ml PEG Q4H PRN PRN Reason: Cough and congestion Last Admin: 06/12/18 02:24 Dose: 5 ml - Labs Labs: 06/12/18 07:00 06/12/18 07:00 PT 12.7 SECONDS (9.4-12.5) H 06/07/18 16:28 INR 1.14 06/07/18 16:28 APTT 30.2 Seconds (26.9-38.3) 06/07/18 16:28 Attending/Attestation - Attestation I have personally seen and examined this patient.: Yes I have fully participated in the care of the patient.: Yes I have reviewed all pertinent clinical information, including history, physical exam and plan: Yes Notes (Text): 06/12/18 13:06 78 year old male with past medical history of esophageal cancer s/p chemo, s/p radiation, s/p resection who presented after being found unresponsive at home by his family. He was intubated for acute respiratory distress. Initial ABG showed hypercapnic respiratory failure. CXR showed RLL atelectasis/infiltrate for which patient is on iv antibiotics. He had emergent cricothyroidotomy done in ER. Patient is now off mechanical ventilation. Surgery is following and pl an is for permanent trachestomy placement later this week. ENT evaluation was appreciated who recommended to continue with iv steroids and antibiotics in addition to obtain CT neck findings suggestive of possible chronic discitis/OM. MRI study ordered. BCX x 1 was positive for gram positive cocci. Patient is on iv antibiotics as above. Will follow up with ID recommendations. CT head was negative for acute findings. CTA head/neck reviewed as above. MRI brain today showed single small areas of restrictive diffusion in the left parietal lobe cortex consistent with acute infarct. Patient was started on plavix and statin (not as aspirin secondary to allergy). Plavix will be on hold for now for anticipated surgery this week. EEG was negative. Neurology is following. PT evaluation was appreciated who recommended acute rehab. Cardiology is following for elevated troponins which is trending down. Echocardiogram was reviewed. Cardiology recommended medical management. Patient was currently on plavix and statin. Plavix will now be on hold in anticipation of surgery this week as above. Chao Mayo MD Hospitalist.
--- NOTE | 2018-06-12 14:55 | RAD ---
Date of service: 06/12/2018 HISTORY: breathing distress COMPARISON: Comparison chest 06/10/2018. TECHNIQUE: 1 view obtained. FINDINGS: Note that both lung apices are partially obscured by overlying tracheostomy tube hardware. LUNGS: Redemonstrated is an elliptical shaped opacity left lateral mid lung field unchanged. Hazy opacity in the right lower lobe may represent areas of atelectasis. Suspect small bilateral effusions left larger than right PLEURA: As above. No apparent pneumothorax CARDIOVASCULAR: Mild aortic atherosclerotic calcification present. Normal cardiac size. No pulmonary vascular congestion. OSSEOUS STRUCTURES: No significant abnormalities. VISUALIZED UPPER ABDOMEN: Normal. OTHER FINDINGS: In situ tracheostomy tube IMPRESSION: Redemonstrated is an elliptical shaped opacity left lateral mid lung field unchanged. Hazy opacity in the right lower lobe may represent areas of atelectasis. Suspect small bilateral effusions left larger than right
--- NOTE | 2018-06-12 17:16 | CP.PCM.CON ---
History of Present Illness - History of Present Illness History of Present Illness: Infectious Disease Consultation: June 12, 2018 78 yo male who [place] [facility] [place] and [place]. Patient was in normal state of health when he went to the take a shower and lay down. The patient became SOB with labored breathing. Family stated that patient was cold to touch. [place] [facility] [place] The patient had several intubations and extubations and required a tracheotomy. The patient with elevated WBCs. He is awake but unable to phonate due to trach. PMHx: Esophageal Cancer PSHx: Resection of neck mass in 2000. Right eye cataract surgery Allergies: Peanuts - Rash Social Hx: 03/03 ppd smoker x 60 years NO illicit drug use No recent EtOH abuse Active Medications Acetaminophen (Tylenol 325mg Tab) 650 mg PO Q6H PRN PRN Reason: Pain, moderate (4-7) Last Admin: 06/09/18 13:38 Dose: 650 mg Atorvastatin Calcium (Lipitor) 40 mg PO DIN [facility] Last Admin: 06/11/18 17:55 Dose: 40 mg Clopidogrel Bisulfate (Plavix) 75 mg PO DAILY [facility] Last Admin: 06/11/18 10:07 Dose: 75 mg Heparin Sodium (Porcine) (Heparin) 5,000 units SC Q8 [facility]; Protocol Last Admin: 06/12/18 13:15 Dose: 5,000 units Cefepime HCl (Maxipime 1gm) 1 gm in 100 mls @ 100 mls/hr IVPB Q12 [facility]; Protocol Last Admin: 06/12/18 10:10 Dose: 100 mls/hr Vancomycin HCl (Vancomycin 1gm) 1 gm in 250 mls @ 167 mls/hr IVPB DAILY [facility]; Protocol Last Admin: 06/12/18 10:11 Dose: 167 mls/hr Insulin Human Regular (Humulin R Low) 0 units SC Q6 [facility]; Protocol Last Admin: 06/12/18 13:14 Dose: 3 u Methylprednisolone (Solu-Medrol) 60 mg IVP DAILY [facility] Last Admin: 06/12/18 10:09 Dose: 60 mg Pantoprazole Sodium (Protonix Inj) 40 mg IVP DAILY [facility] Last Admin: 06/12/18 10:10 Dose: 40 mg Promethazine HCl/Codeine (Phenergan/Codeine Oral Syrup) 5 ml PEG Q4H PRN PRN Reason: Cough and congestion Last Admin: 06/12/18 02:24 Dose: 5 ml Family Hx: none given ROS: Initial AMS, SOB. No chest pain, abdominal pain, melena, hematuria, hematemesis, hematochezia, depression, anxiety, diarrhea, vision loss, hearing loss Past Patient History - Infectious Disease Hx of Infectious Diseases: None - Past Medical History & Family History Past Medical History?: Yes - Past Social History Smoking Status: Former Smoker - CARDIAC Hx Cardiac Disorders: No - PULMONARY Hx Respiratory Disorders: No - NEUROLOGICAL Hx Neurological Disorder: No - HEENT Hx HEENT Problems: Yes Hx Deafness: Yes - RENAL Hx Chronic Kidney Disease: No - ENDOCRINE/METABOLIC Hx Endocrine Disorders: No - HEMATOLOGICAL/ONCOLOGICAL Hx Blood Transfusions: (UNKNOWN) Hx Blood Transfusion Reaction: (UNKNOWN) Hx Cancer: Yes (esophageal) - INTEGUMENTARY Hx Dermatological Problems: No - MUSCULOSKELETAL/RHEUMATOLOGICAL Hx Falls: No - GASTROINTESTINAL Hx Gastrointestinal Disorders: Yes - GENITOURINARY/GYNECOLOGICAL Hx Genitourinary Disorders: No - PSYCHIATRIC Hx Substance Use: No - SURGICAL HISTORY Other/Comment: throat cancer 1999 - ANESTHESIA Hx Anesthesia Reactions: (UNKNOWN) Hx Malignant Hyperthermia: (UNKNOWN) Meds Allergies/Adverse Reactions: Allergies Allergy/AdvReac Type Severity Reaction Status Date / Time aspirin Allergy RASH Verified 06/08/18 01:17 citric acid Allergy RASH Verified 06/08/18 01:18 [From Reji] sodium bicarbonate Allergy RASH Verified 06/08/18 01:18 [From Reji] peanut AdvReac RASH Verified 08/09/17 20:23 - Medications Medications: Current Medications Acetaminophen (Tylenol 325mg Tab) 650 mg PO Q6H PRN PRN Reason: Pain, moderate (4-7) Last Admin: 06/09/18 13:38 Dose: 650 mg Atorvastatin Calcium (Lipitor) 40 mg PO DIN [facility] Last Admin: 06/11/18 17:55 Dose: 40 mg Clopidogrel Bisulfate (Plavix) 75 mg PO DAILY [facility] Last Admin: 06/11/18 10:07 Dose: 75 mg Heparin Sodium (Porcine) (Heparin) 5,000 units SC Q8 [facility]; Protocol Last Admin: 06/12/18 13:15 Dose: 5,000 units Cefepime HCl (Maxipime 1gm) 1 gm in 100 mls @ 100 mls/hr IVPB Q12 [facility]; Protocol Last Admin: 06/12/18 10:10 Dose: 100 mls/hr Vancomycin HCl (Vancomycin 1gm) 1 gm in 250 mls @ 167 mls/hr IVPB DAILY [facility]; Protocol Last Admin: 06/12/18 10:11 Dose: 167 mls/hr Insulin Human Regular (Humulin R Low) 0 units SC Q6 [facility]; Protocol Last Admin: 06/12/18 13:14 Dose: 3 u Methylprednisolone (Solu-Medrol) 60 mg IVP DAILY [facility] Last Admin: 06/12/18 10:09 Dose: 60 mg Pantoprazole Sodium (Protonix Inj) 40 mg IVP DAILY [facility] Last Admin: 06/12/18 10:10 Dose: 40 mg Promethazine HCl/Codeine (Phenergan/Codeine Oral Syrup) 5 ml PEG Q4H PRN PRN Reason: Cough and congestion Last Admin: 06/12/18 02:24 Dose: 5 ml Physical Exam - Constitutional Appears: Non-toxic, No Acute Distress, Chronically Ill - Head Exam Head Exam: ATRAUMATIC, NORMOCEPHALIC - Eye Exam Eye Exam: EOMI, PERRL Pupil Exam: NORMAL ACCOMODATION, PERRL Additional comments: Irregularly shaped pupil in right eye. - Neck Exam Additional comments: Tracheotomy collar s/p cricothyroidotomy - Respiratory Exam Respiratory Exam: Clear to Auscultation Bilateral. absent: Rales, Rhonchi, Wheezes, Respiratory Distress - Cardiovascular Exam Cardiovascular Exam: REGULAR RHYTHM, RRR, +S1, +S2 - GI/Abdominal Exam GI & Abdominal Exam: Normal Bowel Sounds, Soft. absent: Distended, Tenderness Additional comments: G tube in place, no draining/bleeding noted around tube - Extremities Exam Extremities exam: Negative for: joint swelling, pedal edema - Neurological Exam Neurological exam: Alert, CN II-XII Intact, Oriented x3 - Psychiatric Exam Psychiatric exam: Normal Affect, Normal Mood - Skin Skin Exam: Intact, Normal Color Results - Vital Signs Recent Vital Signs: Last Vital Signs Temp 97.9 F 06/12/18 12:00 Pulse 85 06/12/18 12:00 Resp 18 06/12/18 12:00 BP 93/59 L 06/12/18 12:00 Pulse Ox 96 06/12/18 05:55 - Labs Result Diagrams: 06/12/18 07:00 06/12/18 07:00 Labs: Laboratory Results - last 24 hr 06/11/18 06/11/18 06/12/18 16:59 21:20 01:20 WBC RBC Hgb Hct MCV MCH MCHC RDW Plt Count MPV Neut % (Auto) Lymph % (Auto) [place] % (Auto) Eos % (Auto) Baso % (Auto) Lymph # (Auto) [place] # (Auto) Eos # (Auto) Baso # (Auto) Absolute Neuts (auto) Neutrophils % (Manual) Band Neutrophils % Lymphocytes % (Manual) Monocytes % (Manual) Platelet Evaluation pCO2 46 H pO2 81.0 HCO3 28.5 H ABG pH 7.40 ABG Total CO2 29.9 H ABG O2 Saturation 97.9 ABG O2 Content 15.6 ABG Base Excess 3.1 H ABG Hemoglobin 11.6 L ABG Carboxyhemoglobin 1.8 H POC ABG HHb (Measured) 2.0 ABG Methemoglobin 1.3 ABG O2 Capacity 15.9 L Hgb O2 Saturation 94.9 L FiO2 50.0 Sodium Potassium Chloride Carbon Dioxide Anion Gap BUN Creatinine Est GFR ( Amer) Est GFR (Non-Af Amer) POC Glucose (mg/dL) 200 H 179 H Random Glucose Calcium Total Bilirubin AST ALT Alkaline Phosphatase Total Protein Albumin Globulin Albumin/Globulin Ratio 06/12/18 06/12/18 06/12/18 06:48 07:00 07:00 WBC 16.4 H RBC 3.30 L Hgb 10.4 L Hct 31.7 L MCV 96.1 MCH 31.5 MCHC 32.8 RDW 14.8 H Plt Count 346 MPV 10.5 Neut % (Auto) 92.6 H Lymph % (Auto) 3.3 L [place] % (Auto) 4.1 Eos % (Auto) 0.0 L Baso % (Auto) 0.0 Lymph # (Auto) 0.5 L [place] # (Auto) 0.7 H Eos # (Auto) 0.0 Baso # (Auto) 0.00 Absolute Neuts (auto) 15.18 H Neutrophils % (Manual) 86 H Band Neutrophils % 8 H Lymphocytes % (Manual) 2 L Monocytes % (Manual) 4 Platelet Evaluation Normal pCO2 pO2 HCO3 ABG pH ABG Total CO2 ABG O2 Saturation ABG O2 Content ABG Base Excess ABG Hemoglobin ABG Carboxyhemoglobin POC ABG HHb (Measured) ABG Methemoglobin ABG O2 Capacity Hgb O2 Saturation FiO2 Sodium 135 Potassium 3.6 Chloride 96 L Carbon Dioxide 36 H Anion Gap 7 L BUN 31 H Creatinine 0.4 L Est GFR ( Amer) > 60 Est GFR (Non-Af Amer) > 60 POC Glucose (mg/dL) 251 H Random Glucose 220 H Calcium 8.2 L Total Bilirubin 0.3 AST 38 ALT 38 Alkaline Phosphatase 82 Total Protein 6.3 Albumin 3.1 Globulin 3.2 Albumin/Globulin Ratio 1.0 L 06/12/18 11:17 WBC RBC Hgb Hct MCV MCH MCHC RDW Plt Count MPV Neut % (Auto) Lymph % (Auto) [place] % (Auto) Eos % (Auto) Baso % (Auto) Lymph # (Auto) [place] # (Auto) Eos # (Auto) Baso # (Auto) Absolute Neuts (auto) Neutrophils % (Manual) Band Neutrophils % Lymphocytes % (Manual) Monocytes % (Manual) Platelet Evaluation pCO2 pO2 HCO3 ABG pH ABG Total CO2 ABG O2 Saturation ABG O2 Content ABG Base Excess ABG Hemoglobin ABG Carboxyhemoglobin POC ABG HHb (Measured) ABG Methemoglobin ABG O2 Capacity Hgb O2 Saturation FiO2 Sodium Potassium Chloride Carbon Dioxide Anion Gap BUN Creatinine Est GFR ( Amer) Est GFR (Non-Af Amer) POC Glucose (mg/dL) 260 H Random Glucose Calcium Total Bilirubin AST ALT Alkaline Phosphatase Total Protein Albumin Globulin Albumin/Globulin Ratio Assessment & Plan - Assessment and Plan (Free Text) Assessment: 78 yo male with esophageal cancer history presented with SOB and AMS. Trach in place. Most recent Chest X-ray showing Left upper lobe and right lower lobe infiltrates. CT scan of the neck suggested discitis vs. osteomyelitis. Check ESR. Supportive care. Would switch Cefepime to Zosyn for better coverage of aspiration pneumonia. On question of osteomyelitis, a Bone scan may be useful given the multiple procedures performed on the patient in this area coupled with obtaining the ESR and C-RP. Supportive care. Thank you for allowing me to participate in the care of the patient, we will follow with you.
[2018-06-12] MEDS: Piperacillin/Tazobact 3.375 gm 100 ML IVPB SCH ×2 (18:12→21:48)
[2018-06-13] MEDS: Insulin Reg-LOW-Coverage SC SCH ×4 (00:17→17:47)
[2018-06-13] MEDS: Piperacillin/Tazobact 3.375 gm 100 ML IVPB SCH ×3 (05:59→21:58)
[2018-06-13 07:13] LABS: EOS # 0.1 (0.0-0.7); EOS % 0.3 % (1.5-5.0); HEMOGLOBIN 10.1 g/dL (14.0-18.0); LYMPH % 6.6 % (22.0-35.0); MEAN CELL VOLUME 97.2 fl (80.0-105.0); MEAN CORPUSCULAR HEMOGLOBIN 31.7 pg (25.0-35.0); MEAN CORPUSCULAR HGB CONC 32.6 g/dl (31.0-37.0); MEAN PLATELET VOLUME 10.1 fl (7.0-11.0); MONO # 0.9 (0.1-0.6); MONO % 6.1 % (1.0-6.0); RBC 3.19 10^6/uL (3.5-6.1); RED CELL DISTRIBUTION WIDTH 14.9 % (11.5-14.5); WHITE BLOOD COUNT 14.9 10^3/uL (4.5-11.0)
[2018-06-13 07:24] LABS: BLOOD UREA NITROGEN 30 mg/dL (7-21); CALCIUM 8.3 mg/dL (8.4-10.5); GFR NON-AFRICAN AMERICAN > 60
--- NOTE | 2018-06-13 08:44 | CP.PCM.PN ---
Subjective - Date & Time of Evaluation Date of Evaluation: 06/13/18 Time of Evaluation: 07:15 - Subjective Subjective: General surgery progress note for Dr. Lul Baldwin, PGY-2 Pt seen/examined at bedside with surgical team Pt with copious thick secretions from tracheostomy. Pt reports some SOB, some midsternal CP. Currently resting comfortably in bed. GCS 11T. Objective - Vital Signs/Intake and Output Vital Signs (last 24 hours): Temp Pulse Resp BP Pulse Ox 98.1 F 81 20 136/72 98 06/13/18 06:00 06/13/18 06:00 06/13/18 06:00 06/13/18 06:00 06/13/18 06:00 Intake and Output: 06/13/18 06/13/18 06:59 18:59 Output Total 900 Balance -900 - Medications Medications: Current Medications Acetaminophen (Tylenol 325mg Tab) 650 mg PO Q6H PRN PRN Reason: Pain, moderate (4-7) Last Admin: 06/09/18 13:38 Dose: 650 mg Atorvastatin Calcium (Lipitor) 40 mg PO DIN [facility] Last Admin: 06/12/18 18:12 Dose: 40 mg Clopidogrel Bisulfate (Plavix) 75 mg PO DAILY [facility] Last Admin: 06/11/18 10:07 Dose: 75 mg Heparin Sodium (Porcine) (Heparin) 5,000 units SC Q8 [facility]; Protocol Last Admin: 06/13/18 05:44 Dose: 5,000 units Vancomycin HCl (Vancomycin 1gm) 1 gm in 250 mls @ 167 mls/hr IVPB DAILY [facility]; Protocol Last Admin: 06/12/18 10:11 Dose: 167 mls/hr Piperacillin Sod/Tazobactam Sod (Zosyn 3.375 In Ns 100ml) 100 mls @ 25 mls/hr IVPB Q8 [facility]; Protocol Last Admin: 06/13/18 05:59 Dose: 25 mls/hr Insulin Human Regular (Humulin R Low) 0 units SC Q6 [facility]; Protocol Last Admin: 06/13/18 05:45 Dose: Not Given Methylprednisolone (Solu-Medrol) 60 mg IVP DAILY [facility] Last Admin: 06/12/18 10:09 Dose: 60 mg Pantoprazole Sodium (Protonix Inj) 40 mg IVP DAILY [facility] Last Admin: 06/12/18 10:10 Dose: 40 mg Promethazine HCl/Codeine (Phenergan/Codeine Oral Syrup) 5 ml PEG Q4H PRN PRN Reason: Cough and congestion Last Admin: 06/12/18 21:47 Dose: 5 ml - Labs Labs: 06/13/18 07:05 06/13/18 07:05 PT 12.7 SECONDS (9.4-12.5) H 06/07/18 16:28 INR 1.14 06/07/18 16:28 APTT 30.2 Seconds (26.9-38.3) 06/07/18 16:28 - Constitutional Appears: Non-toxic, No Acute Distress, Cachectic - Head Exam Head Exam: ATRAUMATIC, NORMAL INSPECTION, NORMOCEPHALIC - ENT Exam ENT Exam: Mucous Membranes Moist - Neck Exam Additional comments: Tracheostomy device in cricothyroidotomy incision, currently on trach collar - Respiratory Exam Respiratory Exam: NORMAL BREATHING PATTERN. absent: Accessory Muscle Use - Cardiovascular Exam Cardiovascular Exam: REGULAR RHYTHM - GI/Abdominal Exam GI & Abdominal Exam: Soft. absent: Tenderness Additional comments: G tube in place with TF running - Extremities Exam Additional comments: cachexic - Neurological Exam Neurological Exam: Alert, Awake - Psychiatric Exam Additional comments: Non verbal - Skin Skin Exam: Dry, Intact, Normal Color, Warm Assessment and Plan - Assessment and Plan (Free Text) Assessment: 78M w/acute respiratory failure and resulting emergent cricothyroidotomy and placement of tracheostomy cannula on trach collar with PNA now Plan: CXR with FESTUS and RLL infiltrates- pneumonia Continue ABx, supportive care and breathing treatments as per primary team Frequent suctioning of trach for thick secretions recommend mucolytic Plan for tracheostomy after resolution of PNA ID following DW Dr. Juan Baldwin, PGY-2
--- NOTE | 2018-06-13 09:04 | CP.PCM.PN ---
<Frank Garcia - Last Filed: 06/13/18 15:39> Subjective - Date & Time of Evaluation Date of Evaluation: 06/13/18 Time of Evaluation: 09:04 - Subjective Subjective: PGY-1 Medicine progress note for Dr. Noguera Patient seen and examined at bedside. No acute events overnight. Patient is complaining of chest pain only when he is coughing. Patient is unable to talk due to tracheostomy but able to communicate by writing on paper. He denies fevers, chills, shortness of breath, abdominal pain, nausea, vomiting, diarrhea, or urinary symptoms. Objective - Vital Signs/Intake and Output Vital Signs (last 24 hours): Temp Pulse Resp BP Pulse Ox 98.1 F 81 20 136/72 98 06/13/18 06:00 06/13/18 06:00 06/13/18 06:00 06/13/18 06:00 06/13/18 06:00 Intake and Output: 06/13/18 06/13/18 06:59 18:59 Output Total 900 Balance -900 - Medications Medications: Current Medications Acetaminophen (Tylenol 325mg Tab) 650 mg PO Q6H PRN PRN Reason: Pain, moderate (4-7) Last Admin: 06/09/18 13:38 Dose: 650 mg Atorvastatin Calcium (Lipitor) 40 mg PO DIN [facility] Last Admin: 06/12/18 18:12 Dose: 40 mg Clopidogrel Bisulfate (Plavix) 75 mg PO DAILY [facility] Last Admin: 06/11/18 10:07 Dose: 75 mg Heparin Sodium (Porcine) (Heparin) 5,000 units SC Q8 [facility]; Protocol Last Admin: 06/13/18 05:44 Dose: 5,000 units Vancomycin HCl (Vancomycin 1gm) 1 gm in 250 mls @ 167 mls/hr IVPB DAILY [facility]; Protocol Last Admin: 06/12/18 10:11 Dose: 167 mls/hr Piperacillin Sod/Tazobactam Sod (Zosyn 3.375 In Ns 100ml) 100 mls @ 25 mls/hr IVPB Q8 [facility]; Protocol Last Admin: 06/13/18 05:59 Dose: 25 mls/hr Insulin Human Regular (Humulin R Low) 0 units SC Q6 [facility]; Protocol Last Admin: 06/13/18 05:45 Dose: Not Given Methylprednisolone (Solu-Medrol) 60 mg IVP DAILY [facility] Last Admin: 06/12/18 10:09 Dose: 60 mg Pantoprazole Sodium (Protonix Inj) 40 mg IVP DAILY [facility] Last Admin: 06/12/18 10:10 Dose: 40 mg Promethazine HCl/Codeine (Phenergan/Codeine Oral Syrup) 5 ml PEG Q4H PRN PRN Reason: Cough and congestion Last Admin: 06/12/18 21:47 Dose: 5 ml - Labs Labs: 06/13/18 07:05 06/13/18 07:05 PT 12.7 SECONDS (9.4-12.5) H 06/07/18 16:28 INR 1.14 06/07/18 16:28 APTT 30.2 Seconds (26.9-38.3) 06/07/18 16:28 - Additional Findings Additional findings: - Constitutional Appears: no acute distress, Chronically Ill - Head Exam Head Exam: ATRAUMATIC, NORMAL INSPECTION, NORMOCEPHALIC - Eye Exam Eye Exam: Irregularly shaped pupil in right eye. EOMI, PERRL - Neck Exam Neck Exam: Tracheostomy collar s/p cricothyroidotomy, site has evidence of dried blood - Respiratory Exam Respiratory Exam: on vent, Clear to auscultation bilaterally absent: Accessory Muscle Use, Decreased Breath Sounds, Rales, Rhonchi, Respiratory Distress, Stridor - Cardiovascular Exam Cardiovascular Exam: +S1, +S2. absent: Gallop, Rubs - GI/Abdominal Exam GI & Abdominal Exam: Normal Bowel Sounds, Soft. absent: Distended, Firm G tube in place, no draining/bleeding noted around tube - Extremities Exam Extremities exam: Negative for: pedal edema - Neurological Exam Neurological exam: AAOx3, Responsive to questions, following commands - Skin Skin Exam: Dry, Pallor Assessment and Plan - Assessment and Plan (Free Text) Assessment: 78 year old male with a past medical history of BPH and esophageal cancer s/p chemo/radiation/resection who presented to the ED for AMS, who was found unresponsive by his family. Patient was admitted to the ICU for respiratory failure and altered mental status, subsequently downgraded for further management. Plan: Aspiration pneumonia - CXR (06/12): Left lateral lobe opacity. Areas of atelactasis on right lung. Bilateral mild pleural effusions. - Procalcitonin: 1.52 - Zosyn 3.375g IV Q8 (Started on 06/12) - Vancomycin 1g IV QD (Started on 06/07) - ID consulted, Dr. Azevedo Hypercapneic, hypoxic respiratory failure - Patient with temporary tracheostomy, patient is off mechanical ventilation - Plan for permanent tracheostomy placement this week- hold Plavix 2 days before surgery - 06/10 ENT recs: consider supraglottitis, re-evaluate cricothyrotomy in 48 hours and continue antibiotics and steroids - 06/12 CT scan neck showed possible discitis vs osteo - Follow up MRI of cervical spine - Surgery consulted, Dr. Martinez - ENT consulted, Dr. Lao - C/w Solumedrol 60mg IVP daily - Phenergen/Codeine PRN for cough Acute ischemic parietal lobe infarct - Brain MRI: There is a single small area of restricted diffusion in the left parietal lobe cortex measuring 3 mm in diameter. This is consistent with an acute infarct. Probably too small to be related to patient's symptoms. - CT head (06/07): No acute intracranial findings - Head/Neck CTA (06/07): No evidence of hemodynamically significant stenosis in the internal carotid arteries - Neurology consulted, Dr. Toth - Continue Lipitor. Patient allergic to ASA. Plavix held per surgery - PT/OT evaluation Leukocytosis - Likely 2/2 to steroids, r/o infectious etiology - CXR (06/12): Left lateral lobe opacity. Areas of atelactasis on right lung. Bilateral mild pleural effusions. - Procalcitonin: 1.52 - Continue Vancomycin and Zosyn Altered mental status, resolved - Rule out seizure vs stroke vs infectious etiology - CT head (06/07): No acute intracranial findings - Head/Neck CTA (06/07): No evidence of hemodynamically significant stenosis in the internal carotid arteries - Neurology consulted, Dr. Toth - Normal Video EEG - Continue Vancomycin and Zosyn - Procalcitonin: 1.52 Failure to thrive - Patient has a Gastrostomy tube - Continue tube feedings, Pivot 1.5 Normocytic anemia - H&H stable - Continue to monitor Elevated troponins, resolved - Likely secondary to cardiopulmonary resuscitation - EKG: NSR @ 84 bpm, no ST changes - Echo: LVEF 54% - Cardiology consulted, Dr. Velazco - Lipitor 80mg PO HS - Continue to monitor Chronic dysphagia to solids and liquids - Patient has history of esophageal Cancer - Will continue to monitor at this time Prophylaxis - Heparin 5000u SC Q8 - Protonix 40mg IVP QD Patient seen and case discussed with attending, Dr. Noguera. Frank Garcia, PGY-1 <Ita Noguera - Last Filed: 06/15/18 13:21> Objective - Vital Signs/Intake and Output Vital Signs (last 24 hours): Temp Pulse Resp BP Pulse Ox 99 F 90 20 109/63 93 L 06/15/18 06:00 06/15/18 06:00 06/15/18 06:00 06/15/18 06:00 06/15/18 06:00 Intake and Output: 06/15/18 06/15/18 06:59 18:59 Intake Total 0 Output Total 400 Balance -400 - Medications Medications: Current Medications Acetaminophen (Tylenol 325mg Tab) 650 mg PO Q6H PRN PRN Reason: Pain, moderate (4-7) Last Admin: 06/14/18 12:32 Dose: 650 mg Acetylcysteine (Acetylcysteine 20%) 4 ml IH BIDRESP [facility] Stop: 06/16/18 21:00 Last Admin: 06/15/18 07:29 Dose: Not Given Atorvastatin Calcium (Lipitor) 40 mg PO DIN [facility] Last Admin: 06/14/18 17:41 Dose: 40 mg Clopidogrel Bisulfate (Plavix) 75 mg PO DAILY [facility] Last Admin: 06/13/18 17:46 Dose: 75 mg Heparin Sodium (Porcine) (Heparin) 5,000 units SC Q8 [facility]; Protocol Last Admin: 06/15/18 05:52 Dose: 5,000 units Vancomycin HCl (Vancomycin 1gm) 1 gm in 250 mls @ 167 mls/hr IVPB DAILY [facility]; Protocol Last Admin: 06/15/18 09:30 Dose: 167 mls/hr Piperacillin Sod/Tazobactam Sod (Zosyn 3.375 In Ns 100ml) 100 mls @ 25 mls/hr IVPB Q8 [facility]; Protocol Last Admin: 06/15/18 05:53 Dose: 25 mls/hr Insulin Human Regular (Humulin R Low) 0 units SC Q6 [facility]; Protocol Last Admin: 06/15/18 05:58 Dose: Not Given Methylprednisolone (Solu-Medrol) 40 mg IVP DAILY [facility] Last Admin: 06/15/18 09:30 Dose: 40 mg Pantoprazole Sodium (Protonix Susp) 40 mg PO ACB [facility] Last Admin: 06/15/18 09:30 Dose: 40 mg Promethazine HCl/Codeine (Phenergan/Codeine Oral Syrup) 5 ml PEG Q4H PRN PRN Reason: Cough and congestion Last Admin: 06/14/18 07:25 Dose: 5 ml - Labs Labs: 06/15/18 07:00 06/15/18 07:00 PT 12.7 SECONDS (9.4-12.5) H 06/07/18 16:28 INR 1.14 06/07/18 16:28 APTT 30.2 Seconds (26.9-38.3) 06/07/18 16:28 Attending/Attestation - Attestation I have personally seen and examined this patient.: Yes I have fully participated in the care of the patient.: Yes I have reviewed all pertinent clinical information, including history, physical exam and plan: Yes Notes (Text): Medical record note made by the resident after discussion with my direction and input after the patient was personally seen and examined by me. I have reviewed the chart and agree that the record accurately reflects by personal performance of the history, physical exam, data review, and medical decision-making, in the course for the patient. I have also personally directed the plan of care.
[2018-06-13] MEDS: Vancomycin 1gm in NS 250ml 1 GM/250 ML BAG IVPB SCH (10:57)
--- NOTE | 2018-06-13 15:23 | CP.PCM.PN ---
Subjective - Date & Time of Evaluation Date of Evaluation: 06/13/18 Time of Evaluation: 14:00 - Subjective Subjective: Infectious Disease Follow Up: June 13, 2018 78 yo male who [place] [facility] and unresponsiveness. Patient was in normal state of health when he went to the take a shower and lay down. The patient became SOB with labored breathing. Family stated that patient was cold to touch. Br[place] [facility] [place]. The patient had several intubations and extubations and required a tracheotomy. The patient with elevated WBCs. He is awake but unable to phonate due to trach. WBC at 14.9. Currently on Zosyn and Vancomycin IV for antibiotic care. Zosyn provides additional coverage for potential aspiration pneumonia which is a possibility due to the heavy secretions produced from the patient oral cavity. Objective - Vital Signs/Intake and Output Vital Signs (last 24 hours): Temp Pulse Resp BP Pulse Ox 98.1 F 81 20 136/72 98 06/13/18 06:00 06/13/18 06:00 06/13/18 06:00 06/13/18 06:00 06/13/18 06:00 Intake and Output: 06/13/18 06/13/18 06:59 18:59 Output Total 900 Balance -900 - Medications Medications: Current Medications Acetaminophen (Tylenol 325mg Tab) 650 mg PO Q6H PRN PRN Reason: Pain, moderate (4-7) Last Admin: 06/09/18 13:38 Dose: 650 mg Atorvastatin Calcium (Lipitor) 40 mg PO DIN [facility] Last Admin: 06/12/18 18:12 Dose: 40 mg Clopidogrel Bisulfate (Plavix) 75 mg PO DAILY [facility] Last Admin: 06/13/18 13:05 Dose: Not Given Heparin Sodium (Porcine) (Heparin) 5,000 units SC Q8 [facility]; Protocol Last Admin: 06/13/18 13:05 Dose: 5,000 units Vancomycin HCl (Vancomycin 1gm) 1 gm in 250 mls @ 167 mls/hr IVPB DAILY [facility]; Protocol Last Admin: 06/13/18 10:57 Dose: 167 mls/hr Piperacillin Sod/Tazobactam Sod (Zosyn 3.375 In Ns 100ml) 100 mls @ 25 mls/hr IVPB Q8 [facility]; Protocol Last Admin: 06/13/18 13:06 Dose: 25 mls/hr Insulin Human Regular (Humulin R Low) 0 units SC Q6 [facility]; Protocol Last Admin: 06/13/18 12:18 Dose: Not Given Methylprednisolone (Solu-Medrol) 60 mg IVP DAILY [facility] Last Admin: 06/13/18 10:58 Dose: 60 mg Pantoprazole Sodium (Protonix Inj) 40 mg IVP DAILY [facility] Last Admin: 06/13/18 10:57 Dose: 40 mg Promethazine HCl/Codeine (Phenergan/Codeine Oral Syrup) 5 ml PEG Q4H PRN PRN Reason: Cough and congestion Last Admin: 06/12/18 21:47 Dose: 5 ml - Labs Labs: 06/13/18 07:05 06/13/18 07:05 PT 12.7 SECONDS (9.4-12.5) H 06/07/18 16:28 INR 1.14 06/07/18 16:28 APTT 30.2 Seconds (26.9-38.3) 06/07/18 16:28 - Constitutional Appears: Non-toxic, No Acute Distress, Chronically Ill - Head Exam Head Exam: ATRAUMATIC, NORMOCEPHALIC - Eye Exam Eye Exam: EOMI, PERRL Pupil Exam: NORMAL ACCOMODATION, PERRL Additional comments: Irregularly shaped pupil in right eye. - ENT Exam ENT Exam: Mucous Membranes Moist, Normal External Ear Exam, TM's Normal Bilaterally - Neck Exam Additional comments: Tracheotomy collar s/p cricothyroidotomy - Respiratory Exam Respiratory Exam: Clear to Ausculation Bilateral, NORMAL BREATHING PATTERN. absent: Rales, Rhonchi, Wheezes - Cardiovascular Exam Cardiovascular Exam: REGULAR RHYTHM, RRR, +S1, +S2 - GI/Abdominal Exam GI & Abdominal Exam: Soft, Normal Bowel Sounds. absent: Distended, Tenderness Additional comments: G tube in place, no draining/bleeding noted around tube - Extremities Exam Extremities Exam: absent: Joint Swelling, Pedal Edema - Neurological Exam Neurological Exam: Alert, Awake, CN II-XII Intact, Oriented x3 - Psychiatric Exam Psychiatric exam: Normal Affect, Normal Mood - Skin Skin Exam: Normal Color. absent: Erythema Assessment and Plan - Assessment and Plan (Free Text) Assessment: 78 yo male with esophageal cancer history presented with SOB and AMS. Trach in place. Most recent Chest X-ray showing Left upper lobe and right lower lobe infiltrates. CT scan of the neck suggested discitis vs. osteomyelitis. Check ESR. Supportive care. Would switch Cefepime to Zosyn for better coverage of aspiration pneumonia. Patient currently on Zosyn IV and Vancomycin IV for antibiotic treatment. On question of osteomyelitis, a Bone scan or MRI may be useful given the multiple procedures performed on the patient in this area coupled with obtaining the ESR and C-RP. Supportive care. ESR of 80. Procalcitonin of 1.52. Monitor WBC. No new issues clinically. Thank you for allowing me to participate in the care of the patient, we will follow with you.
--- NOTE | 2018-06-13 16:10 | MRI ---
Date of service: 06/13/2018 PROCEDURE: MR CERVICAL SPINE WITHOUT CONTRAST HISTORY: r/o chronic osteo/discitis COMPARISON: 06/11/2018 TECHNIQUE: Multiecho multiplanar sequences were performed through the cervical spine without the use of intravenous contrast. FINDINGS: Straightening of the cervical spine Craniocervical junction unremarkable. There is evidence of disc space infection at C6-7. There is edema within the disc space and irregularity and destruction of the vertebral endplates. There is marrow edema and a anterior paraspinal mass Normal cervical cord. C2-C3: No disc herniation, spinal canal stenosis or neural foraminal narrowing. C3-C4: No disc herniation, spinal canal stenosis or neural foraminal narrowing. C4-C5: No disc herniation, spinal canal stenosis or neural foraminal narrowing. C5-C6: No disc herniation, spinal canal stenosis or neural foraminal narrowing. C6-C7: There is evidence of disc space infection at C6-7. There is edema within the disc space and irregularity and destruction of the vertebral endplates. There is marrow edema and a anterior paraspinal mass C7-T1: No disc herniation, spinal canal stenosis or neural foraminal narrowing. OTHER FINDINGS: None. IMPRESSION: There is evidence of disc space infection at C6-7. There is edema within the disc space and irregularity and destruction of the vertebral endplates. There is marrow edema and a anterior paraspinal mass There is no cord compression
--- NOTE | 2018-06-13 18:20 | CP.PCM.PN ---
<Emir Narayanan - Last Filed: 06/13/18 18:16> Subjective - Date & Time of Evaluation Date of Evaluation: 06/13/18 Time of Evaluation: 18:16 - Subjective Subjective: Neuro progress note - Oracio PGy - 2 Patient seen and examined at bedside. No acute overnight events. Patient denies any acute complaints. Objective - Vital Signs/Intake and Output Vital Signs (last 24 hours): Temp Pulse Resp BP Pulse Ox 98.4 F 81 18 97/59 L 93 L 06/13/18 15:09 06/13/18 15:09 06/13/18 15:09 06/13/18 15:09 06/13/18 15:09 Intake and Output: 06/13/18 06/13/18 06:59 18:59 Output Total 900 300 Balance -900 -300 - Medications Medications: Current Medications Acetaminophen (Tylenol 325mg Tab) 650 mg PO Q6H PRN PRN Reason: Pain, moderate (4-7) Last Admin: 06/09/18 13:38 Dose: 650 mg Atorvastatin Calcium (Lipitor) 40 mg PO DIN [facility] Last Admin: 06/13/18 17:46 Dose: 40 mg Clopidogrel Bisulfate (Plavix) 75 mg PO DAILY [facility] Last Admin: 06/13/18 17:46 Dose: 75 mg Heparin Sodium (Porcine) (Heparin) 5,000 units SC Q8 [facility]; Protocol Last Admin: 06/13/18 13:05 Dose: 5,000 units Vancomycin HCl (Vancomycin 1gm) 1 gm in 250 mls @ 167 mls/hr IVPB DAILY [facility]; Protocol Last Admin: 06/13/18 10:57 Dose: 167 mls/hr Piperacillin Sod/Tazobactam Sod (Zosyn 3.375 In Ns 100ml) 100 mls @ 25 mls/hr IVPB Q8 [facility]; Protocol Last Admin: 06/13/18 13:06 Dose: 25 mls/hr Insulin Human Regular (Humulin R Low) 0 units SC Q6 [facility]; Protocol Last Admin: 06/13/18 17:47 Dose: 4 u Methylprednisolone (Solu-Medrol) 60 mg IVP DAILY [facility] Last Admin: 06/13/18 10:58 Dose: 60 mg Pantoprazole Sodium (Protonix Susp) 40 mg PO ACB [facility] Promethazine HCl/Codeine (Phenergan/Codeine Oral Syrup) 5 ml PEG Q4H PRN PRN Reason: Cough and congestion Last Admin: 06/12/18 21:47 Dose: 5 ml - Labs Labs: 06/13/18 07:05 06/13/18 07:05 PT 12.7 SECONDS (9.4-12.5) H 06/07/18 16:28 INR 1.14 06/07/18 16:28 APTT 30.2 Seconds (26.9-38.3) 06/07/18 16:28 - Constitutional Appears: Well - Head Exam Head Exam: ATRAUMATIC, NORMAL INSPECTION, NORMOCEPHALIC - Eye Exam Eye Exam: EOMI, Normal appearance, PERRL Pupil Exam: NORMAL ACCOMODATION, PERRL - ENT Exam ENT Exam: Mucous Membranes Moist, Normal Exam - Neck Exam Neck Exam: Full ROM, Normal Inspection. absent: Lymphadenopathy - Respiratory Exam Respiratory Exam: Clear to Ausculation Bilateral, NORMAL BREATHING PATTERN - Cardiovascular Exam Cardiovascular Exam: REGULAR RHYTHM, +S1, +S2. absent: Murmur - GI/Abdominal Exam GI & Abdominal Exam: Soft, Normal Bowel Sounds. absent: Tenderness - Extremities Exam Extremities Exam: Full ROM, Normal Capillary Refill, Normal Inspection. absent: Joint Swelling, Pedal Edema - Back Exam Back Exam: NORMAL INSPECTION - Neurological Exam Neurological Exam: Alert, Awake, CN II-XII Intact, Normal Gait, Oriented x3 - Psychiatric Exam Psychiatric exam: Normal Affect, Normal Mood - Skin Skin Exam: Dry, Intact, Normal Color, Warm Assessment and Plan - Assessment and Plan (Free Text) Assessment: 78 year old male with a past medical history of esophageal cancer who presented with altered mental status with hypercapnic/hypoxemic respiratory failure. A cod e stroke was called intially in the ED; however, the patient was not a candidate for tPA given the unknown onset of his symptoms. His CT of the head and CTA show no evidence of stroke. MRI showed 3 mm acute infarct in left parietal lobe. Video EEG without evidence of acute seizure Plan Acute Ischemic Embolic Stroke - Patient may be in a hypercoagulable state given PMHx of cancer - Obtain ECHO with Bubble study to rule out PFO - Plavix 75 mg daily (given the patient is allergic to aspirin) <Tawanda Bob - Last Filed: 04/15/19 18:21> Objective - Vital Signs/Intake and Output Vital Signs (last 24 hours): Temp Pulse Resp BP Pulse Ox 98.4 F 81 18 97/59 L 93 L 06/13/18 15:09 06/13/18 15:09 06/13/18 15:09 06/13/18 15:09 06/13/18 15:09 Intake and Output: 06/13/18 06/13/18 06:59 18:59 Output Total 900 300 Balance -900 -300 - Medications Medications: Current Medications Acetaminophen (Tylenol 325mg Tab) 650 mg PO Q6H PRN PRN Reason: Pain, moderate (4-7) Last Admin: 06/09/18 13:38 Dose: 650 mg Atorvastatin Calcium (Lipitor) 40 mg PO DIN [facility] Last Admin: 06/13/18 17:46 Dose: 40 mg Clopidogrel Bisulfate (Plavix) 75 mg PO DAILY [facility] Last Admin: 06/13/18 17:46 Dose: 75 mg Heparin Sodium (Porcine) (Heparin) 5,000 units SC Q8 [facility]; Protocol Last Admin: 06/13/18 13:05 Dose: 5,000 units Vancomycin HCl (Vancomycin 1gm) 1 gm in 250 mls @ 167 mls/hr IVPB DAILY [facility]; Protocol Last Admin: 06/13/18 10:57 Dose: 167 mls/hr Piperacillin Sod/Tazobactam Sod (Zosyn 3.375 In Ns 100ml) 100 mls @ 25 mls/hr IVPB Q8 [facility]; Protocol Last Admin: 06/13/18 13:06 Dose: 25 mls/hr Insulin Human Regular (Humulin R Low) 0 units SC Q6 [facility]; Protocol Last Admin: 06/13/18 17:47 Dose: 4 u Methylprednisolone (Solu-Medrol) 60 mg IVP DAILY [facility] Last Admin: 06/13/18 10:58 Dose: 60 mg Pantoprazole Sodium (Protonix Susp) 40 mg PO ACB [facility] Promethazine HCl/Codeine (Phenergan/Codeine Oral Syrup) 5 ml PEG Q4H PRN PRN Reason: Cough and congestion Last Admin: 06/12/18 21:47 Dose: 5 ml - Labs Labs: 06/13/18 07:05 06/13/18 07:05 PT 12.7 SECONDS (9.4-12.5) H 06/07/18 16:28 INR 1.14 06/07/18 16:28 APTT 30.2 Seconds (26.9-38.3) 06/07/18 16:28 Attending/Attestation - Attestation I have personally seen and examined this patient.: Yes I have fully participated in the care of the patient.: Yes I have reviewed all pertinent clinical information, including history, physical exam and plan: Yes Notes (Text): I agree with the assessment and plan. Will obtain echo with bubble to rule out PFO considering the embolic appearing stroke
--- NOTE | 2018-06-14 02:19 | PN ---
DATE: 06/13/2018 SUBJECTIVE: The patient was seen lying in bed on telemetry. Re-evaluation was requested. Cardiology assessment prior to definitive tracheotomy has been advised. He is lying comfortably in bed on telemetry. He denies any chest pain or significant dyspnea. He was admitted with an elevated troponin in the setting of acute renal failure. An echocardiogram showed no significant wall motion abnormalities. His current medications include subcutaneous heparin, insulin, Lipitor 40 mg daily, Plavix 75 mg daily, Protonix, Solu-Medrol, vancomycin and Zosyn. OBJECTIVE: GENERAL: He is a very thin elderly man. VITAL SIGNS: Blood pressure is 136/70, pulse of 80 and sinus, respirations are 14. HEENT: Trach collar is in place. CHEST: Bilateral scattered rhonchi heard. HEART: PMI in normal position. No pathological murmurs or gallops heard. ABDOMEN: Soft, nontender with normoactive bowel sounds. EXTREMITIES: No edema. Muscle atrophy noted. DIAGNOSTIC DATA: Potassium 3.7, BUN and creatinine 30 and 0.5. White count 14.9, hemoglobin and hematocrit 10.1 and 31 with platelet count of 359,000. IMPRESSION: 1. Recent respiratory failure, requiring a cricothyrotomy, on tracheostomy collar. 2. Elevated troponin likely secondary to cardiopulmonary resuscitation upon admission. 3. History of laryngeal carcinoma. RECOMMENDATIONS: From a cardiac standpoint, he appears stable to proceed with a formal tracheotomy as planned. No specific cardiac precautions are necessary as his troponin was likely not due to type 1 myocardial infarction. Aspirin and Plavix therapy can be withheld if needed prior to his surgery. He has to be seen in the future if needed. Dieter Velazco MD
[2018-06-14] MEDS: Insulin Reg-LOW-Coverage SC SCH ×4 (04:52→18:27)
[2018-06-14] MEDS: Piperacillin/Tazobact 3.375 gm 100 ML IVPB SCH ×3 (05:51→22:21)
[2018-06-14] MEDS: Promethazine/Cod 6.25mg-10mg/5ml Syr UD PEG PRN (07:25)
--- NOTE | 2018-06-14 07:32 | CP.PCM.PN ---
<Frank Garcia - Last Filed: 06/14/18 11:37> Subjective - Date & Time of Evaluation Date of Evaluation: 06/14/18 Time of Evaluation: 07:24 - Subjective Subjective: PGY-1 Medicine progress note for Dr. Noguera Patient seen and examined at bedside. No acute events overnight. He denies fevers, chills, shortness of breath, abdominal pain, nausea, vomiting, diarrhea, or urinary symptoms. Objective - Vital Signs/Intake and Output Vital Signs (last 24 hours): Temp Pulse Resp BP Pulse Ox 98.1 F 93 H 18 122/63 97 06/13/18 22:25 06/13/18 22:25 06/13/18 22:25 06/13/18 22:25 06/13/18 22:25 Intake and Output: 06/14/18 06/14/18 06:59 18:59 Intake Total 1300 Output Total 1200 Balance 100 - Medications Medications: Current Medications Acetaminophen (Tylenol 325mg Tab) 650 mg PO Q6H PRN PRN Reason: Pain, moderate (4-7) Last Admin: 06/09/18 13:38 Dose: 650 mg Atorvastatin Calcium (Lipitor) 40 mg PO DIN LYLY Last Admin: 06/13/18 17:46 Dose: 40 mg Clopidogrel Bisulfate (Plavix) 75 mg PO DAILY LYLY Last Admin: 06/13/18 17:46 Dose: 75 mg Heparin Sodium (Porcine) (Heparin) 5,000 units SC Q8 LYLY; Protocol Last Admin: 06/14/18 05:51 Dose: 5,000 units Vancomycin HCl (Vancomycin 1gm) 1 gm in 250 mls @ 167 mls/hr IVPB DAILY LYLY; Protocol Last Admin: 06/13/18 10:57 Dose: 167 mls/hr Piperacillin Sod/Tazobactam Sod (Zosyn 3.375 In Ns 100ml) 100 mls @ 25 mls/hr IVPB Q8 LYLY; Protocol Last Admin: 06/14/18 05:51 Dose: 25 mls/hr Insulin Human Regular (Humulin R Low) 0 units SC Q6 LYLY; Protocol Last Admin: 06/14/18 04:52 Dose: Not Given Methylprednisolone (Solu-Medrol) 60 mg IVP DAILY LYLY Last Admin: 06/13/18 10:58 Dose: 60 mg Pantoprazole Sodium (Protonix Susp) 40 mg PO ACB LYLY Promethazine HCl/Codeine (Phenergan/Codeine Oral Syrup) 5 ml PEG Q4H PRN PRN Reason: Cough and congestion Last Admin: 06/12/18 21:47 Dose: 5 ml - Labs Labs: 06/13/18 07:05 06/13/18 07:05 PT 12.7 SECONDS (9.4-12.5) H 06/07/18 16:28 INR 1.14 06/07/18 16:28 APTT 30.2 Seconds (26.9-38.3) 06/07/18 16:28 - Additional Findings Additional findings: - Constitutional Appears: no acute distress, Chronically Ill - Head Exam Head Exam: ATRAUMATIC, NORMAL INSPECTION, NORMOCEPHALIC - Eye Exam Eye Exam: Irregularly shaped pupil in right eye. EOMI, PERRL - Neck Exam Neck Exam: Tracheostomy collar in place - Respiratory Exam Respiratory Exam: absent: Accessory Muscle Use, Decreased Breath Sounds, Rales, Rhonchi, Respiratory Distress, Stridor A lot of sputum production, upper airways sound congested - Cardiovascular Exam Cardiovascular Exam: +S1, +S2. absent: Gallop, Rubs - GI/Abdominal Exam GI & Abdominal Exam: Normal Bowel Sounds, Soft. absent: Distended, Firm G tube in place, no draining/bleeding noted around tube - Extremities Exam Extremities exam: Negative for: pedal edema - Neurological Exam Neurological exam: AAOx3, Responsive to questions, following commands - Skin Skin Exam: Dry, Pallor Assessment and Plan - Assessment and Plan (Free Text) Assessment: 78 year old male with a past medical history of BPH and esophageal cancer s/p chemo/radiation/resection who presented to the ED for AMS, who was found unresponsive by his family. Patient was admitted to the ICU for respiratory failure and altered mental status, subsequently downgraded for further management. Plan: Discitis, r/o osteomyelitis vs malignancy - Cervical spine MRI: There is evidence of disc space infection at C6-7. There is edema within the disc space and irregularity and destruction of the vertebral endplates. There is marrow edema and a anterior paraspinal mass. There is no cord compression. - CT scan neck showed possible discitis vs osteo - ESR: 80 - CRP: pending - Zosyn 3.375g IV Q8 (Started on 06/12) - Vancomycin 1g IV QD (Started on 06/07) - Neurosurgery consulted, Dr. Sandoval- No surgical intervention at this time. Recommends placing a [place] collar for comfort - ENT consulted, Dr. Lao - ID consulted, Dr. Azevedo - Heme/onc consulted, Nini Aspiration pneumonia - CXR (06/12): Left lateral lobe opacity. Areas of atelactasis on right lung. Bilateral mild pleural effusions. - Procalcitonin: 1.52 - Zosyn 3.375g IV Q8 (Started on 06/12) - Vancomycin 1g IV QD (Started on 06/07) - ID consulted, Dr. Azevedo Hypercapneic, hypoxic respiratory failure - Patient with temporary tracheostomy, patient is off mechanical ventilation - Plan for permanent tracheostomy placement this week- hold Plavix 2 days before surgery - Surgery consulted, Dr. Martinez - ENT consulted, Dr. Lao - C/w Solumedrol 40mg IVP daily - Phenergen/Codeine PRN for cough - Acetylcysteine BIDRESP Acute ischemic parietal lobe infarct - Brain MRI: There is a single small area of restricted diffusion in the left parietal lobe cortex measuring 3 mm in diameter. This is consistent with an acute infarct. Probably too small to be related to patient's symptoms. - CT head (06/07): No acute intracranial findings - Head/Neck CTA (06/07): No evidence of hemodynamically significant stenosis in the internal carotid arteries - Follow up Echo with bubble study - Neurology consulted, Dr. Toth/Lisbeth - Continue Lipitor. Patient allergic to ASA. Plavix held per surgery - PT/OT evaluation Leukocytosis - Likely 2/2 to steroids, r/o infectious etiology - CXR (06/12): Left lateral lobe opacity. Areas of atelactasis on right lung. Bilateral mild pleural effusions. - Procalcitonin: 1.52 - Continue Vancomycin and Zosyn Failure to thrive - Patient has a Gastrostomy tube - Continue tube feedings, Pivot 1.5 Normocytic anemia - H&H stable - Continue to monitor Chronic dysphagia to solids and liquids - Patient has history of esophageal Cancer - Will continue to monitor at this time Prophylaxis - Heparin 5000u SC Q8 - Protonix 40mg PO QD Patient seen and case discussed with attending, Dr. Noguera. Frank Garcia, PGY-1 <Ita Noguera - Last Filed: 06/15/18 13:20> Objective - Vital Signs/Intake and Output Vital Signs (last 24 hours): Temp Pulse Resp BP Pulse Ox 99 F 90 20 109/63 93 L 06/15/18 06:00 06/15/18 06:00 06/15/18 06:00 06/15/18 06:00 06/15/18 06:00 Intake and Output: 06/15/18 06/15/18 06:59 18:59 Intake Total 0 Output Total 400 Balance -400 - Medications Medications: Current Medications Acetaminophen (Tylenol 325mg Tab) 650 mg PO Q6H PRN PRN Reason: Pain, moderate (4-7) Last Admin: 06/14/18 12:32 Dose: 650 mg Acetylcysteine (Acetylcysteine 20%) 4 ml IH BIDRESP LYLY Stop: 06/16/18 21:00 Last Admin: 06/15/18 07:29 Dose: Not Given Atorvastatin Calcium (Lipitor) 40 mg PO DIN LYLY Last Admin: 06/14/18 17:41 Dose: 40 mg Clopidogrel Bisulfate (Plavix) 75 mg PO DAILY LYLY Last Admin: 06/13/18 17:46 Dose: 75 mg Heparin Sodium (Porcine) (Heparin) 5,000 units SC Q8 LYLY; Protocol Last Admin: 06/15/18 05:52 Dose: 5,000 units Vancomycin HCl (Vancomycin 1gm) 1 gm in 250 mls @ 167 mls/hr IVPB DAILY LYLY; Protocol Last Admin: 06/15/18 09:30 Dose: 167 mls/hr Piperacillin Sod/Tazobactam Sod (Zosyn 3.375 In Ns 100ml) 100 mls @ 25 mls/hr IVPB Q8 LYLY; Protocol Last Admin: 06/15/18 05:53 Dose: 25 mls/hr Insulin Human Regular (Humulin R Low) 0 units SC Q6 LYLY; Protocol Last Admin: 06/15/18 05:58 Dose: Not Given Methylprednisolone (Solu-Medrol) 40 mg IVP DAILY LYLY Last Admin: 06/15/18 09:30 Dose: 40 mg Pantoprazole Sodium (Protonix Susp) 40 mg PO ACB LYLY Last Admin: 04/17/19 09:30 Dose: 40 mg Promethazine HCl/Codeine (Phenergan/Codeine Oral Syrup) 5 ml PEG Q4H PRN PRN Reason: Cough and congestion Last Admin: 06/14/18 07:25 Dose: 5 ml - Labs Labs: 06/15/18 07:00 06/15/18 07:00 PT 12.7 SECONDS (9.4-12.5) H 06/07/18 16:28 INR 1.14 06/07/18 16:28 APTT 30.2 Seconds (26.9-38.3) 06/07/18 16:28 Attending/Attestation - Attestation I have personally seen and examined this patient.: Yes I have fully participated in the care of the patient.: Yes I have reviewed all pertinent clinical information, including history, physical exam and plan: Yes Notes (Text): 06/15/18 13:14 Medical record note made by the resident after discussion with my direction and input after the patient was personally seen and examined by me. I have reviewed the chart and agree that the record accurately reflects by personal performance of the history, physical exam, data review, and medical decision-making, in the course for the patient. I have also personally directed the plan of care. 78 year old male with past medical history of esophageal cancer s/p chemo, s/p radiation, s/p resection who presented with change of mental status (after sky ng found unresponsive at home by his family). He was intubated for hypercapnic respiratory failure. CXR showed RLL atelectasis/infiltrate for which patient is on iv antibiotics. He had emergent cricothyroidotomy done in ER. Patient is now off mechanical ventilation now out of ICU on trach collar. Surgery is following and plan is for permanent trachestomy placement later this week. CT head was negative for acute findings. MRI brain showed single small areas of restrictive diffusion in the left parietal lobe cortex consistent with acute infarct. Patient was started on plavix and statin (not as aspirin secondary to allergy). Cervical spine MRI showed evidence of disc space infection at C6-7. There is edema within the disc space and irregularity and destruction of the vertebral endplates. There is marrow edema and a anterior paraspinal mass. There is no cord compression, on IV Zosyn 3.375g IV Q8 and IVVancomycin 1g IV QD (Started on 4/9) as per ID. Neurosurgery evaluation was noted, No surgical intervention at this time. Recommends placing a [place] collar for comfort 06/15/18 13:18
[2018-06-14 07:38] LABS: HEMOGLOBIN 10.9 g/dL (14.0-18.0); LYMPH # 1.3 (1.2-3.4); LYMPH % 6.4 % (22.0-35.0); MEAN CELL VOLUME 98.3 fl (80.0-105.0); MEAN CORPUSCULAR HEMOGLOBIN 31.6 pg (25.0-35.0); MEAN CORPUSCULAR HGB CONC 32.2 g/dl (31.0-37.0); MEAN PLATELET VOLUME 10.2 fl (7.0-11.0); MONO % 4.7 % (1.0-6.0); RBC 3.45 10^6/uL (3.5-6.1); RED CELL DISTRIBUTION WIDTH 15.1 % (11.5-14.5); WHITE BLOOD COUNT 20.3 10^3/uL (4.5-11.0)
[2018-06-14 07:47] LABS: BLOOD UREA NITROGEN 27 mg/dL (7-21); CALCIUM 8.4 mg/dL (8.4-10.5); GFR NON-AFRICAN AMERICAN > 60
--- NOTE | 2018-06-14 09:28 | CP.PCM.PN ---
Subjective - Date & Time of Evaluation Date of Evaluation: 06/14/18 Time of Evaluation: 07:45 - Subjective Subjective: General surgery progress note for Dr. Lul Baldwin, PGY-2 Pt seen/examined at bedside with surgical team Pt GCS 11T, continues with sputum from tracheostomy device in cricothyroidotomy. Indicates that he still has CP after having CPR performed. No other complaints at this time. Objective - Vital Signs/Intake and Output Vital Signs (last 24 hours): Temp Pulse Resp BP Pulse Ox 97.9 F 119 H 24 171/85 H 91 L 06/14/18 06:00 06/14/18 06:00 06/14/18 06:00 06/14/18 06:00 06/14/18 06:00 Intake and Output: 06/14/18 06/14/18 06:59 18:59 Intake Total 1300 Output Total 1200 Balance 100 - Medications Medications: Current Medications Acetaminophen (Tylenol 325mg Tab) 650 mg PO Q6H PRN PRN Reason: Pain, moderate (4-7) Last Admin: 06/09/18 13:38 Dose: 650 mg Atorvastatin Calcium (Lipitor) 40 mg PO DIN LYLY Last Admin: 06/13/18 17:46 Dose: 40 mg Clopidogrel Bisulfate (Plavix) 75 mg PO DAILY LYLY Last Admin: 06/13/18 17:46 Dose: 75 mg Heparin Sodium (Porcine) (Heparin) 5,000 units SC Q8 LYLY; Protocol Last Admin: 06/14/18 05:51 Dose: 5,000 units Vancomycin HCl (Vancomycin 1gm) 1 gm in 250 mls @ 167 mls/hr IVPB DAILY LYLY; Protocol Last Admin: 06/13/18 10:57 Dose: 167 mls/hr Piperacillin Sod/Tazobactam Sod (Zosyn 3.375 In Ns 100ml) 100 mls @ 25 mls/hr IVPB Q8 LYLY; Protocol Last Admin: 06/14/18 05:51 Dose: 25 mls/hr Insulin Human Regular (Humulin R Low) 0 units SC Q6 LYLY; Protocol Last Admin: 06/14/18 04:52 Dose: Not Given Methylprednisolone (Solu-Medrol) 60 mg IVP DAILY LYLY Last Admin: 06/13/18 10:58 Dose: 60 mg Pantoprazole Sodium (Protonix Susp) 40 mg PO ACB LYLY Promethazine HCl/Codeine (Phenergan/Codeine Oral Syrup) 5 ml PEG Q4H PRN PRN Reason: Cough and congestion Last Admin: 06/14/18 07:25 Dose: 5 ml - Labs Labs: 06/14/18 07:25 06/14/18 07:25 PT 12.7 SECONDS (9.4-12.5) H 06/07/18 16:28 INR 1.14 06/07/18 16:28 APTT 30.2 Seconds (26.9-38.3) 06/07/18 16:28 - Constitutional Appears: Non-toxic, No Acute Distress, Cachectic - Head Exam Head Exam: ATRAUMATIC, NORMAL INSPECTION, NORMOCEPHALIC - Eye Exam Eye Exam: EOMI, Normal appearance - ENT Exam ENT Exam: Mucous Membranes Moist, Normal Exam Additional comments: Tracheostomy device in place in cricothryoidotomy incision with thick copious secretions - Respiratory Exam Respiratory Exam: NORMAL BREATHING PATTERN - Cardiovascular Exam Cardiovascular Exam: REGULAR RHYTHM, +S1, +S2 - GI/Abdominal Exam Additional comments: G tube in place with TF running - Neurological Exam Neurological Exam: Alert, Awake - Psychiatric Exam Additional comments: Non verbal - Skin Skin Exam: Dry, Intact, Normal Color, Warm Assessment and Plan - Assessment and Plan (Free Text) Assessment: 78M w/acute respiratory failure and resulting emergent cricothyroidotomy and placement of tracheostomy cannula on trach collar with PNA now, currently on Abx Plan: Continue ABx, supportive care and breathing treatments as per primary team Frequent suctioning of trach for thick secretions recommend mucolytic Plan for tracheostomy after resolution of PNA, goal for end of the week ID following Continue supportive care D/c plavix for pre op planning DW Dr. Juan Baldwin, PGY-2
--- NOTE | 2018-06-14 09:29 | CP.PCM.PN ---
<Hadley Pereyra - Last Filed: 06/14/18 14:25> Subjective - Date & Time of Evaluation Date of Evaluation: 06/14/18 Time of Evaluation: 07:30 - Subjective Subjective: Hadley Pereyra DO, PGY-2: Neurology Progress Note for Dr. Bob Patient was seen and examined at bedside. Nurse is cleaning patient tracheostomy at the time of my evaluation. She reports there was a mucus plug that was suctioned out of the base of his tracheostomy. Patient is alert and oriented. He is unable to produce words secondary to his tracheostomy. Objective - Vital Signs/Intake and Output Vital Signs (last 24 hours): Temp Pulse Resp BP Pulse Ox 97.9 F 119 H 24 171/85 H 91 L 06/14/18 06:00 06/14/18 06:00 06/14/18 06:00 06/14/18 06:00 06/14/18 06:00 Intake and Output: 06/14/18 06/14/18 06:59 18:59 Intake Total 1300 Output Total 1200 Balance 100 - Medications Medications: Current Medications Acetaminophen (Tylenol 325mg Tab) 650 mg PO Q6H PRN PRN Reason: Pain, moderate (4-7) Last Admin: 06/09/18 13:38 Dose: 650 mg Atorvastatin Calcium (Lipitor) 40 mg PO DIN LYLY Last Admin: 06/13/18 17:46 Dose: 40 mg Clopidogrel Bisulfate (Plavix) 75 mg PO DAILY LYLY Last Admin: 06/13/18 17:46 Dose: 75 mg Heparin Sodium (Porcine) (Heparin) 5,000 units SC Q8 LYLY; Protocol Last Admin: 06/14/18 05:51 Dose: 5,000 units Vancomycin HCl (Vancomycin 1gm) 1 gm in 250 mls @ 167 mls/hr IVPB DAILY LYLY; Protocol Last Admin: 06/13/18 10:57 Dose: 167 mls/hr Piperacillin Sod/Tazobactam Sod (Zosyn 3.375 In Ns 100ml) 100 mls @ 25 mls/hr IVPB Q8 LYLY; Protocol Last Admin: 06/14/18 05:51 Dose: 25 mls/hr Insulin Human Regular (Humulin R Low) 0 units SC Q6 LYLY; Protocol Last Admin: 06/14/18 04:52 Dose: Not Given Methylprednisolone (Solu-Medrol) 60 mg IVP DAILY [facility] Last Admin: 06/13/18 10:58 Dose: 60 mg Pantoprazole Sodium (Protonix Susp) 40 mg PO ACB [facility] Promethazine HCl/Codeine (Phenergan/Codeine Oral Syrup) 5 ml PEG Q4H PRN PRN Reason: Cough and congestion Last Admin: 06/14/18 07:25 Dose: 5 ml - Labs Labs: 06/14/18 07:25 06/14/18 07:25 PT 12.7 SECONDS (9.4-12.5) H 06/07/18 16:28 INR 1.14 06/07/18 16:28 APTT 30.2 Seconds (26.9-38.3) 06/07/18 16:28 - Constitutional Appears: Non-toxic, No Acute Distress - Head Exam Head Exam: ATRAUMATIC, NORMOCEPHALIC - Eye Exam Eye Exam: EOMI, Normal appearance - ENT Exam ENT Exam: Mucous Membranes Moist - Neck Exam Additional comments: tracheostomy in place - Respiratory Exam Respiratory Exam: Clear to Ausculation Bilateral, NORMAL BREATHING PATTERN. absent: Accessory Muscle Use - Cardiovascular Exam Cardiovascular Exam: RRR, +S1, +S2 - GI/Abdominal Exam GI & Abdominal Exam: Soft, Normal Bowel Sounds - Extremities Exam Extremities Exam: Normal Inspection. absent: Calf Tenderness - Neurological Exam Neurological Exam: Alert, Awake, CN II-XII Intact, Oriented x3 Neuro motor strength exam: Left Upper Extremity: 5, Right Upper Extremity: 5, Left Lower Extremity: 5, Right Lower Extremity: 5 - Psychiatric Exam Psychiatric exam: Normal Affect, Normal Mood - Skin Skin Exam: Dry, Intact, Normal Color, Warm Assessment and Plan - Assessment and Plan (Free Text) Assessment: 78 year old male with a past medical history of esophageal cancer who presented with altered mental status with hypercapnic/hypoxemic respiratory failure. A code stroke was called intially in the ED; however, the patient was not a enrique date for tPA given the unknown onset of his symptoms. His CT of the head and CTA show no evidence of stroke. MRI showed 3 mm acute infarct in left parietal lobe. Video EEG without evidence of acute seizure. Plan Acute Ischemic Embolic Stroke - Patient may be in a hypercoagulable state given PMHx of cancer - Obtain ECHO with Bubble study to rule out PFO - Plavix 75 mg daily (given the patient is allergic to aspirin) Case was reviewed and discussed with attending physician, Dr. Bob <Tawanda Bob - Last Filed: 06/14/18 16:37> Objective - Vital Signs/Intake and Output Vital Signs (last 24 hours): Temp Pulse Resp BP Pulse Ox 98.5 F 85 18 97/64 L 96 06/14/18 15:59 06/14/18 15:59 06/14/18 15:59 06/14/18 15:59 06/14/18 15:59 Intake and Output: 06/14/18 06/14/18 06:59 18:59 Intake Total 1300 Output Total 1200 900 Balance 100 -900 - Medications Medications: Current Medications Acetaminophen (Tylenol 325mg Tab) 650 mg PO Q6H PRN PRN Reason: Pain, moderate (4-7) Last Admin: 06/14/18 12:32 Dose: 650 mg Acetylcysteine (Acetylcysteine 20%) 4 ml IH BIDRESP LYLY Stop: 06/16/18 21:00 Atorvastatin Calcium (Lipitor) 40 mg PO DIN LYLY Last Admin: 06/13/18 17:46 Dose: 40 mg Clopidogrel Bisulfate (Plavix) 75 mg PO DAILY LYLY Last Admin: 06/13/18 17:46 Dose: 75 mg Heparin Sodium (Porcine) (Heparin) 5,000 units SC Q8 LYLY; Protocol Last Admin: 06/14/18 13:55 Dose: 5,000 units Vancomycin HCl (Vancomycin 1gm) 1 gm in 250 mls @ 167 mls/hr IVPB DAILY LYLY; Protocol Last Admin: 06/14/18 09:36 Dose: 167 mls/hr Piperacillin Sod/Tazobactam Sod (Zosyn 3.375 In Ns 100ml) 100 mls @ 25 mls/hr IVPB Q8 LYLY; Protocol Last Admin: 06/14/18 13:56 Dose: 25 mls/hr Insulin Human Regular (Humulin R Low) 0 units SC Q6 LYLY; Protocol Last Admin: 06/14/18 12:31 Dose: Not Given Methylprednisolone (Solu-Medrol) 40 mg IVP DAILY LYLY Pantoprazole Sodium (Protonix Susp) 40 mg PO ACB LYLY Last Admin: 06/14/18 09:37 Dose: 40 mg Promethazine HCl/Codeine (Phenergan/Codeine Oral Syrup) 5 ml PEG Q4H PRN PRN Reason: Cough and congestion Last Admin: 06/14/18 07:25 Dose: 5 ml - Labs Labs: 06/14/18 07:25 06/14/18 07:25 PT 12.7 SECONDS (9.4-12.5) H 06/07/18 16:28 INR 1.14 06/07/18 16:28 APTT 30.2 Seconds (26.9-38.3) 06/07/18 16:28 Attending/Attestation - Attestation I have personally seen and examined this patient.: Yes I have fully participated in the care of the patient.: Yes I have reviewed all pertinent clinical information, including history, physical exam and plan: Yes Notes (Text): I agree with the assessment and plan. Will follow results of bubble study to rule out PFO as possible source of embolic stroke.
[2018-06-14] MEDS: Vancomycin 1gm in NS 250ml 1 GM/250 ML BAG IVPB SCH (09:36)
[2018-06-14] MEDS: Pantoprazole 40 mg Susp UD PO SCH (09:37)
--- NOTE | 2018-06-14 11:05 | CP.PCM.CON ---
History of Present Illness - History of Present Illness History of Present Illness: Frederick Lundy PGY2 Heme/Onc Consult Note for Dr. Terrazas 78 year old male with a past medical history of BPH and esophageal cancer s/p chemo/radiation/resection who presented to the ED for AMS, who was found unresponsive by his family. Patient was admitted to the ICU for respiratory failure and altered mental status, subsequently downgraded to medical surgery floor for further management. We are consulted for esophageal mass. Patient states he [facility]. He has had a tracheosomy collar placed since admission. Patient denies any fever, chills, nausea, vomiting or any other complaints at this time. Pmhx: Esophageal cancer s/p chemo and radiation in 1999 and s/p neck mass resection in 2000 Pshx: Resection of neck mass ' eye cataract surgery Meds: Denies taking any All: Peanut - Rash Soc: 3ppd smoker x 60 yrs, denies recent etoh abuse or any illicit drug use Fam: Non-contributory PMD: Dr. Bharathi Domingo Oncologist: Dr. John Bland Past Patient History - Infectious Disease Hx of Infectious Diseases: None - Past Medical History & Family History Past Medical History?: Yes - Past Social History Smoking Status: Light Smoker < 10 Cigarettes Daily - CARDIAC Hx Cardiac Disorders: No - PULMONARY Hx Respiratory Disorders: No - NEUROLOGICAL Hx Neurological Disorder: No - HEENT Hx HEENT Problems: Yes Hx Deafness: Yes - RENAL Hx Chronic Kidney Disease: No - ENDOCRINE/METABOLIC Hx Endocrine Disorders: No - HEMATOLOGICAL/ONCOLOGICAL Hx Blood Transfusions: (UNKNOWN) Hx Blood Transfusion Reaction: (UNKNOWN) - INTEGUMENTARY Hx Dermatological Problems: No - MUSCULOSKELETAL/RHEUMATOLOGICAL Hx Falls: No - GASTROINTESTINAL HX Swallowing Problems: Yes - GENITOURINARY/GYNECOLOGICAL Hx Genitourinary Disorders: No - PSYCHIATRIC Hx Substance Use: No - SURGICAL HISTORY Other/Comment: throat cancer 1999 - ANESTHESIA Hx Anesthesia Reactions: (UNKNOWN) Hx Malignant Hyperthermia: (UNKNOWN) Meds Allergies/Adverse Reactions: Allergies Allergy/AdvReac Type Severity Reaction Status Date / Time aspirin Allergy RASH Verified 06/08/18 01:17 citric acid Allergy RASH Verified 06/08/18 01:18 [From [place]] ibuprofen Allergy ANGIOEDEMA Verified 06/13/18 14:03 sodium bicarbonate Allergy RASH Verified 06/08/18 01:18 [From [place]] peanut AdvReac RASH Verified 08/09/17 20:23 - Medications Medications: Current Medications Acetaminophen (Tylenol 325mg Tab) 650 mg PO Q6H PRN PRN Reason: Pain, moderate (4-7) Last Admin: 06/09/18 13:38 Dose: 650 mg Atorvastatin Calcium (Lipitor) 40 mg PO DIN [facility] Last Admin: 06/13/18 17:46 Dose: 40 mg Clopidogrel Bisulfate (Plavix) 75 mg PO DAILY [facility] Last Admin: 06/13/18 17:46 Dose: 75 mg Heparin Sodium (Porcine) (Heparin) 5,000 units SC Q8 [facility]; Protocol Last Admin: 06/14/18 05:51 Dose: 5,000 units Vancomycin HCl (Vancomycin 1gm) 1 gm in 250 mls @ 167 mls/hr IVPB DAILY [facility]; Protocol Last Admin: 06/14/18 09:36 Dose: 167 mls/hr Piperacillin Sod/Tazobactam Sod (Zosyn 3.375 In Ns 100ml) 100 mls @ 25 mls/hr IVPB Q8 [facility]; Protocol Last Admin: 06/14/18 05:51 Dose: 25 mls/hr Insulin Human Regular (Humulin R Low) 0 units SC Q6 [facility]; Protocol Last Admin: 06/14/18 09:36 Dose: 2 u Methylprednisolone (Solu-Medrol) 60 mg IVP DAILY [facility] Last Admin: 06/14/18 09:51 Dose: 60 mg Pantoprazole Sodium (Protonix Susp) 40 mg PO ACB [facility] Last Admin: 06/14/18 09:37 Dose: 40 mg Promethazine HCl/Codeine (Phenergan/Codeine Oral Syrup) 5 ml PEG Q4H PRN PRN Reason: Cough and congestion Last Admin: 06/14/18 07:25 Dose: 5 ml Results - Vital Signs Recent Vital Signs: Last Vital Signs Temp 97.9 F 06/14/18 06:00 Pulse 119 H 06/14/18 06:00 Resp 24 06/14/18 06:00 BP 171/85 H 06/14/18 06:00 Pulse Ox 91 L 06/14/18 06:00 - Labs Result Diagrams: 06/15/18 07:00 06/15/18 07:00 Labs: Laboratory Results - last 24 hr 06/13/18 06/13/18 06/14/18 11:39 17:02 06:40 WBC RBC Hgb Hct MCV MCH MCHC RDW Plt Count MPV Neut % (Auto) Lymph % (Auto) [place] % (Auto) Eos % (Auto) Baso % (Auto) Lymph # (Auto) [place] # (Auto) Eos # (Auto) Baso # (Auto) Absolute Neuts (auto) Sodium Potassium Chloride Carbon Dioxide Anion Gap BUN Creatinine Est GFR ( Amer) Est GFR (Non-Af Amer) POC Glucose (mg/dL) 138 H 302 H 216 H Random Glucose Calcium 06/14/18 06/14/18 07:25 07:25 WBC 20.3 H D RBC 3.45 L Hgb 10.9 L Hct 33.9 L MCV 98.3 MCH 31.6 MCHC 32.2 RDW 15.1 H Plt Count 408 MPV 10.2 Neut % (Auto) 88.9 H Lymph % (Auto) 6.4 L [place] % (Auto) 4.7 Eos % (Auto) 0.0 L Baso % (Auto) 0.0 Lymph # (Auto) 1.3 [place] # (Auto) 1.0 H Eos # (Auto) 0.0 Baso # (Auto) 0.00 Absolute Neuts (auto) 18.06 H Sodium 137 Potassium 4.0 Chloride 98 Carbon Dioxide 33 Anion Gap 10 BUN 27 H Creatinine 0.5 L Est GFR ( Amer) > 60 Est GFR (Non-Af Amer) > 60 POC Glucose (mg/dL) Random Glucose 230 H Calcium 8.4 Assessment & Plan - Assessment and Plan (Free Text) Plan: Esophageal cancer s/p chemo and radiation in 1999 and s/p neck mass resection in 2000 -recommend MRI of esophagus to asses status -unable to differentiate if primary v secondary malignancy -no current interventions
[2018-06-14] MEDS ORDERED: MethylPREDNISolone 40 mg Vial IVP SCH (11:14)
--- NOTE | 2018-06-14 11:17 | CP.PCM.PN ---
Subjective - Date & Time of Evaluation Date of Evaluation: 06/14/18 Time of Evaluation: 11:13 - Subjective Subjective: discussed case with resident and reviewed MRI with her There is evidence of discits at C6/7 no epidural component No evidence of spinal instability large area of pre vertebral soft tissue mass anterior to vertebral bodies may be collection of purulent material If it is felt that this needs to be drained contact ENT or IR not withing Neurosurgical pervue to do such. No intervention for discitis at present If need culture have IR do it Suggest Bern-J collar for comfort only Please recall if any changes Objective - Vital Signs/Intake and Output Vital Signs (last 24 hours): Temp Pulse Resp BP Pulse Ox 97.9 F 119 H 24 171/85 H 91 L 06/14/18 06:00 06/14/18 06:00 06/14/18 06:00 06/14/18 06:00 06/14/18 06:00 Intake and Output: 06/14/18 06/14/18 06:59 18:59 Intake Total 1300 Output Total 1200 Balance 100 - Medications Medications: Current Medications Acetaminophen (Tylenol 325mg Tab) 650 mg PO Q6H PRN PRN Reason: Pain, moderate (4-7) Last Admin: 06/09/18 13:38 Dose: 650 mg Atorvastatin Calcium (Lipitor) 40 mg PO DIN [facility] Last Admin: 06/13/18 17:46 Dose: 40 mg Clopidogrel Bisulfate (Plavix) 75 mg PO DAILY [facility] Last Admin: 06/13/18 17:46 Dose: 75 mg Heparin Sodium (Porcine) (Heparin) 5,000 units SC Q8 [facility]; Protocol Last Admin: 06/14/18 05:51 Dose: 5,000 units Vancomycin HCl (Vancomycin 1gm) 1 gm in 250 mls @ 167 mls/hr IVPB DAILY [facility]; Protocol Last Admin: 06/14/18 09:36 Dose: 167 mls/hr Piperacillin Sod/Tazobactam Sod (Zosyn 3.375 In Ns 100ml) 100 mls @ 25 mls/hr IVPB Q8 [facility]; Protocol Last Admin: 06/14/18 05:51 Dose: 25 mls/hr Insulin Human Regular (Humulin R Low) 0 units SC Q6 [facility]; Protocol Last Admin: 06/14/18 09:36 Dose: 2 u Methylprednisolone (Solu-Medrol) 60 mg IVP DAILY [facility] Last Admin: 06/14/18 09:51 Dose: 60 mg Pantoprazole Sodium (Protonix Susp) 40 mg PO ACB [facility] Last Admin: 06/14/18 09:37 Dose: 40 mg Promethazine HCl/Codeine (Phenergan/Codeine Oral Syrup) 5 ml PEG Q4H PRN PRN Reason: Cough and congestion Last Admin: 06/14/18 07:25 Dose: 5 ml - Labs Labs: 06/14/18 07:25 06/14/18 07:25 PT 12.7 SECONDS (9.4-12.5) H 06/07/18 16:28 INR 1.14 06/07/18 16:28 APTT 30.2 Seconds (26.9-38.3) 06/07/18 16:28
[2018-06-14] MEDS: Acetylcysteine 20% Inhal Soln (4ml) IH SCH ×2 (11:30→20:22)
--- NOTE | 2018-06-14 16:07 | CARD ---
APPROVED REPORT Date of service: 06/14/2018 EXAM: Two-dimensional and M-mode echocardiogram with Doppler and color Doppler. INDICATION CVA/TIA BUBBLE STUDY Aortic Valve AoV Peak Ckexswug262.0cm/Za Peak GR.10mmHg Mitral Valve E/A ratio0.0 TDI E/Lateral E'0.0E/Medial E'0.0 Tricuspid Valve TR Peak [id number] [id number] Peak Gr.23mmHg [id number] LEFT VENTRICLE The left ventricle is normal size. There is normal left ventricular wall thickness. The left ventricular function is normal. The left ventricular ejection fraction is within the normal range. There is normal LV segmental wall motion. Transmitral Doppler flow pattern is Grade I-abnormal relaxation pattern. RIGHT VENTRICLE The right ventricle is normal size. There is normal right ventricular wall thickness. The right ventricular systolic function is normal. ATRIA The left atrium size is normal. The right atrium size is normal. The interatrial septum is intact AORTIC VALVE The aortic valve is not well visualized. There is no aortic valvular stenosis. TRICUSPID VALVE There is mild tricuspid regurgitation. <Conclusion> The interatrial septum is intact There is mild tricuspid regurgitation.
--- NOTE | 2018-06-14 19:22 | CP.PCM.PN ---
Subjective - Date & Time of Evaluation Date of Evaluation: 06/14/18 Time of Evaluation: 17:00 - Subjective Subjective: Infectious Disease Follow Up: June 14, 2018 78 yo male who initially came to [facility] with AMS and unresponsiveness. Patient was in normal state of health when he went to the take a shower and lay down. The patient became SOB with labored breathing. Family stated that patient was cold to touch. Brought to [facility] for further evaluation. The patient had several intubations and extubations and required a tracheotomy. The patient with elevated WBCs. He is awake but unable to phonate due to trach. WBC increased to 20.3. Currently on Zosyn and Vancomycin IV for antibiotic care. Zosyn provides additional coverage for potential aspiration pneumonia which is a possibility due to the heavy secretions produced from the patient oral cavity. Objective - Vital Signs/Intake and Output Vital Signs (last 24 hours): Temp Pulse Resp BP Pulse Ox 98.5 F 85 18 97/64 L 96 06/14/18 15:59 06/14/18 15:59 06/14/18 15:59 06/14/18 15:59 06/14/18 15:59 Intake and Output: 06/14/18 06/15/18 18:59 06:59 Output Total 900 Balance -900 - Medications Medications: Current Medications Acetaminophen (Tylenol 325mg Tab) 650 mg PO Q6H PRN PRN Reason: Pain, moderate (4-7) Last Admin: 06/14/18 12:32 Dose: 650 mg Acetylcysteine (Acetylcysteine 20%) 4 ml IH BIDRESP [facility] Stop: 06/16/18 21:00 Atorvastatin Calcium (Lipitor) 40 mg PO DIN [facility] Last Admin: 06/14/18 17:41 Dose: 40 mg Clopidogrel Bisulfate (Plavix) 75 mg PO DAILY [facility] Last Admin: 06/13/18 17:46 Dose: 75 mg Heparin Sodium (Porcine) (Heparin) 5,000 units SC Q8 [facility]; Protocol Last Admin: 06/14/18 13:55 Dose: 5,000 units Vancomycin HCl (Vancomycin 1gm) 1 gm in 250 mls @ 167 mls/hr IVPB DAILY [facility]; Protocol Last Admin: 06/14/18 09:36 Dose: 167 mls/hr Piperacillin Sod/Tazobactam Sod (Zosyn 3.375 In Ns 100ml) 100 mls @ 25 mls/hr IVPB Q8 [facility]; Protocol Last Admin: 06/14/18 13:56 Dose: 25 mls/hr Insulin Human Regular (Humulin R Low) 0 units SC Q6 [facility]; Protocol Last Admin: 06/14/18 18:27 Dose: 2 u Methylprednisolone (Solu-Medrol) 40 mg IVP DAILY [facility] Pantoprazole Sodium (Protonix Susp) 40 mg PO ACB [facility] Last Admin: 06/14/18 09:37 Dose: 40 mg Promethazine HCl/Codeine (Phenergan/Codeine Oral Syrup) 5 ml PEG Q4H PRN PRN Reason: Cough and congestion Last Admin: 06/14/18 07:25 Dose: 5 ml - Labs Labs: 06/14/18 07:25 06/14/18 07:25 PT 12.7 SECONDS (9.4-12.5) H 06/07/18 16:28 INR 1.14 06/07/18 16:28 APTT 30.2 Seconds (26.9-38.3) 06/07/18 16:28 - Constitutional Appears: Non-toxic, No Acute Distress, Chronically Ill - Head Exam Head Exam: ATRAUMATIC, NORMOCEPHALIC - Eye Exam Eye Exam: EOMI, PERRL Pupil Exam: NORMAL ACCOMODATION, PERRL Additional comments: Irregularly shaped pupil in right eye. - ENT Exam ENT Exam: Mucous Membranes Moist, Normal External Ear Exam, TM's Normal Bilaterally - Neck Exam Additional comments: Tracheotomy collar s/p cricothyroidotomy - Respiratory Exam Respiratory Exam: Clear to Ausculation Bilateral, NORMAL BREATHING PATTERN. absent: Rales, Rhonchi, Wheezes - Cardiovascular Exam Cardiovascular Exam: REGULAR RHYTHM, RRR, +S1, +S2 - GI/Abdominal Exam GI & Abdominal Exam: Soft, Normal Bowel Sounds. absent: Distended, Tenderness Additional comments: G tube in place, no draining/bleeding noted around tube - Extremities Exam Extremities Exam: Full ROM. absent: Joint Swelling, Pedal Edema - Neurological Exam Neurological Exam: Alert, Awake, CN II-XII Intact, Oriented x3 - Psychiatric Exam Psychiatric exam: Normal Affect, Normal Mood - Skin Skin Exam: Normal Color. absent: Erythema Assessment and Plan - Assessment and Plan (Free Text) Assessment: 78 yo male with esophageal cancer history presented with SOB and AMS. Trach in place. Most recent Chest X-ray showing Left upper lobe and right lower lobe infiltrates. CT scan of the neck suggested discitis vs. osteomyelitis. Check ESR. Supportive care. Would switch Cefepime to Zosyn for better coverage of aspiration pneumonia. Patient currently on Zosyn IV and Vancomycin IV for antibiotic treatment. On question of osteomyelitis, a Bone scan or MRI may be useful given the multiple procedures performed on the patient in this area coupled with obtaining the ESR and C-RP. The patient and his family was told that he was cancer free last month by his primary Oncologist Dr. Alejandre(?). Supportive care. ESR of 80. Procalcitonin of 1.52. Monitor WBC. No new issues clinically. MRI showing discitis with marrow edema and anterior paravertebral mass. Thank you for allowing me to participate in the care of the patient, we will follow with you.
[2018-06-15] MEDS: Insulin Reg-LOW-Coverage SC SCH ×4 (00:43→22:14)
[2018-06-15] MEDS: Piperacillin/Tazobact 3.375 gm 100 ML IVPB SCH ×3 (05:53→22:15)
[2018-06-15 07:29] LABS: EOS % 0.1 % (1.5-5.0); LYMPH # 0.9 (1.2-3.4); MEAN CELL VOLUME 97.2 fl (80.0-105.0); MEAN CORPUSCULAR HEMOGLOBIN 31.4 pg (25.0-35.0); MEAN CORPUSCULAR HGB CONC 32.4 g/dl (31.0-37.0); MEAN PLATELET VOLUME 10.4 fl (7.0-11.0); MONO # 0.6 (0.1-0.6); MONO % 4.3 % (1.0-6.0); RBC 3.18 10^6/uL (3.5-6.1); RED CELL DISTRIBUTION WIDTH 15.1 % (11.5-14.5); WHITE BLOOD COUNT 14.6 10^3/uL (4.5-11.0)
[2018-06-15] MEDS: Acetylcysteine 20% Inhal Soln (4ml) IH SCH ×2 (07:29→19:59)
[2018-06-15 07:42] LABS: BLOOD UREA NITROGEN 25 mg/dL (7-21); CALCIUM 8.4 mg/dL (8.4-10.5); GFR NON-AFRICAN AMERICAN > 60
--- NOTE | 2018-06-15 09:14 | CP.PCM.PN ---
Subjective - Date & Time of Evaluation Date of Evaluation: 06/15/18 Time of Evaluation: 09:11 - Subjective Subjective: Hadley Pereyra DO, PGY-2: Neurology Progress Note for Dr. Bob Patient was seen and examined at bedside. Patient is able to communicate by writing. He asked for his feeding to be administered through his G-tube. I spoke with a nurse that took care of him yesterday and explained to the patient that he is getting feeding 5 times a day, not continuously. He understood. I also explained to him that he had a small stroke and that his echocardiogram showed no hole in his heart. Otherwise, no adverse events noted. Primary team stated they will be treating him empirically for discitis/osteomyeltis. Objective - Vital Signs/Intake and Output Vital Signs (last 24 hours): Temp Pulse Resp BP Pulse Ox 99 F 90 20 109/63 93 L 06/15/18 06:00 06/15/18 06:00 06/15/18 06:00 06/15/18 06:00 06/15/18 06:00 Intake and Output: 06/15/18 06/15/18 06:59 18:59 Intake Total 0 Output Total 400 Balance -400 - Medications Medications: Current Medications Acetaminophen (Tylenol 325mg Tab) 650 mg PO Q6H PRN PRN Reason: Pain, moderate (4-7) Last Admin: 06/14/18 12:32 Dose: 650 mg Acetylcysteine (Acetylcysteine 20%) 4 ml IH BIDRESP [facility] Stop: 06/16/18 21:00 Last Admin: 06/15/18 07:29 Dose: Not Given Atorvastatin Calcium (Lipitor) 40 mg PO DIN [facility] Last Admin: 06/14/18 17:41 Dose: 40 mg Clopidogrel Bisulfate (Plavix) 75 mg PO DAILY [facility] Last Admin: 06/13/18 17:46 Dose: 75 mg Heparin Sodium (Porcine) (Heparin) 5,000 units SC Q8 [facility]; Protocol Last Admin: 06/15/18 05:52 Dose: 5,000 units Vancomycin HCl (Vancomycin 1gm) 1 gm in 250 mls @ 167 mls/hr IVPB DAILY [facility]; Protocol Last Admin: 06/14/18 09:36 Dose: 167 mls/hr Piperacillin Sod/Tazobactam Sod (Zosyn 3.375 In Ns 100ml) 100 mls @ 25 mls/hr IVPB Q8 [facility]; Protocol Last Admin: 06/15/18 05:53 Dose: 25 mls/hr Insulin Human Regular (Humulin R Low) 0 units SC Q6 [facility]; Protocol Last Admin: 06/15/18 05:58 Dose: Not Given Methylprednisolone (Solu-Medrol) 40 mg IVP DAILY [facility] Pantoprazole Sodium (Protonix Susp) 40 mg PO ACB [facility] Last Admin: 06/14/18 09:37 Dose: 40 mg Promethazine HCl/Codeine (Phenergan/Codeine Oral Syrup) 5 ml PEG Q4H PRN PRN Reason: Cough and congestion Last Admin: 06/14/18 07:25 Dose: 5 ml - Labs Labs: 06/15/18 07:00 06/15/18 07:00 PT 12.7 SECONDS (9.4-12.5) H 06/07/18 16:28 INR 1.14 06/07/18 16:28 APTT 30.2 Seconds (26.9-38.3) 06/07/18 16:28 - Constitutional Appears: Well, Non-toxic - Head Exam Head Exam: ATRAUMATIC, NORMOCEPHALIC - Eye Exam Eye Exam: EOMI, Normal appearance - ENT Exam ENT Exam: Mucous Membranes Moist - Neck Exam Neck Exam: Normal Inspection - Respiratory Exam Respiratory Exam: NORMAL BREATHING PATTERN. absent: Accessory Muscle Use - Cardiovascular Exam Cardiovascular Exam: RRR, +S1, +S2 - GI/Abdominal Exam GI & Abdominal Exam: Soft, Normal Bowel Sounds - Extremities Exam Extremities Exam: Normal Inspection - Back Exam Back Exam: NORMAL INSPECTION. absent: CVA tenderness (L), CVA tenderness (R) - Neurological Exam Neurological Exam: Alert, Awake, Oriented x3 Neuro motor strength exam: Left Upper Extremity: 5, Right Upper Extremity: 5, Le ft Lower Extremity: 5, Right Lower Extremity: 5 - Psychiatric Exam Psychiatric exam: Normal Affect, Normal Mood - Skin Skin Exam: Dry, Intact, Normal Color, Warm Assessment and Plan - Assessment and Plan (Free Text) Assessment: 78 year old male with a past medical history of esophageal cancer who presented with altered mental status with hypercapnic/hypoxemic respiratory failure. A code stroke was called intially in the ED; however, the patient was not a candidate for tPA given the unknown onset of his symptoms. His CT of the head and CTA show no evidence of stroke. MRI showed 3 mm acute infarct in left parietal lobe. Video EEG without evidence of acute seizure. Echocardiogram with bubble study showed no interatrial septum. The patient's plavix should be resumed given there is no definitive surgery scheduled. In other words, the patient's plavix should only be held if it is a sure thing he is getting surgery. Plan Acute Ischemic Stroke - Patient may be in a hypercoagulable state given his history of cancer - ECHO with Bubble showed no interatrial septum - Plavix 75 mg daily (given the patient is allergic to aspirin) for secondary stroke prevention Case was reviewed and discussed with attending physician, Dr. Bob
--- NOTE | 2018-06-15 09:14 | CP.PCM.PN ---
<Frank Garcia - Last Filed: 06/15/18 13:39> Subjective - Date & Time of Evaluation Date of Evaluation: 06/15/18 Time of Evaluation: 09:12 - Subjective Subjective: PGY-1 Medicine progress note for Dr. Noguera Patient seen and examined at bedside. No acute events overnight. He complains of reproducible pain on his sternum when he coughs. He denies fevers, chills, shortness of breath, abdominal pain, nausea, vomiting, diarrhea, or urinary symptoms. Objective - Vital Signs/Intake and Output Vital Signs (last 24 hours): Temp Pulse Resp BP Pulse Ox 99 F 90 20 109/63 93 L 06/15/18 06:00 06/15/18 06:00 06/15/18 06:00 06/15/18 06:00 06/15/18 06:00 Intake and Output: 06/15/18 06/15/18 06:59 18:59 Intake Total 0 Output Total 400 Balance -400 - Medications Medications: Current Medications Acetaminophen (Tylenol 325mg Tab) 650 mg PO Q6H PRN PRN Reason: Pain, moderate (4-7) Last Admin: 06/14/18 12:32 Dose: 650 mg Acetylcysteine (Acetylcysteine 20%) 4 ml IH BIDRESP LYLY Stop: 06/16/18 21:00 Last Admin: 06/15/18 07:29 Dose: Not Given Atorvastatin Calcium (Lipitor) 40 mg PO DIN LYLY Last Admin: 06/14/18 17:41 Dose: 40 mg Clopidogrel Bisulfate (Plavix) 75 mg PO DAILY LYLY Last Admin: 06/13/18 17:46 Dose: 75 mg Heparin Sodium (Porcine) (Heparin) 5,000 units SC Q8 LYLY; Protocol Last Admin: 06/15/18 05:52 Dose: 5,000 units Vancomycin HCl (Vancomycin 1gm) 1 gm in 250 mls @ 167 mls/hr IVPB DAILY LYLY; Protocol Last Admin: 06/14/18 09:36 Dose: 167 mls/hr Piperacillin Sod/Tazobactam Sod (Zosyn 3.375 In Ns 100ml) 100 mls @ 25 mls/hr IVPB Q8 LYLY; Protocol Last Admin: 06/15/18 05:53 Dose: 25 mls/hr Insulin Human Regular (Humulin R Low) 0 units SC Q6 LYLY; Protocol Last Admin: 06/15/18 05:58 Dose: Not Given Methylprednisolone (Solu-Medrol) 40 mg IVP DAILY LYLY Pantoprazole Sodium (Protonix Susp) 40 mg PO ACB LYLY Last Admin: 06/14/18 09:37 Dose: 40 mg Promethazine HCl/Codeine (Phenergan/Codeine Oral Syrup) 5 ml PEG Q4H PRN PRN Reason: Cough and congestion Last Admin: 06/14/18 07:25 Dose: 5 ml - Labs Labs: 06/15/18 07:00 06/15/18 07:00 PT 12.7 SECONDS (9.4-12.5) H 06/07/18 16:28 INR 1.14 06/07/18 16:28 APTT 30.2 Seconds (26.9-38.3) 06/07/18 16:28 - Additional Findings Additional findings: - Constitutional Appears: no acute distress, Chronically Ill - Head Exam Head Exam: ATRAUMATIC, NORMAL INSPECTION, NORMOCEPHALIC - Eye Exam Eye Exam: Irregularly shaped pupil in right eye. EOMI, PERRL - Neck Exam Neck Exam: Tracheostomy collar in place - Respiratory Exam Respiratory Exam: absent: Accessory Muscle Use, Decreased Breath Sounds, Rales, Rhonchi, Respiratory Distress, Stridor Upper airways sound congested, improved from yesterday - Cardiovascular Exam Cardiovascular Exam: +S1, +S2. absent: Gallop, Rubs - GI/Abdominal Exam GI & Abdominal Exam: Normal Bowel Sounds, Soft. absent: Distended, Firm G tube in place, no draining/bleeding noted around tube - Extremities Exam Extremities exam: Negative for: pedal edema - Neurological Exam Neurological exam: AAOx3, Responsive to questions, following commands - Skin Skin Exam: Dry, Pallor Assessment and Plan - Assessment and Plan (Free Text) Assessment: 78 year old male with a past medical history of BPH and esophageal cancer s/p chemo/radiation/resection who presented to the ED for AMS, who was found unresponsive by his family. Patient was admitted to the ICU for respiratory failure and altered mental status, subsequently downgraded for further management. Plan: Discitis, r/o osteomyelitis vs malignancy - Cervical spine MRI: There is evidence of disc space infection at C6-7. There is edema within the disc space and irregularity and destruction of the vertebral endplates. There is marrow edema and a anterior paraspinal mass. There is no cord compression. - CT scan neck showed possible discitis vs osteo - ESR: 80 - CRP: 88 - Plan for PICC line insertion for prolonged IV antibiotics - Zosyn 3.375g IV Q8 (Started on 06/12) - Vancomycin 1g IV QD (Started on 06/07) - Neurosurgery consulted, Dr. Sandoval- No surgical intervention at this time. Recommends placing a [place]-J collar for comfort - ENT consulted, Dr. Lao - ID consulted, Dr. Azevedo - Heme/onc consulted, Dr. Terrazas Hypercapneic, hypoxic respiratory failure - Patient with temporary tracheostomy, patient is off mechanical ventilation - Plan for permanent tracheostomy placement this week- hold Plavix 2 days before surgery - Surgery consulted, Dr. Martinez - ENT consulted, Dr. Lao - C/w Solumedrol 40mg IVP daily - Phenergen/Codeine PRN for cough - Acetylcysteine BIDRESP Aspiration pneumonia - CXR (06/12): Left lateral lobe opacity. Areas of atelactasis on right lung. Bilateral mild pleural effusions. - Procalcitonin: 1.52 - Zosyn 3.375g IV Q8 (Started on 06/12) - Vancomycin 1g IV QD (Started on 06/07) - ID consulted, Dr. Azevedo Acute ischemic parietal lobe infarct - Brain MRI: There is a single small area of restricted diffusion in the left parietal lobe cortex measuring 3 mm in diameter. This is consistent with an acute infarct. Probably too small to be related to patient's symptoms. - CT head (06/07): No acute intracranial findings - Head/Neck CTA (06/07): No evidence of hemodynamically significant stenosis in the internal carotid arteries - Echo with normal bubble study - Neurology consulted, Dr. Toth/Lisbeth - Continue Lipitor. Patient allergic to ASA. Plavix held per surgery - PT/OT evaluation Leukocytosis - Likely 2/2 to steroids, r/o infectious etiology - CXR (06/12): Left lateral lobe opacity. Areas of atelactasis on right lung. Bilateral mild pleural effusions. - Procalcitonin: 1.52 - Continue Vancomycin and Zosyn Failure to thrive - Patient has a Gastrostomy tube - Continue tube feedings, Pivot 1.5 Normocytic anemia - H&H stable - Continue to monitor Chronic dysphagia to solids and liquids - Patient has history of esophageal Cancer - Will continue to monitor at this time Prophylaxis - Heparin 5000u SC Q8 - Protonix 40mg PO QD Patient seen and case discussed with attending, Dr. Noguera. Frank Garcia, PGY-1 <Ita Noguera - Last Filed: 06/16/18 14:16> Objective - Vital Signs/Intake and Output Vital Signs (last 24 hours): Temp Pulse Resp BP Pulse Ox 98.2 F 93 H 18 104/62 97 06/15/18 21:41 06/15/18 21:41 06/15/18 21:41 06/15/18 21:41 06/15/18 21:41 Intake and Output: 06/16/18 06/16/18 06:59 18:59 Intake Total 0 Output Total 400 Balance -400 - Labs Labs: 06/15/18 07:00 06/15/18 07:00 PT 12.7 SECONDS (9.4-12.5) H 06/07/18 16:28 INR 1.14 06/07/18 16:28 APTT 30.2 Seconds (26.9-38.3) 06/07/18 16:28 Attending/Attestation - Attestation I have personally seen and examined this patient.: Yes I have fully participated in the care of the patient.: Yes I have reviewed all pertinent clinical information, including history, physical exam and plan: Yes Notes (Text): 06/16/18 14:04 Medical record note made by the resident after discussion with my direction and input after the patient was personally seen and examined by me. I have reviewed the chart and agree that the record accurately reflects by personal performance of the history, physical exam, data review, and medical decision-making, in the course for the patient. I have also personally directed the plan of care. 78 year old male with past medical history of esophageal cancer s/p chemo, s/p radiation, s/p resection who presented with change of mental status (after being found unresponsive at home by his family). He was intubated for hypercapnic respiratory failure. CXR showed RLL atelectasis/infiltrate for which patient is on iv antibiotics. He had emergent cricothyroidotomy done in ER. Patient is now off mechanical ventilation now out of ICU on trach collar. Surgery is following and plan is for permanent trachestomy placement later this week. CT head was negative for acute findings. MRI brain showed single small areas of restrictive diffusion in the left parietal lobe cortex consistent with acute infarct. Patient was started on plavix and statin (not as aspirin secondary to allergy). Cervical spine MRI showed evidence of disc space infection at C6-7. There is edema within the disc space and irregularity and destruction of the vertebral endplates. There is marrow edema and a anterior paraspinal mass. There is no cord compression, on IV Zosyn 3.375g IV Q8 and IV Vancomycin 1g IV QD (Started on 06/07) as per ID.Neurosurgery evaluation was noted, No surgical intervention at this time. Recommends placing a [place]-J collar for comfort. Patient was evaluated by ENT today and ENT noticed that there is mass which is protuding into the vertebrae concerning for recurrence of malignancy and metastasis.Patient case was discussed with Patient primary Oncologist Dr.Raymond Bland. Patient has been accepted for transfer to [facility] under his care. Once bed will be available, he will be transferred to [facility]. Management plan was discussed in detail with patient. Education was provided.
[2018-06-15] MEDS: Pantoprazole 40 mg Susp UD PO SCH (09:30)
[2018-06-15] MEDS: Vancomycin 1gm in NS 250ml 1 GM/250 ML BAG IVPB SCH (09:30)
--- NOTE | 2018-06-15 11:39 | CP.PCM.PCO ---
Physician Communication Note - Physician Communication Note Physician Communication Note: xiomara notes rev'd, pt awaiting perm trach with surg team and p.t. Assessment and Plan - Assessment and Plan (Free Text) Plan: ITS Impressions Chest X-Ray 06/07/18 14:10 IMPRESSION: Endotracheal tube in satisfactory position Head CT 06/07/18 14:10 IMPRESSION: No acute intracranial findings. Head/Neck CTA 06/07/18 14:10 IMPRESSION: 1. No evidence of endoluminal thrombus or occlusion. Asymmetric narrowing of the right M1 segment with attenuation of the superior division perisylvian branches which is likely chronic and related to intracranial atherosclerosis. 2. No evidence of hemodynamically significant stenosis in the internal carotid arteries. 3. Patent bilateral vertebral arteries. Chest X-Ray 06/07/18 16:47 IMPRESSION: Tracheostomy tube. Cardiomegaly. Faint atherosclerotic calcifications present. Mild right middle/lower lobe hazy infiltrates. Chest X-Ray 06/07/18 18:00 IMPRESSION: New atelectasis/volume loss affecting right lower lobe. Satisfactory position of recently placed left subclavian venous access catheter. Chest X-Ray 06/08/18 06:00 IMPRESSION: There is persistent atelectasis in the right lower lobe unchanged Brain MRI 06/09/18 11:42 IMPRESSION: There is a single small area of restricted diffusion in the left parietal lobe cortex measuring 3 mm in diameter. This is consistent with an acute infarct. This is probably too small to be related to the patient's symptoms. Chest X-Ray 06/10/18 11:01 IMPRESSION: No change in right lower lobe consolidation. New area of consolidation in the left upper lobe Soft Tissue Neck CT 06/11/18 06:57 IMPRESSION: There are cystic- erosive changes involving the right and mid C5-C6 endplates which were visible although appear to have developed since prior CT scan of the neck 08/01/2017. Findings may represent chronic discitis/osteomyelitis therefore follow-up MRI of the cervical spine recommended. Interval tracheostomy with in situ tracheostomy tube in good position.. There is apposition of the true vocal cords of with occlusion of the airway at this level.. These findings could possibly be related to mild edema secondary to irritation from since removed endotracheal tube and possibly secondary to recent tracheostomy. There is also a paucity of subcutaneous fat which also contributes to the loss of some of the blurring of the fascial planes.. Questionable mild diffuse subcutaneous edema -anasarca not excluded. Secretions are felt to be present within the posterior dependent portion of the avelino- pharynx and upper airway as well. Bilateral effusions right greater than left with fluid seen in the superior aspect of the left major fissure Chest X-Ray 06/12/18 00:59 IMPRESSION: Redemonstrated is an elliptical shaped opacity left lateral mid lung field unchanged. Hazy opacity in the right lower lobe may represent areas of atelectasis. Suspect small bilateral effusions left larger than right Cervical Spine MRI 06/13/18 09:11 IMPRESSION: There is evidence of disc space infection at C6-7. There is edema within the disc space and irregularity and destruction of the vertebral endplates. There is marrow edema and a anterior paraspinal mass There is no cord compression patient seen and examined at bedside for perm trach end of week per Surg team notes when PNA resolves labs and VS noted pt continues on antibiotics plan discussed with IDT
--- NOTE | 2018-06-15 14:05 | CP.PCM.PN ---
Subjective - Date & Time of Evaluation Date of Evaluation: 06/15/18 Time of Evaluation: 13:59 - Subjective Subjective: Surgery Progress Note for Dr. Martinez 78M seen and evaluated at bedside this morning. No acute events overnight. Patient resting comfortably in bed. Afebrile overnight. Objective - Vital Signs/Intake and Output Vital Signs (last 24 hours): Temp Pulse Resp BP Pulse Ox 99 F 90 20 109/63 93 L 06/15/18 06:00 06/15/18 06:00 06/15/18 06:00 06/15/18 06:00 06/15/18 06:00 Intake and Output: 06/15/18 06/15/18 06:59 18:59 Intake Total 0 Output Total 400 Balance -400 - Medications Medications: Current Medications Acetaminophen (Tylenol 325mg Tab) 650 mg PO Q6H PRN PRN Reason: Pain, moderate (4-7) Last Admin: 06/14/18 12:32 Dose: 650 mg Acetylcysteine (Acetylcysteine 20%) 4 ml IH BIDRESP LYLY Stop: 06/16/18 21:00 Last Admin: 06/15/18 07:29 Dose: Not Given Atorvastatin Calcium (Lipitor) 40 mg PO DIN LYLY Last Admin: 06/14/18 17:41 Dose: 40 mg Clopidogrel Bisulfate (Plavix) 75 mg PO DAILY LYLY Last Admin: 06/13/18 17:46 Dose: 75 mg Heparin Sodium (Porcine) (Heparin) 5,000 units SC Q8 LYLY; Protocol Last Admin: 06/15/18 05:52 Dose: 5,000 units Vancomycin HCl (Vancomycin 1gm) 1 gm in 250 mls @ 167 mls/hr IVPB DAILY LYLY; Protocol Last Admin: 06/15/18 09:30 Dose: 167 mls/hr Piperacillin Sod/Tazobactam Sod (Zosyn 3.375 In Ns 100ml) 100 mls @ 25 mls/hr IVPB Q8 LYLY; Protocol Last Admin: 06/15/18 05:53 Dose: 25 mls/hr Insulin Human Regular (Humulin R Low) 0 units SC Q6 LYLY; Protocol Last Admin: 06/15/18 05:58 Dose: Not Given Methylprednisolone (Solu-Medrol) 40 mg IVP DAILY LYLY Last Admin: 06/15/18 09:30 Dose: 40 mg Pantoprazole Sodium (Protonix Susp) 40 mg PO ACB LYLY Last Admin: 06/15/18 09:30 Dose: 40 mg Promethazine HCl/Codeine (Phenergan/Codeine Oral Syrup) 5 ml PEG Q4H PRN PRN Reason: Cough and congestion Last Admin: 06/14/18 07:25 Dose: 5 ml - Labs Labs: 06/15/18 07:00 06/15/18 07:00 PT 12.7 SECONDS (9.4-12.5) H 06/07/18 16:28 INR 1.14 06/07/18 16:28 APTT 30.2 Seconds (26.9-38.3) 06/07/18 16:28 - Constitutional Appears: Non-toxic, No Acute Distress - Head Exam Head Exam: ATRAUMATIC, NORMAL INSPECTION, NORMOCEPHALIC - Eye Exam Eye Exam: EOMI - ENT Exam Additional comments: ET tube in place - no bleeding noted - Respiratory Exam Respiratory Exam: NORMAL BREATHING PATTERN. absent: Wheezes, Respiratory Distress - Cardiovascular Exam Cardiovascular Exam: REGULAR RHYTHM, +S1, +S2 - GI/Abdominal Exam GI & Abdominal Exam: Soft, Normal Bowel Sounds. absent: Tenderness Assessment and Plan - Assessment and Plan (Free Text) Assessment: 78M w/ hypercapnic respiratory failure s/p emergency cric POD8 w/ new cervical MRI evidence of C6-7 disc space infection Plan: F/u ENT recommendations - will reach out Neurosurgery recommends ENT or IR for possible drainage of abscess Will postpone Tracheostomy until infection under control and clearance from consulting teams D/w Dr. Juan Carr PGY1
[2018-06-15 14:58] VITALS: RESP 18
[2018-06-15] MEDS ORDERED: Albuterol-Ipratrop 3 mg / 0.5 (3 ml) UD IH SCH (16:06)
--- NOTE | 2018-06-15 16:23 | CP.PCM.PN ---
Subjective - Date & Time of Evaluation Date of Evaluation: 06/15/18 Time of Evaluation: 16:00 - Subjective Subjective: Infectious Disease Follow Up: June 15, 2018 78 yo male who initially came to [facility] with AMS and unresponsiveness. Patient was in normal state of health when he went to the take a shower and lay down. The patient became SOB with labored breathing. Family stated that patient was cold to touch. Brought to [facility] for further evaluation. The patient had several intubations and extubations and required a tracheotomy. The patient with elevated WBCs. He is awake but unable to phonate due to trach. WBC decreased to 14.6 from 20.3. Currently on Zosyn and Vancomycin IV for antibiotic care. Zosyn provides a dditional coverage for potential aspiration pneumonia which is a possibility due to the heavy secretions produced from the patient oral cavity. Issue of discitis which origin is hard to delineate. It may be from infection or metastatic disease from previous Esophageal cancer. Regardless, treatment for discitis with 6 weeks of antibiotics IV cannot be avoided at this point. Objective - Vital Signs/Intake and Output Vital Signs (last 24 hours): Temp Pulse Resp BP Pulse Ox 98.7 F 88 18 118/91 H 94 L 06/15/18 14:00 06/15/18 14:00 06/15/18 14:00 06/15/18 14:00 06/15/18 14:00 Intake and Output: 06/15/18 06/15/18 06:59 18:59 Intake Total 0 Output Total 400 Balance -400 - Medications Medications: Current Medications Acetaminophen (Tylenol 325mg Tab) 650 mg PO Q6H PRN PRN Reason: Pain, moderate (4-7) Last Admin: 06/14/18 12:32 Dose: 650 mg Acetylcysteine (Acetylcysteine 20%) 4 ml IH BIDRESP LYLY Stop: 06/16/18 21:00 Last Admin: 06/15/18 07:29 Dose: Not Given Atorvastatin Calcium (Lipitor) 40 mg PO DIN [facility] Last Admin: 06/14/18 17:41 Dose: 40 mg Clopidogrel Bisulfate (Plavix) 75 mg PO DAILY [facility] Last Admin: 06/13/18 17:46 Dose: 75 mg Heparin Sodium (Porcine) (Heparin) 5,000 units SC Q8 LYLY; Protocol Last Admin: 06/15/18 15:04 Dose: 5,000 units Vancomycin HCl (Vancomycin 1gm) 1 gm in 250 mls @ 167 mls/hr IVPB DAILY LYLY; Protocol Last Admin: 06/15/18 09:30 Dose: 167 mls/hr Piperacillin Sod/Tazobactam Sod (Zosyn 3.375 In Ns 100ml) 100 mls @ 25 mls/hr IVPB Q8 LYLY; Protocol Last Admin: 06/15/18 15:03 Dose: 25 mls/hr Insulin Human Regular (Humulin R Low) 0 units SC Q6 LYLY; Protocol Last Admin: 06/15/18 15:04 Dose: 5 u Methylprednisolone (Solu-Medrol) 40 mg IVP DAILY LYLY Last Admin: 06/15/18 09:30 Dose: 40 mg Pantoprazole Sodium (Protonix Susp) 40 mg PO ACB LYLY Last Admin: 06/15/18 09:30 Dose: 40 mg Promethazine HCl/Codeine (Phenergan/Codeine Oral Syrup) 5 ml PEG Q4H PRN PRN Reason: Cough and congestion Last Admin: 06/14/18 07:25 Dose: 5 ml - Labs Labs: 06/15/18 07:00 06/15/18 07:00 PT 12.7 SECONDS (9.4-12.5) H 06/07/18 16:28 INR 1.14 06/07/18 16:28 APTT 30.2 Seconds (26.9-38.3) 06/07/18 16:28 - Constitutional Appears: Non-toxic, No Acute Distress, Chronically Ill - Head Exam Head Exam: ATRAUMATIC, NORMOCEPHALIC - Eye Exam Eye Exam: EOMI, PERRL Pupil Exam: NORMAL ACCOMODATION, PERRL Additional comments: Irregularly shaped pupil in right eye. - ENT Exam ENT Exam: Mucous Membranes Moist, Normal External Ear Exam, TM's Normal Bilaterally - Neck Exam Additional comments: Tracheotomy collar s/p cricothyroidotomy - Respiratory Exam Respiratory Exam: Clear to Ausculation Bilateral, NORMAL BREATHING PATTERN. absent: Rales, Rhonchi, Wheezes - Cardiovascular Exam Cardiovascular Exam: REGULAR RHYTHM, RRR, +S1, +S2 - GI/Abdominal Exam GI & Abdominal Exam: Soft, Normal Bowel Sounds. absent: Distended, Tenderness Additional comments: G tube in place, no draining/bleeding noted around tube - Extremities Exam Extremities Exam: absent: Joint Swelling, Pedal Edema - Neurological Exam Neurological Exam: Alert, Awake, CN II-XII Intact, Oriented x3 - Psychiatric Exam Psychiatric exam: Normal Affect, Normal Mood - Skin Skin Exam: Intact, Normal Color Assessment and Plan - Assessment and Plan (Free Text) Assessment: 78 yo male with esophageal cancer history presented with SOB and AMS. Trach in place. Most recent Chest X-ray showing Left upper lobe and right lower lobe infiltrates. CT scan of the neck suggested discitis vs. osteomyelitis. Check ESR. Supportive care. Would switch Cefepime to Zosyn for better coverage of aspiration pneumonia. On question of osteomyelitis, a Bone scan may be useful given the multiple procedures performed on the patient in this area coupled with obtaining the ESR and C-RP. MRI showing discitis. Cannot delineate whether mass is an abscess or metastatic spread of previous esophageal cancer or even a new malignancy. The patient would need 6 weeks of IV antibiotics with Rocephin and Vancomycin IV (noted that the patient need to complete her 7 days of Zosyn before a move Rocephin.). Supportive care. Thank you for allowing me to participate in the care of the patient, we will follow with you.
[2018-06-15 21:43] VITALS: BP 104/62; PULSE 93; TEMP 98.2; O2SAT 97
--- NOTE | 2018-06-16 03:09 | PN ---
DATE: 06/15/2018 ONCOLOGY PROGRESS NOTE LOCATION: The patient is in room 572, bed 2. SUBJECTIVE: A 78-year-old male who initially came to the [facility] with altered mental status, unresponsiveness. The patient has had a series of events took place since admission. Apparently, he was in normal state of health, went to take the shower and laid down, the patient became short of breath with labored breathing. The patient's family stated that the patient was cold to touch and was brought to [facility] for further evaluation. The patient has several intubations and extubations and required a tracheostomy. The patient had elevated white count and is status post trach, unable to phonate because of his trach, but is able to communicate. During the hospital stay, his white count was decreased from 14.6 from an elevated count of 20,000. The patient is currently on antibiotics to cover for potential aspiration pneumonia versus diskitis, which was thought to be the case on CAT scan that was done of the cervical spine, issues of diskitis is difficult to delineate whether this is infection per se or metastatic disease per se it is difficult to delineate. MR would be more useful, but the patient had just stabilized after series of events in the hospital. The patient does have history of esophageal CA, status post chemoradiation with suggestion of mass beyond the trach area, which is unclear at this time pending further tests. Regardless of this, the patient still need treatment for antibiotics, which cannot be avoided at this time. PHYSICAL EXAMINATION: GENERAL: The patient is nontoxic, in no acute distress, and chronically ill. The patient has a trach in place. VITAL SIGNS: Stable. T-max is 98.4, pulse is 88, respirations are 18, blood pressure is 118/91, and pulse ox is 94. HEENT: Head is normocephalic and atraumatic. Pupils are equally reactive to light and accommodation. LUNGS: Clear to percussion and auscultation. No adventitious sounds are heard. CARDIOVASCULAR: S1 and S2 to be normal. No gallop or murmur is heard. ABDOMEN: Soft, nontender, and nondistended. No rebound, rigidity, or guarding is noted. The patient has a G-tube in place. No draining or bleeding is noted around the G-tube site. EXTREMITIES: Reveal no cyanosis, clubbing, or edema. NEUROLOGIC: The patient is awake, alert, and oriented x3. SKIN: Turgor is normal. No skin lesions are noted. LABORATORY DATA: Reviewed. White count is 14.6, hemoglobin 10, hematocrit 30.9, and platelet count of 383,000. Electrolytes are unremarkable. INR is also within normal limits. ASSESSMENT, NOTES, AND PLAN: This is a 78-year-old male with a history of esophageal cancer, was admitted to the hospital with shortness of breath and altered mental status and is currently with the treating phase. Most recent chest x-ray showed left upper lobe and right upper lobe infiltrate. CAT scan of the neck is consistent with either diskitis or osteomyelitis, difficult to rule out metastatic disease. The patient is currently on antibiotics and being followed actively by Infectious Disease. MRI shows definitely diskitis, cannot delineate whether there is abscess or metastatic spread of previously esophageal cancer or the new malignancy. More likely, it is a new pathology as the prior disease was several years ago. The patient needs to continue his antibiotics for now and I am told by the primary team that the patient's care has been accepted by his primary previous oncologist at [place] and the patient may be transferred to [place] for further care. We will continue to monitor the patient's care [facility]. Please make a note, this is a complex patient with multiple comorbid medical issues. Thanking you for allowing me to participate in the management of this patient. Eula Terrazas MD
--- NOTE | 2018-06-17 07:16 | CP.PCM.DIS ---
Provider - Provider Date of Admission: 06/07/18 15:26 Attending physician: Ita Noguera MD Primary care physician: Ryan Domingo MD Consults: 06/07/18 14:10 Stroke Team Consult Stat Comment: Consulting Provider: Neurohospitalist Consulting Physician: NEUROHOSP Neurohospitalist for Consult: Tawanda Bob Neurohospitalist for Consult: Meenu Toth Reason for Consult: code stroke 06/07/18 18:00 General Surgery Consult Routine Comment: Consulting Provider: Darion Martinez Consulting Physician: Darion Martinez Reason for Consult: Trach Neurology Consult Routine Comment: Consulting Provider: Meenu Toth Consulting Physician: Meenu Toth Reason for Consult: AMS, ? seizure 06/08/18 00:31 Cardiology Consult Routine Comment: Consulting Provider: Dieter Velazco Consulting Physician: Dieter Velazco Reason for Consult: elevated troponin 06/08/18 15:03 Palliative Care Consult Routine Comment: Consulting Provider: Lima Flanagan Physician Instructions: Reason For Exam: goals of care 06/09/18 11:12 Physician Consult Routine Comment: Consulting Provider: Darion Lao Consulting Physician: Darion Lao Reason for Consult: surgical trach eval 06/12/18 13:13 Infectious Disease Consult Routine Comment: Consulting Provider: Marck Azevedo Consulting Physician: Marck Azevedo Reason for Consult: PNA, gram pos cocci on blood cx, r/o OM of cervical spine 06/13/18 15:20 Diabetic Education Referral Routine Comment: Physician Instructions: Reason For Exam: DM teaching 06/14/18 08:05 Physician Consult Routine Comment: Consulting Provider: Caio Sandoval Consulting Physician: Caio Sandoval Reason for Consult: discitis, possible osteo of cervical spine 06/14/18 08:42 Consult [Physician Consult] Routine Comment: Consulting Provider: Eula Terrazas Consulting Physician: Eula Terrazas Reason for Consult: esophageal ca Time Spent in preparation of Discharge (in minutes): 45 Diagnosis - Discharge Diagnosis (1) Discitis Status: Acute (2) History of esophageal cancer Status: Chronic (3) Presence of tracheostomy Status: Chronic (4) Altered mental status Status: Resolved (5) Dysphagia Status: Chronic (6) Failure to thrive Status: Chronic (7) Unresponsive Status: Resolved Hospital Course - Lab Results Lab Results: Micro Results 06/07/18 18:30 Blood Blood Culture - Final NO GROWTH AFTER 5 DAYS 06/07/18 18:30 Blood Gram Stain - Final TEST NOT PERFORMED 06/07/18 17:15 Blood S.aureus & Coag-Neg Staph PNA FISH - Final TEST NOT PERFORMED 06/07/18 17:15 Blood Blood Culture - Final Actinomyces Odontolyticus 06/07/18 17:15 Blood Gram Stain - Final 06/07/18 17:45 Urine,Armstrong Urine Culture - Final Gram Negative Eugene 06/07/18 18:24 Naris MRSA Culture (Admit) - Final MRSA NOT DETECTED Most Recent Lab Values WBC 14.6 10^3/uL (4.5-11.0) H D 06/15/18 07:00 RBC 3.18 10^6/uL (3.5-6.1) L 06/15/18 07:00 Hgb 10.0 g/dL (14.0-18.0) L 06/15/18 07:00 Hct 30.9 % (42.0-52.0) L 06/15/18 07:00 MCV 97.2 fl (80.0-105.0) 06/15/18 07:00 MCH 31.4 pg (25.0-35.0) 06/15/18 07:00 MCHC 32.4 g/dl (31.0-37.0) 06/15/18 07:00 RDW 15.1 % (11.5-14.5) H 06/15/18 07:00 Plt Count 383 10^3/uL (120.0-450.0) 06/15/18 07:00 MPV 10.4 fl (7.0-11.0) 06/15/18 07:00 Neut % (Auto) 89.6 % (50.0-68.0) H 06/15/18 07:00 Lymph % (Auto) 6.0 % (22.0-35.0) L 06/15/18 07:00 Mercer % (Auto) 4.3 % (1.0-6.0) 06/15/18 07:00 Eos % (Auto) 0.1 % (1.5-5.0) L 06/15/18 07:00 Baso % (Auto) 0.0 % (0.0-3.0) 06/15/18 07:00 Lymph # (Auto) 0.9 (1.2-3.4) L 06/15/18 07:00 Mercer # (Auto) 0.6 (0.1-0.6) 06/15/18 07:00 Eos # (Auto) 0.0 (0.0-0.7) 06/15/18 07:00 Baso # (Auto) 0.00 K/mm3 (0.0-2.0) 06/15/18 07:00 Absolute Neuts (auto) 13.04 (1.4-6.5) H 06/15/18 07:00 Neutrophils % (Manual) 86 % (50.0-70.0) H 06/12/18 07:00 Band Neutrophils % 8 % (0-2) H 06/12/18 07:00 Lymphocytes % (Manual) 2 % (22.0-35.0) L 06/12/18 07:00 Monocytes % (Manual) 4 % (1.0-6.0) 06/12/18 07:00 Toxic Granulation 2+ 06/07/18 18:32 Platelet Evaluation Normal (NORMAL) 06/12/18 07:00 Hypochromasia 2+ 06/07/18 18:32 Rouleaux 2+ 06/07/18 18:32 ESR 80 mm/hr (0.00-15.0) H 06/13/18 07:05 PT 12.7 SECONDS (9.4-12.5) H 06/07/18 16:28 INR 1.14 06/07/18 16:28 APTT 30.2 Seconds (26.9-38.3) 06/07/18 16:28 pCO2 46 mm/Hg (35-45) H 06/12/18 01:20 pO2 81.0 mm/Hg (80-100) 06/12/18 01:20 HCO3 28.5 mmol/L (21-28) H 06/12/18 01:20 ABG pH 7.40 (7.35-7.45) 06/12/18 01:20 ABG Total CO2 29.9 mmol.L (22-28) H 06/12/18 01:20 ABG O2 Saturation 97.9 % (95-98) 06/12/18 01:20 ABG O2 Content 15.6 ML/dl (15-23) 06/12/18 01:20 ABG Base Excess 3.1 mmol/L (-2.0-3.0) H 06/12/18 01:20 ABG Hemoglobin 11.6 g/dL (11.7-17.4) L 06/12/18 01:20 ABG Carboxyhemoglobin 1.8 % (0.5-1.5) H 06/12/18 01:20 POC ABG HHb (Measured) 2.0 % (0-5) 06/12/18 01:20 ABG Methemoglobin 1.3 % (0.0-3.0) 06/12/18 01:20 ABG O2 Capacity 15.9 mL/dl (16-24) L 06/12/18 01:20 ABG Potassium 3.6 mmol/L (3.6-5.2) 06/07/18 18:50 VBG pH 7.32 (7.32-7.43) 06/07/18 22:37 VBG pCO2 58.0 (40-60) 06/07/18 22:37 VBG HCO3 29.9 mmol/l (21-28) H 06/07/18 22:37 VBG Total CO2 31.7 mmol.L (22-28) H 06/07/18 22:37 VBG O2 Sat (Calc) 80.1 % (40-65) H 06/07/18 22:37 VBG Base Excess 2.4 mmol/L (0.0-2.0) H 06/07/18 22:37 VBG Potassium 4.3 mmol/L (3.6-5.2) 06/07/18 22:37 Hgb O2 Saturation 94.9 % (95.0-98.0) L 06/12/18 01:20 Sodium 136.0 mmol/L (132-148) 06/07/18 22:37 Chloride 104.0 mmol/L (98-107) 06/07/18 22:37 Glucose 154 mg/dl (75-110) H 06/07/18 22:37 Lactate 1.1 mmol/L (0.7-2.1) 06/07/18 22:37 Mechanical Rate 25 06/07/18 18:50 FiO2 50.0 % 06/12/18 01:20 Tidal Volume 300 06/07/18 18:50 PEEP 5 06/07/18 18:50 Crit Value Called To Dr torres 06/07/18 15:26 Crit Value Called By Dmitry joe 06/07/18 15:26 Blood Gas Notified Time 1652 06/07/18 15:26 Sodium 138 mmol/L (132-148) 06/15/18 07:00 Potassium 3.7 mmol/L (3.6-5.0) 06/15/18 07:00 Chloride 98 mmol/L (98-107) 06/15/18 07:00 Carbon Dioxide 36 mmol/L (21-33) H 06/15/18 07:00 Anion Gap 7 (10-20) L 06/15/18 07:00 BUN 25 mg/dL (7-21) H 06/15/18 07:00 Creatinine 0.4 mg/dl (0.8-1.5) L 06/15/18 07:00 Est GFR ( Amer) > 60 06/15/18 07:00 Est GFR (Non-Af Amer) > 60 06/15/18 07:00 POC Glucose (mg/dL) 195 mg/dL (65-110) H 06/15/18 21:05 Random Glucose 130 mg/dL (70-110) H 06/15/18 07:00 Hemoglobin A1c 7.0 % (4.2-6.5) H 06/07/18 14:12 Calcium 8.4 mg/dL (8.4-10.5) 06/15/18 07:00 Phosphorus 3.7 mg/dL (2.5-4.5) 06/08/18 05:30 Magnesium 2.0 mg/dL (1.7-2.2) 06/08/18 05:30 Total Bilirubin 0.3 mg/dL (0.2-1.3) 06/12/18 07:00 AST 38 U/L (17-59) 06/12/18 07:00 ALT 38 U/L (7-56) 06/12/18 07:00 Alkaline Phosphatase 82 U/L (38-126) 06/12/18 07:00 Lactate Dehydrogenase 508 U/L (333-699) 06/09/18 05:30 Total Creatine Kinase 102 U/L (35-230) 06/09/18 05:30 Troponin I 0.07 ng/mL D 06/09/18 05:30 C-Reactive Protein 88.60 mg/L (0.0-9.9) H 06/14/18 07:25 NT-Pro-B Natriuret Pep 271 pg/mL (0-450) 06/07/18 14:12 Total Protein 6.3 g/dL (5.8-8.3) 06/12/18 07:00 Albumin 3.1 g/dL (3.0-4.8) 06/12/18 07:00 Globulin 3.2 gm/dL 06/12/18 07:00 Albumin/Globulin Ratio 1.0 (1.1-1.8) L 06/12/18 07:00 Triglycerides 51 mg/dL (35-160) 06/07/18 14:12 Cholesterol 113 mg/dL (130-200) L 06/07/18 14:12 LDL Cholesterol Direct 52 mg/dL (0-129) 06/07/18 14:12 HDL Cholesterol 45 mg/dL (29-60) 06/07/18 14:12 Procalcitonin 1.52 NG/ML (0.19-0.49) H 06/07/18 18:32 Arterial Blood Potassium 3.6 mmol/L (3.6-5.2) 06/07/18 18:50 Venous Blood Potassium 4.3 mmol/L (3.6-5.2) 06/07/18 22:37 Urine Color Yellow (YELLOW) 06/07/18 20:50 Urine Appearance Clear (CLEAR) 06/07/18 20:50 Urine pH 5.5 (4.7-8.0) 06/07/18 20:50 Ur Specific [place] 1.010 (1.005-1.035) 06/07/18 20:50 Urine Protein Negative mg/dL (<30 mg/dL) 06/07/18 20:50 Urine Glucose (UA) Negative mg/dL (NEGATIVE) 06/07/18 20:50 Urine Ketones Trace mg/dL (NEGATIVE) H 06/07/18 20:50 Urine Blood Small (NEGATIVE) H 06/07/18 20:50 Urine Nitrate Negative (NEGATIVE) 06/07/18 20:50 Urine Bilirubin Negative (NEGATIVE) 06/07/18 20:50 Urine Urobilinogen 0.2 E.U./dL (<1 E.U./dL) 06/07/18 20:50 Ur Leukocyte Esterase Trace Lizette/uL (NEGATIVE) H 06/07/18 20:50 Urine RBC 15 - 20 /hpf (0-2) H 06/07/18 20:50 Urine WBC 2 - 5 /hpf (0-6) 06/07/18 20:50 Ur Epithelial Cells 4 - 5 /hpf (0-5) 06/07/18 20:50 Blood Type AB POSITIVE 06/07/18 14:12 Antibody Screen Negative 06/07/18 14:12 BBK History Checked Patient has bt 06/07/18 14:12 - Hospital Course Hospital Course: Pt is a 78 yo M with pmhx of BPH and esophageal cancer s/p chemo and radiation in 1999 and s/p neck mass resection in 2000 who presents to the [facility] ED via EMS for AMS and unresponsiveness. Pts family is bedside and is able to provide history as pt is currently intubated. Pts family state that they were at home and the pt came out of the shower and went to lay down. The family then noted that shortly after this the pts breathing became labored and the pt became a ltered. The family also noted that the pt was cold when they touched him and decided to call EMS. In the ED pt was brought in and noted to be cyanotic and unresponsive. Pt was intubated and then had a code stroke called and went for head CT. Pt was then given a trial of pressor support which he tolerated well, was AOx3 at the time and the decision was made to extubate pt. Pt after some time became diaphoretic and the decision was made to placed a tracheostomy. After tracheostomy placement, pt was taken to ICU. In the course of his hospital stay, Brain MRI: There is a single small area of restricted diffusion in the left parietal lobe cortex measuring 3 mm in diameter. This is consistent with an acute infarct. Probably too small to be related to patient's symptoms. CT head showed no acute intracranial findings. Head/Neck CTA showed no evidence of hemodynamically significant stenosis in the internal carotid arteries. Echo with normal bubble study. CXR showed lLeft lateral lobe opacity. Areas of atelactasis on right lung. Bilateral mild pleural effusions. Patient's hospital stay was complicated with disciitis. Cervical spine MRI showed there is evidence of disc space infection at C6-7. There is edema within the disc space and irregularity and destruction of the vertebral endplates. There is marrow edema and a anterior paraspinal mass. There is no cord compression. CT scan neck showed possible discitis vs osteo. Patient was treated with zosyn and vancomycin. ENT consulted, Dr. Lao; ID consulted, Dr. Azevedo; Heme/onc consulted, Dr. Terrazas; Surgery consulted, Dr. Martinez. Patient's oncologist, Dr. Zak Bland in [facility] was contacted and it was decided that the patient was to be transferred to [facility] for higher level of care. Patient was stable and was transferred to [facility] on 06/16/2018. Discharge Exam - Additional Findings Additional findings: - Constitutional Appears: no acute distress, Chronically Ill - Head Exam Head Exam: ATRAUMATIC, NORMAL INSPECTION, NORMOCEPHALIC - Eye Exam Eye Exam: Irregularly shaped pupil in right eye. EOMI, PERRL - Neck Exam Neck Exam: Tracheostomy collar in place - Respiratory Exam Respiratory Exam: absent: Accessory Muscle Use, Decreased Breath Sounds, Rales, Rhonchi, Respiratory Distress, Stridor Upper airways sound congested, improved from yesterday - Cardiovascular Exam Cardiovascular Exam: +S1, +S2. absent: Gallop, Rubs - GI/Abdominal Exam GI & Abdominal Exam: Normal Bowel Sounds, Soft. absent: Distended, Firm G tube in place, no draining/bleeding noted around tube - Extremities Exam Extremities exam: Negative for: pedal edema - Neurological Exam Neurological exam: AAOx3, Responsive to questions, following commands - Skin Skin Exam: Dry, Pallor Discharge Plan - Follow Up Plan Condition: CRITICAL Disposition: [facility] Referrals: Ryan Domingo MD [Primary Care Provider] - Follow up with primary
== END 2018-06-16 02:33 | DRG 166 ==
LOC: ED 13:48 → ERH 15:26 → CCU 17:25 → 2RSO 06-10 19:56 → UNDODISIN 06-12 14:43 → 5RSO 06-13 10:34
PROVIDERS: ADMIT Internal Medicine; ATTEND Internal Medicine
PROC: 5A1945Z Respiratory Ventilation, 24-96 Consecutive Hours (ICD-10-PCS; principal; 2018-06-07)
PROC: 0BB Respiratory System, Excision (ICD-10-PCS; 2018-06-07)
PROC: 0BH17EZ Insertion of Endotracheal Airway into Trachea, Via Natural or Artificial Opening (ICD-10-PCS; 2018-06-07)
PROC: 05H633Z Insertion of Infusion Device into Left Subclavian Vein, Percutaneous Approach (ICD-10-PCS; 2018-06-07)
PROC: B547ZZA Ultrasonography of Left Subclavian Vein, Guidance (ICD-10-PCS; 2018-06-07)
DX: J96.01 Acute respiratory failure with hypoxia (principal); J69.0 Pneumonitis due to inhalation of food and vomit; I63.40 Cerebral infarction due to embolism of unspecified cerebral artery; J98.19 Other pulmonary collapse; G93.40 Encephalopathy, unspecified; J98.11 Atelectasis; N17.9 Acute kidney failure, unspecified; J96.02 Acute respiratory failure with hypercapnia; R62.7 Adult failure to thrive; R13.10 Dysphagia, unspecified; J39.2 Other diseases of pharynx; R22.1 Localized swelling, mass and lump, neck; R74.8 Abnormal levels of other serum enzymes; N40.0 Benign prostatic hyperplasia without lower urinary tract symptoms; R41.82 Altered mental status, unspecified; I67.2 Cerebral atherosclerosis; T88.4XXA Failed or difficult intubation, initial encounter; Z85.21 Personal history of malignant neoplasm of larynx; Z92.3 Personal history of irradiation; Z92.21 Personal history of antineoplastic chemotherapy; J04.30 Supraglottitis, unspecified, without obstruction; Z85.01 Personal history of malignant neoplasm of esophagus; F17.200 Nicotine dependence, unspecified, uncomplicated; H91.90 Unspecified hearing loss, unspecified ear; I51.7 Cardiomegaly; M46.40 Discitis, unspecified, site unspecified; T17.990A Other foreign object in respiratory tract, part unspecified in causing asphyxiation, initial encounter; Z79.02 Long term (current) use of antithrombotics/antiplatelets; Z79.899 Other long term (current) drug therapy; Z88.6 Allergy status to analgesic agent; Z93.0 Tracheostomy status